=== PATIENT | male | born 1935 | race Caucasian/White ===

== ENCOUNTER 2020-08-08 16:26 | Outpatient (REF) | payer MEDICARE, SELFPAY ==
[2020-08-08 18:49] LABS: Cholesterol 164 mg/dL; HDL Cholesterol 37 mg/dL; LDL Cholesterol Calculated 52 mg/dl; Triglycerides 379 mg/dL
[2020-08-10 02:32] LABS: LDL Cholesterol Direct 87 mg/dL (<100)
== END 2020-08-08 16:27 | disposition home or self-care (01) ==
LOC: HO.LAB 16:26
PROVIDERS: PCP Internal Medicine; Visit Provider Internal Medicine Endocrinology, Diabetes & Metabolism
DX: E78.5 Hyperlipidemia, unspecified (principal)
CPT/HCPCS: 80061; 83721

== ENCOUNTER → 2020-08-15 13:18 | Outpatient (BNVA) | payer MEDICARE, SELFPAY | PROVIDERS: PCP Internal Medicine; Referring Provider Internal Medicine; Visit Provider Internal Medicine Endocrinology, Diabetes & Metabolism | DX: Z13.89 Encounter for screening for other disorder (principal) | CPT/HCPCS: 99213 ==

== ENCOUNTER 2020-08-30 15:47 | Outpatient (REF) | payer MEDICARE, SELFPAY ==
--- NOTE | 2020-08-30 15:54 | XR_ITS ---
EXAMINATION: XR CHEST CLINICAL INFORMATION: Hyperlipidemia. COMPARISON: None TECHNIQUE: 2 views of the chest were obtained. FINDINGS: The lungs are well-expanded with patchy atelectatic changes in left lung base. Heart size and pulmonary vascularity is normal. There is evidence of previous CABG. There are pacer electrodes in right atrium and right ventricle. No gross bony abnormality seen. XR/XR chest 2V IMPRESSION: Patchy atelectatic changes left lung base.
== END 2020-08-30 15:48 | disposition home or self-care (01) ==
LOC: HO.HMGCX 15:47
PROVIDERS: PCP Internal Medicine; Visit Provider Hospitalist
DX: E78.5 Hyperlipidemia, unspecified (principal)
CPT/HCPCS: 71046

== ENCOUNTER 2020-09-24 11:42 | Outpatient (REF) | payer MEDICARE, SELFPAY ==
--- NOTE | 2020-09-24 11:48 | XR_ITS ---
EXAMINATION: XR CHEST CLINICAL INFORMATION: E78.5 - Hyperlipidemia, unspecified COMPARISON: Chest radiographs 08/30/2020, 07/25/2020 TECHNIQUE: 2 views of the chest were obtained. FINDINGS: There are postsurgical changes with mediastinal clips and sternotomy wires and pacemaker with 3 leads similar to prior studies. The heart is normal in size. Tapering cardiac apex is again noted as incidental finding. The vascularity is normal. There is no lobar or segmental airspace consolidation or groundglass opacity. Some accentuated bronchovascular markings right perihilar region are stable. The hilar and mediastinal contours and bony structures are unremarkable. XR/XR chest 2V IMPRESSION: Unremarkable examination.
== END 2020-09-24 11:43 | disposition home or self-care (01) ==
LOC: HO.HMGCX 11:42
PROVIDERS: PCP Internal Medicine; Visit Provider Hospitalist
DX: Z13.89 Encounter for screening for other disorder (principal)
CPT/HCPCS: 71046

== ENCOUNTER 2020-09-24 12:23 | Outpatient (REF) | payer MEDICARE, SELFPAY ==
[2020-09-24 16:57] LABS: Influenza A PCR NEGATIVE (Negative); Influenza B PCR NEGATIVE (Negative); Resp Syncy Virus RNA Qual PCR NEGATIVE (Negative); SARS COV2 PCR INHOUSE NEGATIVE (Negative)
== END 2020-09-24 12:24 | disposition home or self-care (01) ==
LOC: HO.LAB 12:23
PROVIDERS: Visit Provider Hospitalist
DX: B34.9 Viral infection, unspecified (principal); E78.5 Hyperlipidemia, unspecified; Z20.828 Contact with and (suspected) exposure to other viral communicable diseases
CPT/HCPCS: 0241U; 71046

== ENCOUNTER 2020-10-09 16:24 | Outpatient (REF) | payer MEDICARE, SELFPAY ==
[2020-10-09 17:21] LABS: MANUAL DIFF FLAG NO
[2020-10-09 17:24] LABS: Basophils Percent Auto 0.2 % (0-2); Eosinophils Absolute Auto 0.4 X10*3/uL (0.0-0.4); Eosinophils Percent Auto 3.2 % (0-4); Hematocrit 48.7 % (42-52); Hemoglobin 15.1 g/dl (14.0-18.0); Imm Gran Abs Auto 0.04 X10*3/uL (0.00-0.03); Imm Gran Pct Auto 0.4 % (0.0-0.4); Lymphocytes Absolute Auto 1.4 X10*3/uL (1.2-4.9); Lymphocytes Percent Auto 12.8 % (20-40); Mean Corpuscular Hemoglobin 28.9 pg (27.0-33.0); Mean Corpuscular Volume 93.3 fL (80-98); Mean Platelet Volume 8.7 fL (9.4-12.4); Monocytes Absolute Auto 1.2 X10*3/uL (0.1-1.2); Monocytes Percent Auto 10.7 % (2-11); Neutrophils Absolute Auto 8.1 X10*3/uL (2.0-8.3); Neutrophils Percent Auto 72.7 % (45-73); Platelet Count 159 X10*3/uL (160-400); Red Blood Count 5.22 X10*6/uL (4.60-5.80); Red Cell Distribution Width 13.7 % (11.0-16.0); White Blood Count 11.1 X10*3/uL (4.8-10.8)
[2020-10-09 17:46] LABS: Anion Gap 12 (12-20); Carbon Dioxide 36 mmol/L (22-29); Chloride 99 mmol/L (96-108); Potassium 4.5 mmol/l (3.3-5.1); Sodium 142 mmol/L (135-145)
== END 2020-10-09 16:25 | disposition home or self-care (01) ==
LOC: HO.LAB 16:24
PROVIDERS: PCP Internal Medicine; Visit Provider Internal Medicine Hypertension Specialist
DX: E78.00 Pure hypercholesterolemia, unspecified (principal); I12.9 Hypertensive chronic kidney disease with stage 1 through stage 4 chronic kidney disease, or unspecified chronic kidney disease; N18.30 Chronic kidney disease, stage 3 unspecified
CPT/HCPCS: 36415; 80051; 85025

== ENCOUNTER 2020-12-14 14:13 | Outpatient (REF) | payer MEDICARE, SELFPAY ==
--- NOTE | ~2020-12-14 | XR_ITS ---
EXAMINATION: XR CHEST CLINICAL INFORMATION: Cough COMPARISON: 09/24/2020 TECHNIQUE: 2 views of the chest were obtained. FINDINGS: No focal consolidation or mass. Similar appearance of reticular opacities at the lung bases. 2-lead pacemaker with contiguous, intact leads, unchanged change from prior study. Sternal wires and mediastinal vascular clips. Normal heart size. Unchanged retrocardiac hiatal hernia. Normal pulmonary vascularity. No acute osseous abnormality. XR/XR chest 2V IMPRESSION: No acute pulmonary disease. No significant change from prior study.
== END 2020-12-14 14:14 | disposition home or self-care (01) ==
LOC: HO.HMGCX 14:13
PROVIDERS: PCP Internal Medicine; Visit Provider Internal Medicine
DX: R05 Cough (principal)
CPT/HCPCS: 71046

== ENCOUNTER 2021-01-09 14:04 | Outpatient (REF) | payer MEDICARE, SELFPAY ==
--- NOTE | ~2021-01-09 | XR_ITS ---
EXAMINATION: XR HAND, RIGHT CLINICAL INFORMATION: Pain COMPARISON: None TECHNIQUE: PA, lateral, and oblique views of the right hand. FINDINGS: Bone alignment is normal. No fracture or dislocation is seen. The joint spaces are normal. There is soft tissue arterial calcification. XR/XR hand RT min 3V IMPRESSION: Unremarkable exam.
== END 2021-01-09 14:05 | disposition home or self-care (01) ==
LOC: HO.HMGCX 14:04
PROVIDERS: PCP Internal Medicine; Visit Provider Hospitalist
DX: M79.641 Pain in right hand (principal)
CPT/HCPCS: 73130

== ENCOUNTER 2021-02-02 09:20 | Outpatient (REF) | payer MEDICARE, SELFPAY ==
[2021-02-02 10:43] LABS: Alanine Aminotransferase 22 U/L (0-40); Anion Gap 15 (12-20); Aspartate Amino Transferase 17 U/L (5-37); Blood Urea Nitrogen 26 mg/dL (9-16); Carbon Dioxide 30 mmol/L (22-29); Chloride 101 mmol/L (96-108); Cholesterol 185 mg/dL; Estimated Glomerular Filt Rate 45; Glucose Fasting 99 mg/dL (60-99); HDL Cholesterol 45 mg/dL; LDL Cholesterol Calculated 92 mg/dl; Potassium 4.5 mmol/L (3.3-5.1); Sodium 141 mmol/L (135-145); Triglycerides 242 mg/dL
== END 2021-02-02 09:21 | disposition home or self-care (01) ==
LOC: HO.LAB 09:20
PROVIDERS: PCP Internal Medicine; Visit Provider Internal Medicine
DX: I12.9 Hypertensive chronic kidney disease with stage 1 through stage 4 chronic kidney disease, or unspecified chronic kidney disease (principal); N18.9 Chronic kidney disease, unspecified; E78.5 Hyperlipidemia, unspecified; I25.10 Atherosclerotic heart disease of native coronary artery without angina pectoris; I73.9 Peripheral vascular disease, unspecified
CPT/HCPCS: 36415; 80048; 80061; 84450; 84460

== ENCOUNTER → 2021-02-05 15:15 | Outpatient (BNVA) | payer MEDICARE, SELFPAY | PROVIDERS: PCP Internal Medicine; Visit Provider Internal Medicine Endocrinology, Diabetes & Metabolism | DX: E78.5 Hyperlipidemia, unspecified (principal) | CPT/HCPCS: 99212 ==

== ENCOUNTER 2021-07-07 10:50 | Inpatient (IN) | payer MEDICARE, SELFPAY ==
--- NOTE | 2021-07-07 | ECG_ITS ---
Test Reason : FEVER Blood Pressure : / mmHG Vent. Rate : 098 BPM Atrial Rate : 098 BPM P-R Int : 130 ms QRS Dur : 150 ms QT Int : 406 ms P-R-T Axes : 047 -27 097 degrees QTc Int : 518 ms Atrial-sensed ventricular-paced rhythm Abnormal ECG When compared with ECG of 30-MAY-2020 07:07, Vent. rate has increased BY 11 BPM Referred By: Morena Arroyo Electronically Signed By:REINIER PUTNAM
--- NOTE | ~2021-07-07 | XR_ITS ---
EXAMINATION: XR CHEST CLINICAL INFORMATION: Hypoxia and fever COMPARISON: 12/14/2020 TECHNIQUE: Frontal view of the chest was obtained. XR/XR chest 1V FINDINGS AND IMPRESSION: There is a right pectoral region cardiac pacemaker with transvenous leads extending to the right and left ventricles. Cardiac silhouette is normal in size, status post coronary artery bypass graft surgery, with intact sternotomy wires in place. Pulmonary vessels are normal in caliber. New patchy opacities are seen in the right mid to lower lung zone. Given the history of hypoxia and fever, findings are likely caused by pneumonia. No pleural effusion, pneumothorax or other significant change.
--- NOTE | ~2021-07-07 | FL_ITS ---
EXAMINATION: XR BARIUM SWALLOW CLINICAL INFORMATION: Aspiration pneumonia. COMPARISON: None. TECHNIQUE: Routine modified barium swallow was performed in lateral projection in presence of speech therapist. FINDINGS: Following oral administration of thin, thick, solid and various consistencies of in between food-coated with barium, there is normal propagation of bolus from the oral cavity, through the pharynx and into the esophagus without laryngeal penetration or aspiration. No retention of barium seen in the valleculae or piriform sinuses. FLUOROSCOPY TIME: 1.0 minutes. DOSE AREA PRODUCT: 1.571 uGy-m2 (microgray-meter squared). FL/FL barium swallow modified IMPRESSION: Unremarkable modified barium swallow.
[2021-07-07 10:55] VITALS: BP 134/59; BP 157/79; PULSE 104; PULSE 110; RESP 20; TEMP 38.4; O2SAT 92; O2SAT 96; BMI 29.7
--- NOTE | 2021-07-07 11:33 | ED.FEVER ---
HPI - Fever General Chief Complaint: Fever Stated Complaint: fever Time Seen by Provider: 07/07/21 11:08 Source: patient and EMS Mode of arrival: EMS History of Present Illness HPI Narrative: 85-year-old male with past medical history of HTN, GERD, CAD s/p bypass, pacemaker, aspiration pneumonia, HLD, ischemic cardiomyopathy, aspiration pneumonia, BIBA for reported fever this morning 101 per daughter and generalized weakness/fatigue. Denies chills, CP, SOB, abdominal pain, nausea, vomiting, diarrhea, LE edema, recent travel, cough MD elicited complaint: fever Related Data Home Medications Medication Instructions Recorded Confirmed aspirin 81 mg tablet,delayed 81 mg PO DAILY 08/15/20 07/07/21 release (Adult Aspirin Regimen) gabapentin 300 mg capsule 300 mg PO BID cap 08/15/20 07/07/21 metoprolol succinate 50 mg 50 mg PO DAILY 08/15/20 07/07/21 tablet,extended release 24 hr thiamine HCl (vitamin B1) 50 mg 1,000 mg PO DAILY tab 08/15/20 07/07/21 tablet brimonidine 0.2 % eye drops 1 drp OPHTHALMIC-LEFT BID PRN 07/07/21 07/07/21 latanoprost 0.005 % eye drops 1 drp OPHTHALMIC (EYE) BEDTIME PRN 07/07/21 07/07/21 omeprazole 20 mg capsule,delayed 20 mg PO DAILY@0800 07/07/21 07/07/21 release Previous Rx's Medication Instructions Recorded ezetimibe 10 mg tablet 10 mg PO DAILY 90 Days #90 tab 02/05/21 niacin 500 mg tablet 500 mg PO DAILY 90 Days #90 tab 02/05/21 omega-3 fatty acids 1,000 mg 2,000 mg PO BID 90 Days #360 cap 02/05/21 capsule (Fish Oil Concentrate) isosorbide mononitrate 30 mg 30 mg PO DAILY #90 tab 06/05/21 tablet,extended release 24 hr amlodipine 10 mg tablet 10 mg PO DAILY #90 tab 07/03/21 hydrochlorothiazide 25 mg tablet 25 mg PO DAILY #90 tab 07/03/21 Allergies Allergy/AdvReac Type Severity Reaction Status Date / Time [id number] Reductase Allergy Unknown Verified 07/07/21 11:10 Inhibitor Review of Systems Review of Systems: Constitutional: + Fever, No Chills, + Fatigue, No Malaise ENT/Mouth: No Ear Pain, No sore throat, No Rhinorrhea, No Swallowing Difficulty Eyes: No Eye Pain, No Swelling, No Vision Changes Cardiovascular: No Chest Pain, No SOB, No Edema, No Palpitations Respiratory: No Cough, No Sputum, No Dyspnea Gastrointestinal: No Nausea, No Vomiting, No Diarrhea, No Constipation, No Abdominal pain Genitourinary: No Dysuria, No Urinary Frequency, No Hematuria, No Urgency, No Flank Pain Musculoskeletal: No joint pain, No Myalgias, No Joint Swelling Skin: No Skin Lesions, No rash Neuro: + Weakness, No Numbness, No Dizziness, No Headache Yes all other systems are reviewed and are negative [facility] Past Medical History Attestation statement: The following information was validated with the patient. Medical History CAD (coronary artery disease) CHF (congestive heart failure) CKD (chronic kidney disease) Dermatitis Dyslipidemia Hypertension Obesity (BMI 30-39.9) PVD (peripheral vascular disease) Surgical History History of tonsillectomy Pacemaker S/P triple vessel bypass Family History Family History Father Stomach cancer Mother Unknown family medical history Brother No problems noted. Sister Smoker Sister No problems noted. Social History Social History Household Members: Children Housing: House Do you presently have visiting nurse or other home services: No Patient Tobacco Use Status: Former Tobacco user Physical Exam Vital Signs: Vital Signs: Last Vital Signs Temp 97.6 F 07/07/21 18:08 Pulse 84 07/07/21 18:08 Resp 18 07/07/21 18:08 BP 134/78 07/07/21 18:08 Pulse Ox 94 07/07/21 18:08 Oxygen Flow Rate 3 07/07/21 10:55 Body Mass Index 29.7 Const: General: cooperative, healthy appearing and no acute distress Orientation/consciousness: patient oriented x3 Limitations: no limitations HENMT: Head: Yes normal to inspection Ears: hearing grossly normal bilaterally General nose exam: Normal external nose present Face and sinus: Yes normal facial exam Eyes: General: appearance normal, both eyes and all related structures Pupils: Equal, round and reactive pupils present EOM: EOMs intact bilaterally Neck: Neck: Yes normal visual inspection and Yes no meningeal signs Resp: Effort & Inspection: normal respiratory effort Auscultation: clear to auscultation bilaterally and no wheezes Cardio: Rate: regular rate and tachycardic Heart sounds: S1 normal heart sound present and S2 normal heart sound present GI: Inspection: Yes normal to inspection Palpation (GI): Soft to palpation, nontender, no guarding and not rigid Skin: Rashes: no rashes Wounds: no wounds Neuro: General: patient oriented x3, tone normal, moves all extremities, no meningeal signs, no focal motor deficits and CN's II-XI intact bilaterally Cranial nerves: Yes CN's II-XII intact bilaterally and Yes Equal, round and reactive pupils present Cognition (Neuro): normal cognition Motor exam (neuro): 5/5 motor strength present throughout Coordination: [id number] test normal Romberg Test: Negative Extrem: General: Yes normal to inspection and Yes no pedal edema Course Course Course Narrative: -1252--noted leukocytosis of 18.1, acute on chronic GIOVANA, lactic elevated to 2.1 >> avoiding 30mg/kg sepsis fluids to avoid fluid overload secondary to patients hypoxia -1349--COVID-19/influenza/RSV negative XR chest 1V FINDINGS AND IMPRESSION: There is a right pectoral region cardiac pacemaker with transvenous leads extending to the right and left ventricles. Cardiac silhouette is normal in size, status post coronary artery bypass graft surgery, with intact sternotomy wires in place. Pulmonary vessels are normal in caliber. New patchy opacities are seen in the right mid to lower lung zone. Given the history of hypoxia and fever, findings are likely caused by pneumonia. No pleural effusion, pneumothorax or other significant change. >> plan for admission MDM - Fever MDM Narrative Medical decision making narrative: 85-year-old male with past medical history of HTN, GERD, CAD s/p bypass, pacemaker, aspiration pneumonia, HLD, ischemic cardiomyopathy, aspiration pneumonia, BIBA for reported fever this morning 101 per daughter and generalized weakness/fatigue. On exam febrile to 101.2, tachycardic likely from fever, hypoxic 88-89% on RA increased to 94% on 3L NC, NAD/nontoxic appearing, lungs CTA, abdomen soft/nontender, no pedal edema. Concern for pneumonia/aspiration pneumonia with patient's history vs viral syndrome/COVID-19. Lower concern for PE but on differential. Plan: EKG, labs, UA, CXR, blood cultures/lactic, empiric IV antibiotics, anticipated admission Medical Records Attestation: I reviewed the patient's medical records. Lab Data Attestation: I reviewed the patient's lab results. Result diagrams: 07/07/21 11:30 07/07/21 11:30 Labs: Lab Results 07/07/21 07/07/21 07/07/21 Range/Units 11:30 11:30 11:30 WBC 18.1 H (4.8-10.8) X10*3/uL RBC 5.77 (4.60-5.80) X10*6/uL Hgb 17.0 (14.0-18.0) g/dl Hct 51.4 (42-52) % MCV 89.1 (80-98) fL MCH 29.5 (27.0-33.0) pg MCHC 33.1 (31.0-36.0) g/dl RDW 13.2 (11.0-16.0) % Plt Count 125 L (160-400) X10*3/uL MPV 8.2 L (9.4-12.4) fL Immature Gran % (Auto) 0.3 (0.0-0.4) % Neut % (Auto) 90.0 H (45-73) % Lymph % (Auto) 3.3 L (20-40) % [place] % (Auto) 5.7 (2-11) % Eos % (Auto) 0.5 (0-4) % Baso % (Auto) 0.2 (0-2) % Lymph # (Auto) 0.6 L (1.2-4.9) X10*3/uL [place] # (Auto) 1.0 (0.1-1.2) X10*3/uL Eos # (Auto) 0.1 (0.0-0.4) X10*3/uL Baso # (Auto) 0.0 (0.0-0.2) X10*3/uL Abs Immat Gran (auto) 0.06 H (0.00-0.03) X10*3/uL Absolute Neuts (auto) 16.3 H (2.0-8.3) X10*3/uL Absolute Nucleated RBC 0.000 (0.0-0.012) X10*3/uL Nucleated RBC % (auto) 0.0 (0.0-0.2) /100WBC APTT 28.9 (24.1-38.0) SEC Sodium 141 (135-145) mmol/L Potassium 4.6 (3.3-5.1) mmol/L Chloride 103 (96-108) mmol/L Carbon Dioxide 27 (22-29) mmol/L Anion Gap 16 (12-20) BUN 24 H (9-16) mg/dL Creatinine 1.62 H (0.5-1.4) mg/dL Estim Creat Clear Calc 34.4 Estimated GFR 41 Random Glucose 104 (60-115) mg/dL Lactic Acid (0.5-2.0) mmol/L Lactic Acid Fup @ 2Hr (0.5-2.0) mmol/L Calcium 9.5 (8.4-10.2) mg/dL Magnesium 1.6 (1.6-2.6) mg/dL Ferritin 26 (20-250) ng/mL Total Bilirubin 0.6 (0.0-1.0) mg/dL Direct Bilirubin 0.3 (0.0-0.5) mg/dL AST 19 (5-37) U/L ALT 17 (0-40) U/L Alkaline Phosphatase 52 (39-117) U/L Lactate Dehydrogenase 242 (118-273) U/L Troponin I High Sens (<3.5-35.0) ng/L C-Reactive Protein 2.39 H (< or = 0.50) mg/dL B-Natriuretic Peptide (<100) pg/mL Total Protein 6.8 (6.5-8.0) g/dL Albumin 4.0 (3.5-5.0) g/dL Coronavirus (PCR) (Negative) Influenza Type A (PCR) (Negative) Influenza Type B (PCR) (Negative) RSV RNA Qual (PCR) (Negative) 07/07/21 07/07/21 07/07/21 Range/Units 11:30 11:30 11:58 WBC (4.8-10.8) X10*3/uL RBC (4.60-5.80) X10*6/uL Hgb (14.0-18.0) g/dl Hct (42-52) % MCV (80-98) fL MCH (27.0-33.0) pg MCHC (31.0-36.0) g/dl RDW (11.0-16.0) % Plt Count (160-400) X10*3/uL MPV (9.4-12.4) fL Immature Gran % (Auto) (0.0-0.4) % Neut % (Auto) (45-73) % Lymph % (Auto) (20-40) % [place] % (Auto) (2-11) % Eos % (Auto) (0-4) % Baso % (Auto) (0-2) % Lymph # (Auto) (1.2-4.9) X10*3/uL [place] # (Auto) (0.1-1.2) X10*3/uL Eos # (Auto) (0.0-0.4) X10*3/uL Baso # (Auto) (0.0-0.2) X10*3/uL Abs Immat Gran (auto) (0.00-0.03) X10*3/uL Absolute Neuts (auto) (2.0-8.3) X10*3/uL Absolute Nucleated RBC (0.0-0.012) X10*3/uL Nucleated RBC % (auto) (0.0-0.2) /100WBC APTT (24.1-38.0) SEC Sodium (135-145) mmol/L Potassium (3.3-5.1) mmol/L Chloride (96-108) mmol/L Carbon Dioxide (22-29) mmol/L Anion Gap (12-20) BUN (9-16) mg/dL Creatinine (0.5-1.4) mg/dL Estim Creat Clear Calc Estimated GFR Random Glucose (60-115) mg/dL Lactic Acid 2.1 H* (0.5-2.0) mmol/L Lactic Acid Fup @ 2Hr (0.5-2.0) mmol/L Calcium (8.4-10.2) mg/dL Magnesium (1.6-2.6) mg/dL Ferritin (20-250) ng/mL Total Bilirubin (0.0-1.0) mg/dL Direct Bilirubin (0.0-0.5) mg/dL AST (5-37) U/L ALT (0-40) U/L Alkaline Phosphatase (39-117) U/L Lactate Dehydrogenase (118-273) U/L Troponin I High Sens 33.8 (<3.5-35.0) ng/L C-Reactive Protein (< or = 0.50) mg/dL B-Natriuretic Peptide (<100) pg/mL Total Protein (6.5-8.0) g/dL Albumin (3.5-5.0) g/dL Coronavirus (PCR) NEGATIVE (Negative) Influenza Type A (PCR) NEGATIVE (Negative) Influenza Type B (PCR) NEGATIVE (Negative) RSV RNA Qual (PCR) NEGATIVE (Negative) 07/07/21 07/07/21 Range/Units 11:58 14:15 WBC (4.8-10.8) X10*3/uL RBC (4.60-5.80) X10*6/uL Hgb (14.0-18.0) g/dl Hct (42-52) % MCV (80-98) fL MCH (27.0-33.0) pg MCHC (31.0-36.0) g/dl RDW (11.0-16.0) % Plt Count (160-400) X10*3/uL MPV (9.4-12.4) fL Immature Gran % (Auto) (0.0-0.4) % Neut % (Auto) (45-73) % Lymph % (Auto) (20-40) % [place] % (Auto) (2-11) % Eos % (Auto) (0-4) % Baso % (Auto) (0-2) % Lymph # (Auto) (1.2-4.9) X10*3/uL [place] # (Auto) (0.1-1.2) X10*3/uL Eos # (Auto) (0.0-0.4) X10*3/uL Baso # (Auto) (0.0-0.2) X10*3/uL Abs Immat Gran (auto) (0.00-0.03) X10*3/uL Absolute Neuts (auto) (2.0-8.3) X10*3/uL Absolute Nucleated RBC (0.0-0.012) X10*3/uL Nucleated RBC % (auto) (0.0-0.2) /100WBC APTT (24.1-38.0) SEC Sodium (135-145) mmol/L Potassium (3.3-5.1) mmol/L Chloride (96-108) mmol/L Carbon Dioxide (22-29) mmol/L Anion Gap (12-20) BUN (9-16) mg/dL Creatinine (0.5-1.4) mg/dL Estim Creat Clear Calc Estimated GFR Random Glucose (60-115) mg/dL Lactic Acid (0.5-2.0) mmol/L Lactic Acid Fup @ 2Hr 2.0 (0.5-2.0) mmol/L Calcium (8.4-10.2) mg/dL Magnesium (1.6-2.6) mg/dL Ferritin (20-250) ng/mL Total Bilirubin (0.0-1.0) mg/dL Direct Bilirubin (0.0-0.5) mg/dL AST (5-37) U/L ALT (0-40) U/L Alkaline Phosphatase (39-117) U/L Lactate Dehydrogenase (118-273) U/L Troponin I High Sens (<3.5-35.0) ng/L C-Reactive Protein (< or = 0.50) mg/dL B-Natriuretic Peptide 144 H (<100) pg/mL Total Protein (6.5-8.0) g/dL Albumin (3.5-5.0) g/dL Coronavirus (PCR) (Negative) Influenza Type A (PCR) (Negative) Influenza Type B (PCR) (Negative) RSV RNA Qual (PCR) (Negative) Discharge Plan Discharge Clinical Impression: Aspiration pneumonia Qualifiers: Aspiration pneumonia type: unspecified Laterality: right Lung location: middle lobe of lung Qualified Code(s): J69.0 - Pneumonitis due to inhalation of food and vomit Patient Disposition: Admitted As Inpatient Interventions: Admission Worksheet (ED) Last Done: 07/07/21 17:54 Discharge Date/Time: 07/07/21 17:57
[2021-07-07 11:36] LABS: MANUAL DIFF FLAG NO
[2021-07-07] MEDS: 0.9 % Sodium Chloride 500 ML 999 ML IV ×2 (11:36→14:13)
[2021-07-07 11:37] LABS: Basophils Percent Auto 0.2 % (0-2); Eosinophils Absolute Auto 0.1 X10*3/uL (0.0-0.4); Eosinophils Percent Auto 0.5 % (0-4); Hematocrit 51.4 % (42-52); Imm Gran Abs Auto 0.06 X10*3/uL (0.00-0.03); Imm Gran Pct Auto 0.3 % (0.0-0.4); Lymphocytes Absolute Auto 0.6 X10*3/uL (1.2-4.9); Lymphocytes Percent Auto 3.3 % (20-40); Mean Corpuscular HGB Conc 33.1 g/dl (31.0-36.0); Mean Corpuscular Hemoglobin 29.5 pg (27.0-33.0); Mean Corpuscular Volume 89.1 fL (80-98); Mean Platelet Volume 8.2 fL (9.4-12.4); Monocytes Percent Auto 5.7 % (2-11); Neutrophils Absolute Auto 16.3 X10*3/uL (2.0-8.3); Platelet Count 125 X10*3/uL (160-400); Red Blood Count 5.77 X10*6/uL (4.60-5.80); Red Cell Distribution Width 13.2 % (11.0-16.0); White Blood Count 18.1 X10*3/uL (4.8-10.8)
[2021-07-07] MEDS: Acetaminophen 325 MG TABLET 650 MG PO (11:37)
--- NOTE | 2021-07-07 11:39 | PC.NURSE ---
IV established, labs sent, v paced on tele rate 90-low 100s. sat 94-96% on 3lpm via nc, pt denies sob. Skin is hot, flushed. Fluids infusing and tylenol given for fever control.
[2021-07-07 11:50] LABS: Partial Thromboplastin Time 28.9 SEC (24.1-38.0)
[2021-07-07 12:04] LABS: Alanine Aminotransferase 17 U/L (0-40); Alkaline Phosphatase 52 U/L (39-117); Anion Gap 16 (12-20); Aspartate Amino Transferase 19 U/L (5-37); Bilirubin Direct 0.3 mg/dL (0.0-0.5); Bilirubin Total 0.6 mg/dL (0.0-1.0); Blood Urea Nitrogen 24 mg/dL (9-16); Calcium 9.5 mg/dL (8.4-10.2); Carbon Dioxide 27 mmol/L (22-29); Chloride 103 mmol/L (96-108); Creatinine Clr Calc Pharmacy 34.4; Estimated Glomerular Filt Rate 41; Glucose Random 104 mg/dL (60-115); Magnesium 1.6 mg/dL (1.6-2.6); Potassium 4.6 mmol/L (3.3-5.1); Sodium 141 mmol/L (135-145); Total Protein 6.8 g/dL (6.5-8.0)
[2021-07-07 12:07] LABS: Troponin-I High Sensitivity 33.8 ng/L (<3.5-35.0)
[2021-07-07] MEDS: Piperacillin Sodium/Tazobactam 3.375 GM in 0.9 % Sodium Chloride 50 ML IV ×3 (12:29→23:31)
[2021-07-07 12:30] VITALS: BP 120/58; PULSE 86; RESP 18; TEMP 38; O2SAT 95
[2021-07-07 12:35] LABS: B Type Natriuretic Peptide 144 pg/mL (<100)
[2021-07-07 12:36] LABS: Lactic Acid 2.1 mmol/L (0.5-2.0)
[2021-07-07 12:40] LABS: Influenza A PCR NEGATIVE (Negative); Influenza B PCR NEGATIVE (Negative); Resp Syncy Virus RNA Qual PCR NEGATIVE (Negative); SARS COV2 PCR INHOUSE NEGATIVE (Negative)
[2021-07-07 12:47] LABS: C Reactive Protein 2.39 mg/dL (< or = 0.50); Lactate Dehydrogenase 242 U/L (118-273)
[2021-07-07 13:08] LABS: Ferritin 26 ng/mL (20-250)
--- NOTE | 2021-07-07 13:37 | PHA.MEDREC ---
Pharmacy Consult ? Medication Reconciliation Pharmacy has completed the medication reconciliation. Patient reports still using his eye drops whenever he feels like it. There is no claim history for the eye drops. Sabiha Dunlap, AlejandraD
[2021-07-07 14:00] VITALS: BP 124/55; PULSE 82; RESP 16; O2SAT 96
[2021-07-07 14:02] LABS: Reflex Lactate? Lactic Acid Added
--- NOTE | 2021-07-07 15:21 | PM.IMHP ---
History of Present Illness Date of Service: 07/07/21 Chief Complaint: Fever in generalized weakness 85-year-old gentleman past medical history significant for coronary artery disease, chronic kidney disease, CHF who lives at home with son and granddaughter, was noted to have significant weakness this morning unable to get out of bed and stand up, also noted to be febrile, therefore daughter in law called the ambulance and brought him to the emergency room, chest x-ray showed right-sided pneumonia, at present patient feels better but still feels weak, denies chills, he started with cough last night, denies any sick contacts, no recent travel, not on home oxygen, patient has history of recurrent aspiration pneumonia, due to fever leukocytosis lactic acidosis patient will be admitted to [facility] with a diagnosis of sepsis due to pneumonia. Review of Systems Review of Systems: General no headache no dizzines. CVS no chest pain, no palpitation. Respiratory cough no sob. Gastrointestinal no nausea no vomiting, no abdominal pain skin no rash Musculoskeletal no pain Yes all other systems are reviewed and are negative [facility] Medical History CAD (coronary artery disease) CHF (congestive heart failure) CKD (chronic kidney disease) Dermatitis Dyslipidemia Hypertension Obesity (BMI 30-39.9) PVD (peripheral vascular disease) Functional capacity: uses cane/walker Family History Father Stomach cancer Mother Unknown family medical history Brother No problems noted. Sister Smoker Sister No problems noted. Surgical History History of tonsillectomy Pacemaker S/P triple vessel bypass Social History Patient Tobacco Use Status: Former Tobacco user Use of substances other than those prescribed or required for medical reasons: No Advance Directives: No Advance Directives Information Provided: No Ebola Risk: Travel/Contact With Anyone From Affected Area/s: No Meds Allergies Allergy/AdvReac Type Severity Reaction Status Date / Time Mxriawh-Ivp-Tew Reductase Allergy Unknown Verified 07/07/21 11:10 Inhibitor Active Medications: Current Medications Generic Name Dose Route Start Last Admin Trade Name Freq PRN Reason Stop Dose Admin Acetaminophen 650 mg 07/07/21 15:14 Acetaminophen 325 Mg Tablet PO Q6H PRN Pain, Mild (Pain Scale 1-3) Guaifenesin/Dextromethorphan 10 ml 07/07/21 17:00 Guaifenesin Dm 100/10/5 Ml 5 Ml Syrup PO QID [facility] Heparin Sodium (Porcine) 5,000 unit 07/07/21 17:00 Heparin Sodium,Porcine 5,000 Unit/Ml Vial SUBCUT Q12H [facility] Piperacillin Sod/Tazobactam 50 mls @ 100 mls/hr 07/07/21 15:15 Sod 2.25 gm/ Sodium Chloride IV Q6H FANNY Ondansetron HCl 4 mg 07/07/21 15:14 Ondansetron Hcl 4 Mg/2 Ml Vial IVPUSH Q8H PRN Nausea and Vomiting Pharmacy Consult 1 each 07/07/21 11:32 Consult Rx Perform Med Rec MISCELLANE ONCE PRN Consult order Sodium Chloride 3 ml 07/07/21 16:00 0.9 % Sodium Chloride Flush 3 Ml Syringe IVFLUSH QSHIFT [facility] Home Medications Medication Instructions Recorded Confirmed Last Taken Type aspirin 81 mg tablet,delayed 81 mg PO DAILY 08/15/20 07/07/21 07/06/21 History release (Adult Aspirin Regimen) gabapentin 300 mg capsule 300 mg PO BID cap 08/15/20 07/07/21 07/06/21 History metoprolol succinate 50 mg 50 mg PO DAILY 08/15/20 07/07/21 07/06/21 History tablet,extended release 24 hr thiamine HCl (vitamin B1) 50 mg 1,000 mg PO DAILY tab 08/15/20 07/07/21 07/06/21 History tablet brimonidine 0.2 % eye drops 1 drp OPHTHALMIC-LEFT BID PRN 07/07/21 07/07/21 Unknown History latanoprost 0.005 % eye drops 1 drp OPHTHALMIC (EYE) BEDTIME PRN 07/07/21 07/07/21 Unknown History omeprazole 20 mg capsule,delayed 20 mg PO DAILY@0800 07/07/21 07/07/21 07/06/21 History release Physical Exam Vital Signs and Narrative: Vital Signs: Last Vital Signs Temp 100.4 F 07/07/21 12:30 Pulse 82 07/07/21 14:00 Resp 16 07/07/21 14:00 BP 124/55 L 07/07/21 14:00 Pulse Ox 96 07/07/21 14:00 Oxygen Flow Rate 3 07/07/21 10:55 Body Mass Index 29.7 General alert oriented x3,no acute distress. Neck is supple no JVD. CVS regular rate rhythm, no murmurs Right anterior chest wall pacemaker in place, no erythema or tenderness Respiratory lungs right basilar rhonchi, no respiratory distress, no wheeze, no use of accessory muscles Gastrointestinal abdomen soft, nontender, bowel sounds audible, no guarding , no rigidity. Extremities no clubbing cyanosis or edema. Neuro nonfocal ,speech clear. Skin no rash Psych appropriate affect Results Labs CBC and Chem 7: 07/07/21 11:30 07/07/21 11:30 Labs: Laboratory Results - last 24 hr 07/07/21 07/07/21 07/07/21 11:30 11:30 11:30 MCV 89.1 MCH 29.5 MCHC 33.1 RDW 13.2 Plt Count 125 L MPV 8.2 L Immature Gran % (Auto) 0.3 Neut % (Auto) 90.0 H Lymph % (Auto) 3.3 L [place] % (Auto) 5.7 Eos % (Auto) 0.5 Baso % (Auto) 0.2 Lymph # (Auto) 0.6 L [place] # (Auto) 1.0 Eos # (Auto) 0.1 Baso # (Auto) 0.0 Abs Immat Gran (auto) 0.06 H Absolute Neuts (auto) 16.3 H Absolute Nucleated RBC 0.000 Nucleated RBC % (auto) 0.0 APTT 28.9 Anion Gap 16 Estim Creat Clear Calc 34.4 Estimated GFR 41 Random Glucose 104 Lactic Acid Lactic Acid Fup @ 2Hr Calcium 9.5 Magnesium 1.6 Ferritin 26 Total Bilirubin 0.6 Direct Bilirubin 0.3 AST 19 ALT 17 Alkaline Phosphatase 52 Lactate Dehydrogenase 242 Troponin I High Sens C-Reactive Protein 2.39 H B-Natriuretic Peptide Total Protein 6.8 Albumin 4.0 Coronavirus (PCR) Influenza Type A (PCR) Influenza Type B (PCR) RSV RNA Qual (PCR) 07/07/21 07/07/21 07/07/21 11:30 11:30 11:58 MCV MCH MCHC RDW Plt Count MPV Immature Gran % (Auto) Neut % (Auto) Lymph % (Auto) [place] % (Auto) Eos % (Auto) Baso % (Auto) Lymph # (Auto) [place] # (Auto) Eos # (Auto) Baso # (Auto) Abs Immat Gran (auto) Absolute Neuts (auto) Absolute Nucleated RBC Nucleated RBC % (auto) APTT Anion Gap Estim Creat Clear Calc Estimated GFR Random Glucose Lactic Acid 2.1 H* Lactic Acid Fup @ 2Hr Calcium Magnesium Ferritin Total Bilirubin Direct Bilirubin AST ALT Alkaline Phosphatase Lactate Dehydrogenase Troponin I High Sens 33.8 C-Reactive Protein B-Natriuretic Peptide Total Protein Albumin Coronavirus (PCR) NEGATIVE Influenza Type A (PCR) NEGATIVE Influenza Type B (PCR) NEGATIVE RSV RNA Qual (PCR) NEGATIVE 07/07/21 07/07/21 11:58 14:15 MCV MCH MCHC RDW Plt Count MPV Immature Gran % (Auto) Neut % (Auto) Lymph % (Auto) [place] % (Auto) Eos % (Auto) Baso % (Auto) Lymph # (Auto) [place] # (Auto) Eos # (Auto) Baso # (Auto) Abs Immat Gran (auto) Absolute Neuts (auto) Absolute Nucleated RBC Nucleated RBC % (auto) APTT Anion Gap Estim Creat Clear Calc Estimated GFR Random Glucose Lactic Acid Lactic Acid Fup @ 2Hr 2.0 Calcium Magnesium Ferritin Total Bilirubin Direct Bilirubin AST ALT Alkaline Phosphatase Lactate Dehydrogenase Troponin I High Sens C-Reactive Protein B-Natriuretic Peptide 144 H Total Protein Albumin Coronavirus (PCR) Influenza Type A (PCR) Influenza Type B (PCR) RSV RNA Qual (PCR) Imaging Radiologist's Impressions: Impressions Chest X-Ray 07/07/21 13:28 FINDINGS AND IMPRESSION: There is a right pectoral region cardiac pacemaker with transvenous leads extending to the right and left ventricles. Cardiac silhouette is normal in size, status post coronary artery bypass graft surgery, with intact sternotomy wires in place. Pulmonary vessels are normal in caliber. New patchy opacities are seen in the right mid to lower lung zone. Given the history of hypoxia and fever, findings are likely caused by pneumonia. No pleural effusion, pneumothorax or other significant change. Assessment and Plan (1) Aspiration pneumonia: Qualifiers: Aspiration pneumonia type: unspecified Laterality: right Lung location: middle lobe of lung Qualified Code(s): J69.0 - Pneumonitis due to inhalation of food and vomit Status: Acute (2) Hypertension: Qualifiers: Hypertension type: essential hypertension Qualified Code(s): I10 - Essential (primary) hypertension Status: Acute (3) CAD (coronary artery disease): Qualifiers: Coronary Disease-Associated Artery/Lesion type: [place] artery [place] vs. transplanted heart: [place] heart Associated angina: without angina Qualified Code(s): I25.10 - Atherosclerotic heart disease of [place] coronary artery without angina pectoris Status: Acute (4) CKD (chronic kidney disease): Status: Acute (5) Dyslipidemia: Status: Acute (6) Sepsis: Status: Acute 85-year-old male with past medical history hypertension GERD coronary artery disease status post bypass, pacemaker, history of aspiration pneumonia, history of ischemic cardiomyopathy was brought into [facility] due to generalized weakness and fever and diagnosed to have sepsis with pneumonia Sepsis with right-sided pneumonia Symptoms started overnight with cough, weakness and fever, patient met sepsis criteria due to fever, leukocytosis and lactic acidosis, no hypoxia Admitted to medical floor, continue IV Zosyn to cover anaerobes, add schedule cough medication, oxygen to keep finger oximetry greater than 94 Follow 2 set of blood cultures and lactic acid Follow BMP and CBC Coronary artery disease Stable, continue home medication, amlodipine, isosorbide and metoprolol, hold hydrochlorothiazide avoid hypotension, paced rhythm. Chronic kidney disease stable DVT prophylaxis place on Lovenox Code status full code Quality Stroke Does the patient have a stroke diagnosis?: No VTE Prior VTE?: No VTE Risk Level:: Medical - moderate - high VTE Device Contraindication: Treatment Not Indicated VTE Drug Contraindication: N/A - Med Ordered
[2021-07-07 15:55] VITALS: BP 131/65; PULSE 80; RESP 16; TEMP 37.6; O2SAT 98
--- NOTE | 2021-07-07 17:34 | PC.NURSE ---
Report given to M/S RN.
[2021-07-07 18:08] VITALS: BP 134/78; PULSE 84; RESP 18; TEMP 36.4; O2SAT 94
[2021-07-07] MEDS: Heparin Sodium,Porcine 5,000 UNIT/ML VIAL 5000 UNIT SUBCUT (18:29)
[2021-07-07] MEDS: guaiFENesin DM 100/10/5 ML 5 ML SYRUP 10 ML PO ×2 (18:29→19:26)
[2021-07-07] MEDS: 0.9 % Sodium Chloride Flush 3 ML SYRINGE IVFLUSH ×3 (18:29→23:31)
[2021-07-07] MEDS: Gabapentin 300 MG CAPSULE PO (19:26)
[2021-07-07 19:40] VITALS: BMI 29.2
[2021-07-08] VITALS (9 sets, daily range): BP systolic 123–157; BP diastolic 65–79; PULSE 73–83; RESP 16–20; TEMP 36.2–37.6; O2SAT 91–94
[2021-07-08 05:51] LABS: MANUAL DIFF FLAG NO
[2021-07-08 05:55] LABS: Basophils Percent Auto 0.2 % (0-2); Eosinophils Absolute Auto 0.2 X10*3/uL (0.0-0.4); Eosinophils Percent Auto 1.1 % (0-4); Hematocrit 44.6 % (42-52); Hemoglobin 14.3 g/dl (14.0-18.0); Imm Gran Abs Auto 0.05 X10*3/uL (0.00-0.03); Imm Gran Pct Auto 0.3 % (0.0-0.4); Mean Corpuscular HGB Conc 32.1 g/dl (31.0-36.0); Mean Corpuscular Hemoglobin 29.1 pg (27.0-33.0); Mean Corpuscular Volume 90.7 fL (80-98); Mean Platelet Volume 8.8 fL (9.4-12.4); Monocytes Percent Auto 7.1 % (2-11); Neutrophils Absolute Auto 12.3 X10*3/uL (2.0-8.3); Neutrophils Percent Auto 84.3 % (45-73); Red Blood Count 4.92 X10*6/uL (4.60-5.80); Red Cell Distribution Width 13.4 % (11.0-16.0); White Blood Count 14.6 X10*3/uL (4.8-10.8)
[2021-07-08 06:15] LABS: Platelet Count 98 X10*3/uL (160-400)
[2021-07-08] MEDS: Heparin Sodium,Porcine 5,000 UNIT/ML VIAL 5000 UNIT SUBCUT ×2 (06:24→17:18)
[2021-07-08] MEDS: Piperacillin Sodium/Tazobactam 3.375 GM in 0.9 % Sodium Chloride 50 ML IV ×3 (06:24→19:28)
[2021-07-08 06:36] LABS: Anion Gap 13 (12-20); Blood Urea Nitrogen 24 mg/dL (9-16); Calcium 8.3 mg/dL (8.4-10.2); Carbon Dioxide 27 mmol/L (22-29); Chloride 105 mmol/L (96-108); Creatinine Clr Calc Pharmacy 35.2; Estimated Glomerular Filt Rate 42; Glucose Random 95 mg/dL (60-115); Potassium 4.2 mmol/L (3.3-5.1); Sodium 141 mmol/L (135-145)
[2021-07-08] MEDS: Isosorbide Mononitrate 30 MG TAB.ER.24H PO (08:17)
[2021-07-08] MEDS: Metoprolol Succinate ER 50 MG TAB.ER.24H PO (08:17)
[2021-07-08] MEDS: Ezetimibe 10 MG TABLET PO (08:17)
[2021-07-08] MEDS: guaiFENesin DM 100/10/5 ML 5 ML SYRUP 10 ML PO ×4 (08:17→20:14)
[2021-07-08] MEDS: Gabapentin 300 MG CAPSULE PO ×2 (08:17→19:28)
[2021-07-08] MEDS: Omeprazole 20 MG CAPSULE.DR PO (08:17)
[2021-07-08] MEDS: Aspirin Enteric Coated 81 MG TABLET.DR PO (08:17)
[2021-07-08] MEDS: amLODIPine Besylate 10 MG TABLET PO (08:17)
[2021-07-08] MEDS: 0.9 % Sodium Chloride Flush 3 ML SYRINGE IVFLUSH ×3 (08:18→20:16)
--- NOTE | 2021-07-08 09:29 | MHC.CM.PN ---
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 D/C PLAN: HOME SELF-CARE, SON OR DTR IN LAW TO TRANSPORT. PCP: SHAUN WILKS SURROGATE/POA: RODNEY SHEPARD [phone] ALTERNATE: JANETT SHEPARD [phone],
[2021-07-08 09:53] LABS: Procalcitonin 0.57 ng/mL
--- NOTE | 2021-07-08 11:42 | MHC.SL.SWA ---
Speech Pathologist Impression: Risk of Aspiration Oralpharyngeal Dysphagia Risk of Aspiration Due to: History of Pneumonia Dysphasia Diet Status: Downgrade Liquid Consistency and Strategies for Safe Swallow: Liquid Intake Recommendation: Thin Liquid Intake Strategies: Small Sips No Straws Solid Food Consistency: Dietary Recommendations: Chopped/Advanced (NDD3) Additional Modifications to Solid Foods: Recommend CHOPPED/ADVANCED (NDD3) solids and THIN liquids with pills WHOLE in PUREE. Patient is recommended aspiration precautions: no straws, upright 90 degree position when eating/drinking, small bites/sips, moisten food with sauce/gravy, alternate bite of food with sip of liquid. TENDER COORDINATOR will continue to follow. Oral Medication Intake: Whole with Puree Compensatory Strategies and Precautions to be Taken for Safe Swallow: Sitting Upright (90 deg) No Straw Small Bites and Sips Alternate Liquids/Solids Rate of Ingestion Change Supervision While Eating and Drinking for Safe Swallow: Intermittent Supervision Swallowing Recommended Treatments: Compens. Strategy Educat. Recommendation for Speech: Inpatient Speech Therapy Modified Barium Swallow Study - Inpatient Modified Barium Swallow Study - Outpatient Comment: Recommend intermittent supervision and aspiration precautions. No overt s/s of aspiration at bedside. Given history of aspiration pneumonia, patient may benefit from MBSS during inpatient stay or in outpatient setting to rule in/out silent aspiration. Title I Paraprofessional Clinican/Clinical Fellow: No Supervisory Statement: I have reviewed and agree with the student/clinical fellow's documentation: N/A Speech Language Pathologist: Jocelyne Martinez M.A., [facility]-TENDER COORDINATOR
--- NOTE | 2021-07-08 13:04 | MHC.CM.PN ---
cm received call from pt's dtr Faye who is HCP/POA, per dtr pt is supposed to move into Assisted Living at [facility] the [facility] in [place] on 07/15/21, pt is unaware of plan, although pt declined pt's dtr requesting VNA for pt and referral for HVNA will be placed, pt's dtr is aware we will need new HCP/POA brought in and per dtr pt will be in to visit [facility] and will bring documents, dtr instructed to give items to dehydration unit operator. Pt's dtr also requesting TB blood test if possible, pt was supposed to have one drawn prior to move into Assisted Living. CM will request from doctor.
--- NOTE | 2021-07-08 16:38 | HO.PM.IMPN ---
Subjective Subjective Date of Service: 07/08/21 Interval History: cough improved fever resolved no chest pain Physical Exam Vital Signs: Vital Signs: Last Vital Signs Temp 98.5 F 07/08/21 15:39 Pulse 73 07/08/21 15:39 Resp 19 07/08/21 15:39 BP 125/79 07/08/21 15:39 Pulse Ox 91 L 07/08/21 15:39 Oxygen Flow Rate 3 07/07/21 10:55 Body Mass Index 29.2 Gen: in no acute distress HEENT: sclera anicteric, moist mucus membranes Neck: supple Lungs: diminished R side with a few insp crackles Heart: regular rate and rhythm, no murmurs Abd: soft, non-tender, non-distended Ext: no edema Skin: warm/well-perfused Neuro: alert and oriented x3, no focal findings Psych: appropriate affect Objective Data Active Medications Acetaminophen (Acetaminophen 325 Mg Tablet) 650 mg PO Q6H PRN PRN Reason: Pain, Mild (Pain Scale 1-3) Amlodipine Besylate (Amlodipine Besylate 10 Mg Tablet) 10 mg PO DAILY [facility]; Protocol Last Admin: 07/08/21 08:17 Dose: 10 mg Documented by: JEWEL Aspirin (Aspirin Enteric Coated 81 Mg Tablet.) 81 mg PO DAILY [facility] Last Admin: 07/08/21 08:17 Dose: 81 mg Documented by: JEWEL Brimonidine Tartrate (Brimonidine Tartrate 0.2% Oph 5 Ml Bottle) 1 drop EYE-LEFT BID PRN PRN Reason: WHEN EVER HE FEELS LIKE IT Ezetimibe (Ezetimibe 10 Mg Tablet) 10 mg PO DAILY [facility] Last Admin: 07/08/21 08:17 Dose: 10 mg Documented by: JEWEL Gabapentin (Gabapentin 300 Mg Capsule) 300 mg PO BID [facility] Last Admin: 07/08/21 08:17 Dose: 300 mg Documented by: JEWEL Guaifenesin/Dextromethorphan (Guaifenesin Dm 100/10/5 Ml 5 Ml Syrup) 10 ml PO QID [facility] Last Admin: 07/08/21 12:42 Dose: 10 ml Documented by: JEWEL Heparin Sodium (Porcine) (Heparin Sodium,Porcine 5,000 Unit/Ml Vial) 5,000 unit SUBCUT Q12H [facility] Last Admin: 07/08/21 06:24 Dose: 5,000 unit Documented by: ALBERT Piperacillin Sod/Tazobactam (Sod 3.375 gm/ Sodium Chloride) 50 mls @ 100 mls/hr IV Q6H [facility] Last Infusion: 07/08/21 13:26 Dose: 0 mls/hr Documented by: JEWEL Isosorbide Mononitrate (Isosorbide Mononitrate 30 Mg Tab.Er.24h) 30 mg PO DAILY [facility]; Protocol Last Admin: 07/08/21 08:17 Dose: 30 mg Documented by: JEWEL Latanoprost (Latanoprost 0.005 % Ophth Susanna 2.5 Ml Drops) 1 drop EYE-BOTH BEDTIME PRN PRN Reason: WHEN EVER HE FEELS LIKE IT Metoprolol Succinate (Metoprolol Succinate Er 50 Mg Tab.Er.24h) 50 mg PO DAILY [facility]; Protocol Last Admin: 07/08/21 08:17 Dose: 50 mg Documented by: JEWEL Omeprazole (Omeprazole 20 Mg Capsule.) 20 mg PO DAILY@0800 [facility] Last Admin: 07/08/21 08:17 Dose: 20 mg Documented by: JEWEL Ondansetron HCl (Ondansetron Hcl 4 Mg/2 Ml Vial) 4 mg IVPUSH Q8H PRN PRN Reason: Nausea and Vomiting Pharmacy Consult (Consult Rx Perform Med Rec) 1 each MISCELLANE ONCE PRN PRN Reason: Consult order Sodium Chloride (0.9 % Sodium Chloride Flush 3 Ml Syringe) 3 ml IVFLUSH QSHIFT [facility] Last Admin: 07/08/21 08:18 Dose: 3 ml Documented by: JEWEL Thiamine HCl (Thiamine Hcl 100 Mg Tablet) 100 mg PO DAILY [facility] Labs CBC & Chem 7: 07/08/21 05:39 07/08/21 05:39 Labs: Laboratory Results - last 24 hr 07/08/21 07/08/21 07/08/21 05:39 05:39 05:39 MCV 90.7 MCH 29.1 MCHC 32.1 RDW 13.4 Plt Count 98 L MPV 8.8 L Immature Gran % (Auto) 0.3 Neut % (Auto) 84.3 H Lymph % (Auto) 7.0 L [place] % (Auto) 7.1 Eos % (Auto) 1.1 Baso % (Auto) 0.2 Lymph # (Auto) 1.0 L [place] # (Auto) 1.0 Eos # (Auto) 0.2 Baso # (Auto) 0.0 Abs Immat Gran (auto) 0.05 H Absolute Neuts (auto) 12.3 H Absolute Nucleated RBC 0.000 Nucleated RBC % (auto) 0.0 Anion Gap 13 Estim Creat Clear Calc 35.2 Estimated GFR 42 Random Glucose 95 Calcium 8.3 L D Procalcitonin 0.57 Microbiology Microbiology Results: Microbiology 07/07/21 11:57 Blood Culture - Preliminary Blood - Venous No growth after 24 hours. 07/07/21 11:30 Blood Culture - Preliminary Blood - Venous No growth after 24 hours. Assessment and Plan (1) Sepsis: Status: Acute (2) Pneumonia: Status: Acute Assessment and Plan: hospital d#2 85yo M with HTN, CAD s/p CABG, PPM, ischemic CM, CKD, hx aspiration PNA admitted for sepsis from PNA # sepsis due to PNA, suspected aspiration - continue piperacillin/tazobactam d#2, follow BCx, tend BCx - per EQUITY RESEARCH ANALYST, NDD3 solids + thin liquids and will obtain MBSS # CAD # ischemic CM - continue Imdur, metoprolol, ezetimibe # HTN - continue Imdur, metoprolol, amlodipine # CKD3 - SCr stable, avoid nephrotoxins # VTE ppx - LMWH Quality Stroke Does the patient have a stroke diagnosis?: No VTE Prior VTE?: No VTE Risk Level:: Medical - moderate - high VTE Device Contraindication: Treatment Not Indicated VTE Drug Contraindication: N/A - Med Ordered
[2021-07-09] VITALS (8 sets, daily range): BP systolic 120–173; BP diastolic 62–76; PULSE 68–87; RESP 12–20; TEMP 36.4–36.9; O2SAT 81–95
[2021-07-09] MEDS: Piperacillin Sodium/Tazobactam 3.375 GM in 0.9 % Sodium Chloride 50 ML IV ×4 (00:43→19:23)
[2021-07-09] MEDS: Heparin Sodium,Porcine 5,000 UNIT/ML VIAL 5000 UNIT SUBCUT ×2 (06:03→16:59)
[2021-07-09 07:09] LABS: Hematocrit 42.1 % (42-52); Hemoglobin 13.5 g/dl (14.0-18.0); Mean Corpuscular HGB Conc 32.1 g/dl (31.0-36.0); Mean Corpuscular Hemoglobin 29.5 pg (27.0-33.0); Mean Corpuscular Volume 91.9 fL (80-98); Mean Platelet Volume 8.8 fL (9.4-12.4); Platelet Count 109 X10*3/uL (160-400); Red Blood Count 4.58 X10*6/uL (4.60-5.80); Red Cell Distribution Width 13.4 % (11.0-16.0); White Blood Count 10.8 X10*3/uL (4.8-10.8)
[2021-07-09 07:50] LABS: Anion Gap 11 (12-20); Blood Urea Nitrogen 20 mg/dL (9-16); Calcium 8.3 mg/dL (8.4-10.2); Carbon Dioxide 28 mmol/L (22-29); Chloride 104 mmol/L (96-108); Creatinine Clr Calc Pharmacy 36.8; Estimated Glomerular Filt Rate 45; Glucose Random 92 mg/dL (60-115); Potassium 4.3 mmol/L (3.3-5.1); Sodium 139 mmol/L (135-145)
[2021-07-09] MEDS: Metoprolol Succinate ER 50 MG TAB.ER.24H PO (08:45)
[2021-07-09] MEDS: Aspirin Enteric Coated 81 MG TABLET.DR PO (08:45)
[2021-07-09] MEDS: Isosorbide Mononitrate 30 MG TAB.ER.24H PO (08:45)
[2021-07-09] MEDS: Ezetimibe 10 MG TABLET PO (08:45)
[2021-07-09] MEDS: Gabapentin 300 MG CAPSULE PO ×2 (08:45→19:23)
[2021-07-09] MEDS: amLODIPine Besylate 10 MG TABLET PO (08:46)
[2021-07-09] MEDS: Omeprazole 20 MG CAPSULE.DR PO (08:46)
[2021-07-09] MEDS: Thiamine HCL 100 MG TABLET PO (08:46)
[2021-07-09] MEDS: guaiFENesin DM 100/10/5 ML 5 ML SYRUP 10 ML PO ×4 (08:54→19:23)
[2021-07-09] MEDS: 0.9 % Sodium Chloride Flush 3 ML SYRINGE IVFLUSH ×2 (08:55→17:08)
--- NOTE | 2021-07-09 09:12 | MHC.SLORD ---
Speech Language Pathology Order Status: Patient is scheduled for MBSS today at 1pm.
--- NOTE | 2021-07-09 12:20 | MHC.CDI.CONC ---
CDI Concurrent Query Documentation Clarification: PHYSICIAN'S DOCUMENTATION REQUEST Date of Query: 07/09/21 1221 Patient Name: Cory Deal Admit Date: 07/07/21 Dear Doctor, A review of the medical record indicates additional documentation may be needed. Please review below and update the documentation accordingly. Chronic diastolic and/or systolic Congestive heart failure Acute on chronic diastolic and/or systolic Congestive heart failure Other please specify if known or undetermined Risk Factors/Clinical Indicators/Treatments ED: 07/07 - PMH Congestive heart failure H&P: CHF BNP 144 H Please clarify the following: [Diagnosis] was present on admission and is now resolved [Diagnosis] was present on admission and is still being monitored, evaluated, or treated [Diagnosis] was ruled out [Diagnosis] is still a likely, suspected, probable diagnosis Other ? please specify Unable to determine Use of terms such as suspected, likely, concern for, or probable (associated with a specific diagnosis that is being evaluated, monitored, or treated as if it exists) are acceptable and can be coded in the inpatient setting, when documented at the time of discharge. Thank you, Lynette Farnsworth [facility], CDIS Extension: [phone] Please use your independent medical judgment in providing your response. THIS QUERY IS PART OF THE PERMANENT MEDICAL RECORD Provider Response: Other Other Diagnosis: chornic HFrEF
--- NOTE | 2021-07-09 14:11 | HO.PM.IMPN ---
Subjective Subjective Date of Service: 07/09/21 Interval History: cough + dyspnea improved no chest pain no fever Review of Systems Review of Systems: Yes all other systems are reviewed and are negative Physical Exam Vital Signs: Vital Signs: Last Vital Signs Temp 97.7 F 07/09/21 12:00 Pulse 68 07/09/21 12:00 Resp 19 07/09/21 12:00 BP 133/62 07/09/21 12:00 Pulse Ox 93 07/09/21 12:00 Oxygen Flow Rate 3 07/07/21 10:55 Body Mass Index 29.2 Gen: in no acute distress HEENT: sclera anicteric, moist mucus membranes Neck: supple Lungs: diminished R side with a few insp crackles Heart: regular rate and rhythm, no murmurs Abd: soft, non-tender, non-distended Ext: no edema Skin: warm/well-perfused Neuro: alert and oriented x3, no focal findings Psych: appropriate affect Objective Data Active Medications Acetaminophen (Acetaminophen 325 Mg Tablet) 650 mg PO Q6H PRN PRN Reason: Pain, Mild (Pain Scale 1-3) Amlodipine Besylate (Amlodipine Besylate 10 Mg Tablet) 10 mg PO DAILY [facility]; Protocol Last Admin: 07/09/21 08:46 Dose: 10 mg Documented by: JEAN Aspirin (Aspirin Enteric Coated 81 Mg Tablet.) 81 mg PO DAILY [facility] Last Admin: 07/09/21 08:45 Dose: 81 mg Documented by: JEAN Brimonidine Tartrate (Brimonidine Tartrate 0.2% Oph 5 Ml Bottle) 1 drop EYE-LEFT BID PRN PRN Reason: WHEN EVER HE FEELS LIKE IT Ezetimibe (Ezetimibe 10 Mg Tablet) 10 mg PO DAILY [facility] Last Admin: 07/09/21 08:45 Dose: 10 mg Documented by: JEAN Gabapentin (Gabapentin 300 Mg Capsule) 300 mg PO BID [facility] Last Admin: 07/09/21 08:45 Dose: 300 mg Documented by: JEAN Guaifenesin/Dextromethorphan (Guaifenesin Dm 100/10/5 Ml 5 Ml Syrup) 10 ml PO QID [facility] Last Admin: 07/09/21 12:32 Dose: 10 ml Documented by: JEAN Heparin Sodium (Porcine) (Heparin Sodium,Porcine 5,000 Unit/Ml Vial) 5,000 unit SUBCUT Q12H [facility] Last Admin: 07/09/21 06:03 Dose: 5,000 unit Documented by: FERNANDEZ Piperacillin Sod/Tazobactam (Sod 3.375 gm/ Sodium Chloride) 50 mls @ 100 mls/hr IV Q6H [facility] Last Infusion: 07/09/21 13:06 Dose: 0 mls/hr Documented by: JEAN Isosorbide Mononitrate (Isosorbide Mononitrate 30 Mg Tab.Er.24h) 30 mg PO DAILY [facility]; Protocol Last Admin: 07/09/21 08:45 Dose: 30 mg Documented by: JEAN Latanoprost (Latanoprost 0.005 % Ophth Susanna 2.5 Ml Drops) 1 drop EYE-BOTH BEDTIME PRN PRN Reason: WHEN EVER HE FEELS LIKE IT Metoprolol Succinate (Metoprolol Succinate Er 50 Mg Tab.Er.24h) 50 mg PO DAILY [facility]; Protocol Last Admin: 07/09/21 08:45 Dose: 50 mg Documented by: JEAN Omeprazole (Omeprazole 20 Mg Capsule.Dr) 20 mg PO DAILY@0800 [facility] Last Admin: 07/09/21 08:46 Dose: 20 mg Documented by: JENA Ondansetron HCl (Ondansetron Hcl 4 Mg/2 Ml Vial) 4 mg IVPUSH Q8H PRN PRN Reason: Nausea and Vomiting Pharmacy Consult (Consult Rx Perform Med Rec) 1 each MISCELLANE ONCE PRN PRN Reason: Consult order Sodium Chloride (0.9 % Sodium Chloride Flush 3 Ml Syringe) 3 ml IVFLUSH QSHIFT [facility] Last Admin: 07/09/21 08:55 Dose: 3 ml Documented by: JEAN Thiamine HCl (Thiamine Hcl 100 Mg Tablet) 100 mg PO DAILY [facility] Last Admin: 07/09/21 08:46 Dose: 100 mg Documented by: JEAN Labs CBC & Chem 7: 07/09/21 06:20 07/09/21 06:20 Labs: Laboratory Results - last 24 hr 07/09/21 07/09/21 06:20 06:20 MCV 91.9 MCH 29.5 MCHC 32.1 RDW 13.4 Plt Count 109 L MPV 8.8 L Absolute Nucleated RBC 0.000 Nucleated RBC % (auto) 0.0 Anion Gap 11 L Estim Creat Clear Calc 36.8 Estimated GFR 45 Random Glucose 92 Calcium 8.3 L Microbiology Microbiology Results: Microbiology 07/07/21 11:57 Blood Culture - Preliminary Blood - Venous No growth after 48 hours. 07/07/21 11:30 Blood Culture - Preliminary Blood - Venous No growth after 48 hours. Assessment and Plan (1) Sepsis: Status: Acute (2) Pneumonia: Status: Acute Assessment and Plan: hospital d#3 85yo M with HTN, CAD s/p CABG, PPM, ischemic CM, HFrEF, CKD, hx aspiration PNA admitted for sepsis from PNA # sepsis due to PNA, suspected aspiration - continue piperacillin/tazobactam d#3, BCx negative, trend PCT - per IRON[employer] MACHINE, NDD3 solids + thin liquids; MBSS today # acute hypoxic respiratory failure - supplemental O2, wean as tolerated # CAD # ischemic CM # chronic HFrEF - continue Imdur, metoprolol, ezetimibe; apperas euvolemic # HTN - continue Imdur, metoprolol, amlodipine # CKD3 - SCr stable, avoid nephrotoxins # VTE ppx - LMWH Quality Stroke Does the patient have a stroke diagnosis?: No VTE Prior VTE?: No VTE Risk Level:: Medical - moderate - high VTE Device Contraindication: Treatment Not Indicated VTE Drug Contraindication: N/A - Med Ordered
--- NOTE | 2021-07-09 15:00 | MHC.SL.MBSTD ---
Referring provider: Ines Maldonado MD Reason for Referral: History of aspiration pneumonia Type of Treatment: 68824 Modified Barium Swallow Study Date of Plan of Treatment: 07/09/21 Onset of Symptoms/Illness: 07/08/21 Date Treatment Started: 07/08/21 Medical Diagnosis: Right-side pneumonia Speech & Language Primary Diagnosis:R13.12 Oropharyngeal Phase Dysphagia Speech & Language Secondary Diagnosis: Comments: Patient is an 85 year old male who was brought to ED with fever and generalized weakness. Patient was found to have right side pneumonia. Patient was seen for bedside dysphagia evaluation yesterday and was recommended CHOPPED/ADVANCED (NDD3) solids and THIN liquids. Patient displayed no overt s/s of aspiration with PO trials, but MBSS was ordered to rule in/out silent aspiration due to right side pneumonia and history of aspiration pneumonia. Patient is alert and oriented. Patient denies trouble swallowing. Medical History: Medication List: Please see in patient's chart. Respiratory Needs: Nasal Cannula Patient Orientation: Alert & Oriented x 4 Dysphagia Related: Within Functional Limits Comments: Patient has history of aspiration pneumonia. Risk for Aspiration: History of Pneumonia Current Dietary Consistencies: Chopped/Advanced (NDD3) Current Liquid Intake Consistencies: Thin Current Medication Administration Method: Whole with Liquid Assessment Oral Motor Exam: Oral Motor Exam Unremarkable Facial Symmetry: Symmetrical Facial Movement: Controlled Mouth Occlusion: Normal Oral-Facial Teeth Characteristics: Partially Missing Oral-Facial Lip Pucker Description: Normal Oral-Facial Smile (Lips) Description: Normal Oral-Facial Puff Cheeks Description: Normal Tongue Size: Normal Tongue Frenum Length: Normal Tongue Excursion Description: Normal Tongue Range of Movement Description: Normal Tongue Speed of Movement Description: Normal Tongue Strength of Movement (against opposing pressure): Normal Tongue Movement Characteristics: Normal/Absent ? Is patient able to manage secretions?: Yes Clinicial Observations: MBSS completed by radiologist and speech language pathologist. Patient was able to feed himself without difficulty. Patient was seated upright in chair for optimal 90 degree position. Study performed in lateral view only. Patient trialed the following liquid and solid consistencies: -5 mL thin liquid barium -cup sip with bolus hold thin liquid barium -consecutive cup sip thin liquid barium -applesauce mixed with barium paste (pureed solid) -chicken salad mixed with barium paste (ground solid) -Clari Doone cookie coated in barium paste (regular solid) No evidence of aspiration or penetration with solids and liquids during this exam. Trace oral and pharyngeal clearance, considered to be within functional limits and subsequently cleared. Patient denies difficulty swallowing. Patient denies coughing/choking, globus sensation, and pain swallowing. Unremarkable MBSS. Recommend unmodified diet textures. Impressions and Recommendations Summary: Impact on Daily Function/Activity Limitations: Daily Activities: None Interpersonal Interactions: None Education: None Employment: None Community: None Prognosis for Improvement: Good Comment: Recommendation for Speech Therapy: NA:Typical Evaluation Text Comment: Swallow deemed WFL. Further ST intervention is no longer warranted. Please re-refer if there are any changes. Patient Education Completed: Yes Patient/Caregiver Education: Described Results of Evaluation Patient expressed understanding of evaluation Comment: Comments/Barriers to Learning: It is important to note MBSS objective studies are snapshots in time and Patient function might vary with factors such as time of day or concomitant medical conditions. For this reason, the final treatment plan for this patient should rest with their medical care team. Additional recommendations should be considered with the totality of the Patient in mind. Thank for the opportunity to participate in the care of this patient. If you have any questions about the content of this report, please contact the [facility] at [facility]. Mobile Lounge Driver Clinican/Clinical Fellow: No Supervisory Statement: N/A Speech Language Pathologist: Jocelyne Martinez M.A., [facility]GRANULATING BLENDER
--- NOTE | 2021-07-09 15:40 | MHC.CM.PN ---
PER HOSPITALIST PLAN IS TO KEEP PT ONE MORE NIGHT TO ATTEMPT TO WEAN PT OFF OF O2, ANTICIPATE D/C TOMORROW 07/10/21, DTR/HCP [facility] CONTACTED AT 3:30PM AND AWARE OF PLAN.
[2021-07-09] MEDS: Acetaminophen 325 MG TABLET 650 MG PO (20:44)
[2021-07-10] MEDS: Piperacillin Sodium/Tazobactam 3.375 GM in 0.9 % Sodium Chloride 50 ML IV ×2 (01:56→05:58)
[2021-07-10 03:43] VITALS: BP 162/73; PULSE 69; RESP 17; TEMP 36.4; O2SAT 92
[2021-07-10 05:50] LABS: Mean Corpuscular Hemoglobin 28.8 pg (27.0-33.0); Mean Corpuscular Volume 92.9 fL (80-98); Mean Platelet Volume 8.6 fL (9.4-12.4); Platelet Count 116 X10*3/uL (160-400); Red Blood Count 4.52 X10*6/uL (4.60-5.80); Red Cell Distribution Width 13.2 % (11.0-16.0); White Blood Count 7.8 X10*3/uL (4.8-10.8)
[2021-07-10] MEDS: Heparin Sodium,Porcine 5,000 UNIT/ML VIAL 5000 UNIT SUBCUT (05:58)
[2021-07-10 06:11] LABS: Anion Gap 12 (12-20); Blood Urea Nitrogen 22 mg/dL (9-16); Calcium 8.5 mg/dL (8.4-10.2); Carbon Dioxide 31 mmol/L (22-29); Chloride 104 mmol/L (96-108); Creatinine Clr Calc Pharmacy 33.5; Estimated Glomerular Filt Rate 40; Glucose Random 103 mg/dL (60-115); Sodium 142 mmol/L (135-145)
[2021-07-10 07:21] LABS: Procalcitonin 0.25 ng/mL
[2021-07-10 08:00] VITALS: BP 178/79; PULSE 70; RESP 17; TEMP 36.3; O2SAT 94
[2021-07-10] MEDS: Isosorbide Mononitrate 30 MG TAB.ER.24H PO (09:05)
[2021-07-10] MEDS: Gabapentin 300 MG CAPSULE PO (09:05)
[2021-07-10] MEDS: Metoprolol Succinate ER 50 MG TAB.ER.24H PO (09:05)
[2021-07-10] MEDS: Ezetimibe 10 MG TABLET PO (09:05)
[2021-07-10] MEDS: Thiamine HCL 100 MG TABLET PO (09:05)
[2021-07-10] MEDS: Omeprazole 20 MG CAPSULE.DR PO (09:06)
[2021-07-10] MEDS: guaiFENesin DM 100/10/5 ML 5 ML SYRUP 10 ML PO (09:06)
[2021-07-10] MEDS: Aspirin Enteric Coated 81 MG TABLET.DR PO (09:06)
[2021-07-10] MEDS: 0.9 % Sodium Chloride Flush 3 ML SYRINGE IVFLUSH (09:06)
[2021-07-10] MEDS: amLODIPine Besylate 10 MG TABLET PO (09:06)
--- NOTE | 2021-07-10 11:17 | W.MHC.F2F ---
Service Date Service Date: 07/10/21 Encounter Date of encounter: 07/10/21 Reasons for Services Reason for [facility]: medication management, teach disease management and other Reason for physical therapy: home safety and mobility, therapeutic exercises, gait/transfer training, assess need for DME, ADL training and energy conservation MD Overseeing Care: Jacquelyn Tucker Homebound: Leaving the home is medically contraindicated at this time without the asist of a device and/or another person due th the listed conditions above and below. Reason homebound: shortness of breath with minimal effort Homebound supporting statement: admitted for hypoxia + sepsis due to PNA, being discharged on home O2 Certification: Based on the above findings, I certify that this patient is confined to the home and needs intermittent [facility] care, physical therapy and/or speech therapy, or continues to need occupational therapy. The patient is under my care, and I have initiated the establishment of the plan of care. The patient will be followed by a physician who will periodically review the plan of care.
--- NOTE | 2021-07-10 11:18 | PM.DS ---
DS: Providers Provider Date of Service: 07/10/21 Date of admission: 07/07/21 15:10 Date of discharge: 07/10/21 Primary care physician: Jacquelyn Tucker MD DS: Diagnosis Discharge Diagnosis (1) Sepsis: Status: Acute (2) Pneumonia: Status: Acute (3) Acute hypoxemic respiratory failure: Status: Acute DS: Summary Hospital Course Hospital Course: from admission H+P by hospitalist Shey Messer MD, 07/07/21: 85-year-old gentleman past medical history significant for coronary artery disease, chronic kidney disease, CHF who lives at home with son and granddaughter, was noted to have significant weakness this morning unable to get out of bed and stand up, also noted to be febrile, therefore daughter in law called the ambulance and brought him to the emergency room, chest x-ray showed right-sided pneumonia, at present patient feels better but still feels weak, denies chills, he started with cough last night, denies any sick contacts, no recent travel, not on home oxygen, patient has history of recurrent aspiration pneumonia, due to fever leukocytosis lactic acidosis patient will be admitted to [facility] with a diagnosis of sepsis due to pneumonia. This 85yo M with HTN, CAD s/p CABG, PPM, ischemic CM, HFrEF, CKD, and hx aspiration PNA was admitted to the medical/surgical floor for sepsis and hypoxia due to pneumonia He was treated with piperacillin/tazobactam IV for 3 days. Blood cultures were negative and procalcitonin decreased appropriately. MBSS was negative for aspiration. He improved symptomaticaly and was discharged whith home oxygen and VNA services. He should take 4 more days of antibiotics [amoxicillin/clavulanate] and follow-up with his primary care doctor in 1 week. Time Spent with Patient Time attestation: Total time spent providing and/or coordinating discharge services: Discharge coordination time: Greater than 30 minutes Quality: Stroke Does the patient have a stroke diagnosis?: No Physical Exam Vital Signs: Vital Signs: Last Vital Signs Temp 97.3 F 07/10/21 08:00 Pulse 70 07/10/21 08:00 Resp 17 07/10/21 08:00 BP 178/79 H 07/10/21 08:00 Pulse Ox 94 07/10/21 08:00 Oxygen Flow Rate 3 07/07/21 10:55 Body Mass Index 29.2 Gen: in no acute distress HEENT: sclera anicteric, moist mucus membranes Neck: supple Lungs: diminished at R base Heart: regular rate and rhythm, no murmurs Abd: soft, non-tender, non-distended Ext: no edema Skin: warm/well-perfused Neuro: alert and oriented x3, no focal findings Psych: appropriate affect DS: Data Data Completed and Pending Completed studies during hospitalization [Text1]: Laboratory Results WBC 7.8 X10*3/uL (4.8-10.8) 07/10/21 05:32 RBC 4.52 X10*6/uL (4.60-5.80) L 07/10/21 05:32 Hgb 13.0 g/dl (14.0-18.0) L 07/10/21 05:32 Hct 42.0 % (42-52) 07/10/21 05:32 MCV 92.9 fL (80-98) 07/10/21 05:32 MCH 28.8 pg (27.0-33.0) 07/10/21 05:32 MCHC 31.0 g/dl (31.0-36.0) 07/10/21 05:32 RDW 13.2 % (11.0-16.0) 07/10/21 05:32 Plt Count 116 X10*3/uL (160-400) L 07/10/21 05:32 MPV 8.6 fL (9.4-12.4) L 07/10/21 05:32 Immature Gran % (Auto) 0.3 % (0.0-0.4) 07/08/21 05:39 Neut % (Auto) 84.3 % (45-73) H 07/08/21 05:39 Lymph % (Auto) 7.0 % (20-40) L 07/08/21 05:39 [place] % (Auto) 7.1 % (2-11) 07/08/21 05:39 Eos % (Auto) 1.1 % (0-4) 07/08/21 05:39 Baso % (Auto) 0.2 % (0-2) 07/08/21 05:39 Lymph # (Auto) 1.0 X10*3/uL (1.2-4.9) L 07/08/21 05:39 [place] # (Auto) 1.0 X10*3/uL (0.1-1.2) 07/08/21 05:39 Eos # (Auto) 0.2 X10*3/uL (0.0-0.4) 07/08/21 05:39 Baso # (Auto) 0.0 X10*3/uL (0.0-0.2) 07/08/21 05:39 Abs Immat Gran (auto) 0.05 X10*3/uL (0.00-0.03) H 07/08/21 05:39 Absolute Neuts (auto) 12.3 X10*3/uL (2.0-8.3) H 07/08/21 05:39 Absolute Nucleated RBC 0.000 X10*3/uL (0.0-0.012) 07/10/21 05:32 Nucleated RBC % (auto) 0.0 /100WBC (0.0-0.2) 07/10/21 05:32 APTT 28.9 SEC (24.1-38.0) 07/07/21 11:30 Sodium 142 mmol/L (135-145) 07/10/21 05:32 Potassium 5.0 mmol/L (3.3-5.1) 07/10/21 05:32 Chloride 104 mmol/L (96-108) 07/10/21 05:32 Carbon Dioxide 31 mmol/L (22-29) H 07/10/21 05:32 Anion Gap 12 (12-20) 07/10/21 05:32 BUN 22 mg/dL (9-16) H 07/10/21 05:32 Creatinine 1.65 mg/dL (0.5-1.4) H 07/10/21 05:32 Estim Creat Clear Calc 33.5 07/10/21 05:32 Estimated GFR 40 07/10/21 05:32 Random Glucose 103 mg/dL (60-115) 07/10/21 05:32 Lactic Acid 2.1 mmol/L (0.5-2.0) H* 07/07/21 11:58 Lactic Acid Fup @ 2Hr 2.0 mmol/L (0.5-2.0) 07/07/21 14:15 Calcium 8.5 mg/dL (8.4-10.2) 07/10/21 05:32 Magnesium 1.6 mg/dL (1.6-2.6) 07/07/21 11:30 Ferritin 26 ng/mL (20-250) 07/07/21 11:30 Total Bilirubin 0.6 mg/dL (0.0-1.0) 07/07/21 11:30 Direct Bilirubin 0.3 mg/dL (0.0-0.5) 07/07/21 11:30 AST 19 U/L (5-37) 07/07/21 11:30 ALT 17 U/L (0-40) 07/07/21 11:30 Alkaline Phosphatase 52 U/L (39-117) 07/07/21 11:30 Lactate Dehydrogenase 242 U/L (118-273) 07/07/21 11:30 Troponin I High Sens 33.8 ng/L (<3.5-35.0) 07/07/21 11:30 C-Reactive Protein 2.39 mg/dL (< or = 0.50) H 07/07/21 11:30 B-Natriuretic Peptide 144 pg/mL (<100) H 07/07/21 11:58 Total Protein 6.8 g/dL (6.5-8.0) 07/07/21 11:30 Albumin 4.0 g/dL (3.5-5.0) 07/07/21 11:30 Procalcitonin 0.25 ng/mL 07/10/21 05:32 Coronavirus (PCR) NEGATIVE (Negative) 07/07/21 11:30 Influenza Type A (PCR) NEGATIVE (Negative) 07/07/21 11:30 Influenza Type B (PCR) NEGATIVE (Negative) 07/07/21 11:30 RSV RNA Qual (PCR) NEGATIVE (Negative) 07/07/21 11:30 Impressions Chest X-Ray 07/07/21 13:28 FINDINGS AND IMPRESSION: There is a right pectoral region cardiac pacemaker with transvenous leads extending to the right and left ventricles. Cardiac silhouette is normal in size, status post coronary artery bypass graft surgery, with intact sternotomy wires in place. Pulmonary vessels are normal in caliber. New patchy opacities are seen in the right mid to lower lung zone. Given the history of hypoxia and fever, findings are likely caused by pneumonia. No pleural effusion, pneumothorax or other significant change. Modified Barium Swallow 07/09/21 07:00 IMPRESSION: Unremarkable modified barium swallow. Discharge Plan Discharge Patient Disposition: Home Health Service Discharge Diagnosis: sepsis/hypoxia from pneumonia Referrals: Jacquelyn Tucker MD [Primary Care Provider] - 1 Week Discharge Medications: New amoxicillin-pot clavulanate 875-125 mg tablet 1 tab PO BID Qty: 8 RF: 0 Continued isosorbide mononitrate 30 mg tablet extended release 24 hr 30 mg PO DAILY Qty: 90 RF: 0 amlodipine 10 mg tablet 10 mg PO DAILY Qty: 90 RF: 1 hydrochlorothiazide 25 mg tablet 25 mg PO DAILY Qty: 90 RF: 0 omeprazole 20 mg capsule,delayed release(DR/EC) 20 mg PO DAILY@0800 RF: 0 brimonidine 0.2 % Drops 1 drp ophthalmic-Left BID PRN (Reason: WHEN EVER HE FEELS LIKE IT ) RF: 0 latanoprost 0.005 % Drops 1 drp OPHTHALMIC (EYE) BEDTIME PRN (Reason: WHEN EVER HE FEELS LIKE IT) RF: 0 aspirin [Adult Aspirin Regimen] 81 mg tablet,delayed release (DR/EC) 81 mg PO DAILY RF: 0 metoprolol succinate 50 mg tablet extended release 24 hr 50 mg PO DAILY RF: 0 thiamine HCl (vitamin B1) 50 mg tablet 1,000 mg PO DAILY RF: 0 gabapentin 300 mg capsule 300 mg PO BID RF: 0 ezetimibe 10 mg tablet 10 mg PO DAILY 90 Days Qty: 90 RF: 2 niacin 500 mg tablet 500 mg PO DAILY 90 Days Qty: 90 RF: 2 omega-3 fatty acids [Fish Oil Concentrate] 1,000 mg capsule 2,000 mg PO BID 90 Days Qty: 360 RF: 2 Discharge Orders: Discharge Order (Routine); Ordered 07/10/21 Ordered By: Ines Maldonado Diet: advance to usual diet Activity on Discharge: As tolerated Stand Alone Forms: Patient Portal Discharge page Care Plan Goals: recovery from pneumonia Health Concerns: sepsis/hypoxia from pneumonia Plan of Treatment: amoxicllin/clavulanate 875/125 mg twice daily for 4 more days supplemental oxygen, 2L via nasal cannula, wean as tolerated see your primary care doctor in 1 week Assessment: as above Patient Instructions: Using Oxygen at Home (DC), Pneumonia (DC)
[2021-07-10 12:00] VITALS: BP 140/78; PULSE 68; RESP 18; TEMP 36.7; O2SAT 94
--- NOTE | 2021-07-10 13:12 | MHC.CM.PN ---
Addendum entered by Kamini Jain RN 07/10/21 13:14: STR/HCP [facility] WILL BE CALLING IN THE NEXT TWO DAYS FOR TB TEST RESULTS IF UNABLE TO ACCESS IN PT PORTAL. Original Note: PT DISCHARGING HOME W/NEW HVNA FOR JAIL AND NEW HOME O2 FOR A WEEK OR SO WHILE RECOVERING FROM PNA, SON-IN-LAW WILL BE HERE BY 2PM TO TRANSPORT PT.
[2021-07-13 14:51] LABS: TS Negative Control Passed; TS Panel A 0; TS Panel B 0; TS Positive Control Passed; TSpotTB Negative (SeeBelow)
== END 2021-07-10 14:00 | disposition home health service (06) | DRG 871 ==
LOC: HO.ED 11:11 → HO.EDOVER 15:28 → HO.S3 17:13
PROVIDERS: Physician Assistant; Admitting Provider Hospitalist; Emergency Provider Emergency Medicine; PCP Internal Medicine; Visit Provider Family Medicine
DX: A41.9 Sepsis, unspecified organism (principal); J69.0 Pneumonitis due to inhalation of food and vomit; I13.0 Hypertensive heart and chronic kidney disease with heart failure and stage 1 through stage 4 chronic kidney disease, or unspecified chronic kidney disease; I50.22 Chronic systolic (congestive) heart failure; K21.9 Gastro-esophageal reflux disease without esophagitis; N18.30 Chronic kidney disease, stage 3 unspecified; I25.5 Ischemic cardiomyopathy; I25.10 Atherosclerotic heart disease of native coronary artery without angina pectoris; Z95.1 Presence of aortocoronary bypass graft; Z20.822 Contact with and (suspected) exposure to COVID-19; Z79.82 Long term (current) use of aspirin; Z79.899 Other long term (current) drug therapy
CPT/HCPCS: 0241U; 36415; 71045; 74230; 80048; 80076; 82728; 83605; 83615; 83735; 83880; 84145; 84484; 85025; 85027; 85730; 86140; 86481; 87040; 92610; 92611; 93005; 96365; 97162; 99285; J2543

== ENCOUNTER 2021-07-23 10:51 | Outpatient (REF) | payer MEDICARE, SELFPAY ==
--- NOTE | ~2021-07-23 | XR_ITS ---
EXAMINATION: XR CHEST CLINICAL INFORMATION: Recurrent pneumonia COMPARISON: Previous chest x-rays most recent 07/07/2021 TECHNIQUE: 2 views of the chest were obtained. FINDINGS: The cardiac and mediastinal contours are stable. There are postsurgical changes and right subclavian dual chamber pacemaker that appear unchanged. The lungs are clear. The previously identified right-sided airspace disease on 07/07/2021 has resolved. There is no pleural effusion or pneumothorax. There are degenerative changes of the spine. XR/XR chest 2V IMPRESSION: Resolved right-sided airspace disease from 07/07/2021 exam.
== END 2021-07-23 10:52 | disposition home or self-care (01) ==
LOC: HO.HMGCX 10:51
PROVIDERS: PCP Internal Medicine; Visit Provider Internal Medicine
DX: Z13.89 Encounter for screening for other disorder (principal)
CPT/HCPCS: 71046

== ENCOUNTER 2023-09-16 13:08 | Outpatient (AMB) | payer MEDICARE, SELFPAY ==
--- NOTE | 2023-09-16 13:15 | HO.NEPHOV_ITS ---
HPI HPI Comments History of Present Illness Details 87-year-old man with a history of longst anding hypertension uncontrolled failure with chronic disease. He continues or shortness of breath on exertion. He is on a wheelchair requiring oxygen. No urinary symptoms. No chest pain. [facility] Medical History (Updated 09/16/23 @ 20:23 by Kraig Ramsay MD) Dermatitis Hypertension PVD (peripheral vascular disease) CAD (coronary artery disease) CHF (congestive heart failure) CKD (chronic kidney disease) Obesity (BMI 30-39.9) Dyslipidemia Surgical History Pacemaker History of tonsillectomy S/P triple vessel bypass Family History Father Stomach cancer Mother Unknown family medical history Brother No problems noted. Sister Smoker Sister No problems noted. Household Members: Children Housing: House Do you presently have visiting nurse or other home services: No Patient Tobacco Use Status: Former Tobacco user service: Yes Current occupational status: retired Vital Signs 09/16/23 13:20 BMI Reason not done Patient refused/unable BP 116/52 L Blood Pressure Location Rt brachial Position Sitting Pulse 59 Pulse Source Pulse Oximeter Pulse Oximetry (%) 95 Oxygen Delivery Method Room Air Physical Exam Vital Signs: Last Vital Signs Pulse 59 09/16/23 13:20 BP 116/52 L 09/16/23 13:20 Pulse Ox 95 09/16/23 13:20 Oxygen Delivery Method Room Air 09/16/23 13:20 Const General: comfortable Nutritional Appearance: well nourished Orientation/consciousness: patient oriented x3 HEENT Head: No normal to inspection Mouth: moist mucous membranes Neck Neck: Yes supple and Yes no JVD Resp Auscultation: clear to auscultation bilaterally, rales, rhonchi and No rub present Cardio Jugular venous distension: no JVD Palpation: no palpable S3 and no palpable S4 Heart sounds: no rubs GI Palpation (GI): Soft to palpation and nontender Percussion: No Fluid wave present General: Yes no CVA tenderness Back/Spine/Pelvis Back: no CVA tenderness Skin General skin exam: no rashes or lesions noted Neuro General: patient oriented x3 Extrem General: Yes no pedal edema and No clubbing Results Reviewed Results Reviewed: Levels are pending. We will track down recent labs done at [facility] Assessment & Plan Assessment & Plan (1) CKD (chronic kidney disease): Code(s): N18.9 - Chronic kidney disease, unspecified (2) CHF (congestive heart failure): Code(s): I50.9 - Heart failure, unspecified Plan Elderly man with advanced renal failure in the setting of longstanding hypertension and congestive heart failure. At present has no signs or symptoms of uremia. Fluid status seems acceptable. Continue current dose of diuretics. He should stay on low-sodium diet. We will continue to monitor renal function periodically. Avoid nephrotoxic agents including NSAIDs. Hemoglobin is to monitor and if hemoglobin drops less than 9 grams/deciliter I will consider erythropoietin replacement therapy. Orders: Orders Electrolytes 3 Months N18.9 - Chronic kidney disease, unspecified Blood Urea Nitrogen 3 Months N18.9 - Chronic kidney disease, unspecified Calcium 3 Months N18.9 - Chronic kidney disease, unspecified Creatinine 3 Months N18.9 - Chronic kidney disease, unspecified Coding Level of Care Code Est Pt Level 3 (96056) Diagnoses CKD (chronic kidney disease) N18.9 CHF (congestive heart failure) I50.9
[2023-09-16 13:20] VITALS: BP 116/52; PULSE 59; O2SAT 95
== END 2023-09-16 13:35 | disposition home or self-care (01) ==
PROVIDERS: PCP Internal Medicine Hospice and Palliative Medicine; Visit Provider Internal Medicine Hypertension Specialist
DX: I13.0 Hypertensive heart and chronic kidney disease with heart failure and stage 1 through stage 4 chronic kidney disease, or unspecified chronic kidney disease (principal); N18.4 Chronic kidney disease, stage 4 (severe); I50.22 Chronic systolic (congestive) heart failure; Z99.81 Dependence on supplemental oxygen; Z99.3 Dependence on wheelchair
CPT/HCPCS: 99213

== ENCOUNTER → 2023-09-16 13:08 | Outpatient (BNVA) | payer MEDICARE, SELFPAY | PROVIDERS: PCP Internal Medicine Hospice and Palliative Medicine; Visit Provider Internal Medicine Hypertension Specialist | DX: I12.9 Hypertensive chronic kidney disease with stage 1 through stage 4 chronic kidney disease, or unspecified chronic kidney disease (principal); N18.9 Chronic kidney disease, unspecified; Z99.3 Dependence on wheelchair; Z99.81 Dependence on supplemental oxygen | CPT/HCPCS: 99212 ==

== ENCOUNTER 2023-12-30 10:31 | Outpatient (AMB) | payer MEDICARE, SELFPAY ==
--- NOTE | 2023-12-30 10:32 | HO.NEPHOV ---
HPI HPI Comments History of Present Illness Details 87-year-old man with a history of longstanding hypertension uncontrolled failure with chronic disease. He continues or shortness of breath on exertion. He is on a wheelchair requiring oxygen. No urinary symptoms. No chest pain. [facility] Medical History (Updated 09/16/23 @ 20:23 by Kraig Ramsay MD) Dermatitis Hypertension PVD (peripheral vascular disease) CAD (coronary artery disease) CHF (congestive heart failure) CKD (chronic kidney disease) Obesity (BMI 30-39.9) Dyslipidemia Surgical History Pacemaker History of tonsillectomy S/P triple vessel bypass Family History Father Stomach cancer Mother Unknown family medical history Brother No problems noted. Sister Smoker Sister No problems noted. Social History Household Members: Children Housing: House Do you presently have visiting nurse or other home services: No Patient Tobacco Use Status: Former Tobacco user service: Yes Current occupational status: retired Vital Signs 12/30/23 10:34 BP 124/52 L Blood Pressure Location Rt brachial Position Sitting Pulse 68 Pulse Source Pulse Oximeter Pulse Oximetry (%) 98 Oxygen Delivery Method Room Air Physical Exam Vital Signs: Last Vital Signs Pulse 68 12/30/23 10:34 BP 124/52 L 12/30/23 10:34 Pulse Ox 98 12/30/23 10:34 Oxygen Delivery Method Room Air 12/30/23 10:34 Const General: comfortable Nutritional Appearance: well nourished Orientation/consciousness: patient oriented x3 HEENT Head: No normal to inspection Mouth: moist mucous membranes Neck Neck: Yes supple and Yes no JVD Resp Auscultation: clear to auscultation bilaterally, rales, rhonchi and No rub present Cardio Jugular venous distension: no JVD Palpation: no palpable S3 and no palpable S4 Heart sounds: no rubs GI Palpation (GI): Soft to palpation and nontender Percussion: No Fluid wave present General: Yes no CVA tenderness Back/Spine/Pelvis Back: no CVA tenderness Skin General skin exam: no rashes or lesions noted Neuro General: patient oriented x3 Extrem General: Yes no pedal edema and No clubbing Assessment & Plan Assessment & Plan (1) CKD (chronic kidney disease): Code(s): N18.9 - Chronic kidney disease, unspecified (2) CHF (congestive heart failure): Code(s): I50.9 - Heart failure, unspecified Plan Elderly man with advanced renal failure in the setting of longstanding hypertension and congestive heart failure. At present has no signs or symptoms of uremia. Fluid status seems acceptable. Continue current dose of diuretics. He should stay on low-sodium diet. We will continue to monitor renal function periodically. Labs ordered BP is well controlled. Avoid nephrotoxic agents including NSAIDs. Hemoglobin is to monitor and if hemoglobin drops less than 9 grams/deciliter may need erythropoietin replacement therapy. Orders: Orders Parathyroid Hormone Intact Today N18.9 - Chronic kidney disease, unspecified Complete Blood Count Auto Diff Today N18.30 - Chronic kidney disease, stage 3 unspecified, N18.9 - Chronic kidney disease, unspecified Comprehensive Met. Panel Today N18.9 - Chronic kidney disease, unspecified Coding Level of Care Code Est Pt Level 4 (67531) Diagnoses CKD (chronic kidney disease) N18.9 CHF (congestive heart failure) I50.9 Results Reviewed Results Reviewed: Labs pending Nephrology Results: Hgb 13.0 g/dl (14.0-18.0) L 07/10/21 WBC 7.8 X10*3/uL (4.8-10.8) 07/10/21 Plt Count 116 X10*3/uL (160-400) L 07/10/21 Sodium 142 mmol/L (135-145) 07/10/21 Potassium 5.0 mmol/L (3.3-5.1) 07/10/21 Chloride 104 mmol/L (96-108) 07/10/21 Carbon Dioxide 31 mmol/L (22-29) H 07/10/21 BUN 22 mg/dL (9-16) H 07/10/21 Creatinine 1.65 mg/dL (0.5-1.4) H 07/10/21 Calcium 8.5 mg/dL (8.4-10.2) 07/10/21
[2023-12-30 10:34] VITALS: BP 124/52; PULSE 68; O2SAT 98
== END 2023-12-30 10:58 | disposition home or self-care (01) ==
PROVIDERS: PCP Nurse Practitioner Family; Visit Provider Internal Medicine Hypertension Specialist
DX: N18.9 Chronic kidney disease, unspecified (principal); I50.9 Heart failure, unspecified
CPT/HCPCS: 99214

== ENCOUNTER → 2023-12-30 10:31 | Outpatient (BNVA) | payer MEDICARE, SELFPAY | PROVIDERS: PCP Nurse Practitioner Family; Visit Provider Internal Medicine Hypertension Specialist | DX: N18.9 Chronic kidney disease, unspecified (principal); I50.9 Heart failure, unspecified | CPT/HCPCS: 99212 ==

== ENCOUNTER 2024-10-12 10:42 | Outpatient (AMB) | payer MEDICARE, SELFPAY ==
--- OUTSIDE RECORDS SUMMARY | 2024-10-12 10:45 | XMS_ITS | Continuity of Care Document ---
Author Organization [facility] Address [address] [address] Phone Care Team Providers Care Justice Court Judge Name Role Phone Ander RE[facility] COORDINATORMarisela Unavailable Unavailab le Allergies, Adverse Reactions, Alerts Substance Reaction Status Criticality Xatxfib-DKA-WlQ Reductase Inhibitors Myalgia Acti ve No Information Medications Medication Instructions Dosage Effective Dates (start - stop) Status Comments tamsulosin 0.4 mg capsule Take 2 capsule by mouth daily in the evening. - Active Increased dose during admission 03/2024 gabapentin 300 mg capsule Take 1 capsule by mouth three times daily. - Active 09/14/24: Change from twice daily to three times daily. amlodipine 5 mg tablet Take 1 tablet by mouth once daily. - Active 09/14/24: Dose reduction Vitamin D3 25 mcg (1,000 unit) capsule Take 1 capsule by mouth once daily. - Active 09/14/24: Restarting supplement. Debrox 6.5 % ear drops Okay to keep at bedside. Instill 5 drops into each ear x 4-5 days before having ears flushed. - Active Keep at bedside. hydrocortisone 1 % topical cream PRN Itchiness- apply by topical route 2 times every day a thin layer to the affected area(s) - Active May dispense alternate volume lidocaine 4 % topical patch Apply once daily as needed to back for back pain. 12 hours on/12 hours off. Do not apply over wound or open skin. - Active polymyxin B sulfate 10,000 unit-trimethoprim 1 mg/mL eye drops Okay to keep at bedside. Instill 2 drops into right eye 4 times daily. - Active Okay to dispe nse alternative amount depending on what is in stock. bumetanide 1 mg tablet Take 1 tablet by mouth once daily. - Active Per renal pantoprazole 20 mg tablet,delayed release Take 1 tablet by mouth once daily. - Active 08/09/24: Rest art medication due to increased symptoms. On pantoprazole instead of omeprazole due to interaction with Plavix. carvedilol 25 mg tablet Take 1 tablet by mouth twice daily. - Active isosorbide mononitrate ER 30 mg tablet,extended release 24 hr Take 1 tablet daily by mouth in the morning. - Active Plavix 75 mg tablet Take 1 tablet by mouth once daily. - Active Tylenol 325 mg tablet Take 3 tablet (975 mg) by mouth twice daily (scheduled) in the morning and evening. - Active Pataday Twice Daily Relief 0.1 % eye drops Instill 1 drop by ophthalmic route 2 times every day into each eye. - Active Okay to dispense alternative amount depending on what is in stock or to meet needs. albuterol sulfate 2.5 mg/3 mL (0.083 %) solution for nebulization inhale 3 milliliter by nebulization route every 6 hours PRN WHEEZING/SOB - Active Breo Ellipta 100 mcg-25 mcg/dose powder for inhalation Inhale 1 puff by inhalation route every day at the same time each day - Active aspirin 81 mg tablet,delayed release Take 1 tablet by mouth once daily. - Active ezetimibe 10 mg tablet Take 1 tablet by mouth once daily. - Active Tylenol 325 mg tablet Take 3 tablets once daily at lunch time while at [employer] program. - Active duloxetine 20 mg capsule,delayed release Take 1 capsule daily by mouth in the evening. - Active Spiriva with HandiHaler 18 mcg and inhalation capsules Inhale once daily the contents of one capsule (18 mcg) using 2 inhalations via handihaler. - Active Miralax 17 gram oral powder packet Mix 1 packet into 8oz liquid, once daily as needed for constipation. - Active diclofenac 1 % topical gel Apply (2G) by topical route 4 times every day to the affected area. - Active albuterol sulfate 2.5 mg/3 mL (0.083 %) solution for nebulization PROGRAM ORDER - inhale 3 milliliter by nebulization route Q4H PRN wheezing, SOB - Active day program order Oxygen INHALATION via nasal cannula (or face mask for comfort) - Continuous O2 at 3L-5L/min - Active Per preenrollmen t records; PA for O2 x 12 units for J44.9 COPD 12/04/21-12/03/22; E1390 x 12 units; E0431 x 12 units; maintain O2 sat > 90% Procedures Procedure Date OFFICE/OUTPATIENT VISIT EST PT EVAL LOW COMPLEX 20 MIN OT EVAL LOW COMPLEX 30 MIN OFFICE/OUTPATIENT VISIT EST ORAL FUNCTION THERAPY ORAL FUNCTION THERAPY ORAL FUNCTION THERAPY ORAL FUNCTION THERAPY EVALUATE SWALLOWING FUNCTION ORAL FUNCTION THERAPY IMMUNIZATION ADMIN IIV NO PRSV INCREASED AG IM OFFICE/OUTPATIENT VISIT EST HOME VISIT EST PATIENT THERAPEUTIC EXERCISES GAIT TRAINING THERAPY THERAPEUTIC ACTIVITIES THERAPEUTIC EXERCISES THERAPEUTIC ACTIVITIES THERAPEUTIC EXERCISES THERAPEUTIC EXERCISES THERAPEUTIC EXERCISES THERAPEUTIC EXERCISES THERAPEUTIC EXERCISES THERAPEUTIC EXERCISES THERAPEUTIC ACTIVITIES PT RE-EVAL EST PLAN CARE THERAPEUTIC EXERCISES THERAPEUTIC EXERCISES GAIT TRAINING THERAPY THERAPEUTIC EXERCISES GAIT TRAINING THERAPY THERAPEUTIC EXERCISES THERAPEUTIC ACTIVITIES THERAPEUTIC EXERCISES GAIT TRAINING THERAPY THERAPEUTIC EXERCISES THERAPEUTIC ACTIVITIES PT EVAL LOW COMPLEX 20 MIN NURSING FAC DISCHARGE NURSING FACILITY CARE INIT OFFICE/OUTPATIENT VISIT EST OFFICE/OUTPATIENT VISIT EST OFFICE/OUTPATIENT VISIT EST PT RE-EVAL EST PLAN CARE GAIT TRAINING THERAPY THERAPEUTIC ACTIVITIES PT RE-EVAL EST PLAN CARE THERAPEUTIC ACTIVITIES HOME VISIT EST PATIENT THERAPEUTIC ACTIVITIES HOME VISIT EST PATIENT THERAPEUTIC EXERCISES THERAPEUTIC ACTIVITIES THERAPEUTIC ACTIVITIES OT EVAL LOW COMPLEX 30 MIN HOME VISIT EST PATIENT THERAPEUTIC ACTIVITIES PT EVAL LOW COMPLEX 20 MIN OFFICE/OUTPATIENT VISIT EST PT EVAL LOW COMPLEX 20 MIN OT EVAL LOW COMPLEX 30 MIN OFFICE/OUTPATIENT VISIT EST OFFICE/OUTPATIENT VISIT EST HOME VISIT EST PATIENT PT RE-EVAL EST PLAN CARE THERAPEUTIC ACTIVITIES THERAPEUTIC EXERCISES GAIT TRAINING THERAPY THERAPEUTIC EXERCISES GAIT TRAINING THERAPY THERAPEUTIC EXERCISES GAIT TRAINING THERAPY GAIT TRAINING THERAPY THERAPEUTIC EXERCISES PT RE-EVAL EST PLAN CARE GAIT TRAINING THERAPY THERAPEUTIC EXERCISES OFFICE/OUTPATIENT VISIT EST GAIT TRAINING THERAPY THERAPEUTIC EXERCISES THERAPEUTIC EXERCISES OT EVAL LOW COMPLEX 30 MIN THERAPEUTIC EXERCISES GAIT TRAINING THERAPY THERAPEUTIC EXERCISES GAIT TRAINING THERAPY OT EVAL LOW COMPLEX 30 MIN THERAPEUTIC EXERCISES THERAPEUTIC ACTIVITIES GAIT TRAINING THERAPY WHEELCHAIR MNGMENT TRAINING PT EVAL LOW COMPLEX 20 MIN NURSING FAC DISCHARGE DAY MED NUTRITION INDIV SUBSEQ NURSING FAC CARE SUBSEQ OFFICE/OUTPATIENT VISIT EST OFFICE/OUTPATIENT VISIT EST NURSING FAC CARE SUBSEQ NURSING FAC CARE SUBSEQ NURSING FAC CARE SUBSEQ NURSING FAC CARE SUBSEQ NURSING FAC CARE SUBSEQ MED NUTRITION INDIV SUBSEQ NURSING FACILITY CARE INIT THERAPEUTIC EXERCISES THERAPEUTIC EXERCISES HOME VISIT EST PATIENT THERAPEUTIC EXERCISES THERAPEUTIC ACTIVITIES THERAPEUTIC ACTIVITIES THERAPEUTIC EXERCISES PT EVAL LOW COMPLEX 20 MIN HOME VISIT EST PATIENT NURSING FAC CARE SUBSEQ NURSING FACILITY CARE INIT OT EVAL LOW COMPLEX 30 MIN OFFICE/OUTPATIENT VISIT EST OT EVAL LOW COMPLEX 30 MIN PT RE-EVAL EST PLAN CARE GAIT TRAINING THERAPY THERAPEUTIC ACTIVITIES PER PM REEVAL EST PAT 65+ YR GAIT TRAINING THERAPY THERAPEUTIC EXERCISES GAIT TRAINING THERAPY GAIT TRAINING THERAPY THERAPEUTIC ACTIVITIES THERAPEUTIC EXERCISES OFFICE/OUTPATIENT VISIT EST PT RE-EVAL EST PLAN CARE GAIT TRAINING THERAPY THERAPEUTIC EXERCISES THERAPEUTIC ACTIVITIES THERAPEUTIC EXERCISES GAIT TRAINING THERAPY THERAPEUTIC ACTIVITIES OFFICE/OUTPATIENT VISIT EST THERAPEUTIC EXERCISES THERAPEUTIC ACTIVITIES GAIT TRAINING THERAPY THERAPEUTIC EXERCISES GAIT TRAINING THERAPY THERAPEUTIC EXERCISES IMMUNIZATION ADMIN IIV NO PRSV INCREASED AG IM THERAPEUTIC EXERCISES PT RE-EVAL EST PLAN CARE GAIT TRAINING THERAPY THERAPEUTIC EXERCISES GAIT TRAINING THERAPY THERAPEUTIC EXERCISES THERAPEUTIC EXERCISES GAIT TRAINING THERAPY THERAPEUTIC ACTIVITIES GAIT TRAINING THERAPY PT RE-EVAL EST PLAN CARE GAIT TRAINING THERAPY THERAPEUTIC ACTIVITIES THERAPEUTIC EXERCISES PT EVAL LOW COMPLEX 20 MIN OT EVAL LOW COMPLEX 30 MIN PT RE-EVAL EST PLAN CARE THERAPEUTIC EXERCISES OFFICE/OUTPATIENT VISIT EST THERAPEUTIC EXERCISES THERAPEUTIC EXERCISES GAIT TRAINING THERAPY GAIT TRAINING THERAPY THERAPEUTIC ACTIVITIES THERAPEUTIC EXERCISES THERAPEUTIC ACTIVITIES THERAPEUTIC EXERCISES THERAPEUTIC ACTIVITIES GAIT TRAINING THERAPY PT RE-EVAL EST PLAN CARE THERAPEUTIC EXERCISES GAIT TRAINING THERAPY THERAPEUTIC EXERCISES GAIT TRAINING THERAPY THERAPEUTIC EXERCISES THERAPEUTIC ACTIVITIES PT EVAL LOW COMPLEX 20 MIN PT EVAL LOW COMPLEX 20 MIN MEDICAL NUTRITION INDIV IN PT EVAL LOW COMPLEX 20 MIN EVALUATE SWALLOWING FUNCTION ORAL FUNCTION THERAPY THERAPEUTIC ACTIVITIES OT EVAL LOW COMPLEX 30 MIN OFFICE/OUTPATIENT VISIT NEW Advance Directives Directive Yes / No Effective Date File Name No Information Encounters Encounter Description Practice Location Reason(s) For Visit Diagnoses Date Provider Providers Copied on Encounter [facility], [address] [address], [place], [place], [id number], tel:[phone] [place] No Information 4 Pitsiladis Marisela. [address] [place], [place], [id number], [place]. tel:[phone] [facility], [address] [address], [place], [place], [id number], [place] tel:[phone] [place] No Information 4 Pitsiladis Marisela. [address] [place], [id number], [place]. tel:[phone] OFFICE/OUTPA TIENT VISIT EST [facility], [address] [facility], [place], [place], [id number], [place] tel:[phone] [place] Acute Visit (chief complaint) Impacted cerumen of both ears 4 Pitsiladis Marisela. [address] [place], [place], [id number], [place]. tel:[phone] [facility], [address] [address], [place], [place], [id number], [place] tel:[phone] [place] Hypertensive heart and chronic kidney disease with heart failure and stage 1 through stage 4 chronic kidney disease, or unspecified chronic kidney diseasePresen ce of cardiac pacemaker 4 Pitsiladis Marisela. [address] [place], [id number], [place]. tel:[phone] [facility], [address] [facility] [address], [place], [place], [id number], [place] tel:[phone] [place] No Information 4 Pitsiladis Marisela. [address] [place], [place], [id number], [place]. tel:[phone] [facility], [address] [facility] [address], [place], [place], [id number], [place] tel:[phone] [place] Encounter for rehabilitatio n evaluation 4 Karan Johnie. [address], [place], [address]. tel:[phone] [facility], [address] [facility] [facility], [place], [place], [id number], [place] tel:[phone] [place] Encounter for rehabilitatio n evaluation 4 Sara Kamini. [address], [place], [place], [id number], [place]. tel:[phone] [facility], [address] [facility] [address] [facility], [place], [place], [id number], [place] tel:[phone] [place] No Information 4 Pitsiladis Marisela. [address] [place], [place], [id number], [place]. tel:[phone] OFFICE/OUTPA TIENT VISIT EST [facility], [address] [facility] [address], [place], [place], [id number], [place] tel:[phone] [place] Semi-Annual (chief complaint) Impacted cerumen of both earsHyperchol esterolaemiaH ypertensive heart and kidney disease with heart failure and chronic kidney diseaseStage 3b chronic kidney diseasePeriph eral arterial diseaseChroni c obstructive pulmonary disease, unspecified COPD typeFormer tobacco useDependence on supplemental oxygenCarotid atheroscleros is, bilateralGast roesophageal reflux disease without esophagitisSe condary hyperparathyr oidism of renal originVitamin D deficiencyIsc hemic cardiomyopath yAtherosclero sis of galena coronary artery of galena heart with angina pectorisHFrEF (heart failure with reduced ejection fraction)Gis Coordinator ghazal respiratory failure with hypercapniaPu lmonary emphysema, unspecified emphysema typeHistory of cardiac pacemaker 4 Pitsiladis Marisela. [address] [facility], [place], [place], [id number], [place]. tel:[phone] [facility], [address] [facility] [address], [place], [place], [id number], [place] tel:[phone] [place] Unspecified conjunctiviti s 4 Pitsiladis Marisela. [address] [place], [place], [id number], [place]. tel:[phone] [facility], [address] [facility] [address] [facility], [place], [place], [id number], [place] tel:[phone] [place] Conjunctiviti s of right eye, unspecified conjunctiviti s type [address] [facility], [place], [place], [id number], [place]. tel:[phone] [facility], [address] [facility] [address] [facility], [place], [place], [id number], [place] tel:[phone] [place] Oropharyngeal dysphagia 4 Caselden Deepthi. [address] [place], [place], [id number], [place]. tel:[phone] [facility], [address] [facility], [place], [place], [id number], [place] tel:[phone] [place] No Information 4 Pitsiladis Marisela. [address] [place], [place], [id number], [place]. tel:[phone] [facility], [address] [facility] [address] [facility], [place], [place], [id number], [place] tel:[phone] [place] Gastroesophag eal reflux disease without esophagitis 4 Pitsiladis Marisela. [address] [place], [place], [id number], [place]. tel:[phone] [facility], [address], [place], [place], [id number], [place] tel:[phone] [place] Oropharyngeal dysphagia Oct-1 5-202 4 Caselden Deepthi. [address] [place], [place], [id number], [place]. tel:[phone] [facility], [address] [facility], [place], [place], [id number], [place] tel:[phone] [place] Oropharyngeal dysphagia Oct-0 7-202 4 Caselden Deepthi. [address] [place], [place], [id number], [place]. tel:[phone] [facility], [address], [place], [place], [id number], [place] tel:[phone] [place] No Information Oct-0 2-202 4 Pitsiladis Marisela. [address] [place], [place], [id number], [place]. tel:[phone] [facility], [address] [facility] [address] [facility], [place], [place], [id number], [place] tel:[phone] [place] Oropharyngeal dysphagia Sep-3 0-202 4 Caselden Deepthi. [address] [place], [place], [id number], [place]. tel:[phone] [facility], [address] [facility] [address], [place], [place], [id number], [place] tel:[phone] [place] Oropharyngeal dysphagia Sep-2 6-202 4 Caselden Deepthi. [address], [place], [place], [id number], [place]. tel:[phone] [facility], [address] [facility] [address], [place], [place], [id number], [place] tel:[phone] [place] Acute cystitis with hematuria Sep-2 3-202 4 Pitsiladis Marisela. [address] [place], [place], [id number], [place]. tel:[phone] OFFICE/OUTPA TIENT VISIT EST [facility], [address], [place], [place], [id number], [place] tel:[phone] [place] Acute Visit (chief complaint) BPH with obstruction/l ower urinary tract symptomsOther obstructive and reflux uropathyHisto ry of fallSkin tear of left upper extremity Sep-1 4 Pitsiladis Marisela. [address] [place], [place], [id number], [place]. tel:[phone] HOME VISIT EST PATIENT [facility], [address], [place], [place], [id number], [place] tel:[phone] [place] Acute Visit (chief complaint) BPH with obstruction/l ower urinary tract symptomsOther obstructive and reflux uropathy Sep-1 4 Pitsiladis Marisela. [address] [place], [place], [id number], [place]. tel:[phone] [facility], [address] [facility] [address] [facility], [place], [place], [id number], [place] tel:[phone] [place] Suspected UTI Sep-1 0 4 Pitsiladis Marisela. [address], [place], [place], [id number], [place]. tel:[phone] [facility], [address] [facility] [address] [facility], [place], [place], [id number], [place] tel:[phone] [place] No Information Sep-1 0 4 Kang Frost. [address] [place], [place], [id number], [place]. tel:[phone] [facility], [address] [facility], [place], [place], [id number], [place] tel:[phone] [place] Suspected UTI Sep-0 4 Pitsiladis Marisela. [address], [place], [place], [id number], [place]. tel:[phone] [facility], [address], [place], [place], [id number], [place] tel:[phone] [place] Muscle weakness (generalized) May- 4 Karan Johnie. [address] [place], [address]. tel:[phone] [facility], [address], [place], [place], [id number], [place] tel:[phone] [place] Muscle weakness (generalized) May- 4 Karan Johnie. [address] [place], [address]. tel:[phone] [facility], [address], [place], [place], [id number], [place] tel:[phone] [place] Muscle weakness (generalized) 4 Karan Johnie. [address] [place], [address]. tel:[phone] [facility], [address] [facility] [address], [place], [place], [id number], [place] tel:[phone] [place] Gastroesophag eal reflux disease with hiatal herniaDiaphra gmatic hernia without obstruction or gangrene 4 Pitsiladis Marisela. [address] [place], [place], [id number], [place]. tel:[phone] [facility], [address] [facility] [facility], [place], [place], [id number], [place] tel:[phone] [place] Muscle weakness (generalized) 4 Karan Johnie. [address] [place], [address]. tel:[phone] [facility], [address], [place], [place], [id number], [place] tel:[phone] [place] Muscle weakness (generalized) May-0 4 Karan Johnie. [address] [place], [address]. tel:[phone] [facility], [address], [place], [place], [id number], [place] tel:[phone] [place] Muscle weakness (generalized) 4 Karan Johnie. [address] [place], [address]. tel:[phone] [facility], [address], [place], [place], [id number], [place] tel:[phone] [place] Muscle weakness (generalized) 4 Karan Johnie. [address] [place], [address]. tel:[phone] [facility], [address], [place], [place], [id number], [place] tel:[phone] [place] Muscle weakness (generalized) Other abnormalities of gait and mobility 4 Kraan Johnie. [address] [place], [address]. tel:[phone] [facility], [address], [place], [place], [id number], [place] tel:[phone] [place] Difficulty in walking, not elsewhere classified 4 Karan Johnie. [address] [place], [address]. tel:[phone] [facility], [address] [facility] [address], [place], [place], [id number], [place] tel:[phone] [place] No Information 4 Pitsiladis Marisela. [address] [place], [place], [id number], [place]. tel:[phone] [facility], [address], [place], [place], [address], [place] tel:[phone] [place] Muscle weakness (generalized) 4 Karan Johnie. [address] [place], [address]. tel:[phone] [facility], [address], [place], [place], [address], [place] tel:[phone] [place] Muscle weakness (generalized) Apr-2 4 Karan Johnie. [address] [place], [address]. tel:[phone] [facility], [address] [facility] [facility], [place], [place], [id number], [place] tel:[phone] [place] Muscle weakness (generalized) 4 Karan Johnie. [address] [place], [address]. tel:[phone] [facility], [address], [place], [place], [id number], [place] tel:[phone] [place] Muscle weakness (generalized) Other abnormalities of gait and mobility 4 Karan Johnie. [address] [place], [address]. tel:[phone] [facility], [address] [facility] [address] [facility], [place], [place], [address], [place] tel:[phone] [place] Muscle weakness (generalized) Other abnormalities of gait and mobility Apr-0 4 Karan Johnie. [address] [place], [address]. tel:[phone] [facility], [address] [facility] [facility], [place], [place], [id number], [place] tel:[phone] [place] Muscle weakness (generalized) Other abnormalities of gait and mobility Apr-0 4 Karan Johnie. [address] [place], [address]. tel:[phone] [facility], [address] [facility], [place], [place], [id number], [place] tel:[phone] [place] Hyperkalemia Apr-0 3-202 4 Pitsiladis Marisela. [address] [place], [place], [id number], [place]. tel:[phone] [facility], [address] [facility] [address], [place], [place], [id number], [place] tel:[phone] [place] Degenerative disc disease, cervicalHisto ry of cardiac pacemaker 4 Pitsiladis Marisela. [address] [place], [place], [address], [place]. tel:[phone] [facility], [address] [facility], [place], [place], [address], [place] tel:[phone] [place] Difficulty in walking, not elsewhere classified 4 Karan Johnie. [address] [place], [address]. tel:[phone] NURSING FAC DISCHARGE DAY [facility], [address] [facility], [place], [place], [id number], [place] tel:[phone] [place] [facility] Follow-up (chief complaint) Urinary retention 4 Bhagarachael Maldonadowala. [address] [facility] [place], [id number], [place]. tel:[phone] NURSING FACILITY CARE INIT [facility], [address] [facility], [place], [place], [id number], [place] tel:[phone] [place] [facility] Admit (chief complaint) Urinary retentionBPH with obstruction/l ower urinary tract symptomsOther obstructive and reflux uropathyAller gic conjunctiviti s, bilateralStag e 3b chronic kidney diseaseHand pain, right 4 Pitsiladis Marisela. [address] [place], [place], [address], [place]. tel:[phone] OFFICE/OUTPA TIENT VISIT EST [facility], [address] [facility], [place], [place], [address], [place] tel:[phone] [place] Acute Visit (chief complaint) Cellulitis of right upper extremity 4 Pitsiladis Marisela. [address] [place], [place], [id number], [place]. tel:[phone] [facility], [address] [facility], [place], [place], [address], [place] tel:[phone] [place] Acute Visit (chief complaint) Bacterial conjunctiviti s of both eyesOther specified bacterial agents as the cause of diseases classified elsewhere 4 Pitsiladis Marisela. [address] [place], [place], [address], [place]. tel:[phone] OFFICE/OUTPA TIENT VISIT EST [facility], [address] [facility] [address] [facility], [place], [place], [id number], [place] tel:[phone] [place] Acute Visit (chief complaint) Bacterial conjunctiviti s of both eyesOther specified bacterial agents as the cause of diseases classified elsewhere 4 Pitsiladis Marisela. [address] [place], [place], [address], [place]. tel:[phone] [facility], [address] [facility] [address] [facility], [place], [place], [id number], [place] tel:[phone] [place] Stage 3b chronic kidney diseaseHyperk alemia 4 Pitsiladis Marisela. [address] [place], [place], [id number], [place]. tel:[phone] OFFICE/OUTPA TIENT VISIT EST [facility], [address] [facility], [place], [place], [address], tel:[phone] [place] Semi-Annual (chief complaint) Stage 3b chronic kidney diseaseHistor y of cardiac pacemakerHFrE F (heart failure with reduced ejection fraction)Hype rtensive heart and kidney disease with heart failure and chronic kidney diseaseHyperc holesterolaem iaAtheroscler osis of galena coronary artery of galena heart with angina pectorisPerip heral arterial diseaseCaroti d atheroscleros is, bilateralAlle rgic conjunctiviti s, bilateralGast roesophageal reflux disease without esophagitisCh ronic obstructive pulmonary disease, unspecified COPD typeDependenc e on supplemental oxygenSeconda ry hyperparathyr oidism of renal originOld myocardial infarction 4 Pitsiladis Marisela. [address] [place], [place], [address], [place]. tel:[phone] [facility], 1 [facility] [address], [place], [place], [id number], [place] tel:[phone] [place] Allergic conjunctiviti s, bilateral May-0 4 Pitsiladis Marisela. [address] [place], [place], [id number], [place]. tel:[phone] [facility], 1 [facility], [place], [place], [id number], [place] tel:[phone] [place] Hypertensive heart and kidney disease with heart failure and chronic kidney diseaseHistor y of cardiac pacemaker Jan- 4 Pitsiladis Marisela. [address] [place], [place], [id number], [place]. tel:[phone] [facility], 1 [facility], [place], [place], [id number], [place] tel:[phone] [place] No Information Jan- 4 Pitsiladis Marisela. [address] [place], [place], [id number], [place]. tel:[phone] [facility], 1 [facility], [place], [place], [id number], [place] tel:[phone] [place] No Information Jan- 4 Pitsiladis Marisela. [address] [place], [place], [id number], [place]. tel:[phone] [facility], 1 [facility], [place], [place], [id number], [place] tel:[phone] [place] Stage 3b chronic kidney disease Jan-0 4 Pitsiladis Marisela. [address] [place], [place], [id number], [place]. tel:[phone] [facility], [address] [facility] [address], [place], [place], [address], [place] tel:[phone] [place] Difficulty in walking, not elsewhere classified Mar-2 4 Karan Johnie. [address], [place], [address]. tel:[phone] [facility],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 tel:[phone] [facility], [address] [facility] [address], [place], [place], [id number], [place] tel:[phone] [place] Hand pain, right Dec- 2 Cysz Jody. [address] [place], [place], [address], [place]. tel:[phone] [facility], [address] [facility] [address], [place], [place], [id number], [place] tel:[phone] [place] Encounter for weight management Dec- 2 Faizan Riley. [address], [place], [place], [id number], [place]. tel:[phone] [facility], [address] [facility] [address], [place], [place], [address], [place] tel:[phone] [place] Hand pain, right Dec- 2 Cysz Jody. [address] [place], [place], [address], [place]. tel:[phone] OFFICE/OUTPA TIENT VISIT EST [facility], [address] [facility] [address], [place], [place], [id number], [place] tel:[phone] [place] OV (chief complaint) Hand pain, rightHFrEF (heart failure with reduced ejection fraction)Hype rtensive heart and chronic kidney disease with heart failure and stage 1 through stage 4 chronic kidney disease, or unspecified chronic kidney diseaseStage 3b chronic kidney diseaseHyperk alemiaCOPDDep endence on supplemental oxygenFormer tobacco use Dec-2 2 Cysz Jody. [address], [place], [place], [id number], [place]. tel:[phone] [facility], [address], [place], [place], [address], [place] tel:[phone] [place] Acute coughHand pain, right 2 Cysz Jody. [address] [place], [place], [address], [place]. tel:[phone] [facility], [address] [facility] [address], [place], [place], [address], [place] tel:[phone] [place] No Information 2 Cysz Jody. [address] [place], [place], [id number], [place]. tel:[phone] [facility], [address] [facility] [address], [place], [place], [id number], [place] tel:[phone] [place] Encounter for rehabilitatio n evaluationDif ficulty in walking, not elsewhere classifiedOth er chronic painAlteratio n in performance of activities of daily living 2 Eric Woodyah Beth. [address] [place], [place], [id number]. tel:[phone] [facility], [address] [facility] [address], [place], [place], [address], [place] tel:[phone] [place] Muscle weakness (generalized) 2 Karan Johnie. [address], [place], [address]. tel:[phone] [facility], [address], [place], [place], [address], [place] tel:[phone] [place] Difficulty in walking, not elsewhere classified 2 Karan Johnie. [address], [place], [address]. tel:[phone] PER PM REEVAL EST PAT 65+ YR [facility], [address] [facility] [address], [place], [place], [id number], [place] tel:[phone] [place] SUZETTE (chief complaint)s ellie-annual (chief complaint) Hypertensive heart and chronic kidney disease with heart failure and stage 1 through stage 4 chronic kidney disease, or unspecified chronic kidney diseaseHFrEF (heart failure with reduced ejection fraction)Isch emic cardiomyopath yCoronary artery disease without angina pectoris, unspecified vessel or lesion type, unspecified whether galena or transplanted heartOld myocardial infarctionHis tory of cardiac pacemakerPeri pheral arterial diseaseHyperc holesterolaem iaSecondary hyperparathyr oidism of renal originVitamin D deficiencyLow vitamin B12 levelImpacted cerumen of right earGastroesop hageal reflux disease without esophagitisSt age 3b chronic kidney diseaseRight hip painH/O: CVAMild cognitive impairmentDep endence on supplemental oxygenCOPDOny chomycosisFor flavio tobacco useEncounter for general adult medical examination w/o abnormal findings 2 Edgar Ruvalcaba. [address] [facility] [place], [id number], [place]. tel:[phone] [facility], [address] [place] [address], [id number], [place] tel:[phone] [place] Difficulty in walking, not elsewhere classifiedMus kristen weakness (generalized) 2 Karan Johnie. [address] [place], [address]. tel:[phone] [facility], [address] [facility] [address] [place] [address], [id number], [place] tel:[phone] [place] Difficulty in walking, not elsewhere classified 2 Karan Johnie. [address] [place], [address]. tel:[phone] [facility], [address] [facility], [place], [place], [address], [place] tel:[phone] [place] Difficulty in walking, not elsewhere classifiedMus kristen weakness (generalized) 2 Karan Johnie. [address] [facility] [place], [address]. tel:[phone] [facility], [address] [facility], [place], [place], [id number], [place] tel:[phone] [place] Low vitamin B12 level 2 Cysz Jody. [address] [place], [place], [address], [place]. tel:[phone] [facility], [address] [facility], [place], [place], [id number], [place] tel:[phone] [place] Difficulty in walking, not elsewhere classifiedMus kristen weakness (generalized) 2 Karan Johnie. [address], [place], [address]. tel:[phone] OFFICE/OUTPA TIENT VISIT EST [facility], [address] [facility], [place], [place], [address], [place] tel:[phone] [place] R ear lavage (chief complaint) Impacted cerumen of right ear 2 Cysz Jody. [address] [place], [place], [address], [place]. tel:[phone] [facility], [address] [facility], [place], [place], [address], [place] tel:[phone] [place] Muscle weakness (generalized) 2 Karan Johnie. [address] [place], [address]. tel:[phone] [facility], [address] [facility], [place], [place], [address], [place] tel:[phone] [place] Difficulty in walking, not elsewhere classifiedMus kristen weakness (generalized) 2 Karan Johnie. [address] [place], [address]. tel:[phone] [facility], [address] [facility], [place], [place], [address], [place] tel:[phone] [place] Muscle weakness (generalized) 2 Karan Johnie. [address], [place], [address]. tel:[phone] [facility], [address] [facility], [place], [place], [address], [place] tel:[phone] [place] Difficulty in walking, not elsewhere classified 2 Karan Johnie. [address] [facility] [place], [address]. tel:[phone] OFFICE/OUTPA TIENT VISIT EST [facility], [address] [facility], [place], [place], [address], [place] tel:[phone] [place] SUZETTE (chief complaint)C erumen (chief complaint) Impacted cerumen of both ears 0 2 Ruben Lauro. [address] [place], [place], [id number], [place]. tel:[phone] [facility], [address] [facility], [place], [place], [address], [place] tel:[phone] [place] Muscle weakness (generalized) Jul-0 2 Karan Johnie. [address] [place], [address]. tel:[phone] [facility], [address] [facility], [place], [place], [id number], [place] tel:[phone] [place] Encounter for general adult medical examination w/o abnormal findings 0 2 Cysz Jody. [address] [place], [place], [id number], [place]. tel:[phone] [facility], [address] [facility] [address] [facility], [place], [place], [address], [place] tel:[phone] [place] Difficulty in walking, not elsewhere classifiedMus kristen weakness (generalized) 0 3 2 Karan Johnie. [address] [facility] [place], [address]. tel:[phone] [facility], [address] [facility], [place], [place], [address], [place] tel:[phone] [place] Difficulty in walking, not elsewhere classifiedMus kristen weakness (generalized) Jun-2 2 Karan Johnie. [address] [place], [address]. tel:[phone] [facility], [address], [place], [place], [address], [place] tel:[phone] [place] No Information Sep-2 2 Cysz Jody. [address] [place], [place], [address], [place]. tel:[phone] [facility], [address], [place], [place], [address], [place] tel:[phone] [place] Muscle weakness (generalized) Sep-2 2 Karan Johnie. [address], [place], [address]. tel:[phone] [facility], [address], [place], [place], [id number], [place] tel:[phone] [place] Difficulty in walking, not elsewhere classified Sep-2 0- 2 Karan Johnie. [address] [place], [address]. tel:[phone] [facility], [address], [place], [place], [address], [place] tel:[phone] [place] Difficulty in walking, not elsewhere classifiedMus kristen weakness (generalized) Sep-1 2 Karna Johnie. [address] [place], [address]. tel:[phone] [facility], [address], [place], [place], [address], [place] tel:[phone] [place] Difficulty in walking, not elsewhere classifiedMus kristen weakness (generalized) Sep-1 2-202 2 Karan Johnie. [address], [place], [address]. tel:[phone] [facility], [address], [place], [place], [address], [place] tel:[phone] [place] Muscle weakness (generalized) Sep-0 1-202 2 Karan Johnie. [address] [place], [address]. tel:[phone] [facility], [address], [place], [place], [address], [place] tel:[phone] [place] Difficulty in walking, not elsewhere classifiedMus kristen weakness (generalized) 2 Karan Johnie. [address] [place], [address]. tel:[phone] [facility], [address], [place], [place], [address], [place] tel:[phone] [place] Muscle weakness (generalized) 2 Karan Johnie. [address] [place], [address]. tel:[phone] [facility], [address], [place], [place], [address], [place] tel:[phone] [place] check in (chief complaint) Right hip pain 2 Cysz Jody. [address] [place], [place], [address], [place]. tel:[phone] [facility], [address], [place], [place], [address], [place] tel:[phone] [place] Muscle weakness (generalized) Difficulty in walking, not elsewhere classified 2 Karan Johnie. [address] [place], [address]. tel:[phone] [facility], [address], [place], [place], [address], [place] tel:[phone] [place] Muscle weakness (generalized) 2 Karan Johnie. [address] [place], [address]. tel:[phone] [facility], [address], [place], [place], [address], [place] tel:[phone] [place] HFrEF (heart failure with reduced ejection fraction) 2 Faizan Riley. [address], [place], [place], [address], [place]. tel:[phone] [facility], [address], [place], [place], [address], [place] tel:[phone] [place] Difficulty in walking, not elsewhere classified 2 Karan Johnie. [address], [place], [address]. tel:[phone] [facility], [address], [place], [place], [address], [place] tel:[phone] [place] Right hip pain 2 Cysz Jody. [address], [place], [place], [address], [place]. tel:[phone] [facility], [address], [place], [place], [address], [place] tel:[phone] [place] Encounter for rehabilitatio n delanoNee d for assistance with personal careOther lack of coordination 2 Eric Castillo. [address] [facility] [address] [place], [place], [address]. tel:[phone] [facility], [address], [place], [place], [address], [place] tel:[phone] [place] Other chronic pain 2 Karan Johnie. [address], [place], [address]. tel:[phone] [facility], [address], [place], [place], [address], [place] tel:[phone] [place] Dependence on supplemental oxygenCOPD 2 Cysz Jody. [address], [place], [place], [address], [place]. tel:[phone] [facility], [address], [place], [place], [address], [place] tel:[phone] [place] COPDDependenc e on supplemental oxygen 2 Cysz Jody. [address] [facility] [place], [address], [place]. tel:[phone] [facility], [address] [facility] [address], [place], [place], [address], [place] tel:[phone] [place] Muscle weakness (generalized) 2 Karan Johnie. [address] [facility] [address], [place], [address]. tel:[phone] [facility], [address] [facility] [address] [address], [place], [place], [address], [place] tel:[phone] [place] Hyperkalemia 2 Cysz Jody. [address] [facility] [place], [address], [place]. tel:[phone] [facility], [address] [facility] [address], [place], [place], [address], [place] tel:[phone] [place] No Information 2 Cysz Jody. [address] [facility] [place], [address], [place]. tel:[phone] OFFICE/OUTPA TIENT VISIT EST [facility], [address] [facility] [address], [place], [place], [address], [place] tel:[phone] [place] SUZETTE (chief complaint) Hypertensive heart and chronic kidney disease with heart failure and stage 1 through stage 4 chronic kidney disease, or unspecified chronic kidney diseaseHFrEF (heart failure with reduced ejection fraction)Isch emic cardiomyopath yCoronary artery disease 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Old myocardial infarctionHis tory of cardiac pacemakerPeri pheral arterial diseaseHyperc holesterolaem iaSecondary hyperparathyr oidism of renal originVitamin D deficiencyLow vitamin B12 levelGastroes ophageal reflux disease, unspecified whether esophagitis presentStage 3a chronic kidney diseaseHyperk alemiaOsteoar thritis of multiple joints, unspecified osteoarthriti s typeMild cognitive impairmentDep endence on supplemental oxygenCOPDFor flavio tobacco useEncounter for general adult medical examination w/o abnormal findings 2 Cysz Jody. [address] [place], [place], [id number], [place]. tel:[phone] [facility], [address] [facility] [address], [place], [place], [address], [place] tel:[phone] [place] Muscle weakness (generalized) 2 Karan Johnie. [address] [place], [address]. tel:[phone] [facility], [address] [facility] [facility], [place], [place], [address], [place] tel:[phone] [place] Hemiplegia and hemiparesis following unspecified cerebrovascul ar disease affecting right non-dominant sideMuscle weakness (generalized) 2 Karan Johnie. [address] [place], [address]. tel:[phone] [facility], [address] [facility] [address] [facility], [place], [place], [address], [place] tel:[phone] [place] Muscle weakness (generalized) February-0 2 Karan Johnie. [address] [place], [address]. tel:[phone] [facility], [address] [facility] [address] [facility], [place], [place], [address], [place] tel:[phone] [place] Muscle weakness (generalized) February-0 2 Karan Johnie. [address] [place], [address]. tel:[phone] [facility], [address] [facility], [place], [place], [address], [place] tel:[phone] [place] Muscle weakness (generalized) Jan- 2 Karan Johnie. [address] [place], [address]. tel:[phone] [facility], [address], [place], [place], [address], [place] tel:[phone] [place] Muscle weakness (generalized) Apr-2 6-202 2 Karan Johnie. [address] [place], [address]. tel:[phone] [facility], [address], [place], [place], [address], [place] tel:[phone] [place] Bilateral hip painPain in left hipChronic pain of both kneesPain in left kneeOther chronic pain Apr-2 5-202 2 Cysz Jody. [address], [place], [place], [address], [place]. tel:[phone] [facility], [address], [place], [place], [address], [place] tel:[phone] [place] Mild cognitive impairment, so statedMuscle weakness (generalized) Apr-2 0-202 2 Karan Johnie. [address], [place], [address]. tel:[phone] [facility], [address], [place], [place], [address], [place] tel:[phone] [place] Other chronic pain Apr-1 9-202 2 Karan Johnie. [address], [place], [address]. tel:[phone] [facility], [address], [place], [place], [address], [place] tel:[phone] [place] Other chronic pain Apr-1 2-202 2 Karan Johnie. [address], [place], [address]. tel:[phone] [facility], [address], [place], [place], [address], [place] tel:[phone] [place] Other chronic pain Apr-0 7-202 2 Karan Johnie. [address], [place], [address]. tel:[phone] [facility], [address], [place], [place], [address], [place] tel:[phone] [place] Other chronic pain Jan-0 2 Karan Johnie. [address], [place], [address]. tel:[phone] [facility], [address], [place], [place], [id number], [place] tel:[phone] [place] Chronic pain of both kneesPain in left kneeOther chronic pain Dec-2 2 Cysz Jody. [address] [place], [place], [address], [place]. tel:[phone] [facility], [address] [facility] [address], [place], [place], [address], [place] tel:[phone] [place] Other chronic pain Dec-2 2 Karan Johnie. [address] [place], [address]. tel:[phone] [facility], [address] [facility] [address], [place], [place], [address], [place] tel:[phone] [place] Bilateral hip painPain in left hipChronic pain of both kneesPain in left kneeOther chronic pain Dec- 2 Cysz Jody. [address] [place], [place], [address], [place]. tel:[phone] [facility], [address] [facility] [address], [place], [place], [address], [place] tel:[phone] [place] Difficulty in walking, not elsewhere classified b-0 2 Karan Johnie. [address], [place], [address]. tel:[phone] [facility], [address], [place], [place], [address], [place] tel:[phone] [place] Acute pain of right kneeHistory of fall b-0 3 2 Cysz Jody. [address] [place], [place], [address], [place]. tel:[phone] [facility], [address] [facility], [place], [place], [address], [place] tel:[phone] [place] Encounter for nutritional assessment 1 Sobeida Ford. [address], [place], [address]. tel:[phone] [facility], [address] [address], [place], [place], [address], [place] tel:[phone] [place] Vitamin D deficiencyPer ipheral arterial diseaseHistor y of cardiac pacemaker 1 John Vera. [address] [facility] [place], [place], [address], [place]. tel:[phone] [facility], [address] [address], [place], [place], [address], [place] tel:[phone] [place] Muscle weakness (generalized) Encounter for rehabilitatio n evaluation 1 Karan Jett. [address], [place], [address]. tel:[phone] [facility], [address], [id number], [place] tel:[phone] [place] Dysphagia, oropharyngeal Dysphagia, unspecified type 1 Rajeev Hargrove. [address] [place] [address], [place], [place], [address]. tel:[phone] [facility], [address] [address], [place], [place], [address], [place] tel:[phone] [place] Mild cognitive impairment, so statedAlterat ion in performance of activities of daily living 1 Erci Castillo. [address] [facility] [address] [place], [place], [id number]. tel:[phone] [facility], [address] [facility] [address] [place] [address], [id number], [place] tel:[phone] [place] Encounter for rehabilitatio n evaluationNee d for assistance with personal care 1 Eric Graffh. [address] [place] [place], [place], [id number]. tel:[phone] OFFICE/OUTPA TIENT VISIT [facility], [address] [facility] [address] [facility], [place], [place], [id number], tel:[phone] [place] PEE (chief complaint) HFrEF (heart failure with reduced ejection fraction)Isch emic cardiomyopath yCoronary artery disease 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Old myocardial infarctionHis tory of cardiac pacemakerPeri pheral arterial diseaseHyperc holesterolaem iaGastroesoph ageal reflux disease, unspecified whether esophagitis presentStage 3a chronic kidney diseaseArthri Gia/O: CVAFormer tobacco useEncounter for general adult medical examination w/o abnormal findingsMild cognitive impairmentDep endence on supplemental oxygenHyperte nsive heart and chronic kidney disease with heart failure and stage 1 through stage 4 chronic kidney disease, or unspecified chronic kidney diseaseHistor y of pneumonia [address], [place], [place], [id number], [place]. tel:[phone] [facility], [address] [facility], [place], [place], [id number], [place] tel:[phone] [place] Encounter for general adult medical examination without abnormal findings [address], [place], [id number], [place]. tel:[phone] [facility], [address] [facility], [place], [place], [id number], [place] tel:[phone] [place] No Information 1 [address], [place], [id number], [place]. tel:[phone] [facility], [address] [facility] [address] [facility], [place], [place], [id number], [place] tel:[phone] [place] No Information 1 [address], [place], [place], [id number], . tel:[phone] Family History Family Member Type Diagnosis Age At Onset No Information Immunizations Vaccine Date Status Comments Fluzone High Dose administered So urce: New Immunization Record COVID-19 (Moderna) administered Note: spi kevax ; Source: Other Registry Flu-IIV4, p-free High Dose administered S ource: Other Registry RSV adjuvanted, monovalent preF Subunit Vaccine, 0.5 mL, PF administered Source: Other Regist ry PCV20 administered Source: Other R egistry Tdap administered Source: Other R egistry COVID-19 Pfizer Bivalent 12+ administered Source: Other Registry Fluzone High-Dose administered Source: New Immunization Record COVID-19 (Moderna) administered Source: O ther Registry Tdap refused Source: New Imm unization Record Zoster recombinant subunit refused S ource: New Immunization Record pneumococcal conjugate vaccine, 13 valent refused Source: New Immuniza tion Record Flu-IIV4, p-free High Dose administered S ource: Other Registry COVID-19 Pfizer administered Source: Othe r Registry COVID-19 Pfizer administered Source: Othe r Registry COVID-19 Pfizer administered Source: Othe r Registry PPSV23 administered Source: Other R egistry Payers Payer name Insurance type Covered libertarian ID Authoriza tion(s) [facility] 16 [id number] [employer] 16 [id number] [employer] 16 [id number] [facility] 16 [id number] [facility] 16 [id number] [facility] 16 [id number] Social History Type Description Quantity Date Captured Comments Sex Male Smoking Status No Information Chief Complaint And Reason For Visit No Information Reason For Referral Reason For Referral No Information Plan Of Treatment Date Type Action Status Referral Ordered: Cardiology (related to Hypertensive heart and kidney disease with heart failure and chronic kidney disease) ordered Referral Ordered: Referrals: Cardiology. Follow-up and treat ordered Referral Ordered: Ophthalmology (related to Bacterial conjunctivitis of both eyes) ordered Referral Referred To: [facility] Ordered: Referrals: Cardiology. [facility]. Follow-up and treat ordered Referral Referred To: [facility] Ordered: Referrals: Nephrology. [facility]. Follow-up and treat Appointment date/timeframe: 12/30/2023 ordered Referral Ordered: Referrals: [facility]. Evaluate and treat Appointment date/timeframe: 02/11/2024 ordered Referral Ordered: Referrals: [facility] Appointment date/timeframe: 01/01/2024 ordered Referral Ordered: [place] [facility] [place] [facility] Follow-up and treat Appointment date/timeframe: 02/16/2023 ordered Referral Ordered: Referrals: [facility] [place] [facility] Evaluate and treat Appointment date/timeframe: 04/22/2023 ordered Referral Ordered: Referrals: Cardiology. Consult Appointment date/timeframe: 12/25/2022 ordered Referral Ordered: Referrals: Pulmonology. Consult Appointment date/timeframe: 03/30/2023 ordered Referral Referred To: [facility] Ordered: Referrals: Data Control Assistant. [facility] Location: . Evaluate and treat Appointment date/timeframe: 02/24/2023 ordered Referral Referred To: Occupational Therapy Ordered: Referrals: Therapies/Rehabilitation. Occupational Therapy. Evaluate and treat ordered Referral Referred To: Oxygen concentrator Ordered: Referrals: Oxygen concentrator ordered Referral Ordered: Referrals: Orthopedic Surgery. Location: [facility]. Follow-up and treat Appointment date/timeframe: 03/17/2022 ordered Referral Ordered: X-RAY EXAM HIPS BI 2 VIEWS Appointment date/timeframe: 01/17/2022 ordered Referral Ordered: X-RAY EXAM OF KNEE 1 OR 2 Appointment date/timeframe: 01/17/2022 ordered Referral Ordered: Referrals: Orthopedic Surgery. Location: [facility]. Evaluate and treat ordered Referral Ordered: INTERROG EVL PM/LDLS PM IP ordered Referral Ordered: Duplex Scan Of Extremity Veins, Complete Bilateral ordered Referral Ordered: LOWER EXTREMITY STUDY ordered Referral Ordered: Referrals: Nephrology. Location: [facility]. Follow-up and treat Appointment date/timeframe: 10/31/2021 ordered Referral Ordered: Referrals: Ophthalmology. Evaluate and treat ordered Referral Ordered: Referrals: Podiatry. Evaluate and treat ordered Referral Ordered: Referrals: Cardiology. Location: [facility]. Follow-up and treat Appointment date/timeframe: 02/17/2022 ordered Referral Ordered: Referrals: Vascular Surgery. Location: [facility]. Follow-up and treat ordered Appointment Janett Deal Appointment Janett Deal Appointment Janett Deal Future Order: Lab Order COMPREHE NSIVE METABOLIC PANEL ([id number]), Ordered on: Ordered Future Order: Lab Order CBC (INC LUDES DIFF/PLT) ([id number]), Ordered on: Ordered Future Order: Lab Order FERRITIN ([id number]), Ordered on: Ordered Future Order: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 if <9. No specific follow up recommended in the note. : History of UTIs and urinary retention. He was started on tamsulosin in December 2022 and remains on it now. He reports intermittent urinary incontinence and is wearing a brief today. Vision: Seen at for vision. Last seen for an exam 05/12/23. He received new glasses in May 2023. He has no concerns today. Dental: He was supposed to be seen in March 2023 however declined to go to the appointment, stating "I only have 10 teeth left . Denies mouth pain, sores or any concerns today. Hearing: no current concerns. He has a PRN Debrox prescription. No significant cerumen noted on exam today. Podiatry: last seen 07/13/2023 at however declined to be seen as he was seen the month prior. Per the 06/08/23 podiatry note, hypertrophic nails noted bilaterally; lateral nail margin of left first toenail digging into medial aspect of left 2nd toe, pre-ulcerative and painful, no infection noted. No other significant concerns. Colonoscopy: had reportedly had multiple colonoscopies with findings of polyps; last one was completed at [facility] within 10 years. He declined further testing and he is 86 years old where colonoscopy screening is no longer recommended. Instructed to report change in stool habits, blood in stool. SNF has not reported concerns of blood in stool when he has been in SNF. Immunizations: UTD on COVID19, PCV13; PCV20, seasonal flu; Tdap. Declines Shingrix.Mind/Memory/MOCA: 07/2023 18/30 (points off for day of the visuospatial, attention, abstraction, month, language) ; 08/2022; 09/2021. 8th grade education. His HCP was invoked December 2022 while in hospital. Currently we work with daughter on shared decision making for his medical issues. He has questionable safety awareness. Diet: meals prepared by [facility]. He reports a good appetite. No GI complaints. Reports he is a picky eater. He will have soup if he doesn't like the meal offered. His weight today is 173lbs with a BMI of 28.05. Weight has been stable +/- 2-5lbs over the past several months. He did have a low in the 150s earlier this year when in SNF. Falls: Last fall was March 2023. He went to the ED and then was discharged back to [facility]. He is using a wheelchair or scooter when outside of his room. Inside his room, uses a walker. Mobility/Activity/exercise: He is using a wheelchair or scooter when outside of his room. Inside his room, uses a walker.Pain: No complaints of pain today. Reports I am fine . Incontinence: Reports intermittent urinary incontinence sometimes . He has a brief on today at [facility]. No bowel incontinence. We will review this at follow up. Sleep: He has non-hospital bed. Sleeps in his bed and naps at times in his glider rocker. I have no problems with sleep . Skin: No concerns reported.Diagnoses reviewed. All chronic conditions in this assessment are stable unless stated otherwise. Acute Visit Patient seen for limited urgent visit.Last week and was informed the patient had irritation involving left eye. I noted that he had previously been treated with erythromycin. It seemed likely to be some form of blepharitis as there was suggestion of irritation of the medial and lateral canthi. I opted to repeat course of erythromycin ophthalmic. It is a bit unclear whether it was actually completed. He was at the day center today and complained to nurse about pruritus. He was amenable to being seen in clinic.Patient reports he has had this in the past, he is a slightly limited historian, he cannot tell precisely how long and how often. He is also not certain what it has responded to in the past. He reports that his vision is unaffected. He reports it is not painful. He reports that it is pruritic. 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 The right eye is either minimally involved or not involved at all. Sclera does not appear to have injection. Pupils reactive. I do not see any changes of the iris. Conjunctival surfaces appear fairly normal, I do not perceive there to be increased irritation although difficult to be definitive. There does not appear to be any discharge from the high and there is no crusting of the eyelashes but rather a fair amount of scaly dermatitis primarily located at the lateral and medial aspects of the skin peripheral but seemingly not involving the canthi.. There is a fair amount of redness medially and some laterally. On the left side he has a fair amount of involvement of the nasolabial fold with seborrheic dermatitis. There is some of the right of the nose but far less so. There is not much involving the alejandro-oral area. I almost accidentally noted a small nodular area on the ulnar aspect of his forearm several centimeters distal to the elbow. It is rather nonspecific, slightly irritated. He reports he has been picking at it. It is not bleeding. Post Hospital Evaluation Patient seen today in follow-up of ER visit for presyncope.Patient was apparently showering, by his recollection home health aide told him that he looked unwell even though he says he felt okay and 911 was called. Elsewhere it is suggested that he had 2 episodes of presyncope. He recalls no prodrome such as chest pain, lightheadedness, vertigo, weakness or other symptoms. He feels he was eating, drinking and functioning normally.In the emergency department he related that he had had some darkening of his vision. It was noted that his vital signs were fine. Evaluation was unremarkable. Ultimately decision was made to discharge her back home. He reports he has been doing just fine since getting home. He is not lightheaded. He is ambulating in his usual manner. He notes no obvious neurologic change.ROS:No headacheNo acute vision changeNo dysphagiaNo chest pain or palpitationsBaseline dyspnea and oxygen useNo bowel complaintsNo urinary complaintsNo new pain complaintsNo focal weaknessNo presyncopal or syncopal symptomsExam:Well-developed, older gentleman sitting in his lounge chairAwake, alert and attentiveNo acute distressMale pattern hair lossOxygen saturation on oxygen 93%, pulse 64, afebrile, respiratory rate 18, he was back to lunch and did not wish to have blood pressure checkedMucous membranes decently hydratedFacial symmetry appears preservedHeart sounds regular, faint murmurLungs diffusely diminished, no wheezesAbdomen soft, nontenderExtremity is without clubbing or cyanosis. There is trace to 1+ symmetric bilateral lower edemaHe is awake, alert, attentive. Speech is fluent. Moving all extremities.[facility] data:Chest x-ray 07/25:Triple lead right subclavian pacer/AICD wires intact. Central vascular markings are mildly prominent but improved compared to prior. Consolidation at the left base within the lingula possibly due to atelectasis although small pneumonia could be considered. Post cardiac surgery. Impression left basilar opacity and volume loss which could be due to atelectasis or minimal pneumoniaCT head atherosclerotic vascular calcifications of carotid arteries. Vascular calcification and bilateral foot to broader Caleb. Atrophy. Low density white matter change. PseudophakiaEKG pacedWBC 9.8, hemoglobin 11, platelets underneath to and, very minimal left shift.Potassium 5.5 bicarbonate 33, BUN 29 creatinine 1.7High sensitivity troponin is 28 OV Mr. Deal is chivo lucero seen in the office today on his day for general check in and post ER visit. He is a fair historian, can be willful. Dtr is HCP and she deanna continue to be updated by the care team.[facility] ED 04/06/23Sent in from [facility] s/p fall with head strike. He reports that he was leaning over to plug in his battery for his scooter and hit his head on the corner of furniture and landed on the floor (mechanical fall). Reports no LOC. States pressed his ERS button and was upset that it took 15 minutes for someone to come in to assist him to get up. He reports that he didn't want to go to the ER, but the [facility] insisted. He had a negative workup in the ED including CT head/spine and was discharged home. He was upset that they didn't have a ride for him right away from the ED and states that he had to wait 1.5 hours. However, then he indicates that he is happy about the women ambulance drivers that took me home. Initially he reports that he is having difficulty with hearing, and then later in the visit indicates that everything is fine. DENIES CP, worsening SOB, change in appetite, constipation, sleep issues. Reports that he has been voiding without feeling of retention, can have some urge issues. Had to run out to restroom during today's visit to void. Reports that he has 2 urinals at his bedside for the nighttime since does not want to get OOB multiple times at night. With regards to his issues with lower leg/foot pain - states that his pain is fair. Vague on his response. Able to ambulate in his room with his foot pain. He reports that he is doing well with the rehab team who have been working with him at home. Hearing - reporting that I can't hear anything and then discussed with him about we have known that he has hearing issues. States, well it has been this way for a while. I need my ears flushed out. Offered him possible appt with audiology today while they are here at , but then states I don't want to see that lady. Upon exam, he could use an updated ear flush - MA attempted today in office but minimal effect. He will restart debrox drops and will try for an ear flush next week when he is back at . [facility] - saw raul 03/30/23 who ordered PFTs and would like to start Spiriva. Was already on Spiriva as oupt. Sounds like dtr did not go to appt with him. PFTs completed this morning - results pending. Vision - has his new eyeglasses and is happy with themDental - had appt set up in March at but again indicates that does not want appt. Dtr was notified of this previously. They will notify if urgent dental concerns. 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, well groomed, sitting in his transport wheelchair with O2 in place via n/c 3 LPMwearing his new eyeglasses, sclera nonicteric, very poor dentitionRRR, speaking full sentences, no SOB at rest, no cough, faint late bilateral crackleswearing his bilateral compression stockings, mild BLE edema noted - legs in dependent positionneeded some assist when in restroom to take down his pants and suspenders since had to void quicklyabd + BS semifirm nontendernoted weight gain since return back to [facility], but unclear if weight was without his jacket on, inconsistent weights - will have rechecks in future, labs also orderedPLAN:- recheck labs today including BNP- will restart his debrox drops and attempt ear flush on his - continue with program - dental eval at canceled- r/s podiatry appt since there was a transportation error when he had his last appt- will have them continue to work on obtaining weekly weights on - await PFT results Time spent - care coordination, charting, office visit - 60 minutes SNF Discharge Comments: Janett is an 87 year old male who is being seen for a SNF discharge.Ppt was brought to [facility] on 01/17/23 after hospitalization at [facility] with recommendations for rehab.[facility]: 01/09/23-01/17/23CC: hypoxiaHospital course: Discharge had been on hold as ppt desatted to 87% w/ ambulation (pulm rehab consulted). Complicated by: AMS likely r/t hypercapnic respiratory failure that had resolved; obstructive GIOVANA and UTI- completed course of ceftriaxone and GIOVANA had resolved. Cook removed on 01/16. Geriatrics consulted about GOC. Dispo: Recommended rehabMed changes: -Discontinued: vitamin D, nicin, omega3, thiamine-Started: tamsulosin, voltaren gel, lidocaine patchesHe was admitted to [facility] on 01/17/23 and was transitioned from STR to respite as he was no progressing with rehab.[facility]) home trial on 03/16 and determined he was ready to return.Today:-VSS: 121/80, pulse 66, O2 97% on 2.5L, R 20-Ppt and nurse were notified of 1p discharge on 03/19. -Ppt was in good spirits demonstrated an understanding though forgets easily during conversation. -Exam was unremarkable. Did not scratch to left outter upper and lower lid; nothing noted in eye; no visual changes. Denies pain at this time. Medications sent to [facility].Medically stable for discharge at this time. SNF f/u [facility] Mr. Deal is chivo lucero seen this morning in his room at [facility] where he remains for STR, admitted there on 01/17/23, currently on respite level of care since he had not been participating in rehab and was not progressing. Last seen by SE provider on 02/25/23. He is a fair historian, can be willful. Overall nursing reports he is stable. [facility] screened him and determined that he was not yet ready to return to [facility] with his level of care needs. Nursing reports that he is ambulatory with 2 assist with walker in his room. Needs to be independent with wheeled walker to return to [facility] as well as be able to manage his O2 independently.He reports he is doing ok - eating breakfast at time of arrival to his room. He is upset since his compression stockings were not put on yet this morning, like they are at [facility]. Reminded him that he is in SNF and their schedule is different and the stockings will be applied today. He reports continued foot pain - imaging is negative, next steps could be MRI if soft tissue injury, but he is not appropriate for MRI due to presence of pacemaker (current pacer MRI compatible, but he has old wires present which are likely not MRI compatible). Dtr did not feel that MRI would make a significant change to clinical course at this time. Rehab is also working to obtain supportive brace for his foot.He reports that he is eating fine, no current issues with constipation or voiding. EXAM:alert and oriented, lying in bed with HOB up eating breakfast, upset about his compression stockings, his O2 via n/c continues to come off his nose and he leaves it off while eating. Reminded to keep O2 on.Does have some mild redness in his L eye - reports I just got up. Doesn't have his glasses on since have been lost. RRR, speaking full sentences, no resp distress, on O2 2-3Lpm via n/c. LS clear, diminished, no coughHR regular, trace pedal edema, decreased pedal pulsesclear sharif urine in urinal at bedsideAbd - semifirm, NT, +BS PLAN:- SNF to notify if L eye redness worsens, seems to have rubbed his eye but SNF to report if concerns - eyeglasses pending from - 03/16/23 podiatry f/u at 1 month f/u-03/30/23 0900 [id number]. pulmonary f/u - 04/22/23 dental at - continue to work with rehab at [facility]- repeat labs as scheduled weekly, labs pending from this morning - watching renal function, WBCs- nursing also monitoring for constipation which can contribute to urinary retention, has bowel regimen in place - continue to monitor for pain control for his feet- remote cardiac device check machine has arrived at [facility] for his next device check- will need more time for rehab - will need to be independent with wheeled walker to return to [facility]. Will also need to be able to independently manage his O2 tanks, concentrator. He also needs to be able to lift the tank onto his scooter basket, change the tank equipment/crack the tank and dial up his O2 liters. He has had issues with this prior to admission to hospital. - [facility] continuing to follow, may need home trial, family meeting will be forthcomingTime spent - care coordination, clinic visit, charting - 45 minutes Semi-Annual Mr. Deal is a p leasant R handed medically complex 87-year old male who has been enrolled in the [facility] program since 09/25/21 and is being seen in the clinic for his biannual examination. He is currently at [facility] under respite level of care (was there for STR but was not participating so was dropped down to respite level for now, admitted to SNF on 01/17/23). Last seen by this provider on 02/16/23. He is a fair historian, can be willful, poor safety awareness, poor insight. HCP was invoked during his last hospitalization. Dtr was not able to attend appt today at clinic but was called after the appt while ppt was still at and reviewed findings/provided clinical update.Social Hx -prior to this recent stay at SNF, lives at [place] at [facility] in an individual room, moved in in 07/2021. He participates in activities downstairs and is very social but has been known to be down in the common areas with empty O2 tanks, not having his O2 on. Hospital/SNF summary of the last 6 months:11/02/22-11/25/22 [facility] - fall, anemia, COPD exacerbation, hypoxemia, PNA11/25/22-12[facility]01/[facility]12[facility]22 [facility] - acute on chronic HF, CKD, acute on chronic resp failure12/05/22-12/17/22 - [facility]12/17/22 - 01/09/23 - back at [facility]01/09/23-01/17/23 - [facility] - Acute on chronic heart 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, Acute on chronic respiratory failure with hypoxia and hypercapnia, Altered mental status, metabolic encephalopathy, Bilateral leg pain, CAD (coronary artery disease) s/p CABG 3x, COPD (chronic obstructive pulmonary disease, Concern for aspiration, Concern for pneumonia, Cystitis 01/17/23 - present - [facility] for STR, currently under respite level of careHe does not come to the PACE site regularly, only for medical appointments. Transportation by or [place] with dtr as backup. Dtr tries to attend outside appts with her father when she can. Medications - currently at SNF. When at [facility], has medications managed by [facility] staff. Medications taken whole and have had no reports of refusal to take medications, difficult with swallowing (which has been noted in the past). [facility] - HCP - 10/18/21 - Primary HCP Faye Rohan, secondary Janett Deal Jr. HCP was invoked earlier this year when was in hospital. [facility] 01/19/23 - DNR/DNI, no CPAP, + transfer to hospital; short term IV fluids, no nutrition, no dialysis. Reviewed with dtr again today and no changes. Matters Most - to go back to [facility]. I like it there. Pulmonary - this is his main overarching issue- is O2 dependent. (This is thought due to an episode of PNA a few years ago that unmasked an unknown COPD.) Information pertaining to his resp issues have been summarized in the previous notes. See also cardiac. Overall he is appropriate for use of nocturnal Bipap but he continues to refuse - this has been reviewed on multiple hospital stays. He refuses to use and would not be able to manage on his own at [facility]. He has been adherent to wearing O2 continuously via n/c at the SNF. (Prior to this was on nonrebreather.) He also was generally adherent to wearing O2 via n/c at [facility] but has had issues with being downstairs in activities with an empty tank or the tank not turned on. He has some poor safety awareness related to this - States that he can manage on his own. In order to go back to [facility], needs to be able to manage his O2 - i.e. sisal picker tanks to put into his scooter, crack the new tanks/change out the regulator. Has a concentrator in his room and seems to be able to manage that. He does have elevated CO2 levels. He also has had issues with PNA, some possibly related to concerns for aspiration. He was on modified diet briefly but has now been switched back to regular texture diet. He was due to f/u with pulm but not able to get out of the SNF at the time. Dtr will call and let us know of his f/u appt. Cardiac/Vascular - Was seen in the hospital in 11/2022 at [facility] for troponin bump - was started on clopidogrel and to f/u as oupt with cardiology at [facility]. Did not have chest pain. Trop bump was thought to be secondary to demand ischemia. Did not undergo cardiac cath at [facility] and could be considered as outpt (renal function limits options). Followed with cardiology in 12/2022 with no medication changes for his CAD, CHF, however did not discuss clopidogrel which had been added during a prior hospitalization at [facility]. He was briefly taken off of this medication earlier this year due to concerns for decreasing H&H. Then was hospitalized again and was put back on the medication. H&H is monitored currently on a weekly basis. Regarding his heart failure, his BNPs had been up to 2,500 over the last few months. Most recently at [facility], at a normal range for him. Dry weight per [facility] discharge 11/2022 was 174 lbs - he has lost weight since then in general and fluid loss. He gets weighed daily at [facility] and is on maintenance bumex 1 mg dosing. He can get a PRN additional dose bumex if weight gain per parameters. He has not needed additional PRN bumex recently. BNP checked weekly for trending. Since he had a BiV upgrade for his pacer, his EF had improved to 45-50%, confirmed on inpt echo 10/2022 (no significant change from 2019 echo).Pacemaker- pacer dependent, followed by clinic for device checks, last check 02/13/2023 (but cannot read the note); now that in [facility], a remote device check is on order from cardiology so that he does not need to go into the cardiology office 4x/year solely for device checks. Prior to this did not have a phone where the remote device could be linked to. We discussed this today and he is perseverating about not wanting to use the remote device - stating I did it before, and it was too much trouble. Later on in this visit when discussing other things, he brought the box back up again and how he doesn't want to have the remote checks. Reviewed with him that his next check isn't until April and we have time to coordinate this. Had followed with vascular also in the past. He has had procedures on his RLE and LLE. Had telehealth with Dr. William in 10/2021 who indicated that his updated vascular testing (R fempop bypass graft scan and L arterial duplex) was stable and graft was patent. She did not recommend further intervention at this time and felt that he was asymptomatic from vascular disease standpoint. On gabapentin for his neuropathy. They recommended f/u with vascular, but he does not want to continue f/u with them- again stated today (dtr aware). He has also been encouraged to wear compression stockings, but since at [facility], has been having pain and not consistently tolerating wearing them. Renal - has followed with renal as oupt. Was also seen by them while inpt at [facility] in December. See below. 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 F/u with renal as oupt. [facility] indicates no dialysis and confirmed with dtr again today.Dtr will call renal to see when his next f/u is so that we can arrange transportation and assist with care coordination. - has had 2 UTIs over last 6 months, was having urinary retention in hospital and concern for obstruction with GIOVANA - necessitated cook placement. Renal US was negative for hydronephrosis. He was started on tamsulosin for urinary retention. One of the UTIs was noted while he was in SNF. He has also had recent issues with repeat urinary retention, occasionally necessitating straight cath. Now has cook back in - will have voiding trial. Encouraging him to be out of bed more and drinking more PO fluids. Concern for constipation causing urinary retention. He reports that his issues with constipation have improved. Vision- seeing at today for optometry, needs new glasses since they were lost at [facility] - new glasses will be on order- he is happy about thisDental - had appt set up in March at but then does not want appt. I only have 10 teeth left , denies mouth pain, sores. Dtr was notified that he wants to hold on dental appt and she is ok with this. They will notify if urgent dental concerns. Hearing - reports no problems, had used debrox PRN for his ears previously, had ear flush in Julyodiatry - last seen 02/16/23 at , has follow up scheduled Colonoscopy - had reportedly had multiple colonoscopies with findings of polyps; last one was completed at [facility] within 10 years. He declined further testing and he is 86 years old where colonoscopy screening is no longer recommended. Instructed to report change in stool habits, blood in stool. [facility] has not reported concerns of blood in stool when he has been in SNF. Immunizations - UTD on COVID19 (4 doses); PCV13; pneumo 20, seasonal flu; Tdap. Refuses Shingrix. follow up while at [facility] for podiatry Mr. Deal is being seen today at clin for routine f/u. He is currently here for podiatry visit but is under respite level of care at [facility]. Last seen by SE provider on 02/09/23. Podiatry - UTD today; met with brace end [facility] former re: ppt's foot pain. Podiatry recommends to have a recheck L foot xray since ppt reporting more pain after a fall earlier this year. Xrays in the hospital indicated no fracture. Podiatry recommends recheck to see if there was a fracture that was not visualized on the prior xrays and to check for callus formation. If xray inconclusive could consider L foot MRI. 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 Leather Stamper felt he has good pulses. Podiatry would like f/u with ppt in 1 month. Podiatry also recommended consideration/evaluation for L foot brace to assist with compression/comfort. Cardiology - he went out last week for cardiology appt - device check. [place] does not have a remote device check machine nor cell phone, therefore needed in -person device checks. Since ppt is currently at [facility], SE has worked on getting this facilitated to get the machine sent to [facility]. We do not yet have the device check results. He is pacer dependent.Family meeting/STR - Ppt is currently respite level of care at [facility], has had poor motivation, poor insight. He feels that he will be able to get back to [facility] and be independent with his O2. Family meeting was held last week with dtr/HCP and dtr indicated that she will work with her father to get him more motivated to work with rehab. Late last week was recommended to try to increase his activity/respite level of care to start back up on PT. Urinary retention - has had continued issues with this, necessitated cook to be re-instituted last week. He is on tamsulosin. Reminded to stay on bowel regimen since constipation can lead to urinary retention. Will plan for voiding trial in near future. He cannot manage cook at [facility]. 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 Sitting in transport wheelchair in [place].Transported down to podiatry appt and tolerated well.RRR, speaking full sentences, no resp distress, on O2 2-3Lpm via n/c. Sat normal range. LS clear, diminished, no coughHR regular, no BLE edemafoley catheter in place draining clear yellow urineAbd - semifirm, NT, +BS, ppt had BM while at today Ppt had to go to restroom while here at . Needed 2 assist to business process coordinator restroom with cook catheter and O2 in place. PT in to assist also - ppt needed to use 2 hands to stand up to grasp handrails adjacent to toilet, weak in standing up. PLAN:- xray L foot [employer] from SNF - 03/16/23 podiatry f/u at 1 month f/u- 02/24/23 1pm optometry at [place] - can r/s if not stable to go out for appt-03/30/23 0900 [address] [facility]. pulmonary f/u - 04/22/23 dental at - continue to work with rehab at [facility]- repeat labs as scheduled weekly, labs pending from this morning - watching renal function, WBCs- nursing also monitoring for constipation which can contribute to urinary retention, has bowel regimen in place - continue to monitor for pain control for his feet- will plan for voiding trial with relation to his cook catheter- triage working with cardiology for remote device for pacer checks- will need more time for rehab - will need to be independent with wheeled walker to return to [facility]. Will also need to be able to independently manage his O2 tanks, concentrator. He also needs to be able to lift the tank onto his scooter basket, change the tank equipment/crack the tank and dial up his O2 liters. He has had issues with this prior to admission to hospital. Time spent - care coordination, clinic visit, charting - 75 minutes [facility] f/u [facility] - respite Mr. Asad rice is being seen this morning at [facility] where he remains for STR, admitted there on 01/17/23. Seen last by provider on 01/26/23. He is currently listed under respite level of care since he had not been participating in rehab and was not progressing. He is a fair historian, can have poor insight, and be willful. There is also some component of attention seeking behavior. HCP invoked during last hospitalization. Information also obtained from SNF staff. Ppt's dtr just got back from [facility] and it is possible that ppt was being less participatory in rehab sessions since his dtr was not physically around. His sister visits him frequently. Care team is also having a family meeting tomorrow to review his progress and goals of care while he is in the SNF.Recently he has been having issues with urinary retention seemingly secondary to constipation. Nursing reports that he has been better with his bowel movements and voiding regularly. Has not needed recent straight catheterization. He mentions today that he has gotten up at the bedside. Later discussed with rehab staff and they indicated that he was upgraded from Danisha lift to 1-2 assist over the weekend. Ppt mentions again today that his feet still hurt. Reviewed medication with he and his sister about new med duloxetine. Nursing indicates that since the medication was started, he is complaining less about pain in his legs. Nursing also reports that he has gone outside in a wheelchair with O2 a few times to get some fresh air and has done well. He states that he is eating well. Sister will bring in some snacks for him. Nutrition starting supplements. Reviewed his O2 use with him again today. He states he would be able to manage on his own. Stated that he wanted to go back to [facility] and that he would be able to use his O2. Again reviewed his history of issues with O2 use at [facility] and he smirked about it. He continues to have very poor insight on this. Reminded him that he needs to be ambulatory in his room at [facility] and manage O2 independently to return. Labs 02/02/23 - WBC 10.7, H&H 10.3/34.6, Plt 207; Cr 1.44, GFR 47, Na 138, K 4.8, BNP 165 (Pertinent labs - 01/17/23 WBC 10.1, RBC 3.42, H&H 0.2/32.7, Plt 170, Na 137, K 5.1, Cl 96, HCO3 - 35, Cr 1.6, GFR 42, Ca 9.6, LFTs normal range; 01/09/23 - BNP 1403, Alb 3.6, 01/15/23 D 39.4, B12 1301) EXAM:Caty rt and oriented to person, place, year. Knew this consumer loan underwriter. Sister just arrived to check in. Ppt lying in bed, sclera nonicteric, conjunctiva not injected, baseline poor dentition, smirks with his responses, overall seems to have lost weight RRR, speaking full sentences, no cough, wearing O2 via n/c - 2 LPM, LSCTA diminished - poor inspiratorAbd - obese, +BS nontenderurinal at bedside containing approx 150 cc clear dk yellow urineSkin - heels intactBLE - thin legs, no BLE edema PLAN:- repeat labs as scheduled weekly, labs pending from this morning - watching renal function, WBCs- SNF will continue to monitor for urinary retention and may need additional st cath/cook placement - nursing also monitoring for constipation which can contribute to urinary retention, has bowel regimen in place - continue to monitor for pain control for his feet- 02/16/23 0930 podiatry at [place] - can r/s if not stable to go out for appt- 02/24/23 1pm optometry at [place] - can r/s if not stable to go out for appt-03/30/[address] pulmonary f/u - dental referral pending - for when he is more medically stable to go out of SNF, [facility] may round at the SNF and may be able to see him when he is there- will need more time for rehab - anticipate multiple weeks for this - will need to be independent with wheeled walker to return to [facility]. Will also need to be able to independently manage his O2 tanks, concentrator. He also needs to be able to lift the tank onto his scooter basket, change the tank equipment/crack the tank and dial up his O2 liters. He has had issues with this prior to admission to hospital. - meeting with dtr tomorrow to review progress, goals of care, and where to go moving forwardTime spent - off site visit, chart review, family meeting, charting -45 minutes Comments: Partic ipant is being examined during the COVID-19 Pandemic. Appropriate precautions were used given CDC recommendations and available resources.PPt seen for SNF visit. She was noted recently to have worsening cognition, urinalysis noted to be positive. This provider requested nursing staff to call lab to get urine culture, which was faxed over, noted to be positive with 100K CFU of Entercoccus faecalis sensitive to ciprofloxacin with an JAVY of 1. Discussed with PCP and ciprofloxacin 500mg qd x 5 days. Order given to prison staff, readback completed.PPt seen in bed, noted to be repeating you got to be kidding me when this provider introduced herself noting from [place]. Ppt was asked regarding desire to go home, which he feels very strongly. However, when asked regarding his participation with physical therapy, he notes that he doesnt feel like it often. He denies foot pain at this time. SNF Follow-up SNF f/u [facility] Mr. Deal is be ing seen this morning at [facility] where he remains for STR, admitted there on 01/17/23. Seen last by SE provider on 01/26/23. He is a fair historian, can have poor insight, and be willful. There is also some component of attention seeking behavior. HCP invoked during last hospitalization. Information also obtained from SNF staff. Ppt's dtr is currently in [place] until around 02/06/23.Today is limited in his responses, seems to possibly be behavioral since his dtr has not been in to visit him these last few days. He indicates that he knows that she is away but then he said he spoke with his son who said, she will be in later. SNF nurse indicates that he did not require insertion of cook catheter later on on 01/26/23, possibly having urinary retention secondary to constipation.Ppt reports that his constipation was taken care of. He indicates that he is continuing to void without issue. Asked him about how he was progressing with his rehab and he indicated that he was tired and then indicated that his feet were hurting. Discussed with him about his need for Danisha lift and he indicated above about his feet/legs. Discussed his O2 use and if he would be able to manage on his own. Stated that he wanted to go back to [facility] and that he would be able to use his O2. Told him that reports from [facility] have stated that he has been found down at meals with O2 tank empty or turned off. He indicated that I can do this on my own and my oxygen has not run out in the dining room. He continues to have very poor insight on this. Reminded him that he needs to be ambulatory in his room at [facility] and manage O2 independently to return - stated that I will go back there. Vitals stable this morning. Later on in day, noted that has had a weight gain. Additional bumex PRN given today. BNPs during last hospitalization > 800. Labs 01/26/23 - WBC 10.7, H&H 10.8/37.4, Plt 212; Cr 1.26, GFR 56, Na 137, K 4.7, BNP 175 (Pertinent labs - 01/17/23 WBC 10.1, RBC 3.42, H&H 0.2/32.7, Plt 170, Na 137, K 5.1, Cl 96, HCO3 - 35, Cr 1.6, GFR 42, Ca 9.6, LFTs normal range; 01/09/23 - BNP 1403, Alb 3.6, 01/15/23 D 39.4, B12 1301) EXAM:Caty rt and oriented to person, place, year. Thought the month was December. Knew it was Thursday. Knew this consumer loan underwriter, lying in bed, sclera nonicteric, conjunctiva not injected, baseline poor dentition, smirks with his responsesRRR, speaking full sentences, no cough, wearing O2 via n/c - 2 LPM, LSCTA diminished - poor inspiratorAbd - obese, resolving ecchymosis on lower abd from injections in hospital, +BS nontenderSkin - heels intact, skin on sacrum/rectal area intact no blancheable erythema or skin breakdown notedBLE - thin legs, no BLE edemaLater seen in rehab gym working with rehab staff - did not feel that he wanted to walk, rehab was placing ankle weights on for seated workPLAN:- repeat labs as scheduled weekly - watching renal function, WBCs- SNF will continue to monitor for urinary retention and may need additional st cath/cook placement - nursing also monitoring for constipation which can contribute to urinary retention, PRN supp ordered - team will determine other options for pain control for his feet- 02/16/23 0930 podiatry at [place] - can r/s if not stable to go out for appt- 02/24/23 1pm optometry at [place] - can r/s if not stable to go out for appt-03/30/[address] pulmonary f/u - dental referral pending - for when he is more medically stable to go out of [facility], [facility] may round at the SNF and may be able to see him when he is there- will need more time for rehab - anticipate multiple weeks for this - will need to be independent with wheeled walker to return to [facility]. Will also need to be able to independently manage his O2 tanks, concentrator. He also needs to be able to lift the tank onto his scooter basket, change the tank equipment/crack the tank and dial up his O2 liters. He has had issues with this prior to admission to hospital. - will consider adding additional medication for pain such as low dose duloxetine to see if this will make a difference in his lower leg pain.- meeting with dtr upon her return from [facility] for goals of careTime spent - off site visit, chart review, family meeting, charting -45 minutes SNF f/u [facility] Mr. Deal is be ing seen this afternoon at [facility] where he remains for STR, admitted there on 01/17/23. Seen last by SE provider on 01/22/23. He is a fair historian, can have poor insight, and be willful. HCP recently invoked during this last hospitalization. Information also obtained from SNF staff. His sister was also present during visit and ppt's dtr is in [facility] for 2 weeks. Ppt's dtr did not want him to know this, but he reports that he knew about it.SNF staff report that he has not been getting out of bed over the weekend, sometimes stating that I just don't want to and other times reporting that his foot pain is limiting him from getting up. He now needs a Danisha to get him OOB. SNF PT reported that he stood at side of bed the other day and then reported couldn't stay up - unclear if it was leg weakness or foot pain. He also states that he just spoke with his son and his dtr will be coming later today (although unclear if this is the case since she is in [place], unless returning early from her trip). He is also asking when he is going out to for his podiatry appt. Reminded him again that it is scheduled for later in the month and we will evaluate if he is medically stable enough to go out to for this appt. [facility] will also be rounding at [facility] but unclear of their schedule. He also has reportedly not been able to get up to use the toilet, and was using the bedpan over the weekend. Nursing reported that he started to have some redness on his backside and they encouraged him to stay off of that area. Prior to this consumer loan underwriter's arrival, he had been on the bedpan for > 30 minutes and when they went in to check on him, he reported he wanted some more time on it. Nursing has not documented a BM since Thursday and ppt denies constipation today but nursing staff report that he seems like he has stool present but not coming out at this time. Again, ppt refusing to sit on toilet to see if this could facilitate BM and voiding. Skin on sacral area intact today on examination. No reports of nausea/vomiting. SNF reports fair appetite, doesn't always like the food. Has been upgraded to regular texture diet and thin liquids. He is excited for cheeseburger tonight for dinner. He also has been noting to be somewhat behaviorally inappropriate when others in the room or on his own and order was provided to maintain privacy in [facility] room. EXAM:Alert and oriented, knew this consumer loan underwriter, lying in bed visiting with his sister, sclera nonicteric, conjunctiva not injected, baseline poor dentition, overall appearing thinner, more chronically ill appearingRRR, speaking full sentences, no cough, wearing O2 via n/c - 4 LPM, able to move down to 2 lpm, LSCTA diminished - poor inspiratorAbd - obese, resolving ecchymosis on lower abd from injections in hospital, +BS nontenderSkin - heels intact, skin on sacrum/rectal area intact no blancheable erythema or skin breakdown notedBLE - thin legs, no BLE edema, toenails in fair condition, c/o discomfort when putting socks back on; requested that lidocaine patches be removed from the tops of his feet; skin on groin intact without rednesswearing briefSt cathed by nursing for > 300 cc clear sharif urine without odor, tolerated st cath fairly, uncircumcised PLAN:- repeat labs as scheduled - watching renal function, WBCs- SNF will continue to monitor for urinary retention and may need additional st cath/cook placement - nursing also monitoring for constipation which can contribute to urinary retention, PRN supp ordered - team will determine other options for pain control for his feet- 02/16/23 0930 podiatry at [place] - can r/s if not stable to go out for appt- 02/24/23 1pm optometry at [place] - can r/s if not stable to go out for appt-03/30/[address] pulmonary f/u - dental referral pending - for when he is more medically stable to go [facility] SNF, [facility] and may be able to see him when he is there- will need more time for rehab - anticipate multiple weeks for this - will need to be independent with wheeled walker to return to [facility]. Will also need to be able to independently manage his O2 tanks, concentrator. He also needs to be able to lift the tank onto his scooter basket, change the tank equipment/crack the tank and dial up his O2 liters. He has had issues with this prior to admission to hospital. Time spent - off site visit, chart review, family meeting, charting -75 minutes SNF Follow-up Comments: Hong stevens is being examined during the COVID-19 Pandemic. Appropriate precautions were used given CDC recommendations and available resources.Ppt seen for SNF visit. He is seen laying in bed with his pants down, he does not want to put them back up, this provider covered him up to do with a blanket.He notes that he has severe bilateral foot pain that is worse with putting weight on them. He is noted to have intermittent refusal working with rehab. He notes the diclofenac gel works the best for pain, was wondered for 4 times a day but only receiving it daily, order reconfirmed with nursing staff. Other pain medications have been already scheduled prior to PT in the morning per nursing staff. He notes he did well transferring to wheelchair to go to the salon, to which he smiles as he feels much better after a haircut.This provider reiterates that participation with rehab is very important in order for ppt to discharge home, he notes he understands but is not emphatic about wanting to return. SNF admission part 2 Pertinent l abs - 01/17/23 WBC 10.1, RBC 3.42, H&H 0.2/32.7, Plt 170, Na 137, K 5.1, Cl 96, HCO3 - 35, Cr 1.6, GFR 42, Ca 9.6, LFTs normal range; 01/09/23 - BNP 1403, Alb 3.6, 01/15/23 D 39.4, B12 1301Medications adjusted/changed:START Diclofenac Topical (diclofenac 1% topical gel) 2 gram Topically 4 times a day - to bilateral knees, lower legs, right hipSTART - Lidocaine Topical (lidocaine 5% topical film) HOWEVER NEEDED TO CHANGE TO 4% DOSING DUE TO PRIOR AUTHORIZATION - APPLY 1 patch(es) Topically Daily as needed Pain , Mild Apply to top of bilateral feet; remove after 12 hoursSTART - Tamsulosin (Flomax 0.4 mg oral capsule) 0.4 Milligram 1 capsule By Mouth Daily at bedtime - for urinary retentionDOSE CHANGE - bumetanide 1 mg - take 1 tab PO daily SCHEDULED (per [facility] note, this was inconsistent and multiple places indicated to put in as scheduled since renal function had improved; when at [facility], was on 1 mg daily and PRN dosing for additional 1 mg dosing)START - melatonin 3 mg - take 1 tab PO daily at bedtime PRN insomniaPRN bumetanide 1 mg - take 1 tab PO daily PRN provider discretion, > 3 lbs weight gain in 1 day RESTART clopidogrel 75 mg tab - take 1 tab PO daily (this was stopped just prior to his hospitalization due to decreasing H&H, restarted at [facility] and will follow; this was started earlier this year due to possible demand ischemia during hospitalization at [facility])STOP omeprazole - he was switched to pantoprazole previously due to drug/drug interaction with clopidogrel. Continue pantoprazole. DOSE CHANGE - isosorbide mononitrate 30 mg ER - take 1 tab PO daily (was on 60 mg daily)STOP - Cholecalciferol (Vitamin D3 1000 intl units oral capsule) 1 capsule 25 Microgram By Mouth DailySTOP - Niacin (niacin 500 mg oral capsule) 1 capsule By Mouth DailySTOP - [place]-3 Polyunsaturated Fatty Acids ([place]-3 1000 mg oral capsule) 1 capsule 1,000 Milligram PO BIDSTOP - Thiamine (thiamine 50 mg oral tablet) 1 tab(s) 50 Milligram By Mouth DailyDOSE CHANGE - Tylenol 325 mg tab - take 3 tab PO TID scheduled (was formerly on 1,000 mg PRN Q6H) Orde rs reviewed with nursing. Nursing did not call the correct care team for orders on Thursday and they had orders verified by the house staff. Therefore, orders were re-reviewed today. Nursing reports no skin concerns. Medications: They report weight gain from yesterday to today - 3.7 lbs - PRN bumex was administered. Per [facility] discharge note, there were inconsistencies with regards to bumex - PRN vs scheduled. His renal function had improved prior to discharge and when he was back at [facility] had a scheduled bumex 1mg with a PRN 1 mg dose per provider discretion. Will restart this order. Bumex received today as noted due to the weight gain. Reminded his dtr that clopidogrel was restarted and we will have SNF monitor for bleeding concerns. Ppt received his medications crushed in applesauce and was not happy about it. ST was able to see him earlier today and advance his diet to regular texture diet with thin liquids. No need for further crushing of medications - he is happy about this. Nursing he reports he is being a little fresh and attempting to pinch the nurse's buttocks (which he was like this when at [facility]). Nursing reports that he has been reminded to be appropriate with the staff. He has PRN and scheduled medications for mainly musculoskeletal pain. Reviewed these medications with him and his dtr - he does not feel that the medications will be effective and he will just deal with it. Reviewed with he and his dtr that his pain may never get to zero. Rehab - OT and PT did work with him already today, evaluations are pending. Nursing reported that he is still very weak and unable to get OOB on his own. He was incontinent of urine so far today since unable to get OOB on time. Wearing brief and having incontinence care. He reports that he is doing ok , remembered this provider's name upon entering the room. He feels that his breathing is better than it was when in the hospital. Agrees to wear O2. PLAN:- await rehab assessments - OT/PT. ST has been completed and ppt has had his diet advanced to regular diet and thin liquids. - will need more time for rehab - anticipate multiple weeks for this - will need to be independent with wheeled walker to return to [facility]. Will also need to be able to independently manage his O2 tanks, concentrator. He also needs to be able to lift the tank onto his scooter basket, change the tank equipment/crack the tank and dial up his O2 liters. He has had issues with this prior to admission to hospital. - will have repeat labs Q Thursday for continued monitoring - CBC, BMP, BNP- dtr aware of goals of care and she seems more realistic today and that it is unclear if he would be able to return back to the [facility]- due to dtr not being present for the pulm outpt f/u this has been r/s but not until March - can try to check for cancellations; 03/30/[address] He would have a difficult time right now in going out to an outside appt due to his tenuous resp status. - 02/16/23 0930 podiatry at [place] - can r/s if not stable to go out for appt- 02/24/23 1pm optometry at [place] - can r/s if not stable to go out for appt- REFERRAL for dental - will see ppt again later this week Time spent - off site visit, chart review, family meeting, charting - 300 minutes SNF admission - [facility] Mr. Lo is being seen this afternoon in his room at [facility] for SNF admission. His dtr/HCP Faye is also present and therefore family meeting also able to be completed today. Ppt's HCP was recently invoked during his most recent hospitalization and dtr is aware of this. Dtr will be going to [facility] for 2 weeks later this week but will be reachable by phone. ADVANCED DIRECTIVESHCP was invoked in the hospital by the hospital care team since it was felt that he could not make his own medical decisions. MOLST updated today, signed by dtr to reflect DNR, DNI, No CPAP, + hospital (but would like to avoid hospital when possible), no dialysis/nutrition, short term hydration.Long discussion with ppt's dtr/HCP regarding goals of care - reflected in the MOLST. She is aware that it will be difficult for him to go back to [facility] and be able to manage his own O2 efficiently. He also had been isolating in his room more prior to this hospitalization and not able to have eyes on as much. He also had not showered for a good length of time prior to this hospitalization. We also reviewed the plan for his STR stay and reviewed medications. 01/09/23- 01/17/23 [facility] Sent in from [facility] due to worsening SOB. Dtr had been notified earlier in the week that her father was tenuous at best at the [facility] with his medical issues and concerns from the SE team about his ability to remain independent/adherent to his O2 use. Discharge DiagnosisAcute hypoxemic respiratory failure (J96.01)Acute on chronic heart 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 (I50.43)Acute on chronic respiratory failure with hypoxia and hypercapnia (J96.21)Altered mental status, metabolic encephalopathy (R41.82)Bilateral leg pain (M79.604)CAD (coronary artery disease) s/p CABG 3x in 2004 (I25.10)COPD (chronic obstructive pulmonary disease) (J44.9)Concern for aspiration (T17.908A)Concern for pneumonia (J18.9)Cystitis (N30.90)Goals of care, counseling/discussion (Z71.89)History of tobacco use (Z87.891)Hyperlipidemia (E78.5)Hypertension (I10)Obstructive sleep apnea (G47.33)Due to complexity of ppt's hospitalization, hospital note is listed below. Hospital [id number] male with a PMHx significant for CAD s/p CABGx3, HFrEF, COPD on home O2 (reported 3-5L, last discharge on 5L oxymask) who presented in the setting of reported hypoxia. Patient was supposed to be discharged previously but then desatted to 87% upon ambulation; discharged order was cancelled and patient was held for pulm rehab consult. Hospitalization has been complicated by AMS like 2/2 acute on chronic hypercapnic respiratory failure that has now resolved and most recently obstructive GIOVANA on top of superimposed CKD and UTI. The patient completed a course of Ceftriaxone and his GIOVANA has resolved. Cook catheter was successfully removed on 01/16; the patient has been able to successfully urinate without difficulties. Geriatrics was consulted to assist in GOC.#Lack of capacity#Goals of careFirst seen by janet on 01/15. Does not have capacity- see note.Refuses BiPAP/CPAP- concerns that he will be rehospitalized frequently due to non-compliance.HCP, daughter, reports patient wants to live as long as possible.Patient wants to return to assisted living facility- multiple barriers at this time.D/Cd Niacin, Thiamine and PUFA per Janet recs as providing little to no benefit, along with B12 and VitD as levels w/n/l.RECOMMENDATIONS:-Ongoing GOC discussions needed #Concern for aspirationConcern by RNs for aspiration after giving pills on 01/15-01/16- coughing.Evaluated by speech/swallow 01/16- recommend dental soft with thin liquids.RECOMMENDATIONS:-Diet as above-Can give meds crushed in applesauce if continues to be of concern#Bilateral leg painB/l LE leg pain; starts in the bottom of his feet and radiates up to his knees.Pain worse at night and on the top of his feet.Chronic; on home Gabapentin, receiving Tylenol PRN- switched to scheduled.No restricted ROM.Seen by PT 01/15, pain seems to be worse in top of feet.RECOMMENDATIONS:-Lidocaine patches to top of feet-Continue home Gabapentin 300mg PO BID-Schedule Tylenol 975mg PO TID-Diclofenac topical scheduled q4hrs #Simple urinary tract infection- RESOLVED#Acute kidney injury superimposed on chronic kidney disease stage III- RESOLVED#Hyperphosphatemia- RESOLVEDBaseline Cr approx 1.4-1.6 per [facility] notes in scanned docs however, since last hospitalization more so 1.8-1.9.Cr up from 1.8 to 3.4 on 01/12 with concern for obstruction- retaining >400cc on bladder scan.Cook placed, UA consistent with infection- s/p Ceftriaxone on 01/13-01/15 (3 day course). S/p maintenance fluids.Renal US negative for hydronephrosis. Started Flomax 01/14.Home Bumex held as of 01/13, resumed 01/15.RTANE following along.Cr now around baseline as of 01/16- Cook removed without signs of urinary retention thus far.RECOMMENDATIONS:-Continue to monitor urine output-Continue home Bumex 1g daily-Continue Flomax 0.4mg nightly-Encourage PO fluid intake-Avoid nephrotoxic agents-Renally dose meds as appropriate- Urine studies inpt showing pt with proteinuria -no intervention regarding that at this junctureAcid / BasepH 7.44 / CO2 52 / Bicarb 35 / O2 86Metabolic alkalosis with partial but inadequate respiratory compensation likely due to overdiuresis#Acute on chronic hypercapnic respiratory failure with hypoxia#Obstructive sleep apnea, untreated#Concern for pneumonia#History of COPD#History of tobacco usePossible acute on chronic however, patient was last discharge on 5L and patient reports uses 3-5L of O2 at home and is maintaining sats >88%.Could be 2/2 mild fluid overload, pro-bnp mildly elevated, CXR revealing possible edema- s/p 60mg IV Lasix in ED.No concern for COPD exacerbation at this time.Of note, pt was hospitalized earlier this year with recurrent desats as pt is predominantly a mouth breather (and especially with eating will desat).Was doing well with anticipation to discharge on 01/11 but then desatted with ambulation to the upper 80s- kept overnight to be evaluated by pulm rehab, recommend discharging on continuous 4L oxygen.Was very drowsy 01/12- see below. No acute/significant findings noted on CXR.Significantly improved/back to baseline as of 01/13.Refuses BiPAP/CPAP. Has been saturating and mentating well on 2-5L NC/oxymask (currently on 2-3L).Unclear why patient has ongoing oxygen requirement since October 2022.Repeated CT chest on 01/15 as recommended back in October which showed a similar degree of bibasilar interstitial thickening and ground-glass, may reflect mild pulmonary edema/infection or inflammation.Procal elevated, downtrending. Did receive Cef 01/13-01/15 for UTI as above.Seen by pulm rehab 01/16- will send out on 3-5L.RECOMMENDATIONS:-Continue on home oxygen 3-5L NC (can wear facemask at night if willing) during the day and overnight since refusing BiPAP-Continue home Bumetanide 1g daily-Continue home Breo-Ellipta & Tiotropium, Albuterol PRN-Ongoing GOC discussions as above#Acute on chronic HFrEF- RESOLVED#CAD s/p CABG x3 in 2004. Hx of silent infarctions s/p PPM#PAD s/p LE bypass#Essential hypertension#HyperlipidemiaSlightly hypervolemic at time of admission with CXR concerning for possible edema.ECHO 11/04/2022: LVEF 45 to 50%, abnormal septal motion consistent with biventricular pacing. [place], apical septum, apical inferior wall are dyskinetic and mildly aneurysmal. Indeterminate diastolic dysfunction. RV systolic function preserved. Normal right atrial size.Received 60 mg IV Lasix in ED, takes 1g of Bumetanide at home daily.Holding home Bumex since 01/13 in setting of GIOVANA.Slightly hypervolemic on exam on 01/15 with b/l mild crackles and 1+ pitting edema in b/l LEs- resumed Bumex.Close to euvolemic on exam today.RECOMMENDATIONS:-Continue home Bumetanide 1g daily-Continue home Imdur, Carvedilol, Amlodipine, Clopidogrel, Aspirin-Continue to hold home Ezetimibe (THIS SEEMS TO BE IN ERROR - THIS IS A STATIN)#Altered mental status- metabolic encephalopathy 2/2 acute on chronic hypercapnic respiratory failure- RESOLVEDVery drowsy in the morning of 01/12, difficult to arouse. Was able to follow some commands. Euvolemic on exam.High suspicion this is 2/2 untreated GRAYSON- known GRAYSON but machine was taken away due to noncompliance.Patient refused BiPAP overnight but AMS significantly improved as of 01/13.RECOMMENDATIONS:-Continue on home oxygen 3-5L NC (can wear facemask at night if willing) during the day and overnight since refusing BiPAP-Ongoing GOC discussions as aboveCHRONIC/STABLE MEDICAL CONDITIONS:GERD: Continue home Omeprazole 20mg PO QDMacrocytic anemia: Stable; likely related to CKD, at baselineHCP: Faye (daughter): [phone] HCP INVOKED OF 01/15 GIVEN PATIETN LACKS CAPACITY.Diet: Dental soft with thin liquids (ideally diabetic diet), evaluated by speech/swallow 01/16Activity: OOB as toleratedWound Care: N/ACode Status: DNR/DNICondition: FairPrognosis: Poor hospital discharge note NOTE INC ONSISTENCIES - PPT RESTARTED ON PLAVIX IN HOSPITAL - NEEDS TO BE ON PROTONIX VS OMEPRAZOLE DUE TO INTERACTION; FOR LIDOCAINE PATCH - CAN DO 4 OR 5% DEPENDING ON COVERAGE; INCONSISTENCIES IN HOSPITAL DISCHARGE IF BUMEX PRN VS SCHEDULED - LATER ON IN NOTE INDICATES RESTART BUMEX SCHEDULED; HCP IS NOW INVOKEDPatient: JANETT DEAL Age: 87 Years Sex: Male : 1935 Primary Care Physician: James Lopez NP Date/Time: 01/09/23 19:25Discharge Date: 01/17/23Discharge DispositionDischarge Disposition: Correction Facility/RehabDischarge DiagnosisAcute hypoxemic respiratory failure (J96.01)Acute on chronic heart 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 (I50.43)Acute on chronic respiratory failure with hypoxia and hypercapnia (J96.21)Altered mental status, metabolic encephalopathy (R41.82)Bilateral leg pain (M79.604)CAD (coronary artery disease) s/p CABG 3x in 2004 (I25.10)COPD (chronic obstructive pulmonary disease) (J44.9)Concern for aspiration (T17.908A)Concern for pneumonia (J18.9)Cystitis (N30.90)Goals of care, counseling/discussion (Z71.89)History of tobacco use (Z87.891)Hyperlipidemia (E78.5)Hypertension (I10)Obstructive sleep apnea (G47.33)Discharge MedicationsAcetaminophen (Tylenol 325 mg oral tablet) 975 Milligram 3 tablet By Mouth 3 times a dayAlbuterol (albuterol 0.083% inhalation solution) 3 Milliliter 2.5 Milligram Inhalation Every 6 hours as needed for wheezingAmlodipine (amLODIPine 10 mg oral tablet) 10 Milligram 1 tablet By Mouth DailyAspirin (aspirin 81 mg oral tablet) 1 tab(s) 81 Milligram By Mouth DailyBumetanide (bumetanide 1 mg oral tablet) 1 Milligram 1 tablet By Mouth Daily as needed Use as needed for weight gain >2 lbs weight gain OtherCarvedilol (carvedilol 25 mg oral tablet) 25 Milligram 1 tablet By Mouth 2 times a dayClopidogrel (clopidogrel 75 mg oral tablet) 75 Milligram 1 tablet By Mouth DailyDiclofenac Topical (diclofenac 1% topical gel) 2 gram Topically 4 times a dayEzetimibe (Zetia 10 mg oral tablet) 1 tab(s) 10 Milligram By Mouth Dailyfluticasone-vilanterol (Breo Ellipta 100 mcg-25 mcg/inh inhalation powder) 1 puff(s) Inhalation DailyGabapentin (gabapentin 300 mg oral capsule) 300 Milligram 1 capsule By Mouth 2 times a day for 90 DaysIsosorbide Mononitrate (Imdur 30 mg oral tablet, extended release) 1 tablet By Mouth DailyLidocaine Topical (lidocaine 4% topical gel) 1 magy Topically Every 6 hours as needed Pain , Moderate for chronic pain. apply to right hipLidocaine Topical (lidocaine 5% topical film) 1 patch(es) Topically Daily as needed Pain , Mild Apply to top of bilateral feet; remove after 12 hoursMelatonin (melatonin 3 mg oral tablet) 3 Milligram By Mouth Daily at bedtime as needed InsomniaOmeprazole (omeprazole 20 mg oral enteric coated capsule) 1 capsule 20 Milligram By Mouth DailyTamsulosin (Flomax 0.4 mg oral capsule) 0.4 Milligram 1 capsule By Mouth Daily at bedtimeTiotropium Inhalation Daily at bedtime Medications StartedDiclofenac Topical (diclofenac 1% topical gel) 2 gram Topically 4 times a dayLidocaine Topical (lidocaine 5% topical film) 1 patch(es) Topically Daily as needed Pain , Mild Apply to top of bilateral feet; remove after 12 hoursTamsulosin (Flomax 0.4 mg oral capsule) 0.4 Milligram 1 capsule By Mouth Daily at bedtimeMedications DiscontinuedCholecalciferol (Vitamin D3 1000 intl units oral capsule) 1 capsule 25 Microgram By Mouth DailyNiacin (niacin 500 mg oral capsule) 1 capsule By Mouth DailyOmega-3 Polyunsaturated Fatty Acids ([place]-3 1000 mg oral capsule) 1 capsule 1,000 Milligram By Mouth 2 times a dayThiamine (thiamine 50 mg oral tablet) 1 tab(s) 50 Milligram By Mouth DailyDoses ChangedCHANGED DOSING AND FREQUENCY of TYLENOL from 1000mg q6hrs PRN to scheduled 975mg TIDPCP Follow-Up/Heads-Up[ ] Non-complaint with BiPAP, does not have capacity; ongoing GOC conversations needed with HCP daughterFuture AppointmentsMondayApr. 3, :00 AM EDT With: Abigail Tan DO HWhere: [facility] [address] [place] [address]-Hospital [id number] male with a PMHx significant for CAD s/p CABGx3, HFrEF, COPD on home O2 (reported 3-5L, last discharge on 5L oxymask) who presented in the setting of reported hypoxia. Patient was supposed to be discharged yesterday but then desatted to 87% upon ambulation; discharged order was cancelled and patient was held for pulm rehab consult. Hospitalization has been complicated by AMS like ly2/2 acute on chronic hypercapnic respiratory failure that has now resolved and most recently obstructive GIOVANA on top of superimposed CKD and UTI. The patient completed a course of Ceftriaxone and his GIOVANA has resolved. Cook catheter was successfully removed on 01/16; the patient has been able to successfully urinate without difficulties. Geriatrics was consulted to assist in GOC.#Lack of capacity#Goals of careFirst seen by janet on 01/15. Does not have capacity- see note.Refuses BiPAP/CPAP- concerns that he will be rehospitalized frequently due to non-compliance.HCP, daughter, reports patient wants to live as long as possible.Patient wants to return to assisted living facility- multiple barriers at this time.D/Cd Niacin, Thiamine and PUFA per Janet recs as providing little to no benefit, along with B12 adn VitD as levels w/n/l.RECOMMENDATIONS:-Ongoing GOC discussions needed#Concern for aspirationConcern by RNs for aspiration after giving pills on 01/15-01/16- coughing.Evaluated by speech/swallow 01/16- recommend dental soft with thin liquids.RECOMMENDATIONS:-Diet as above-Can give meds crushed in applesauce if continues to be of concern#Bilateral leg painB/l LE leg pain; starts in the bottom of his feet and radiates up to his knees.Pain worse at night and on the top of his feet.Chronic; on home Gabapentin, receiving Tylenol PRN- switched to scheduled.No restricted ROM.Seen by PT 01/15, pain seems to be worse in top of feet.RECOMMENDATIONS:-Lidocaine patches to top of feet-Continue home Gabapentin 300mg PO BID-Schedule Tylenol 975mg PO TID-Diclofenac topical scheduled q4hrs #Simple urinary tract infection- RESOLVED#Acute kidney injury superimposed on chronic kidney disease stage III- RESOLVED#Hyperphosphatemia- RESOLVEDBaseline Cr approx 1.4-1.6 per [facility] notes in scanned docs however, since last hospitalization more so 1.8-1.9.Cr up from 1.8 to 3.4 on 01/12 with concern for obstruction- retaining >400cc on bladder scan.Cook placed, UA consistent with infection- s/p Ceftriaxone on 01/13-01/15 (3 day course). S/p maintenance fluids.Renal US negative for hydronephrosis. Started Flomax 01/14.Home Bumex held as of 01/13, resumed 01/15.RTANE following along.Cr now around baseline as of 01/16- Cook removed without signs of urinary retention thus far.RECOMMENDATIONS:-Continue to monitor urine output-Continue home Bumex 1g daily-Continue Flomax 0.4mg nightly-Encourage PO fluid intake-Avoid nephrotoxic agents-Renally dose meds as appropriate#Acute on chronic hypercapnic respiratory failure with hypoxia#Obstructive sleep apnea, untreated#Concern for pneumonia#History of COPD#History of tobacco usePossible acute on chronic however, patient was last discharge on 5L and patient reports uses 3-5L of O2 at home and is maintaining sats >88%.Could be 2/2 mild fluid overload, pro-bnp mildly elevated, CXR revealing possible edema- s/p 60mg IV Lasix in ED.No concern for COPD exacerbation at this time.Of note, pt was hospitalized earlier this year with recurrent desats as pt is predominantly a mouth breather (and especially with eating will desat).Was doing well with anticipation to discharge on 01/11 but then desatted with ambulation to the upper 80s- kept overnight to be evaluated by pulm rehab, recommend discharging on continuous 4L oxygen.Was very drowsy 01/12- see below. No acute/significant findings noted on CXR.Significantly improved/back to baseline as of 01/13.Refuses BiPAP/CPAP. Has been saturating and mentating well on 2-5L NC/oxymask (currently on 2-3L).Unclear why patient has ongoing oxygen requirement since October 2022.Repeated CT chest on 01/15 as recommended back in October which showed a similar degree of bibasilar interstitial thickening and ground-glass, may reflect mild pulmonary edema/infection or inflammation.Procal elevated, downtrending. Did receive Cef 01/13-01/15 for UTI as above.Seen by pulm rehab 01/16- will send out on 3-5L.RECOMMENDATIONS:-Continue on home oxygen 3-5L NC (can wear facemask at night if willing) during the day and overnight since refusing BiPAP-Continue home Bumetanide 1g daily-Continue home Breo-Ellipta & Tiotropium, Albuterol PRN-Ongoing GOC discussions as above#Acute on chronic HFrEF- RESOLVED#CAD s/p CABG x3 in 2004. Hx of silent infarctions s/p PPM#PAD s/p LE bypass#Essential hypertension#HyperlipidemiaSlightly hypervolemic at time of admission with CXR concerning for possible edema.ECHO 11/04/2022: LVEF 45 to 50%, abnormal septal motion consistent with biventricular pacing. [place], apical septum, apical inferior wall are dyskinetic and mildly aneurysmal. Indeterminate diastolic dysfunction. RV systolic function preserved. Normal right atrial size.Received 60 mg IV Lasix in ED, takes 1g of Bumetanide at home daily.Holding home Bumex since 01/13 in setting of GIOVANA.Slightly hypervolemic on exam on 01/15 with b/l mild crackles and 1+ pitting edema in b/l LEs- resumed Bumex.Close to euvolemic on exam today.RECOMMENDATIONS:-Continue home Bumetanide 1g daily-Continue home Imdur, Carvedilol, Amlodipine, Clopidogrel, Aspirin-Continue to hold home Ezetimibe part 2 #Altered mental status- metabolic encephalopathy 2/2 acute on chronic hypercapnic respiratory failure- RESOLVEDVery drowsy in the morning of 01/12, difficult to arouse. Was able to follow some commands. Euvolemic on exam.High suspicion this is 2/2 untreated GRAYSON- known GRAYSON but machine was taken away due to noncompliance.Patient refused BiPAP overnight but AMS significantly improved as of 01/13.RECOMMENDATIONS:-Continue on home oxygen 3-5L NC (can wear facemask at night if willing) during the day and overnight since refusing BiPAP-Ongoing GOC discussions as aboveCHRONIC/STABLE MEDICAL CONDITIONS:GERD: Continue home Omeprazole 20mg PO QDMacrocytic anemia: Stable; likely related to CKD, at baselineHCP: Faye (daughter): [phone] HCP INVOKED OF 01/15 GIVEN PATIETN LACKS CAPACITY.ObjectiveVital Signs Temperature: 98.6 DegF (01/17/23 13:28:00)Temperature Route: Temporal (01/17/23 13:28:00)Pulse Rate: 62 bpm (01/17/23 13:28:00)Respiratory Rate: 18 br/min (01/17/23 13:28:00)Systolic Blood Pressure: 135 mm Hg (01/17/23 13:28:00)Diastolic Blood Pressure: 48 mm Hg Low (01/17/23 13:28:00)Blood pressure sites: Arm, left (01/17/23 13:28:00)Mean Arterial Pressure: 77 mm Hg (01/17/23 13:28:00)Pulse Pressure: 87 mm Hg (01/17/23 13:28:00)Oxygen Saturation: 90 % Low (01/17/23 13:28:00)Liters per Minute: 2.5 L/min (01/17/23 13:28:00)Mode of Delivery (Oxygen): Nasal cannula (01/17/23 13:28:00)Early Warning Score: 2 (01/17/23 13:30:25)Physical ExamConstitutional: Resting comfortable. Does not appear in acute distress.Head: Normocephalic.Eyes: Extraocular muscles intact.Ear, Nose and Throat: Oropharynx clear, mucous membranes moist. Ears and nose without masses, lesions or deformities. Trachea midline.Neck: Supple, Full range of motion.Respiratory: Non-labored breathing, breathing comfortably on 3L NC. Very very mild crackles in b/l bases.Cardiovascular: Normal rate, regular rhythm. No murmurs, rubs or gallops. No peripheral edema.Gastrointestinal: Abdomen soft, non-tender, non-distended. Normal bowel sounds.Genitourinary: No suprapubic tenderness.Neurologic: Alert and oriented x3. Chronic resting tremor in b/l UEs. No gross focal neurological deficits.Skin: No acute or concerning rashes or lesions.Musculoskeletal: No gross deformities. Normal range of motion, moving all 4 extremities spontaneously. Pain to palpation of dorsal aspect of b/l feet.Psychiatric: No obvious signs of anxiety or depression.ConsultantsRTANE (Gabino Hernadez MD)Geriatrics (Selene North MD) Pending ResultsN/AFollow-Up AppointmentsAdded Follow Up Time Frame CommentsCysalvarado BUENROSTRO, Jody Please call PCP office within a week once discharged from rehab.Post Discharge CareDiet: Dental soft with thin liquids (ideally diabetic diet), evaluated by speech/swallow 01/16Activity: OOB as toleratedWound Care: N/ACode Status: DNR/DNICondition: FairPrognosis: PoorMassachusetts Eye & Ear Infirmarye Health Face to FaceN/AResultsDischarge LabsBLOOD COUNT & DIFFWBC 10.1 k/mm3 () 01/17/2023 05:30 RBC 3.42 m/mm3 (Low) 01/17/2023 05:30Hgb 10.2 Gm/dL (Low) 01/17/2023 05:30 Hct 32.7 % (Low) 01/17/2023 05:30MCV 95.6 femtoliters (High) 01/17/2023 05:30 MCH 29.8 pg () 01/17/2023 05:30MCHC 31.2 g/dL (Low) 01/17/2023 05:30 Platelet Count 170 k/mm3 () 01/17/2023 05:30RDW-SD 48.2 femtoliters (High) 01/17/2023 05:30 MPV 8.9 femtoliters (Low) 01/17/2023 05:30Nucleated RBC (Automated) 0.0 #/100 WBC'S () 01/17/2023 05:30 Abs. NRBC 0.0 k/mm3 () 01/17/2023 05:30Abs. Neut 7.4 k/mm3 (High) 01/09/2023 16:16 Abs. Lymph 0.8 k/mm3 () 01/09/2023 16:16Abs. [place] 0.6 k/mm3 () 01/09/2023 16:16 Abs. Eo 0.3 k/mm3 () 01/09/2023 16:16Abs. Baso 0.0 k/mm3 () 01/09/2023 16:16 Neut % 80.1 % (High) 01/09/2023 16:16Lymph % 8.5 % (Low) 01/09/2023 16:16 [place] % 7.0 % () 01/09/2023 16:16Eos % 3.6 % () 01/09/2023 16:16 Baso % 0.3 % () 01/09/2023 16:16Imm Gran 0.5 % () 01/09/2023 16:16 Abs. Imm Gran 0.1 k/mm3 () 01/09/2023 16:16BLOOD GASpH 7.44 () 01/12/2023 10:30 pCO2 52 mm Hg (High) 01/12/2023 10:30pO2 86 mm Hg () 01/12/2023 10:30 Bicarbonate, Estimated 35 mmol/L (High) 01/12/2023 10:30Specimen Type - Blood Gas ARTERIAL () 01/12/2023 10:30 Percent O2 (FIO2) 35 () 01/12/2023 10:30CARDIACNt-Probnp 1403 pg/mL (High) 01/09/2023 16:17 High Sensitivity Troponin (HSTnT) 36 ng/L (High) 01/10/2023 04:11CHEM GENERALSodium 137 mmol/L () 01/17/2023 05:36 Potassium 5.1 mmol/L () 01/17/2023 05:36Chloride 96 mmol/L (Low) 01/17/2023 05:36 Bicarbonate Level 35 mmol/L (High) 01/17/2023 05:36Anion Gap 6 () 01/17/2023 05:36 Glucose Level 87 mg/dL () 01/17/2023 05:36Glucose, POC 126 mg/dL (High) 01/12/2023 22:20 BUN 37 mg/dL (High) 01/17/2023 05:36Creatinine-Blood 1.6 mg/dL (High) 01/17/2023 05:36 Estimated GFR Creatinine 42 ML/MIN/1.73 M2 () 01/17/2023 05:36Calcium 9.6 mg/dL () 01/17/2023 05:36 Phosphorus 2.4 mg/dL (Low) 01/17/2023 05:36Magnesium 2.1 mg/dL () 01/17/2023 05:36 Protein, Total 6.2 Gm/dL () 01/09/2023 16:17Albumin 3.6 Gm/dL () 01/09/2023 16:17 Alkaline Phosphatase 45 units/L () 01/09/2023 16:17AST (SGOT) 10 units/L () 01/09/2023 16:17 ALT (SGPT) 6 units/L () 01/09/2023 16:17Bilirubin, Total 0.4 mg/dL () 01/09/2023 16:17 Bilirubin, Direct 0.2 mg/dL () 01/09/2023 16:17Bilirubin, Indirect 0.2 mg/dL () 01/09/2023 16:17 Vitamin B12 Level 1301 pg/mL (High) 01/15/2023 05:24HEME OTHERHold Lavender Top SPECIMEN DISCARDED AFTER 24 HOURS. () 01/11/2023 04:42 Hold Blue Top SPECIMEN DISCARDED AFTER 4 HOURS. () 01/09/2023 16:16MISC. [id number] [place]-Vitamin D Level 39.4 ng/mL () 01/15/2023 05:24 Procalcitonin 0.19 ng/mL () 01/15/2023 05:24UA/URINALYSISAppear/Color, Urine ORANGE () 01/13/2023 12:00 Specific [place], Urine 1.009 () 01/13/2023 12:00pH, Urine 7.0 () 01/13/2023 12:00 Albumin, Urine 3+ (Abnormal) 01/13/2023 12:00Glucose, Urine NEGATIVE (N) 01/13/2023 12:00 Ketones, Urine NEGATIVE (N) 01/13/2023 12:00Bilirubin, Urine NEGATIVE (N) 01/13/2023 12:00 Hemoglobin, Urine 2+ (Abnormal) 01/13/2023 12:00Nitrite, Urine NEGATIVE (N) 01/13/2023 12:00 Leukocyte, Urine 3+ (Abnormal) 01/13/2023 12:00Urobilinogen NORMAL mg/dL (N) 01/13/2023 12:00 WBC's, Urine >182 /HPF (High) 01/13/2023 12:00RBC's, Urine 114 /HPF (High) 01/13/2023 12:00 Bacteria HEAVY HPF (Abnormal) 01/13/2023 12:00WBC Clumps HEAVY /HPF () 01/13/2023 12:00 URINE OTHERCreatinine, Urine Random 78.7 mg/dL () 01/13/2023 12:00 Sodium, Urine Random 105 mmol/L () 01/13/2023 12:00Chloride, Urine Random 66 mmol/L () 01/13/2023 12:00 Urea Nitrogen, Urine Random 240.6 mg/dL () 01/13/2023 12:00Osmolality, Urine Random 317 mOsm/kg () 01/13/2023 12:00 Protein, Total Urine Random 243 mg/dL () 01/13/2023 12:00TP/Cr Ratio 3.09 (High) 01/13/2023 12:00 Creatinine, Urine 78.7 mg/dL () 01/13/2023 12:00Malb/Creat Ratio 1749.2 mg/Gm (High) 01/13/2023 12:00 Urine Creat For Micro Alb 78.7 mg/dL () 01/13/2023 12:00Micro-Albumin 1376.6 mg/L (High) 01/13/2023 12:00 VIROLOGYInfluenza A PCR NEGATIVE () 01/09/2023 16:30 Influenza B PCR NEGATIVE () 01/09/2023 16:30RSV PCR NEGATIVE () 01/09/2023 16:30 COVID-19 PCR Specimen Source NASAL () 01/15/2023 21:18COVID-19 PCR Result NEGATIVE () 01/15/2023 21:18 30 minutes spent on discharge.Patient reviewed with supervising attending Dr. Mederos.Karina Norris, [facility], PGY-1Pager# [phone] by Paresh Mederos MD on January 17, 2023 15:31:19 EDTAttending Attestation: I have seen and evaluated JANETT DEAL, on 01/17/23. I have reviewed the patient's medical history, findings on examination, diagnosis, and treatment. I have discussed the case and its management with the resident and agree with the findings and plan as documented in the resident's note. routine f/u & check in - off site [facility] Mr. Deal is being seen this afternoon i n his room at the [facility] for general check in. He continues to remain tenuously at the [facility] with his multiple medical issues after discharge from SNF.Updated CXR 01/01/23 negative for acute process. Updated labs were drawn this morning via home draw, not yet resulted. Repeating labs for continued monitoring of renal function, CBC. Previous CBC showing Hgb 14.6 then repeat showing 9.8. As noted, recheck today. He was recently started on DAPT with addition on clopidogrel at [facility] per cardiology but then this was not addressed in f/u cardiology at [facility] on his post hospital visit if they wanted him to stay on clopidogrel. Asked him how he was doing overall, stating didn't want to go downstairs this afternoon for the birthday libertarian going on in the common area. He was happy that he went out to [facility] yesterday with his daughter - had home fries and sausage. Doesn't feel that his SOB is worse. Reports that he is wearing it consistently. Wears his mask over his mouth mainly (is a mouth breather). He denies blood in stool or urine, recent falls. Discussed with him that he continues to remain tenuous at the [facility] with regards to his medical complexity, medical needs. He reports that he is still able to manage his own O2 tanks in order to leave the room to go down for meals and for activities. However, [facility] staff reporting that this is not always the case and he has been found at times with O2 tank empty or O2 not turned on and had to be brought upstairs quickly by staff to get on to his O2 concentrator. Let him know that if he continues to feel poorly, he will have to go back to the hospital and offered him ER today. He vehemently denies that he will go to ER and states that he is still feeling well enough to stay at the [facility]. He was wearing his ERS button and let him know to press it if needs it. Also spoke with [facility] staff and they are going to temporarily be bringing his meals upstairs to his room instead of having to go downstairs for meals. EXAM:see above, alert and oriented x 3, dressed for the day, overall fatigued appearing, not as peppy as his usual; (may be a bit more tired today after being out for a few hours in the community with dtr yesterday)RRR, LS diminished with scattered coarse sounds throughout, no cough, lying flat in bed on 1 thin pillow without orthopnea, wearing his O2 via mask using concentrator, poor inspiratorHR regular, bradycardic, has pacer, no BLE edema was weighed this morning by care team and weight generally stable - has overall had decrease in weight over the last few monthsPLAN:- continue to monitor labs - watching CBC, renal function - consider discontinuation of clopidogrel if his CBC continues to trend down- 01/26/23 9am pulmonary f/u [address]- 02/24/23 SE optometry- SE care team to continue to follow, PT/OT to follow to ensure continued work on safety/transfers in the home- care team to continue to reinforce importance of wearing his O2 at all times, although he is not very adherent to thisTime spent - care coordination, charting, clinic visit - 60 minutes SNF f/u - off site v [facility], being discharged from [facility] yesterday. He is a fair to good historian. HCP is not invoked. He is willful in his decisions. Summary of recent SNF stay per other covering provider: SNF SUMMARY 12/05/22 - 12/18/22:PPt arrived to SNF after almost consecutive hospital admissions initially after a fall and then subsequently again for CHF and COPD exacerbation. He was discharge on O2 with the recommendation for NIV at night. PPt notes that he does not want to use NIV at night, citing the mask is too uncomfortable and he refuses to wear it. Discussion between this provider and ppt at length regarding potential risks of not wearing NIV, such as chronic hypoxia leading to organ damage, likelihood of recurrent CHF exacerbations, brain injury, and overall reduced quality of life due to breathing issues. Also discussed chronic hypercapnea and its risks to the brain and to cognition. Ppt heard, readback, and demonstrated understanding and ultimately wanted to remain off NIV. He is willing to use his oxymask continuously. Labs were drawn with noted stable labs from discharge, which was reassuring. his weights were monitored and remained stable. He had a home safety evaluation on 12/17/22 with clearance to go home with ongoing oxygen education.MEDICATION CHANGES (COMBINING BOTH ADMISSIONS):START PlavixSTART Carvedilol 25 mg 2x/daySTART breo-ellipta 1 puff dailySTART spiriva 2 puffs daily at bedtimeSTOP hydrochlorothiazideSTOP metoprololINCREASE Bumex back to 2mg qd INCREASE Imdur from 30mg to 60mg qd ____Upon arrival to his room, he was sitting in his recliner chair with O2 on 3 lpm via face mask (mouth breather, so this is more effective for him). He indicated that he was doing ok, happy to be home. Reading his newspaper and watching TV. DENIES pain, CP, worsening SOB, GI concerns, dizziness. States that he did fine last night and has been going down to meals in his scooter with his O2 tank in place. Reports good appetite and will be going downstairs shortly for lunch.He was able to get up on his own out of chair to get up to use his walker to ambulate to the bathroom. Reminded to use caution with the O2 tubing and to watch his footing and not get tangled up in it.See vitals - still continues to desaturate when off of O2 at rest in his chair. Reminded of importance of continuing to use his O2 at all times. He continues payne decline to wear NIV - was not discharged home from SNF with this equipment. [Nursing later at [facility] rounding on ppts and she found him down in the lobby playing bingo and not wearing his O2. Nursing again reminded him of importance of using it.] He has a new O2 tank vargas for his scooter which can accommodate a larger tank side than before. He reports is able to manage his tanks. Has extra tanks in his room and is able to manage the O2 concentrator. EXAM:see above, alert and orientedRRR, LS diminished with scattered coarse sounds throughout, no coughHR regulartolerated ambulation with O2 on to restroom; later observed him in hallway with his scooter heading down to lunch PLAN:-needs r/s cardiology appt and device check since was in SNF during last appt- repeat labs next week- 01/26/23 9am pulmonary f/u [address]- 02/24/23 [facility] optometry- SE care team to continue to follow, PT/OT to follow to ensure continued work on safety/transfers in the home- care team to continue to reinforce importance of wearing his O2 at all times, although he is not very adherent to thisTime spent - care coordination, charting, clinic visit - 60 minutes Comments: Partic ipant is being examined during the COVID-19 Pandemic. Appropriate precautions were used given CDC recommendations and available resources.PPt seen for a SNF visit and discharge. He was noted to have a home safety evaluation yesterday in his [facility] with [place] PT and OT present. Noted to do well from a function standpoint, did have issues with his oxygen, with regards to maneuvaring his oxygen tank. Overall, he was safe for discharge back home with ongoing oxygen education. Today he is seen in his bed prior to bathing and discharge. He asks repetitively if he is truly going home. He is agreeable to continue using his oxygen at all hours, he again refuses use of invasive ventilation, but is agreeable to continue using his incentive spirometer after discharge, which is noted on his table. SNF SUMMARY 12/05/22 - 12/18/22:PPt arrived to SNF after almost consecutive hospital admissions initially after a fall and then subsequently again for CHF and COPD exacerbation. He was discharge on O2 with the recommendation for NIV at night. PPt notes that he does not want to use NIV at night, citing the mask is too uncomfortable and he refuses to wear it. Discussion between this provider and ppt at length regarding potential risks of not wearing NIV, such as chronic hypoxia leading to organ damage, likelihood of recurrent CHF exacerbations, brain injury, and overall reduced quality of life due to breathing issues. Also discussed chronic hypercapnea and its risks to the brain and to cognition. Ppt heard, readback, and demonstrated understanding and ultimately wanted to remain off NIV. He is willing to use his oxymask continuously. Labs were drawn with noted stable labs from discharge, which was reassuring. his weights were monitored and remained stable. He had a home safety evaluation on 12/17/22 with clearance to go home with ongoing oxygen education.MEDICATION CHANGES (COMBINING BOTH ADMISSIONS):START PlavixSTART Carvedilol 25 mg 2x/daySTART breo-ellipta 1 puff dailySTART spiriva 2 puffs daily at bedtimeSTOP hydrochlorothiazideSTOP metoprololINCREASE Bumex back to 2mg qd INCREASE Imdur from 30mg to 60mg qdPOST DISCHARGE FOLLOW UP WILL BE COORDINATED BY [facility] AT [facility], WILL BE FOLLOWED CLOSELY BY INTERDISCPLINARY TEAM WITH ACUTE FOLLOW UP FROM PCP WITHIN THE WEEK.Medication reconciliation and prescriptions have been managed by PCP group in partnership with [facility]. SNF Follow-up SNF Admit Comments: Partic ipant is being examined during the COVID-19 Pandemic. Appropriate precautions were used given CDC recommendations and available resources.86-year-old male with past medical history of HTN, HLD, CAD s/p CA and CABGX3, ischemic cardiomyopathy, HF with ejection fraction 45 to 50%, biventricular pacemaker in place, peripheral artery disease, COPD on home 2L ID, currently residing at assisted living facility with a hospital stay at [facility] from 11/02 - 11/25/22 after sustaining a fall, with discharge to [facility] in [place] and then admission to [facility] on 12/01 after being hypoxic in SNF setting thought to be 2/2 COPD and CHF exacerbation. [facility] stay 12/01 - 12/05 with initiation of plavix, increased bumex and imdur, with discharge to [facility]. 11/02/22 - 11/25/22 [facility] Syncopal workup negative (CTH non-acute, EKG non-ischemic. BiV defibrillator interrogated and no events. Orthostatics negative). R foot xray was negative for acute injury. In the ED, he was found to be hypoxic and was placed on 3 to 4 L nasal cannula and CXR concerning for RML pneumonia, completed course of ceftriaxone 11/03-11/08 and doxycycline 11/03 - 11/09. Course complicated due to recurrent desats, mostly when patient was eating, he is a mouth breather. Patient was clinically improving with pulmonary rehab recommending 5L oxymask. He was found to have elevated bicarbonate, however thought to be compensatory process for COPD as his mentation was stable. However, he became more lethargic on 11/14 and was noted to be hypercapnic and started on NIV, then tx to [facility]. Transitioned off continuous NIV to naps/bedtime, will need continuous oxymask as well. Pt will d/c to rehab w. rec to f/u with PCP and pulmonology. Also recommended outpatient sleep study and repeat chest CT in 6-8 weeks to evaluate mass given smoking history. Course was additionally complicated by GIOVANA, thought to be driven by poor PO intake. Also noted to have hyperkalemia thought to be either d/t chronic respiratory acidosis vs CKD. Bumetanide was changed to PRN and hydrochlorothiazide was discontinued. 12/01/22 - 12/05/22 CLIFFORD Bruce presented from rehab hypoxic with increasing oxygen requirement thought to be 2/2 CHF exacerbation and demand ischemia. In the ED he required up to 10L via nonrebreather to maintain saturations. Labs and imaging was concerning for CHF exacerbation with trop elevation, EKG without concerning changes. PPt diuresed from 182lbs to 174lbs. Cardiology recommended Plavix loading. Ddimer was elevated, VQ scan and lower extremity dopplers were negative. Bumex was increased to 2mg qd and Imdur was increased to 60mg daily, Plavix 75mg qd and aspiring 81mg qd started. He was discharged on a 3 day steroid burst for concern for concomitant COPD exacerbation. Dry weight established as 174lbsPpt seen in his room, he notes clear refusal for NIV ventilation at any time. He states he will use the oximask and nothing more. Explained risks of refusing NIV, including cognitive decline/confusion, difficulty breathing, overtime hypoxic changes to brain and organs. He heard and understood. Ppt has incentive spirometer at bedside, notes he uses it a couple times a day. Able to confirm appropriate usage. LABS:11/02/22 Influenza A and B negative, RSV negative 11/17/22: Nt Probnp 821 HSTnT 311 142 K4.9 BUN43 Cr1.9 qSHY064/29/23 WBC6.3 H/H 9.3/30.7 [id number] COVID NEGATIVE12/01/22 BCx x2 negative, Pt 13.7 INR 1.22 Mg 2 12/05/22 WBC8.92 H/H 1032.3 Xje189 Na139 K5 BUN38 Cr1.4IMAGING: Echo 11/04/2022: LVEF 45 to 50%, abnormal septal motion consistent with biventricular pacing. [place], apical septum, apical inferior wall are dyskinetic and mildly aneurysmal. Indeterminate diastolic dysfunction. RV systolic function preserved. Normal right atrial size.11/06/22 Right foot xray showed talocalcaneal coalition and slight cortical thickening with mild periosteal reaction along the lateral aspect of the fourth metatarsal shaft, probably a sequela of remote or chronic stress. OV Mr. Deal presbritt ts today for f/u visit in the clinic. He was seen earlier this week by SE nursing at [facility] and he mentioned R hand/wrist/forearm pain and some milder SOB. He is a fair to good historian. CXR was completed earlier this week in response to nursing concerns and was negative for acute issues. RESP - Today he DENIES SOB, occasional productive cough of clear sputum. He is not wearing his O2 today to the clinic - states that he has difficulty placing the portable tank in his walker basket so did not bring today. Asked him what he would do if he was SOB and didn't have O2 with him - stated well it wasn't a problem today. O2 sat stable while on RA after ambulating. Denies having to add pillows for elevation to sleep. Wearing his compression stockings and reports wears them consistently without issue. DENIES edema BLE. Weighs himself regularly - reports 182 lbs yesterday. Today his weight is in the clinic with clothes on. States he is feeling generally well except for the pain in his R hand. He is R handed. Denies trauma to the area. Pain starts at R wrist and radiates down medial side of forearm for approx 1 week duration. Reviewed the xray results with him. States that he has had gout in the past in the L hand/forearm but not the R. The pain today does not feel like when he had gout in the past. Does not drink regularly, reports 1 beer yesterday at the [facility] holiday libertarian. OTHER:Renal - follows with CHAIM Tadeo, states had appt in August and is due to f/u in about 6 months. Notes requested since we have not received. States f/u 6 months. Cardiology - has routine device checks. States that he had a cardiology telehealth last week that was not completed due to phones being down at the [facility]. States that his dtr is working on the r/s. Goes into the office for his device checks. EXAM:alert and oriented, in good spirits, well groomed, ambulating with his wheeled walker with steady gait and no SOB, wearing Reynaldo is my boss hat, wearing eyeglasses, sclera nonicteric, nontoxic appearing RRR, speaking full sentences, no cough, LS CTA upper, lower lobes late crackles wearing compression stockings, no BLE edema PLAN:- updated labs today, uric acid- SE OT to see him in consultation at [facility]- will notify SE if concerns/questions- latest renal notes requested, f/u around 02/2023 - ADDENDUM: Uric acid back 10.6 - poor renal function, place on short course prednisone Time spent - care coordination, charting, clinic visit - 45 minutes semi-annual Mr. Deal is a p leasant R handed 86-year old male who has been enrolled in the [facility] program since 09/25/21 and is being seen in the clinic for his biannual examination. He is a fair historian, can be willful. Social Hx -lives at [facility] in an individual room with a fridge, moved in 07/2021. He participates in activities downstairs and is very social. His daughter visits every 3 wks per ppt and his sister will bring in food at times. There have been no hospitalizations, SNF admission or ER visits in the last six months.He does not come to the [facility] site regularly, only for medical appointments. Transportation by or [facility] with dtr as backup. Dtr tries to attend appts with her father when she can. He comes alone today. Medications will be reviewed and reconciled by school psychometrist. Medications managed by [facility] staff, on medibubble. He reports that he takes without issue. ADVANCED DIRECTIVES - HCP - 10/18/21 - Primary HCP Faye Madrigal, secondary Janett Deal Jr. MOLST 10/08/21 - + CPR, + intubation, + CPAP, + transfer to hospital; + IV fluids, no nutrition, and reviewed today and after discussion firm on no dialysisMatters Most - he wants to live to 89 years old. Cardiac/Vascul ar - followed by clinic for device checks, last check in 08/22/2022 (but cannot read the note); 01/2022 device check showing battery life of 7 years 9 months, no arrhythmias, A sensed, BiV paced, 99% paced. He has his device checks completed in person since does not have cell phone or regular phone in order to have the remote device machine plug into. Ppt reports saw cards last month for device check and follow up goes q 3 months in office didn't want part of machine in his room.Since BiV upgrade - EF has improved to 45-50%. Followed with cardiology in 06/2022 telehealth with no medication changes. He has mainly been going down to meals and bingo in his scooter due to limitations from hip and knee pain and not due to chest pain or SOB. He generally wears compression stockings also and is wearing them today. In general gets around his walker for short distances. Follows with vascular also. He has had procedures on his RLE and LLE. Had telehealth with Dr. William in 10/2021 who indicated that his updated vascular testing (R fempop bypass graft scan and L arterial duplex) was stable and graft is patent. She did not recommend further intervention at this time and felt that he was asymptomatic from vascular disease standpoint. Gabapentin for his neuropathy bethanie his leg leg shooting pain he reports happened after his surgery for the vein in his leg. Reports he does not want to follow up with vascular anymore Pulmonary - has had hx PNA with concerns that some was related to aspiration and per previous notes also appears that he had the PNA in the past that unmasked an unknown COPD. He has home O2. He does not wear when he is out of his room, but does wear in his room (able to manage on his own). had to remind him to place on during this visit. Wears for sleep. Saw renal Thursday Dr. Maynard reports was told everything is fine and will follow up in 6 months but want blood work 1 wk before next seen visit. ? bumex that was started will try to access note. Ppt was told by renal to stop having OJ, Banana, oranges for problems with potassium. Vision- Reports he went to optho appt in [facility] in 2020, wears eyeglasses eye doctor, cataracts and laser back when he was in [place] wants referral to ophthalmology.Dental - declines, states I only have 10 teeth left , denies mouth pain, sores. Brushes his teeth 1x/day and reports that consistently uses mouthwash nightly. Hearing - reports no problems, states uses debrox PRN for his ears, ear flush in July and reports hearing is better sincePodiatry - last seen 08/15/22 at ------wearing compression stocking currently toke them off today working well swelling improving.Colonoscopy - reports has had 4x, dtr reports that thinks he had polyps; last one was completed at [facility] within 10 years. He declines further testing at this time and he is 86 years old where colonoscopy screening is no longer recommended. Instructed to report change in stool habits, blood in stool. Immunizations - UTD on COVID19 (3 doses) but wants new booster at [facility]; PCV13; seasonal flu; refuses Tdap/tetanus, Shingrix, PCV23. I have had pneumonia already. Dtr aware of his decision to decline these vaccines. Mind/Memory/MOCA -Currently 08/2022; 09/2021 - (points off for delayed recall, attention, language, visuospatial); states that his memory is good, dtr indicates /that he can be forgetful, can be willful in his opinions. 8th grade education. Appears to have adequate safety awareness. When it comes to women, my memory is fine. Diet - meals prepared by [facility], reports good appetite, drinks coffee and apple juice with water through the day, not a good water drinker, will drink seltzer occasionally. Goes down for meals 3x/day on his scooter. On first breakfast at 0730, 1130 lunch, 1630 dinner. Can't use oj, bananas, oranges, drinks selzer water, 1 cup coffee, flavor water, go out to drink soda, apple juice [place] from here functional maintenance rehab teamFalls - no recent falls , 1-2 months and fell in roomMobility/Activity/exercise - no formal exercise regimen; activity limited by musculoskeletal issues; he claims he does his leg lifts in his room, does not want to participate in chair exercises at [facility], watches game shows, likes [employer], attending activities at [facility], out to eat with [facility] residents. He has a wheeled walker and non-wheeled walker. Has used scooter for long distances. Pain - his main issues are pain L leg chronic pain from old vascular surgery, takes Tylenol PRN would rather it scheduled and takes gabapentin, He went for injections on 03/17/22 at [facility] and felt it did not work and doesn't want follow up there. Incontinence - denies issues Sleep - sleeps in his bed, will nap at times in his glider rocker, reports sleeps great and uses two pillows - dtr has encouraged him to do this to avoid reflux; he sleeps with O2 on, regular flat twin bed, goes to bed around 9-10 pm, voids about 1x/night 3am and wakes up at 630, naps x2 PAQ=0 reports no depressionSkin -Reports dry not using lotion will order Eucerin cream. Diagnose s reviewed. All chronic conditions in this assessment are stable unless stated otherwise.PLAN:- Recently had labs and went over them- f/u with renal as scheduled and see what they want for follow up and bumex and labs- continue with device interrogations with cardiology device clinic--Continue to wear compression boots- Ophthalmology referral--Does not wish to follow anymore with vascular or [facility]--I will schedule tylenol 650 mg po take 2 tablets at bedtime per pt request but keep PRN if needed--Due for new covid booster and wants it will be getting it from [facility] that will come to residence--Will reduce Vit B 12 as B12 levels are elevated 1867-Will increase Vit d as his Vit d level is 31 and renal wants >50 SUZETTE R ear lavage Mr. Deal is chivo ng seen today in the clinic for ear flush. He tolerated the ear flush R ear without issue. He has no other complaints today. Talking about how he liked his attractive nail galvanizer this morning. Mad about how he felt he got picked up too early for his appt. Podiatry - 08/15/22 - saw podiatry this morning at prior to this clinic apptEXAM:alert and oriented, wearing his Reynaldo is my boss baseball cap, well groomed, did not use his power chair today - ambulated with his wheeled walker on O2 via nasal cannula, ambulated steadily with his walker Tolerated R ear flush - ear canal visualized, clear of cerumen, TM appears intact, he has very narrow ear canals which may have a tendency to accumulate wax RRR, no cough, no SOB noted when ambulating in hallway wearing his compression stockings and sneakers PLAN:- can get his labs for his upcoming biannual appt-09/04/22 biannual appt at clinic - given appt card in the clinic Time spent - care coordination, clinic visit, charting - 20 minutes Cerumen Patient seen for a very limited visit. Patient complain predominantly of right aural fullness and decreased hearing. On examination prior to flush there was impacted cerumen bilaterally. My MA colleagues performed ear flush bilaterally. On post examination he still had impacted cerumen bilaterally. I attempted the use of a curette however, cerumen was quite deep and I was not able to remove any. There was no injury.I discussed with the patient, we will proceed with Debrox and have him return in a week for repeat flush SUZETTE check in Ppt seen briefly in passing in common room today at [facility] while rounding on other ppts in the building. He was wearing his Reynaldo is my boss hat, sitting in his scooter with O2 on via n/c, tank low of O2. Well groomed, wearing his compression stockings, waiting to go down to lunch. No cough, no visible SOB.He discussed that is having difficulty in applying the lidocaine patch for his pain since [facility] is not able to apply for him. Discussed that can order him some topical lidocaine cream that he can try instead of the PRN patch. Reminded him that he will need to wash his hands after the cream and not to touch his eyes after applying the cream. He states will try it. Discussed that the medication won't be delivered until next week. SUZETTE Mr. Deal is a p leasant R handed 86-year old male who has been enrolled in the [facility] program since 09/25/21 and is being seen in the clinic for his biannual examination. He is a fair historian, can be willful. Upon arrival to today, there was an issue with transportation and he had a fall (not due to his activities) due to the operation of the van lift with his scooter. He reports no injuries from this. Social Hx -lives at [facility] in an individual room, moved in in 07/2021. He participates in activities downstairsThere have been no hospitalizations, SNF admission or ER visits in the last six months.He does not come to the [facility] site regularly, only for medical appointments. Transportation by or [facility] with dtr as backup. Dtr tries to attend appts with her father when she can. Medications will be reviewed and reconciled by school psychometrist. Medications managed by [facility] staff, on medibubble. He reports that he takes without issue. ADVANCED DIRECTIVES - HCP - 10/18/21 - Primary HCP Faye Madrigal, secondary Janett Deal Jr. MOLST 10/08/21 - + CPR, + intubation, + CPAP, + transfer to hospital; + IV fluids, no nutrition, undecided dialysisMatters Most - he wants to live to 89 years old. Cardiac/Vascul ar - followed by clinic for device checks, last check in 02/17/2022 (but cannot read the note); 04/2021 device check showing battery life of 6 years, no arrhythmias, V BELT FINISHER pacing 99%, He has his device checks completed in person since does not have cell phone or regular phone in order to have the remote device machine plug into. States that he follows with Dr. Solis on a generally yearly basis. He has mainly been going down to meals and bingo in his scooter due to limitations from hip and knee pain and not due to chest pain or SOB. He generally wears compression stockings also. Follows with vascular also. He has had procedures on his RLE and LLE. Had telehealth with Dr. William in 10/2021 who indicated that his updated vascular testing (R fempop bypass graft scan and L arterial duplex) was stable and graft is patent. She did not recommend further intervention at this time and felt that he was asymptomatic from vascular disease standpoint. Gabapentin for his neuropathy. F/u with vascular, with repeat testing in the Fall of 2021. Pulmonary - has had hx PNA with concerns that some was related to aspiration and per previous notes also appears that he had the PNA in the past that unmasked an unknown COPD. He has home O2. He does not wear when he is out of his room, but does wear in his room (able to manage on his own). Wears for sleep. He did not come with O2 today and O2 sats were decreased upon arrival, not symptomatic, but improved to > 90% with 2 lpm nasal cannula. Vision- he is due for optho appt, wears eyeglasses Dental - declines, states I only have 10 teeth left , denies mouth pain, sores. Brushes his teeth 1-2x/day and reports that consistently uses listerine mouthwash nightly. Hearing - reports no problems, states uses debrox PRN for his ears Podiatry - has not formally seen recently, gets pedicures with his dtr, he is open to seeing podiatry when they [place] Colonoscopy - reports has had 4x, dtr reports that thinks he had polyps; last one was completed at [facility] within 10 years. He declines further testing at this time and he is now 86 years old where colonoscopy screening is no longer recommended. Instructed to report change in stool habits, blood in stool. Immunizations - UTD on COVID19 (3 doses); PCV13; seasonal flu; refuses Tdap/tetanus, Shingrix, PCV23. I have had pneumonia already. Dtr aware of his decision to decline these vaccines. Memory/MOCA - 09/2021 - (points off for delayed recall, attention, language, visuospatial); states that his memory is good, dtr indicates that he can be forgetful, can be willful in his opinions. 8th grade education. Appears to have adequate safety awareness. When it comes to women, my memory is fine. Diet - meals prepared by [facility], reports good appetite, drinks coffee and juice through the day, not a good water drinker, will drink seltzer occasionally. Goes down for meals 3x/day on his scooter. On first breakfast at 0730, 1130 lunch, 1630 dinner. Falls - no recent falls other than the one today related to the transportation. Mobility/Activity/exercise - no formal exercise regimen; activity limited by musculoskeletal issues; he claims he does his leg lifts in his room, does not want to participate in chair exercises at [facility], watches game shows, likes [employer], attending activities at [facility], out to eat with [facility] residents. He has a wheeled walker and non-wheeled walker. Has more recently been using his scooter due to his bilateral hip and leg pain, which limits his ability to exercise/stay more mobile.Pain - his main issues are pain L leg chronic and also more recently pain in L leg, takes APAP PRN, going for injections on 03/17/22 at [facility]. We have worked with him multiple times on this and to get him into [facility] urgent care, and he had declined but then he changed his mind. The soonest we could get him in is later this month and he continues to refuse to go to ortho urgent care. Updated xrays have been completed showing no acute issues. Incontinence - denies issues Sleep - sleeps in his bed, will nap at times in his glider rocker, reports fair sleep, sleeps with 2 pillows - dtr has encouraged him to do this to avoid reflux; he sleeps with O2 on, regular flat twin bed, goes to bed around 9-10 pm, voids about 1x/night Skin - no concerns Diagnoses reviewed. All chronic conditions in this assessment are stable unless stated otherwise.PLAN:- updated labs drawn today - f/u with renal as scheduled- continue with device interrogations with cardiology device clinic- podiatry referral at - continue to follow with vascular- [facility] on 03/17/22 for possible knee/hip injections PEE Mr. Deal is a p leasant R handed 85-year old male who has been enrolled in the [facility] program since 09/25/21 and is being seen in the clinic for his Post Enrollment Examination. His dtr/HCP Faye is present for the visit. Social Hx - currently lives at [facility] in an individual room, participates in activities downstairs, lived in [facility] until 2013 (for about 10 years with his ex ), dtr and son nearby. Was living with his son in [place] for about 1 year until moved in to [facility] on 07/29/21. Originally from [place]. Went to school up to 8th grade. 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 Q6 months)There have been no hospitalizations, SNF admission or ER visits in the last six months.He does not plan on coming to the [facility] site regularly, only for medical appointments. Transportation by [facility] or [facility] with dtr as backup. Dtr tries to attend appts with her father. SpecialistsCardiology - [facility], Dr. Solis - EPRenal - Dr. Flower, [facility] Vascular -Adriana WilliamMedications have been reviewed and reconciled by school psychometrist. Medications managed by [facility] staff, on medibubble. Takes without issue. ADVANCED DIRECTIVES - Updated HCP filled out today to designate a secondary. Primary HCP Faye Madrigal, secondary Janett Deal Jr. JOHNSON completed 10/08/21 - + CPR, + intubation, + CPAP, + transfer to hospital; + IV fluids, no nutrition, undecided dialysisHe wants to live to be 89. Has home picked out - [address] in [place]/[facility]. Cardiac/Vascular - followed by clinic for device checks, last check in 07/2021 (but cannot read the note); 04/2021 device check showing battery life of 6 years, no arrhythmias, V BELT FINISHER pacing 99%, next check in 10/2021; He does his device checks in person since does not have cell phone or regular phone in order to have the remote device machine plug into. States that he follows with Dr. Solis on a generally yearly basis. Goes down to meals 3x/day and will often go down to bingo. States does not need to stop to rest while he is ambulating down to the dining room/common room. Does not use his O2. No CP while ambulating. Wears compression stockings - states that he has worn for last few months which help with his LE edema. Follows with vascular also. He has had procedures on his RLE and LLE. Seeing them again in October. He reports that he had some pain in the R groin the other day and continues to have some R sided foot pain. Did not have issues with voiding when had pain in the groin. He is due for R fempop bypass graft scan and L arterial duplex. Last ABIs from 02/2020. Pulmonary - has had hx PNA with concerns that some was related to aspiration, he has home O2 and dtr reports that he was sent home on this after his last bout of PNA > 6 months ago. He does not wear when he is out of his room, but does wear in his room (able to manage on his own). Wears for sleep. Assessed his O2 sat today upon arrival and had baseline desaturations without symptoms, but up to 90s after application of O2 2lpm via n/c. He does not currently follow with pulm. [place] [facility] [place] and we discussed that I will consult our ST for her review of his case. Right now he is on a regular texture diet, thin liquids. Vision- he is due for optGlocalt, wears eyeglasses - these are new since he recently broke his old pairDental - declines, states I only have 10 teeth left , denies mouth pain, sores. Brushes his teeth 1-2x/day and reports that consistently uses listerine mouthwash nightly. Hearing - reports no problems, states uses debrox PRN for his ears Podiatry - has not formally seen recently, gets pedicures with his dtr, he is open to seeing podiatry Colonoscopy - reports has had 4x, dtr reports that thinks he had polyps; last one was completed at [facility] within 10 years. He declines further testing at this time and he is almost 86 years old where colonoscopy screening is no longer recommended. Instructed to report change in stool habits, blood in stool. Immunizations - UTD on COVID19 (3 doses); PCV13; seasonal flu; refuses Tdap/tetanus, Shingrix, PCV23. I have had pneumonia already. Dtr aware of his decision to decline these vaccines. Memory/MOCA - 20/30 (points off for delayed recall, attention, language, visuospatial); states that his memory is good, dtr indicates that he can be forgetful, can be willful in his opinions. 8th grade education. Appears to have adequate safety awareness. Diet - meals prepared by [facility], reports good appetite, drinks coffee and juice through the day, not a good water drinker, will drink seltzer occasionally, happy that they had omelets and hash browns the other day for breakfast. Goes down for meals 3x/day. On first breakfast at 0730, 1130 lunch, 1630 dinner. Falls - one fall last month in his bathroom at [facility], states got out of the shower and slipped on the tile floor - fell back into a chair that was in the bathroom. Broke his glasses and watch as he fell back onto the chair. Now has aids in his room when he is taking a shower in case he needs assistance. They have also placed a non-slip bath mat outside of his shower.He ambulates with wheeled walker outside of his room. Has a scooter as a back up if his leg pain is too much. Also has non-wheeled walker in his room for back up. Activity/exercise - no formal exercise regimen; activity limited by musculoskeletal issues; he claims he does his leg lifts in his room, does not want to participate in chair exercises at [facility], encouraged to walk more but is not very motivated to do so, watches game shows, likes [employer], attending activities at [facility] including going out to [employer], out to eat with [facility] residents Incontinence - denies issues with thisSleep - sleeps in his bed, will nap at times in his glider rocker, reports fair sleep, sleeps with 2 pillows - dtr has encouraged him to do this to avoid reflux; he sleeps with O2 on, regular flat twin bed, does not have bed rails, goes to bed around 9-10 pm, voids about 1x/night Pain - his main issues are pain L leg chronic and also more recently pain in L leg, takes APAP PRN Skin - no concerns Diagnoses reviewed. All chronic conditions in this assessment are stable unless stated otherwise.PLAN:- initial labs drawn today including tuberculosis screening, also including labs for renal - 10/31/20 3:30 pm renal with BRodrick Athreya - 1:[address] - device interrogation; IN PERSON- podiatry referral- cardiology referral for continued followup for existing pt- RTANES referral for continued follow up for existing pt- vascular referral for continued follow up for existing pt - reportedly has appt in place; will likely need f/u imaging, recent R groin pain and RLE pain- SE ST will review his case for his hx PNA Functional Status Date Functional Assessmen t No Information Instructions Date Instruction Additional Infor william -Biventricular St de 3262 Quadra Allure pacemaker-Initial pacer complicated by infection and subsequent extraction on the left w/ re-implant on the right when he was in [facility] previously -Upgraded to a BIV pacemaker in 10/2017- LVEF improved to 45-50% (previously 30%)-07/2022: cannot read the report in EMR, report indicated battery life 6 years, 99% paced-Device check on 09/25/23. Cannot read report in system; will request a copy.-Device check 12/2023, report received and shows normal results. He will have repeat device check in March 2024. Referral entered. -EKG inpatient 03/2024 shows atrial-sensed ventricular-paced rhythm. Related to History of cardiac pacemaker -Per pulmonary note 03/2023, some emphysema and mild parenchymal changes seen on imaging as well as reported COPD exacerbations he would likely benefit at least from LAMA therapy (easiest as a once daily medication). They also discussed CPAP however Janett has declined. -Spiriva started by pulmonary. Continues on this as well as Broe, PRN Albuterol. No recent exacerbations. -Consider referral back to pulmonary with any worsening. Related to Pulmonary emphysema, unspecified emphysema type -Per [facility] notes, chronic hypercapnic respiratory failure; pulmonary note 2022 describes hypoxemic respiratory failure. Coexisting COPD.-On chronic oxygen use 2lpm NC. No changes made today. Related to Chronic respiratory failure with hypercapnia -Per cardiology, [facility] inpatient records, HFrEF. Last echo 10/2022 states indeterminate diastolic function. -Followed by cardiology periodically. Continue scheduled Bumex 1mg (equivalent to Lasix 40mg daily). There was mention of this being discontinued in March 2024 hospital discharge however he has continued on this. -PRN Bumex also in place however he has not needed this recently. -08/2024: Appears euvolemic today, trace edema. Continue oxygen via nasal cannula at 2L (coexisting COPD, chronic respiratory failure). He will report any new symptoms, edema, or weight gain. -Follow up with cardiology. Will re-enter referral. Related to HFrEF (heart failure with reduced ejection fraction) -History of CAD s/p CA and CABGx3 in 2004, ischemic cardiomyopathy, HFrEF, biventricular pacemaker in place, PAD, COPD on O2. Follows periodically with cardiology and for device checks. -Xray 12/11/23 noted moderate to severe atherosclerosis in the abdominal aorta and emily vessels.-Last echo was October 2022 showing EF 45-50%. No significant valve dysfunction. No evidence of pulmonary hypertension. -Continue lipid and BP management. LDL goal <70 and BP goal <140/90 (meeting goal). -Meals prepared by [facility]. Limited physical activity due to comorbidities, high risk for falls. -Remains on oxygen (coexisting COPD, chronic respiratory failure). Encouraged him to report any new or worsening symptoms. Related 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 -Per previous record s, ischemic cardiomyopathy with HFrEF, CHF, CAD s/p CABG, BiV pacer, pacer dependent. -Needs to follow up with cardiology for reassessment and recommendations given complexity of his medical history. -See HFrEF. Related to Ischemic cardiomyopathy -Reports hearing los s, +excessive and nearly impacted cerumen R>L. -Debrox instilled x1. MAs flushed ears with good success. TM WNL bilaterally. Pt tolerated well. Will reach out as needed in the future for repeated flushing. Related to Impacted cerumen of both ears -Goal >30.-02/2024 C alcium 9.6, PTH 78, 08/2023 Vitamin D 32. 07/2022 Vitamin D level 29. Calcium in April 2023 was 9.1 (in normal reference range). Coexisting history of secondary hyperparathyroidism. -Vitamin D supplement discontinued in hospital in order to decrease medication burden. Vit D 08/2024 now at 24. Will restart Vit D supplement to maintain level >30. Related to Vitamin D deficiency -Longstanding CKD an d HTN. -Follows with renal; last seen 12/2023; continue low Na diet (he has limited ability to do this as he lives at the [facility] and they prepare his meals), continue current diuretics, periodic labs. -08/2024 PTH 94, Ca 8.8. 02/2024 PTH 78, Ca 9.6. 12/2023 PTH 83, Ca 8.9. 09/2021 PTH 101, Ca 9.1. -Previously on Vit D and then taken off. Vit D 08/2024 now at 24. Will restart Vit D supplement to maintain level >30. -Continue periodic follow up with renal and management of CKD as otherwise stated. Related to Secondary hyperparathyroidism of renal origin -Longstanding GERD w ith hiatal hernia. -02/2024: Discontinued pantoprazole as a trial off given potential effects of chcf use and patient's desire to do a trial off. -07/2024: Janett reports worsening symptoms of reflux. -Restart pantoprazole 20mg ER daily. On pantoprazole due to drug-drug interaction with omeprazole while on clopidogrel-08/2024: Symptoms well managed, will be continued on pantoprazole with no plans to discontinue. Related to Gastroesophageal reflux disease without esophagitis -There is evidence o f atherosclerosis on CT of the bilateral carotid arteries. CT on 07/25/23 reads atherosclerotic vascular calcification of the carotid arteries but negative hyperdense vessel sign. Vascular calcifications in the bilateral vertebral arteries -Remains asymptomatic. Continue vascular risk factor management including blood pressure, lipids, glycemic control.-He is a former smoker. Meals prepared by [facility]. Limited physical activity. BMI elevated however difficult to promote weight loss given his comorbidities, limited activity and limited control over diet offerings. -Continue aspirin. -We will consider repeat imaging in the future based on shared decision making and goals of care. Related to Carotid atherosclerosis, bilateral -Diagnoses include H FrEF, ischemic cardiomyopathy, hx PNA, former smoker, COPD, chronic hypoxemic respiratory failure. -Continue O2 via NC at 2L. Related to Dependence on supplemental oxygen -COPD complicated by chronic hypoxemic respiratory failure. He is oxygen dependent on 2L NC. This is thought to be due to an episode of PNA a few years ago that unmasked an unknown COPD. -He is a former smoker, 1-2 PPD from 19yo (1954) until 1991. -He saw [facility] pulmonology 03/30/23. Note discusses benefit of LAMA as well as CPAP (however this has been discussed with patient several times and he ppt declines use). They recommended PFTs and initiation of Spiriva (which he was already on and continues to use now). He had PFTs on 04/09/23 with the following results: SPIROMETRY: FEV1 1.25, 53%; FVC 1.54, 48%; FEV1/FVC 81%; PEFR 2.86, 50%; INTERPRETATION: Moderate ventilatory defect, without obstruction. The vital capacity is reduced, probably due to a restrictive process. PEFR is reduced. Normal values are not well established for individuals of this age.-Continue Breo, Sprivia, PRN Albuterol. Last exacerbation unknown. Will consider deescalation of therapy in the future. Related to Chronic obstructive pulmonary disease, unspecified COPD type He is a former smoke r, 1-2 PPD from 19yo (1953) until 1991. Related to Former tobacco use -Former smoker.-Hist ory of right fem-pop bypass, left SFA stent.-09/2021 DOREEN right 0.77, left 0.72. 09/2021 VL arterial bypass graft R - fem pop bypass graft on R side appears patent, difficult visualization of distal anastomosis due to body habitus. VL arterial duplex scan L - distal fem artery stent poorly visualized due to calcification, elevated velocities 492 cm/s in area of proximal stent; LLE heavily calcified.-Previously followed by [facility]. Last seen 10/2021 at which time note states history of left SFA sent now with distal SFA stenosis of greater than 75%. Vascular reviewed his recent testing and felt it was unchanged from prior and noted left distal SFA stenosis >75% but that he maintains biphasic blood flow to tibial vessels. No intervention recommended and they felt he was asymptomatic from his vascular disease. Continue gabapentin for neuropathy. -He denies foot pain to me today however he is a poor historian and therefore it is difficult to know if he has been bothered by it in recent months. He is bothered by upper leg pain L>R. -Last seen by podiatry in July 2023 with note stating hypertrophic nails 1-5 bilaterally and mild pedal edema. Pulses palpable. Exam similar today. We can manage his nail care in-house at this time. Encouraged him to report new or worsening symptoms promptly. -Will refer back to vascular or obtain testing based on symptoms. Related to Peripheral arterial disease -CKD3B: 08/2024 eGFR 36, creatinine 1.82. 03/2024 eGFR 41, creatinine 1.61. 02/2024 eGFR 36, creatinine 1.81, BUN 38. 12/2023: eGFR 35, creatinine 1.86. 08/2023 eGFR 50, creatinine 1.37. 04/2023 eGFR 29, creatinine 2.14. -Seen by nephrology 12/2023; they indicated no s+s uremia, fluid status acceptable, continue current dose of diuretics, low sodium diet (limited ability to do this as he is in [facility]), continue to monitor renal function periodically, BP well controlled, avoidance of nephrotoxins including NSAIDS. -Renal indicated if Hgb is to drop below 9 then he may need erythropoietin replacement therapy. Last hgb 08/2024 10.6.-Repeat labs 09/15 when he comes in to assess potassium level, CBC. Related to Stage 3b chronic kidney disease -Goal BP <140/90 but will accept up to 150/90 due to age and high falls risk. He has been meeting this goal however today BP is too tightly controlled. 3 falls in the last 6 months. -See HFrEF and CKD.-Given tightly controlled BP, reduce amlodipine to 5mg daily. Continue carvedilol, isosorbide, bumetanide. Lisinopril previously discontinued r/t hyperkalemia, HCTZ discontinued r/t renal function and metoprolol switched to carvedilol. -08/2024 eGFR 36, creatinine 1.82. 02/2024 eGFR 36, creatinine 1.81, BUN 38. -Seen by nephrology 12/2023; continue to monitor renal function periodically, BP management, avoidance of nephrotoxins including NSAIDS. -Renal indicated if Hgb is to drop below 9 then he may need erythropoietin replacement therapy. Hgb in 08/2024 at 10.6. 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 -08/2024 TC 135, HDL 32, LDL 73, TG 209 (non-fasting). 09/24/23 with TC 143, TG 275 (non-fasting however), LDL at goal at 69. 07/2022 TC 153, TG 332 (this was non-fasting), LDL 67. -LDL goal <70.-Meals prepared by [facility]. Limited exercise due to physical limitations. -Continue Zetia 10mg daily. Niacin and Omega3 discontinued previously to reduce medication burden.-Continue periodic labs to assess adequacy of plan. Related to Hypercholesterolaemia -Reports hearing los s, +excessive and nearly impacted cerumen R>L. -Debrox sent. Will have MAs flush ears next week. Related to Impacted cerumen of both ears -Janett reports righ t eye with pruritus, drainage, a bump in the lower eye lid. The sclera is slightly pink, eye is watery. There is a small lesion, skin-colored on the lower lid, appearing external to the lid, similar to a skin-tag. -He rubs his eyes frequently, doesn't wash his hands prior to doing this. -Uses glasses.-Will treat with Polytrim and eyelid scrubs, avoid touching of eyes. Referral to ophthalmology for further evaluation as we have tried a few things for this already without success. Can be canceled if the current plan resolves it. Related to Conjunctivitis of right eye, unspecified conjunctivitis type -Longstanding GERD w ith hiatal hernia. -02/2024: Discontinued pantoprazole as a trial off given potential effects of chcf use and patient's desire to do a trial off. -07/2024: Janett reports worsening symptoms of reflux. -Restart pantoprazole 20mg ER daily. On pantoprazole due to drug-drug interaction with omeprazole while on clopidogrel Related to Gastroesophageal reflux disease without esophagitis -Janett has reported urinary symptoms including dysuria, frequency, urgency x 2-3 weeks. Initial urine was negative. New urine obtained 07/13/24 and has come back positive for 50,000-100,000 CFU/mL of Enterococcus faecalis. The only oral medication listed in the susceptibility is macrobid. While not ideal given his decreased renal function, we do not have other feasible options. Sent for Macrobid 100mg BID x 7 days and Florastor x 14 days. Will repeat urine in 2-3 weeks to ensure it clears. Related to Acute cystitis with hematuria -Previously was requ iring intermittent temporary cook in early 2022. During hospital admission in 03/2024, noted with urinary retention again; required Cook, failed voiding trial and Cook reinsertion. Tamsulosin was increased to 0.8mg daily. Cook was removed after 3 days and he was successful with voiding trial. -06/2024: Over the past week or so, complaining of dysuria, some hesitancy. Urine initially concerning for UTI but culture has now come back negative. He continues to complain of symptoms. -Continue tamsulosin 0.8mg daily. -Encourage fluids. -Continue management/prevention of bowel regimen.-Janett reports symptoms at present are similar to past episodes of urinary retention. See in office tomorrow for repeat urine dip, PVR. 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 During hospital admission in 03/2024, noted with urinary retention again; required Cook, failed voiding trial and Cook reinsertion. Tamsulosin was increased to 0.8mg daily. Cook was removed after 3 days and he was successful with voiding trial. -06/2024: Over the past week or so, complaining of dysuria, some hesitancy. Urine initially concerning for UTI but culture has now come back negative. He continues to complain of symptoms. -Continue tamsulosin 0.8mg daily. -Encourage fluids. -Continue management/prevention of bowel regimen.-Janett reports symptoms at present are similar to past episodes of urinary retention. See in office tomorrow for repeat urine dip, PVR. 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 -Appears to be healing well. No signs of infection today. Nursing to continue wound care. Related to Skin tear of left upper extremity -Fall 07/08/24 with s kin tear to left forearm. Slipped and fell while walking to the sink.-Repeat urine dip (UA negative last week but has continued dysuria), orthostatics ordered. -RN spoke to family about getting patient new slippers as the ones he was wearing when he fell are worn out. -Continue wound care. Related to History of fall -Previously requirin g intermittent temporary Cook in early 2022. During hospital admission in 03/2024, noted with urinary retention again; required Cook, failed voiding trial and Cook reinsertion. Tamsulosin was increased to 0.8mg daily. Cook was removed after 3 days and he was successful with voiding trial. -07/12/24: Over the past week or so, complaining of dysuria, some hesitancy. Urine initially concerning for UTI but culture has now come back negative. He continues to complain of symptoms. -07/13/24 PVR in office favorable at 58mL. Will obtain repeat dip today or tomorrow. Exam reassuring. -Continue tamsulosin 0.8mg daily. -Encouraged fluids. -Continue management/prevention of bowel regimen. 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 During hospital admission in 03/2024, noted with urinary retention again; required Cook, failed voiding trial and Cook reinsertion. Tamsulosin was increased to 0.8mg daily. Cook was removed after 3 days and he was successful with voiding trial. -07/12/24: Over the past week or so, complaining of dysuria, some hesitancy. Urine initially concerning for UTI but culture has now come back negative. He continues to complain of symptoms. -07/13/24 PVR in office favorable at 58mL. Will obtain repeat dip today or tomorrow. Exam reassuring. -Continue tamsulosin 0.8mg daily. -Encouraged fluids. -Continue management/prevention of bowel regimen. Related to Other obstructive and reflux uropathy -Patient reported dy suria to nursing staff. No other significant symptoms. Urine dip completed 07/04 and shows 2+ leuks, negative nitrites, 1+ protein, pH 6.0, race blood, SG 1.015. -Still waiting on culture however formal UA with 3+ leuks, negative nitrites. Ppt with worsening dysuria, frequency, h/o UTI in the past. -Will start Bactrim DS BID x 7 days, Florastor QD x 14 days. Will adjust meds if needed based on culture results. Related to Suspected UTI -Patient reported dy suria to nursing staff. No other significant symptoms. Urine dip completed and shows 2+ leuks, negative nitrites, 1+ protein, pH 6.0, race blood, SG 1.015. -Sent for UA with reflex culture. Related to Suspected UTI -Longstanding GERD. Well controlled at present.-05/2024 chest xray showed moderate hiatal hernia. Related to Gastroesophageal reflux disease with hiatal hernia -Longstanding GERD. Well controlled at present.-05/2024 chest xray showed moderate hiatal hernia. Related to Diaphragmatic hernia without obstruction or gangrene -Potassium in the ho spital 2022- 5.5; April 2023- 5.2; March 2023- 5.0. 02/2024 show potassium of 5.4.-03/2024 while inpatient had K of 5.8. Received PRN Lokelma with good effect, normal K at discharge. Inpatient team stated the following (04/14/24) in terms of etiology Hyperkalemia Ddx includes: Transcellular potassium shifts due to respiratory acidosis setting of untreated GRAYSON, reduced potassium excretion (hypoaldosteronism, mineralocorticoid resistance), medications (carvedilol and heparin) vs collecting duct dysfunction from bladder outlet obstruction. pseudohyperkalemia ruled out as plasma potassium elevated -Bumex restarted outpatient at rehab. K checked 04/26/24 as follow up and noted to be elevated at 5.6.-Advised PRN Lokelma of 10g x 1, will repeat labs in 1-2 days. Related to Hyperkalemia -Biventricular [facility] 3262 Quadra Allure pacemaker-Initial pacer complicated by infection and subsequent extraction on the left w/ re-implant on the right when he was in [facility] previously -Upgraded to a BIV pacemaker in 10/2017- LVEF improved to 45-50% (previously 30%)-07/2022: cannot read the report in EMR, report indicated battery life 6 years, 99% paced-Device check on 09/25/23. Cannot read report in system; will request a copy.-Device check 12/2023, report received and shows normal results. He will have repeat device check in March 2024. Referral entered. -EKG inpatient 03/2024 shows atrial-sensed ventricular-paced rhythm. Related to History of cardiac pacemaker -03/2024: CT head/br ain done during hospital admission after fall with head strike. Noted moderate multilevel degenerative disc space narrowing and end plate irregularity. Narrowing of the atlantodens interval with osteophyte formation. Related to Degenerative disc disease, cervical Cook removed, no PV Rs were noted in EMR even though ordered, ppt voiding per nursing and pptspoke with team, discharge order placed Related to Urinary retention -03/2024 eGFR 41 (wa s as low as 34), creatinine 1.61. 02/2024 eGFR 36, creatinine 1.81, BUN 38. 12/2023: eGFR 35, creatinine 1.86. 08/2023 eGFR 50, creatinine 1.37. 04/2023 eGFR 29, creatinine 2.14. -Seen by nephrology 12/2023; they indicated no s+s uremia, fluid status acceptable, continue current dose of diuretics, low sodium diet (limited ability to do this as he is in [facility]), continue to monitor renal function periodically, BP well controlled, avoidance of nephrotoxins including NSAIDS. -Renal indicated if Hgb is to drop below 9 then he may need erythropoietin replacement therapy. Last hgb 03/2024 11.8.-GIOVANA on CKD per inpatient note 04/14/24; advised hold Bumex, resume outpatient, potassium diet restriction 2mg, PRN Lokelma, consider nasal-C-pap. -Repeat labs outpatient. Related to Stage 3b chronic kidney disease -Symptoms consistent with allergic conjunctivitis including itchy eyes with mild erythema, minimal discharge in the morning. He tends to rub his eyes a lot, likely contributing to further irritation. Encouraged him to avoid touching his eyes. -Continue Pataday eye drops, 1 drop to each eye twice daily. -He should report any symptoms concerning for bacterial conjunctivitis including worsening purulent discharge.-Will consider oral allergy pill in the future as a trial. Related to Allergic conjunctivitis, bilateral -Previously was requ iring intermittent temporary cook in early 2022. During hospital admission in 03/2024, + UTI subsequently noted with urinary retention again; required Cook, failed voiding trial and Cook reinsertion. Remains in right now. Tamsulosin was increased 2-3 days ago. -Will perform voiding trial starting this afternoon. Spoke with nursing at [facility]. Advised removal on Cook today; bladder scan every 6 hours with straight cath is >300mL. Reinsert Cook if straight cath 3 times; and call [place] if >600mL. -Continue tamsulosin 0.8mg daily. -Encourage fluids. -Continue management/prevention of bowel regimen. 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 During hospital admission in 03/2024, + UTI, subsequently noted with urinary retention again; required Cook, failed voiding trial and Cook reinsertion. Remains in right now. Tamsulosin was increased 2-3 days ago. -Will perform voiding trial starting this afternoon. Spoke with nursing at [facility]. Advised removal on Cook today; bladder scan every 6 hours with straight cath is >300mL. Reinsert Cook if straight cath 3 times; and call [place] if >600mL. -Continue tamsulosin 0.8mg daily. -Encourage fluids. -Continue management/prevention of bowel regimen. 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 During hospital admission in 03/2024, +UTI subsequently noted with urinary retention again; required Cook, failed voiding trial and Cook reinsertion. Remains in right now. Tamsulosin was increased 2-3 days ago. -Will perform voiding trial starting this afternoon. Spoke with nursing at [facility]. Advised removal on Cook today; bladder scan every 6 hours with straight cath is >300mL. Reinsert Cook if straight cath 3 times; and call [place] if >600mL. -Continue tamsulosin 0.8mg daily. -Encourage fluids. -Continue management/prevention of bowel regimen. Related to Urinary retention -Right hand pain of unknown etiology. Seen by hand surgeon. [facility] inpatient did not help. Fluid analysis inadequate. Treated with antibiotics Ceftriaxone and prednisone; both completed.-Hand surgeon recommended continued conservative treatment. They did not feel surgery would be helpful.-He continues to work with PT and is improving. He needs to be able to complete his ADLs and use walker before going back to [facility]. -Continue with current plan of care. Related to Hand pain, right -Right hand with tiana daugherty, significant pain, erythema with streaking up to the elbow. Worsening over the past couple of days. He is unable to make a fist. No known injuries. no history of gout that he knows of however I do see an elevated uric acid level some time back. -Right wrist xray ordered to be done today.-CBC, ESR/CRP, uric acid level.-Start Bactrim for treatment of cellulitis, 1 double strength tablet every 12 hours x 7 days.-Follow up in 2 days if no improvement. Will ask nursing to reassess tomorrow. Related to Cellulitis of right upper extremity -Bilateral yellow di scharge from eye with pruritus R>L. He frequently scratches and touches his eyes. -No alarm features; denies pain, change in vision, headaches.-Erythromycin ointment 4 times daily x 7 days. Related to Bacterial conjunctivitis of both eyes -Bilateral yellow di scharge from eye with pruritus R>L. He frequently scratches and touches his eyes. -No alarm features; denies pain, change in vision, headaches.-Erythromycin ointment 4 times daily x 7 days. Related to Other specified bacterial agents as the cause of diseases classified elsewhere -Per pre-enrollment.-See CAD. 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 Related to Dependence on supplemental oxygen -COPD complicated by chronic hypoxemic respiratory failure. He is oxygen dependent on 2L NC. This is thought to be due to an episode of PNA a few years ago that unmasked an unknown COPD. -He is a former smoker, 1-2 PPD from 19yo (1954) until 1991. -He saw [facility] pulmonology 03/30/23. Note discusses benefit of LAMA as well as CPAP (however this has been discussed with patient several times and he ppt declines use). They recommended PFTs and initiation of Spiriva (which he was already on and continues to use now). He had PFTs on 04/09/23 with the following results: SPIROMETRY: FEV1 1.25, 53%; FVC 1.54, 48%; FEV1/FVC 81%; PEFR 2.86, 50%; INTERPRETATION: Moderate ventilatory defect, without obstruction. The vital capacity is reduced, probably due to a restrictive process. PEFR is reduced. Normal values are not well established for individuals of this age.-Continue Breo, Sprivia, PRN Albuterol. Last exacerbation unknown however I do not see any documented in at least the last year. We will consider de-escalation of therapy over the next 1-2 visits with likely trial off Breo. Related to Chronic obstructive pulmonary disease, unspecified COPD type -Denies symptoms tod ay including dysphagia. -Continue pantoprazole 20mg ER daily. On pantoprazole due to drug-drug interaction with omeprazole while on clopidogrel-He would like to do a trial off pantoprazole. Related to Gastroesophageal reflux disease without esophagitis -Symptoms consistent with allergic conjunctivitis including itchy eyes with mild erythema, minimal discharge in the morning. He did not receive the eye drops yet. -Start Pataday eye drops, 1 drop to each eye twice daily. -He should report any symptoms concerning for bacterial conjunctivitis including worsening purulent discharge. Related to Allergic conjunctivitis, bilateral -There is evidence o f atherosclerosis on CT of the bilateral carotid arteries. CT on 07/25/23 reads atherosclerotic vascular calcification of the carotid arteries but negative hyperdense vessel sign. Vascular calcifications in the bilateral vertebral arteries -Given comorbid conditions would not do dedicated study at this point.-Remains asymptomatic. Continue vascular risk factors management including blood pressure, lipids, glycemic control.-He is a former smoker. Meals prepared by [facility]. Limited physical activity. BMI elevated however difficult to promote weight loss given his comorbidities, limited activity and limited control over diet offerings. -Continue aspirin. -We will consider repeat imaging in the future based on shared decision making and goals of care. Related to Carotid atherosclerosis, bilateral -Former smoker.-Hist ory of right fem-pop bypass, left SFA stent.-09/2021 DOREEN right 0.77, left 0.72. 09/2021 VL arterial bypass graft R - fem pop bypass graft on R side appears patent, difficult visualization of distal anastomosis due to body habitus. VL arterial duplex scan L - distal fem artery stent poorly visualized due to calcification, elevated velocities 492 cm/s in area of proximal stent; LLE heavily calcified.-Previously followed by [facility]. Last seen 10/2021 at which time note states history of left SFA sent now with distal SFA stenosis of greater than 75%. Vascular reviewed his recent testing and felt it was unchanged from prior and noted left distal SFA stenosis >75% but that he maintains biphasic blood flow to tibial vessels. No intervention recommended and they felt he was asymptomatic from his vascular disease. Continue gabapentin for neuropathy. -He denies foot pain to me today however he is a poor historian and therefore it is difficult to know if he has been bothered by it in recent months. -Last seen by podiatry in July 2023 with note stating hypertrophic nails 1-5 bilaterally and mild pedal edema. Pulses palpable. Exam similar today. We can manage his nail care in-house at this time. Encouraged him to report new or worsening symptoms promptly. -Will refer back to vascular or obtain testing based on symptoms. Related to Peripheral arterial disease -History of CAD s/p CA and CABGx3 in 2004, ischemic cardiomyopathy, HFrEF, biventricular pacemaker in place, PAD, COPD on O2. Follows periodically with cardiology and for device checks. -Xray 12/11/23 noted moderate to severe atherosclerosis in the abdominal aorta and emily vessels.-Last echo was October 2022 showing EF 45-50%. No significant valve dysfunction. No evidence of pulmonary hypertension. -Continue lipid and BP management. LDL goal <70 (last LDL 69 in 08/2023) and BP goal <140/90 (meeting goal). -Meals prepared by [facility]. Limited physical activity due to comorbidities, high risk for falls. -Remains on oxygen (coexisting COPD).-No recent episodes of chest discomfort. Continue Imdur at current dosing. -Encouraged him to report any new or worsening symptoms. Related 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 -Previously follow [facility] for lipid mgt due to statin intolerance r/t significant myalgias. - 09/24/23 with TC 143, TG 275 (non-fasting however), LDL at goal at 69. 07/2022 TC 153, TG 332 (this was non-fasting), LDL 67. -Meals prepared by [facility]. Limited exercise due to physical limitations. -Continue Zetia 10mg daily. Niacin and Omega3 discontinued previously to reduce medication burden.-Continue periodic labs to assess adequacy of plan. Related to Hypercholesterolaemia -Goal BP <140/90 but will accept up to 150/90 due to age and high falls risk. He has been meeting this goal. 1 recent fall. -See HFrEF and CKD.-Continue amlodipine, carvedilol, isosorbide, bumetanide. Lisinopril previously discontinued r/t hyperkalemia, HCTZ discontinued r/t renal function and metoprolol switched to carvedilol. -02/2024 eGFR 36, creatinine 1.81, BUN 38. Seen by nephrology 12/2023; continue to monitor renal function periodically, BP management, avoidance of nephrotoxins including NSAIDS. -Renal indicated if Hgb is to drop below 9 then he may need erythropoietin replacement therapy. Hgb in 12/2023 at 13.6. Recent lab results faxed to renal. 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 -Followed by cardiology periodically. Continue scheduled Bumex 1mg (equivalent to Lasix 40mg daily). PRN Bumex also in place however he has not needed this recently. -Physical exam reassuring today, appears euvolemic, trace edema. Continue oxygen via nasal cannula at 2L (coexisting COPD). He will report any new symptoms, edema, or weight gain. -Follow up with cardiology if there is a worsening, and for routine device checks. Related to HFrEF (heart failure with reduced ejection fraction) -Biventricular [facility] 3262 Quadra Allure pacemaker-Initial pacer complicated by infection and subsequent extraction on the left w/ re-implant on the right when he was in [facility] previously -Upgraded to a BIV pacemaker in 10/2017- LVEF improved to 45-50% (previously 30%)-07/2022: cannot read the report in EMR, report indicated battery life 6 years, 99% paced-Device check on 09/25/23. Cannot read report in system; will request a copy.-Device check 12/2023, report received and shows normal results. He will have repeat device check in March 2024. Referral entered. Related to History of cardiac pacemaker -02/2024 eGFR 36, cr eatinine 1.81, BUN 38. 12/2023: eGFR 35, creatinine 1.86. 08/2023 eGFR 50, creatinine 1.37. 04/2023 eGFR 29, creatinine 2.14. -Seen by nephrology 12/2023; they indicated no s+s uremia, fluid status acceptable, continue current dose of diuretics, low sodium diet (limited ability to do this as he is in [facility]), continue to monitor renal function periodically, BP well controlled, avoidance of nephrotoxins including NSAIDS. -Renal indicated if Hgb is to drop below 9 then he may need erythropoietin replacement therapy. -Labs ordered upon receiving the renal note. Results sent to renal. Related to Stage 3b chronic kidney disease -Longstanding CKD an d HTN. -Follows with renal; last seen 12/2023; continue low Na diet (he has limited ability to do this as he lives at the [facility] and they prepare his meals), continue current diuretics, periodic labs. -02/2024 PTH 78, Ca 9.6. 12/2023 PTH 83, Ca 8.9. 09/2021 PTH 101, Ca 9.1. -No longer requiring Vitamin D supplementation. Will continue periodic labs with Vitamin D goal > 30. -Continue periodic follow up with renal and management of CKD as otherwise stated. Related to Secondary hyperparathyroidism of renal origin -[facility] Repeat in April 2023 was 5.2 and March 2023 was 5.0.-Outpatient labs 02/2024 show potassium of 5.4.-Has a history of hyperkalemia. Aside from the chronic kidney disease etiology is not clear. -He is on Bumex. He is not on potassium or a potassium sparing diuretic.-He follows regularly with renal. Will fax copy of labs and med list to renal to see if they recommend any changes. Related to Hyperkalemia -02/2024 eGFR 36, cr eatinine 1.81, BUN 38. 12/2023: eGFR 35, creatinine 1.86. 08/2023 eGFR 50, creatinine 1.37. 04/2023 eGFR 29, creatinine 2.14. -Seen by nephrology 12/2023; they indicated no s+s uremia, fluid status acceptable, continue current dose of diuretics, low sodium diet (limited ability to do this as he is in [facility]), continue to monitor renal function periodically, BP well controlled, avoidance of nephrotoxins including NSAIDS. -Renal indicated if Hgb is to drop below 9 then he may need erythropoietin replacement therapy. -Labs ordered upon receiving the renal note. Related to Stage 3b chronic kidney disease -Symptoms reported b y nursing consistent with allergic conjunctivitis including itchy eyes with erythema, minimal discharge in the morning. -Start Pataday eye drops, 1 drop to each eye twice daily. -He should report any symptoms concerning for bacterial conjunctivitis including worsening purulent discharge. Related to Allergic conjunctivitis, bilateral -Biventricular [facility] 3262 Quadra Allure pacemaker-Initial pacer complicated by infection and subsequent extraction on the left w/ re-implant on the right when he was in [facility] previously -Upgraded to a BIV pacemaker in 10/2017- LVEF improved to 45-50% (previously 30%)-07/2022: cannot read the report in EMR, report indicated battery life 6 years, 99% paced-Device check on 09/25/23. Cannot read report in system; will request a copy.-Device check 12/2023, report received and shows normal results. He will have repeat device check in March 2024. Referral entered. Related to History of cardiac pacemaker -12/2023: eGFR 35, c reatinine 1.86. 08/2023 eGFR 50, creatinine 1.37. 04/2023 eGFR 29, creatinine 2.14. -Seen by nephrology 12/2023; they indicated no s+s uremia, fluid status acceptable, continue current dose of diuretics, low sodium diet (limited ability to do this as he is in [facility]), continue to monitor renal function periodically, BP well controlled, avoidance of nephrotoxins including NSAIDS. -Renal indicated if Hgb is to drop below 9 then he may need erythropoietin replacement therapy. -Labs ordered upon receiving the renal note. Related to Stage 3b chronic kidney disease -Two partial thickne ss barger to upper buttock, just below pant line r/t thermal burn from hot pack on 12/06/23. Hot pack use discussed with [facility] on 12/07/23.-Wound appears to be healing well. No signs of infection. -Continue dressing changes until healed. -We will continue to monitor closely. Related to Partial thickness burn of buttock, subsequent encounter -12/11/23 which showe d generalized osteopenia, moderate to severe multilevel degenerative disc disease. There was an approximate 30% superior endplate compression deformity of L1 (reported as chronic). No acute fractures. The imaging also showed moderate to severe atherosclerosis in the abdominal aorta and emily vessels. -I reviewed these findings with him today and offered to refer him to [facility] or [facility] for further management including possibly injections or discussion of other possible treatment. He reports he does not want any injections in his back and would not consider surgery. -He would like to continue to work with our rehab team and see how things go. -I will continue to follow him closely for management. Related to Low back pain, unspecified back pain laterality, unspecified chronicity, unspecified whether sciatica present -History of CAD s/p CA and CABGx3 in 2004, ischemic cardiomyopathy, HFrEF, biventricular pacemaker in place, PAD, COPD on O2. -Xray 12/11/23 noted moderate to severe atherosclerosis in the abdominal aorta and iliac vessels.-Last echo was October 2022 showing EF 45-50%. No significant valve dysfunction. No evidence of pulmonary hypertension. -Continue lipid and BP management. LDL goal <70 (last LDL 69 in 08/2023) and BP goal <140/90 (meeting goal). -Meals prepared by [facility]. Limited physical activity especially recently with back injury. Rehab following.-He is not having any chest discomfort. He has SOB associated with COPD at baseline and remains on oxygen. -Continue to follow with cardiology periodically; will discuss with him. 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 -Discussed hot pack use with [facility] 12/07/23.-Wound not visualized today as dressing was changed just prior to my arrival.-He will continue with application of Silvadene until fully healed, and dressing change every 3 days. -We will monitor closely for healing and signs of infection.-He is no longer requiring Tramadol. Pain is manageable at this time. Related to Partial thickness burn of buttock, subsequent encounter -Two partial thickne ss barger to upper buttock, just below pant line r/t thermal burn from hot pack. -Discussed hot pack use with [facility] 12/07/23.-Wounds appear stable and healing. No signs of infection.-Continue dressing changes every 3 days with Silvadene application and then dressing. -We will monitor closely for healing and signs of infection.-Small supply of Tramadol sent to pharmacy given significant pain 6-08/04, not relieved by meloxicam. Discussed that pain should begin to improve as further healing occurs over the next few days. Related to Partial thickness burn of buttock, subsequent encounter -Two partial thickne ss barger to upper buttock, just below pant line r/t thermal burn from hot pack. -Discussed hot pack use with [facility]. -For today, advised A+D to be applied and covered with dressing. Silvadene sent to pharmacy. Wound care ordered and nursing to see patient regularly for this. Advised to clean with wound cleanser, apply silvadene, gauze, ABD pad and secure with Hypafix. -Meloxicam sent for analgesia and antiinflammatory effects. -We will monitor closely for healing and signs of infection. Related to Partial thickness burn of buttock, initial encounter -No longer on ferrou s sulfate. Discontinued in December 2022 however unclear how long he was on it as last note from 01/20/23 says Fe supplement started but this was not initiated prior to hospitalization , so unclear if he was on it. -Hgb 9.9 and Hct 31.4 in April 2023. -History of CKD which can increase risk for anemia. -[facility] to report any concerns for bleeding. -Labs repeated 09/24/23 with a stable H+H. Ferritin is in normal range but towards the lower end. Will hold off on ferrous sulfate at this time and repeat CBC with diff periodically. Related to Anemia in chronic kidney disease -Last Vit B12 level was 935 in December 2022. Vitamin B12 discontinued around that time to reduce medication burden. -Level repeated 09/24/23 and noted at 364.-Will check periodically and restart supplement if indicated. Related to Low vitamin B12 level -Previously follow [facility] for lipid mgt due to statin intolerance r/t significant myalgias-Lipids last checked 07/2022 showing TC 153, TG 332 (this was non-fasting), LDL 67. -Lipids repeated 09/24/23 with TC 143, TG 275 (non-fasting however), LDL at goal at 69.-Meals prepared by others. Limited exercise due to physical limitations. -Continue Zetia 10mg daily. Niacin and Omega3 discontinued previously to reduce medication burden. Related to Hypercholesterolaemia -Longstanding CKD an d HTN. -Follows with renal (last seen 09/16/23; no new changes. Will continue to follow with renal. -PTH elevated 101 upon enrollment in 09/2021, Ca normal and has CKD3, considered to be secondary hyperparathyroidism-Not able to really pick his own meals to work on [employer] at [facility]-No longer on vitamin D supplementation. Last vitamin D level 29 in July 2022. -Repeat Vitamin D level today. Related to Secondary hyperparathyroidism of renal origin -Previously follow w [facility] for lipid mgt due to statin intolerance r/t significant myalgias-Remains on Zetia 10mg daily. Niacin and Omega3 discontinued previously to reduce medication burden. -Lipids last checked 07/2022 showing TC 153, TG 332 (this was non-fasting), LDL 67. -Meals prepared by others. Limited exercise due to physical limitations. -Repeating lipids today. Related to Hypercholesterolaemia -Former smoker -S/p Right femAKpop bypass, Left SFA stent -Followed by [facility] vascular; saw last in 10/2021 who felt that the scans showed stability to prior testing. Bypass graft is widely patent. The L distal SFA > 75% stenosed but maintains biphasic blood flow into his tibial vessels. Dr William did not recommend intervention at this point and felt he was asymptomatic from his vascular disease. -Intermittent foot pain, stable today. Reports I am fine . He has PRN diclofenac gel, gabapentin, and Tylenol TID. -Follows regularly with podiatry (last seen May 2023). -Reminded to check his skin BLE frequently -Can see vascular in f/u if in line with goals of care. Related to Peripheral arterial disease - CABGx3 in 2004.-Fo kumarwed with cardiology in 12/2022 with no medication changes for his CAD, CHF, however did not discuss clopidogrel which had been added during a prior hospitalization at [facility]. He was briefly taken off of this medication earlier this year due to concerns for decreasing H&H. Then was hospitalized again and was put back on the medication. H&H is monitored regularly (rechecking today).-Continues on baby aspirin indefinitely unless contraindicated and was also restarted on clopidogrel during recent hospitalization (was started at [facility] due for possible demand ischemia event; was briefly stopped due to concern for bleeding). -Intolerant to statin r/t myalgias. Continues on zetia, ;formerly on omega 3 and niacin but discontinued r/t desire to reduce medications.-Meals prepared by others. Limited physical activity due to limitations. -No complaints of CP or SOB -Continue to follow Related 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 He is a former smoke r, 1-2 PPD from 19yo (1953) until 1991. Related to Former tobacco use -Untreated, has not had formal sleep study nor would participate in it as outpt-Has declined repeatedly to wear BiPAP-He will continue to wear O2 via face mask at night-Continue to follow Related to Obstructive sleep apnea -Mr. Deal has COPD complicated by chronic hypoxemic respiratory failure. He is oxygen dependent. This is thought to be due to an episode of PNA a few years ago that unmasked an unknown COPD. -There were previous reports that he has been found downstairs at his [facility] in activities with an empty tank or the tank not turned on. He has some poor safety awareness related to this.-He is a former smoker, 1-2 PPD from 19yo (5) until 1991. He saw [facility] pulmonology 03/30/23. Note discusses benefit of LAMA as well as CPAP (however this has been discussed with patient several times and he ppt declines use). They recommended PFTs and initiation of Spiriva (which he was already on and continues to use now). He had PFTs on 04/09/23 with the following results: SPIROMETRY: FEV1 1.25, 53%; FVC 1.54, 48%; FEV1/FVC 81%; PEFR 2.86, 50%; INTERPRETATION: Moderate ventilatory defect, without obstruction. The vital capacity is reduced, probably due to a restrictive process. PEFR is reduced. Normal values are not well established for individuals of this age.-He will continue to follow with pulmonology. Related to Chronic obstructive pulmonary disease, unspecified COPD type -Diagnoses include H FrEF, ischemic cardiomyopathy, hx PNA, former smoker-He had multiple hospitalizations and was recommended to wear NIV but he continues to refuse. He is however agreeable to wear continuous O2 (has previously been found to be out and about in [facility] without O2 or with an empty tank). He tells me today he is always wearing it.-O2 sat today is 92%. Related to Dependence on supplemental oxygen -Stable MOCA compare d to last year.-07/2023 (points off for day of the visuospatial, attention, abstraction, month, language) ; 08/2022 16; 09/2021. 8th grade education. -Able to contribute some to conversation but often report I am fine when asked about different medical conditions. Accepts help when needed. -HCP was invoked in December 2022. Related to Impaired cognitive ability Per preenrollment records-Perioperative CVA w/ no significant residual deficits-Continues on baby aspirin for CAD and hx CVA, also on clopidogrel for cardiac reasons -Goal LDL < 70-Goal BP < 140/90, but will allow up to 150/90 Related to H/O: CVA (cerebrovascular accident) -No longer on ferrou s sulfate. Discontinued in December 2022 however unclear how long he was on it as last note from 01/20/23 says Fe supplement started but this was not initiated prior to hospitalization , so unclear if he was on it. -Hgb 9.9 and Hct 31.4 in April 2023. -History of CKD which can increase risk for anemia. -[facility] to report any concerns for bleeding. -Repeat CBC and iron studies today. Related to Anemia, unspecified type -Potassium in the ho spital earlier this year was 5.5. Repeat in April 2023 was 5.2 and March 2023 was 5.0.-Has a history of hyperkalemia. Aside from the chronic kidney disease etiology is not clear. -He is on Bumex. He is not on potassium or a potassium sparing diuretic.-Repeat labs. Related to Hyperkalemia -Previously was requ iring intermittent temporary cook in early 2022. He has not required it recently and denies any concerns with retention today. -Reports intermittent urinary incontinence today.-Continues on tamsulosin-We are also monitoring bowels since constipation can lead to urinary retention. He denies constipation today. Has bowel regimen in place. Related to Urinary retention -Follows with renal. Last seen 09/16/2023; report states fluid status was acceptable, continue current dose of diuretics, low NA diet, monitor H+H and consider erythropoietin if Hgb <9 (last Hgb was 9.9 in April 2023, avoid nephrotoxins. -07/2023: eGFR 37 (down from prior of 50 in May 2022),creatinine 1.76, BUN 34. -Repeat labs today including renal function, CBC, CMP. Related to Stage 3b chronic kidney disease -Denies symptoms tod ay including dysphagia. -No indication for ST referral today. -Continue pantoprazole 20mg ER daily. On pantoprazole due to drug-drug interaction with omeprazole while on clopidogrel Related to Gastroesophageal reflux disease without esophagitis -Last Vit B12 level was 935 in December 2022. Vitamin B12 discontinued around that time to reduce medication burden. -Will repeat level today. Related to Low vitamin B12 level -Goal > 30 due to CK D. It was last checked in July 2022 and was 29. Calcium in April 2023 was 9.1 (in normal reference range). He does have a history of secondary hyperparathyroidism.-Asymptomatic. Will repeat today. -Vitamin D supplement was discontinued in hospital in order to decrease medication burden but will be reviewed in future if appropriate to add back Related to Vitamin D deficiency -Weight has been sta ble over the last 3 months. BMI ins the overweight category at 28.05.-He is eating well however describes himself as picky . He will have a soup if he does not otherwise like the meal served by the [facility]. Not on iron, vit D or Vit B12. -Will check labs to assess nutrition including CMP, vit B12, Vit D, and CBC with diff. Related to Unintentional weight loss -There is evidence o f atherosclerosis on CT of the bilateral carotid arteries-CT on 07/25/23 reads atherosclerotic vascular calcification of the carotid arteries but negative hyperdense vessel sign. Vascular calcifications in the bilateral vertebral arteries -Given comorbid conditions would not do dedicated study at this point.-Continue to address vascular risk factors. Related to Carotid atherosclerosis, bilateral -Biventricular [employer]ra [employer]ure pacemaker-Initial pacer complicated by infection and subsequent extraction on the left w/ re-implant on the right when he was in [facility] previously -Upgraded to a BIV pacemaker in 10/2017- LVEF improved to 45-50% (previously 30%)-07/2022: cannot read the report in EMR, report indicated battery life 6 years, 99% paced-Device check on 09/25/23. Cannot read report in system; will request a copy. Related to History of cardiac pacemaker -Per previous record s-History of CABGx3 and CA-Has BiV pacer, pacer dependent-EF improved as per 2019 echo after pacer changed to BiV; 2022 echo also showing EF 45-50%-Continue to follow with cardiology (last seen in December 2022 with no med changes; will follow up if new findings/symptoms)-See HFrEF; BNPs are now stable Related to Ischemic cardiomyopathy -No CHF exacerbation s in the last 6 months. -Followed by cardiology. Continue on scheduled bumex dosing plus PRN (has not needed recently. -No dyspnea or edema today. Weight is stable. On 2lpm N/C. O2 sat at goal (per COPD 88-92%+). He will report any new symptoms, edema, or weight gain. -BNP 184 in April 2023. Related to HFrEF (heart failure with reduced ejection fraction) -Most recent BPs at goal. -Goal BP < 140/90 but will accept up to 150/90 due to age and high falls risk -See HFrEF and CKD-Currently on amlodipine, carvedilol, isosorbide (decreased dose of 30 mg), bumex (on 1 mg/day maintenance dosing with PRN dosing)-No longer on lisinopril due to hyperkalemia, HCTZ discontinued due to renal function, metoprolol switched to carvedilol -Labs ordered today. 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 Encouraged him to continue use of WC/scooter outside of room and walker inside room. Related to History of fall Clearly has a very d ermatitis of the nasolabial folds. Overall, my impression is that the areas around his eye are dermatitic and specifically seborrheic although differential includes eczematous and others. It is curious that he does not have more cephalad involvement.-Trial low potency topical corticosteroid to the areas around the eye without it going in the eye, apply to nasolabial folds-If no better Derm or Ophtho Related to Seborrheic dermatitis On surprisingly, giv en his arteriopathy elsewhere, there is evidence of atherosclerosis on CT of the bilateral carotid arteries -ongoing address of the vascular risk factors-Given comorbid conditions would not do dedicated study at this point.-Also has atherosclerosis of the vertebral arteries by CT Related to Carotid atherosclerosis, bilateral Potassium in the hos pital is 5.5. Has a history of hyperkalemia. Aside from the chronic kidney disease etiology is not clear. He is on a diuretic. He is not on potassium or potassium sparing diuretic.-Repeat labs-May need to schedule potassium binding resin Related to Hyperkalemia What precisely occur red is unclear. Broad differential of presyncope although he contends that that was not the case. Evaluation in the ER was unrevealing-Supportive care/observation Related to Pre-syncope - reports hearing le ss, has some mod cerumen - MAs attempt to flush with minimal effect today- he will start back up on his debrox drops and have ear flush back in clinic on one of his [facility] days Related to Impacted cerumen of both ears - untreated, has not had formal sleep study nor would participate in it as outpt- has refused repeatedly to wear BiPAP- palliative care and janet team saw him while inpt and discussed with him and his dtr; has has been agreeable to wear O2 continuously via n/c - goal saturation confirmed to be between 88-93% Given COPD diagnosis- continue to follow Related to Obstructive sleep apnea Dx HFrEF, ischemic c ardiomyopathy, hx PNA (with recent PNA episodes), former smokerHad multiple hospitalizations and was recommended to wear NIV but refuses - Daughter understands that he will refuse to wear, but is agreeable to continuous use of O2-is generally able to manage independently at [facility] Related to Dependence on supplemental oxygen - resp status more s table and has been home for a few weeks now and able to manage his O2-O2 goal to be between 88-92/93%, currently on 2-3LNC - has been more adherent to keeping his O2 on-2022 hospitalized for COPD exacerbations and CHF exacerbations- prev smoking hx of 46 PY, quit > 30 years ago- refused BIV- has seen pulm as outpt, PFTs today but not yet resulted- continues on his respiratory medications per med list, reports doing well overall with his breathing, drives around in his scooter Related to Pulmonary emphysema, unspecified emphysema type - Cr baseline genera lly around 1.5-1.9mg/dL but did go up to 3.4mg/dL during last hospitalization due to obstruction and needed cook catheter; cook removed prior to discharge but also started on tamsulosin - renal consulted in hospital since had (obstructive) GIOVANA superimposed on CKD while in hospital for acute respiratory issues- medications were adjusted for renal function- see hypertensive heart and CKD with HF- 02/02/23 GFR 47, Cr 1.44- 01/26/23 GFR 56, Cr 1.26- formerly on lisinopril but discontinued due to hyperkalemia, HCTZ discontinued due to tenuous renal status, we also adjust his bumex based on renal function-urine microalbumin has been positive - not on IMELDA due to hyperkalemia; renal aware of this - no intervention regarding proteinuria at this juncture- will continue to follow and can consider continued renal f/u outpt in near future since has followed with them previously-PRN veltassa for hyperkalemia- repeat labs today Related to Stage 3a chronic kidney disease -Has had multiple, r ecurrent CHF exacerbations this yearHas had intermittent start and stop of bumex due to concomitant dehydration/GIOVANA issues-At this time ppt is on scheduled and prn bumex- PPt remains on O2 2 lpm N/c satting in range, goal is set based on COPD (goal O2 sat 88-92%)- 02/02/23 BNP 165- seems to have gained some weight but difficult to ascertain due to different scales - repeat labs including BNP today Related to HFrEF (heart failure with reduced ejection fraction) Goal BP < 140/90 but will accept up to 150/90 due to age and high falls risk - see HFrEF and CKDCurrently on amlodipine, carvedilol, isosorbide (decreased dose of 30 mg), bumex (on 1 mg/day maintenance dosing, with PRN dosing)- no longer on lisinopril due to hyperkalemia, HCTZ discontinued due to renal function, metoprolol switched to carvedilol - updated labs today 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 - mechanical fall 10/17 in his room at [facility], no acute findings Related to History of fall 08/2022 MOCA ( moderate cognitive impairment)-Noted upon exam, repeating questions to already answered questions; was able to demonstrate some of an understanding Related to Impaired cognitive ability Goal BP < 140/90 but will accept up to 150/90 due to age and high falls risk (today 121/80)- see HFrEF and CKDCurrently on amlodipine, carvedilol, isosorbide (decreased dose of 30 mg), bumex (titrated at times due to volume status and renal function, on 1 mg/day maintenance dosing) 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 03/16/23: GFR 49, cre at 1.4Avoid nephrotoxic medications Related to Stage 3 chronic kidney disease, unspecified whether stage 3a or 3b CKD Has had multiple CHF exacerbation's this yearBNPs have been stable (last BNP 03/16/23 115)-Denies dyspnea today, no swelling noted-O2 in place 2.5L O2sat 97% Related to HFrEF (heart failure with reduced ejection fraction) Dx HFrEF, ischemic c ardiomyopathy, hx PNA (with recent PNA episodes), former smokerHad multiple hospitalizations and was recommended to wear NIV but refuses - HCP was invoked last hospitalization Daughter understands that he will refuse to wear, but is agreeable to O2He is agreeable to wear continuous F1Eaxhy: denies SOB; O2 97% on 2.5L Related to Dependence on supplemental oxygen - dx HFrEF, ischemic cardiomyopathy, hx PNA (with recent PNA episodes), former smoker- he had multiple hospitalizations and was recommended to wear NIV but refuses - HCP was invoked last hospitalization - dtr understands that he will refuse to wear, but is agreeable to O2- he is agreeable to wear continuous O2, but prior to hospitalization while still at [facility] has been known to not be completely adherent to this, needs to wear mask (especially at night) vs cannula due to being a mouth breather, also noted today on exam that he lets his O2 fall off and doesn't put it back on until prompted- continue to remind on risks of not being adherent to his O2- He is not a candidate for portable O2 concentrator since is a mouth breather - evaluation has been completed in the past. Does not appear symptomatic even when O2 sat on RA is in 80s.- in order to return to [facility], he needs to be able to manage his own O2 - O2 management will be an issue for him since [facility] is not able to assist him with this. - goal O2 sat 88-92%; he can be CO2 retainer and as noted above refuses to wear BiPAP, can titrate O2 2-5 L via N/c; maintained generally on 2-3 lpm Related to Dependence on supplemental oxygen - resp status more s table-O2 goal to be between 88-92/93%, currently on 2-3LNC - does not always keep his O2 on-2022 hospitalized for COPD exacerbations and CHF exacerbations- prev smoking hx of 46 PY, quit > 30 years ago- refused BIV. - HCP activated, ongoing discussion about goals- needs to be independent with his O2 to return back to [facility], for which he is currently not fully independent with this - [facility] has screened him and felt he needs more time to rehab. Family meeting will be forthcoming Related to Chronic obstructive pulmonary disease, unspecified COPD type - MOLST reviewed wit h dtr today over phone- no changes to current MOLST- HCP is invoked/shared decision making with ppt's dtr. Dtr is realistic. - will continue to have ongoing discussions Related to Advanced care planning/counseling discussion - colonoscopy screen ing is no longer recommended due to age- refuses dental, audiology- refuses Shingrix, other vaccinations UTD- [facility]ometry [facility]- following with podiatry at Related to Encounter for general adult medical examination w/o abnormal findings - dx HFrEF, ischemic cardiomyopathy, hx PNA (with recent PNA episodes), former smoker- he had multiple hospitalizations and was recommended to wear NIV but refuses - HCP was invoked last hospitalization - dtr understands that he will refuse to wear, but is agreeable to O2- he is agreeable to wear continuous O2, but prior to hospitalization while still at [facility] has been known to not be completely adherent to this, needs to wear mask (especially at night) vs cannula due to being a mouth breather- continue to remind on risks of not being adherent to his O2; he is at SNF and has been adherent to wearing his O2 while in his SNF room- He is not a candidate for portable O2 concentrator since is a mouth breather - evaluation has been completed in the past. Does not appear symptomatic even when O2 sat on RA is in 80s.- in order to return to [facility], he needs to be able to manage his own O2 at this time - reviewed again with him and dtr today- O2 management will be an issue for him since [facility] is not able to assist him with this. [facility] will screen him for appropriateness to return to [facility].- goal O2 sat 88-92%; he can be CO2 retainer and as noted above refuses to wear BiPAP, can titrate O2 2-5 L via N/c; maintained generally on 2-3 lpm Related to Dependence on supplemental oxygen - seemed better toda y in the clinic, resp status more stable-O2 goal to be between 88-92/93%, currently on 2-3LNC -2022 hospitalized for COPD exacerbations and CHF exacerbations- prev smoking hx of 46 PY, quit > 30 years ago- refused BIV. - HCP activated, ongoing discussion about goals- needs to be independent with his O2 to return back to [facility], for which he is currently not fully independent with this - [facility] to screen him at SNF Related to Chronic obstructive pulmonary disease, unspecified COPD type - has been worked up while in hospital, has bilateral foot pain- saw podiatry today who recommends L foot xray to have f/u xray due to persisting pain- he has not felt effect from topical lidocaine patches for tops of both feet, on scheduled APAP, does not like the voltaren gel- also has been on gabapentin 300mg BID for additional pain control- started on duloxetine for pain management and potential mood stabilization given poor participation with PT - unclear if some of the pain is behavioral (since dtr was in [place] and not visiting him). After starting on the duloxetine, nursing reporting that he has complained of pain in his feet less frequently. - he tolerated podiatry visit on 02/16 and examination of feet today in clinic - care team to continue to follow and SNF to increase his visits to get him working more with transfers and mobility- dtr wants to keep current medication regimen since has stabilized for now - can continue to re-evaluate and adjust as appropriate- received L foot brace today but was too tight for him - rehab trying to order larger size - seeing if this support will help with pain- also will start back up on wearing his compression stockings Related to Foot pain, bilateral - has been worked up while in hospital, has bilateral foot pain- saw podiatry today who recommends L foot xray to have f/u xray due to persisting pain- he has not felt effect from topical lidocaine patches for tops of both feet, on scheduled APAP, does not like the voltaren gel- also has been on gabapentin 300mg BID for additional pain control- started on duloxetine for pain management and potential mood stabilization given poor participation with PT - unclear if some of the pain is behavioral (since dtr was in [place] and not visiting him). After starting on the duloxetine, nursing reporting that he has complained of pain in his feet less frequently. - he tolerated podiatry visit on 02/16 and examination of feet today in clinic - care team to continue to follow and SNF to increase his visits to get him working more with transfers and mobility- dtr wants to keep current medication regimen since has stabilized for now - can continue to re-evaluate and adjust as appropriate- received L foot brace today but was too tight for him - rehab trying to order larger size - seeing if this support will help with pain- also will start back up on wearing his compression stockings Related to Pain in left foot - 08/2022 MOCA 16/30 (moderate cognitive impairment)-09/2021 MOCA 20/30, B 12 was on low side and started on supplementation- hx CVA, chronic COPD for which he can be inconsistent with wearing his O2 and adamantly refuses NIV use, can retain CO2 which can affect his mentation- CT head 10/2022 showing Mild prominence of the ventricles and sulci consistent with parenchymal volume loss. Mild low-density white matter changes. - medications administered by [facility] staff when at [facility] (now at [facility]), meals prepared by others, he is willful and has his own opinions but had generally allowed help when needed- good support from dtr and will continue to follow; HCP was invoked on this last hospitalization since it was determined that he was unable to make his own decisions- on traditional unit at [facility], will see if he will be appropriate to return to [facility] in future, ability to manage his needs in his room Related to Impaired cognitive ability - he required interm ittent temporary cook over last few months- will have voiding trial again later this week- continues on tamsulosin- they are also monitoring bowels since constipation can lead to urinary retention. Has bowel regimen in place at [facility]. Related to Urinary retention - Cr baseline genera lly around 1.5-1.9mg/dL but did go up to 3.4mg/dL during hospitalization due to obstruction and needed cook catheter; cook removed prior to discharge but also started on tamsulosin; had cook reinserted due to retention - will trial again with cook out- renal consulted in hospital since had (obstructive) GIOVANA superimposed on CKD while in hospital for acute respiratory issues- medications were adjusted for renal function, have stabilized more over recent weeks while at [facility]- see hypertensive heart and CKD with HF- 02/23/23 GFR 46, Cr 1.48, K 4.9- 02/02/23 GFR 47, Cr 1.44- 01/26/23 GFR 56, Cr 1.26- formerly on lisinopril but discontinued due to hyperkalemia, HCTZ discontinued due to tenuous renal status, we also adjust his bumex based on renal function-urine microalbumin has been positive - not on IMELDA due to hyperkalemia; renal aware of this - no intervention regarding proteinuria at this juncture- will continue to follow and due for renal f/u outpt - dtr will notify us of information for appt-PRN veltassa for hyperkalemia- repeat labs on weekly basis while in [facility] Related to Stage 3a chronic kidney disease - on PPI- reports no current GERD symptoms; was seen by ST periodically due to possible aspiration concerns - back on regular texture diet- on pantoprazole due to drug-drug interaction with omeprazole while on clopidogrel- will continue to follow Related to Gastroesophageal reflux disease, unspecified whether esophagitis present - down almost 20 lbs from beginning of year, appearing more frail - albumin is on lower side - BLE pedal edema may be due to low albumin- nutrition also following; dtr aware of weight loss- ppt reports that the weight loss is due to not liking the food at [facility] Related to Unintentional weight loss -followed by renal- was also seen in hospital and they will follow as oupt- PTH elevated 101 upon enrollment in 09/2021, Ca normal and has CKD3, considered to be secondary hyperparathyroidism- follows with renal, dtr will let us know when his next f/u appt is- not able to really pick his own meals to work on [employer] at [facility]- is on Vitamin D supplement goal D >30 per renal- continue to follow with renal and watch labs periodically Related to Secondary hyperparathyroidism of renal origin - former smoker - s/ p Right femAKpop bypass, Left SFA stent -10/15/21 DOREEN R 0.77, L 0.7209/2021 - VL arterial bypass graft R - fem pop bypass graft on R side appears patent, difficult visualization of distal anastomosis due to body habitus 09/2021 - VL arterial duplex scan L - distal fem artery stent poorly visualized due to calcification, elevated velocities 492 cm/s in area of proximal stent; LLE heavily calcified- followed by [facility]; saw last in 10/2021 who felt that the scans showed stability to prior testing. Bypass graft was widely patent. The L distal SFA > 75% stenosed but maintains biphasic blood flow into his tibial vessels. Dr William did not recommend intervention at this point and felt he was asymptomatic from his vascular disease. - he continue with foot pain and is being managed with gabapentin, duloxetine, APAP. Some of the pain may be nonvascular in origin. Seen by podiatry also. Would not be a good candidate for surgical/vascular intervention since is tenuous medically- continue f/u with podiatry - has seen previously and noted hypertrophic nails bilaterally, diminished pulses, decreased hair growth, also noted on exam today- can see vascular in f/u if in line with goals of care and if he can tolerate outside appts, for now he wants to hold on this Related to Peripheral arterial disease -was following with [facility] for lipid mgt since he refuses statins d/t significant myalgias- currently on zetia- niacin and omega 3 were just discontinued to decrease medication burden and his other multiple medical comorbidities; can review in future if appropriate to go back on - meals prepared by others - not eating much while in SNF- does not exercise to an appreciable amount- goal LDL<70 due to CAD, PAD-07/2021: LDL 67- monitor labs periodically - can check in future - continue to follow with cardiology and ppt has not wanted to follow with vascular further Related to Hypercholesterolaemia - 2004 s/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- followed by [facility] cardiology - saw last in 12/2022- continues on baby aspirin indefinitely unless contraindicated and was also restarted on clopidogrel during recent hospitalization (was started at [facility] due for possible demand ischemia event; was briefly stopped due to concern for bleeding), on beta gwendolyn (switched to carvedilol from metoprolol), isosorbide (recently decreased dose), amlodipine (will defer to cardiology if still appopriate with slightly decreased EF; no longer on HCTZ- reports allergy to statins so does not take; on zetia, formerly on omega 3, niacin- meals prepared by others, now at SNF for respite/STR, has mobility issues and deconditioned- no complaints of CP or SOB - continue to follow Related to Coronary artery disease 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 - see CAD 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 -Has had multiple CH F exacerbations this yearHas had intermittent start and stop of bumex due to concomitant dehydration/GIOVANA issues-At this time ppt is on scheduled and prn bumex- PPt remains on O2 2 lpm N/c satting in range, goal is set based on COPD (goal O2 sat 88-92%)- BNPs have been stable; 02/23/23 BNP 81- continue to follow labs periodically - in SNF, has labs weekly Related to HFrEF (heart failure with reduced ejection fraction) - per previous recor ds- see CAD, hx 3 vessel CABG, hx CA- has BiV pacer, pacer dependent- EF improved as per 2018 echo after pacer changed to BiV; 2022 echo also showing EF 45-50%- continue to follow with cardiology -saw them recently with no med changes- see HFrEF and has had recent HF exacerbation hospitalization, BNPs are now more stable- currently at SNF under respite level of care Related to Ischemic cardiomyopathy - goal BP < 140/90 b ut will accept up to 150/90 due to age and high falls risk- CKD see N18.3- see also HFrEF- no longer on lisinopril due to hyperkalemia, HCTZ discontinued due to renal function, metoprolol switched to carvedilol- currently on amlodipine, carvedilol, isosorbide (decreased dose of 30 mg), bumex (titrated at times due to volume status and renal function, on 1 mg/day maintenance dosing)- continue to follow with cardiology - had recent visit and was determined to be stable cardiac-bautista but they didn't address clopidogrel- we are continuing to watch his BNPs, during most recent hospitalization was up to 1,403; SNF BNPs have been more stable; 02/23/23 BNP 81- overall losing weight, does have some BLE pedal edema - not wearing his compression stockings- care team to continue to follow 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 - dx HFrEF, ischemic cardiomyopathy, hx PNA (with recent PNA episodes), former smoker- he had multiple hospitalizations and was recommended to wear NIV but refuses - HCP was invoked during recent hospitalization - dtr understands that he will refuse to wear, but is agreeable to O2- he is agreeable to wear continuous O2, but prior to hospitalization while still at [facility] has been known to not be completely adherent to this, needs to wear mask (especially at night) vs cannula due to being a mouth breather- continue to remind on risks of not being adherent to his O2; he is at [facility] and has been adherent to wearing his O2 while in his SNF room- He is not a candidate for portable O2 concentrator since is a mouth breather - evaluation has been completed in the past. Does not appear symptomatic even when O2 sat on RA is in 80s.- in order to return to [facility], he needs to be able to manage his own O2 at this time (see note) - O2 management will be an issue for him since [facility] is not able to assist him with this. Dtr is aware of this.- goal O2 sat 88-92%; he can be CO2 retainer and as noted above refuses to wear BiPAP, can titrate O2 2-5 L via N/c; maintained today on 2 lpm Related to Dependence on supplemental oxygen - seemed better toda y in the clinic, resp status more stable-O2 goal to be between 88-92/93%, currently on 2-3LNC -2022 hospitalized for COPD exacerbations and CHF exacerbations- prev smoking hx of 46 PY, quit > 30 years ago- refused BIV. - HCP activated, ongoing discussion about goals- needs to be independent with his O2 to return back to [facility], for which he is currently not independent with this Related to Chronic obstructive pulmonary disease, unspecified COPD type - Cr baseline genera lly around 1.5-1.9mg/dL but did go up to 3.4mg/dL during hospitalization due to obstruction and needed cook catheter; cook removed prior to discharge but also started on tamsulosin; had cook reinserted due to retention - will trial again with cook out- renal consulted in hospital since had (obstructive) GIOVANA superimposed on CKD while in hospital for acute respiratory issues- medications were adjusted for renal function, have stabilized more over recent weeks while at [facility]- see hypertensive heart and CKD with HF- 02/02/23 GFR 47, Cr 1.44- 01/26/23 GFR 56, Cr 1.26- 01/19/23 GFR 37, Cr 1.76, K 5.1 - 01/17/23 GFR 42, Cr 1.6, K 5.1- formerly on lisinopril but discontinued due to hyperkalemia, HCTZ discontinued due to tenuous renal status, we also adjust his bumex based on renal function-urine microalbumin has been positive - not on IMELDA due to hyperkalemia; renal aware of this - no intervention regarding proteinuria at this juncture- will continue to follow and can consider renal f/u outpt in near future if he is able to get to outside appts-PRN veltassa for hyperkalemia- repeat labs on weekly basis Related to Stage 3a chronic kidney disease -Has had multiple CH F exacerbations this yearHas had intermittent start and stop of bumex due to concomitant dehydration/GIOVANA issues-At this time ppt is on scheduled and prn bumex- PPt remains on O2 2 lpm N/c satting in range, goal is set based on COPD (goal O2 sat 88-92%)- BNPs have been stable- continue to follow labs periodically - in SNF, has labs weekly Related to HFrEF (heart failure with reduced ejection fraction) - goal BP < 140/90 b ut will accept up to 150/90 due to age and high falls risk- CKD see N18.3- see also HFrEF- no longer on lisinopril due to hyperkalemia, HCTZ discontinued due to renal function, metoprolol switched to carvedilol- currently on amlodipine, carvedilol, isosorbide (decreased dose of 30 mg), bumex (titrated at times due to volume status and renal function, on 1 mg/day maintenance dosing)- continue to follow with cardiology - had recent visit and was determined to be stable cardiac-bautista but they didn't address clopidogrel- we are continuing to watch his BNPs, during most recent hospitalization was up to 1,403; SNF BNPs have been more stable - appeared euvolemic upon exam today, overall losing weight - care team to continue to follow 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 Reaffirmed O2 goal to be between 88-92/93%, currently on 2-3LNC - HCP activated, ongoing discussion about goals- meeting tomorrow - needs to be indpendent with his O2 to return back to [facility] Related to Pulmonary emphysema, unspecified emphysema type - dx HFrEF, ischemic cardiomyopathy, hx PNA (with recent PNA episodes), former smoker- he had multiple hospitalizations and was recommended to wear NIV but he continues to refuse - HCP was invoked during this last hospitalization - dtr understands that he will refuse to wear, but is agreeable to O2- he is agreeable to wear continuous O2, but prior to hospitalization while at [facility] has been known to not be completely adherent to this, needs to wear mask (especially at night) vs cannula due to being a mouth breather- continue to remind on risks of not being adherent to his O2; he is now at [facility] and has been adherent to wearing his O2 while in his SNF room- He is not a candidate for portable O2 concentrator since is a mouth breather - evaluation has been completed in the past. Does not appear symptomatic even when O2 sat on RA is in 80s.- in order to return to [facility], he needs to be able to manage his own O2 at this time (see note) - O2 management will be an issue for him since [facility] is not able to assist him with this- goal O2 sat 88-92%; he can be CO2 retainer and as noted above refuses to wear BiPAP, can titrate O2 2-5 L via N/c; maintained today on 2 lpm- family meeting with dtr tomw to discuss his O2 management if he were to make it back to [place] Related to Dependence on supplemental oxygen -Has had multiple, r ecurrent CHF exacerbations this yearHas had intermittent start and stop of bumex due to concomitant dehydration/GIOVANA issues-At this time ppt is on scheduled and prn bumex- PPt remains on O2 2 lpm N/c satting in range, goal is set based on COPD (goal O2 sat 88-92%)- 02/02/23 BNP 165- continue to follow labs periodically Related to HFrEF (heart failure with reduced ejection fraction) - goal BP < 140/90 b ut will accept up to 150/90 due to age and high falls risk- CKD see N18.3- see also HFrEF- no longer on lisinopril due to hyperkalemia, HCTZ discontinued due to renal function, metoprolol switched to carvedilol- currently on amlodipine, carvedilol, isosorbide (decreased dose of 30 mg), bumex (titrated at times due to volume status and renal function, sent to SNF on 1 mg/day)- continue to follow with cardiology - had recent visit and was determined to be stable cardiac-bautista but they didn't address clopidogrel- we are continuing to watch his BNPs, during most recent hospitalization was up to 1,403; 02/02/23 BNP 165- appeared euvolemic upon exam today; was able to lie flat in bed for personal care this afternoon without SOB; overall losing weight- care team to continue to follow 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 - Cr baseline genera lly around 1.5-1.9mg/dL but did go up to 3.4mg/dL during hospitalization due to obstruction and needed cook catheter; cook removed prior to discharge but also started on tamsulosin - renal consulted in hospital since had (obstructive) GIOVANA superimposed on CKD while in hospital for acute respiratory issues- medications were adjusted for renal function- see hypertensive heart and CKD with HF- 02/02/23 GFR 47, Cr 1.44- 01/26/23 GFR 56, Cr 1.26- 01/19/23 GFR 37, Cr 1.76, K 5.1 - 01/17/23 GFR 42, Cr 1.6, K 5.1- 12/25/22 Cr 1.72, GFR 38, K 4.6 - 12/07/22 Cr 1.35, GFR 51- formerly on lisinopril but discontinued due to hyperkalemia, HCTZ discontinued due to tenuous renal status, we also adjust his bumex based on renal function-urine microalbumin has been positive - not on IMELDA due to hyperkalemia; renal aware of this - no intervention regarding proteinuria at this juncture- will continue to follow and can consider renal f/u outpt in near future if he is able to get to outside appts-PRN veltassa for hyperkalemia- repeat labs on weekly basis Related to Stage 3a chronic kidney disease - has not been very motivated to work when in SNF, but this may be related to his dtr being in [facility]. She is now back from [facility] so will see if she can get him to do more- also when at [facility], not adherent to his O2 use - will be found down at [facility] with empty tanks and not wanting to go back upstairs to miss the game- HCP is invoked at this time- seems to be more adherent to O2 use while in SNF and has been going outside periodically in wheelchair with his O2 Related to Nonadherence to medical treatment hospitalized f or COPD exacerbations and CHF exacerbations- prev smoking hx of 45 PY, quit > 30 years ago- has had increasing O2 needs and is refusing BIV. Reaffirmed O2 goal to be between 88-92/93%, currently on 3LNC - HCP activated, ongoing discussion about goals Related to Pulmonary emphysema, unspecified emphysema type Ppt noted to have mu ltiple, recurrent CHF exacerbationHas had intermittent start and stop of bumex due to concomitant dehydration/GIOVANA issuesAt this time ppt is on scheduled and prn bumex, noted to have had weight gain last week and received prn bumex with stabilization of weight PPt remains on 3.5L NC at this time satting in low 90s, goal is set based on COPD Related to HFrEF (heart failure with reduced ejection fraction) hospitalized f or COPD exacerbations and CHF exacerbations- 2018 hospitalization for respiratory issues indicating that a previously unknown COPD was unmasked while he had a concurrent flu infection- prev smoking hx of 46 PY, quit > 30 years ago- has had increasing O2 needs and is refusing BIV. Reafirrmed O2 goal to be between 88-92/93%, currently on 2LNC but can go up to 5 lpm, but can be a CO2 retainer - HCP activated, ongoing discussion about goals and will meet with dtr when she is back from [facility] Related to Pulmonary emphysema, unspecified emphysema type - dx HFrEF, ischemic cardiomyopathy, hx PNA (with recent PNA episodes), former smoker- he had multiple hospitalizations and was recommended to wear NIV but he continues to refuse - HCP was invoked during this last hospitalization - dtr understands that he will refuse to wear, but is agreeable to O2- he is agreeable to wear continuous O2, but prior to hospitalization while at [facility] has been known to not be completely adherent to this, needs to wear mask (especially at night) vs cannula due to being a mouth breather- continue to remind on risks of not being adherent to his O2; he is now at [facility] - He is not a candidate for portable O2 concentrator since is a mouth breather - evaluation has been completed in the past. Does not appear symptomatic even when O2 sat on RA is in 80s.- in order to return to [facility], he needs to be able to manage his own O2 at this time (see note) - O2 management will be an issue for him since [facility] is not able to assist him with this- goal O2 sat 88-92%; he can be CO2 retainer and as noted above refuses to wear BiPAP, can titrate O2 2-5 L via N/c; maintained today on 2 lpm Related to Dependence on supplemental oxygen - recent HF exacerba tion- Previous echos showing EF 30%, pacemaker upgraded to BIV in 2018 and since pacer upgrade EF had improved to 45-50% (12/2018) and also consistent on 10/2022 echo- pacemaker dependent- on beta gwendolyn (metoprolol switched to carvedilol), isosorbide, on maintenance dose bumex with PRN bumex 1 mg for weight gain -no longer on HTCZ due to renal function, not on IMELDA due to hyperkalemia; still on CCB - will review need for this with lower EF if still appropriate - medications had been managed by cardiology - no medication changes made at last cardiology visit- continue to follow- appears euvolemic upon exam today, but later on in day noted that weight had been creeping up - PRN bumex given by SNF nurse- BNP 01/26/23 175, when in hospital BNPs were > 800- daily weights to be performed by SNF Related to HFrEF (heart failure with reduced ejection fraction) - Cr baseline genera lly around 1.5-1.9mg/dL but did go up to 3.4mg/dL during hospitalization and needed cook catheter; cook removed prior to discharge but also started on tamsulosin - renal consulted in hospital since had (obstructive) GIOVANA superimposed on CKD while in hospital for acute respiratory issues- medications were adjusted for renal function- see hypertensive heart and CKD with HF- 01/26/23 GFR 56, Cr 1.26- 01/19/23 GFR 37, Cr 1.76, K 5.1 - 01/17/23 GFR 42, Cr 1.6, K 5.1- 12/25/22 Cr 1.72, GFR 38, K 4.6 - 12/07/22 Cr 1.35, GFR 51- 10/2022 Cr 1.9, GFR 34 GIOVANA while in hospital- formerly on lisinopril but discontinued due to hyperkalemia, HCTZ discontinued due to tenuous renal status, we also adjust his bumex based on renal function-urine microalbumin has been positive - not on IMELDA due to hyperkalemia; renal aware of this - no intervention regarding proteinuria at this juncture- will continue to follow and can consider renal f/u outpt in near future if he is able to get to outside appts-PRN veltassa for hyperkalemia- repeat labs on weekly basis Related to Stage 3b chronic kidney disease - another recent HF exacerbation which necessitated hospitalization at [facility] - Previous echos showing EF 30%, pacemaker upgraded to BIV in 2017 and since pacer upgrade EF had improved to 45-50% (12/2018) and also consistent on 10/2022 echo- pacemaker dependent- on beta gwendolyn (metoprolol switched to carvedilol), isosorbide, also was on increased dose bumex (which we titrate due to volume status and renal function; on 1 mg daily for maintenance with PRN 1 mg if weight gain)-no longer on HTCZ due to renal function, not on IMELDA due to hyperkalemia; still on CCB - will review need for this with lower EF if still appropriate - medications had been managed by cardiology - no medication changes made at recent cardiology visit- Currently on bumex 1mg qd and 1mg prn- continue to follow- appears euvolemic upon exam today- daily weights to be performed by SNF- increase in 3 lbs in 1 week to trigger call to provider to give pRN mubex Related to HFrEF (heart failure with reduced ejection fraction) - has been worked up while in hospital, has bilateral foot pain- hospital has ordered lidocaine patches for tops of both feet, scheduled APAP, voltaren gel- PCP added gabapentin 300mg BID for additional pain control- ppt notes that the voltaren gel is very helpful, was ordered for 4 times per day by [facility] but ppt only receiving it once a day, order reconfirmed to be QID. All other medications are stacked and given before PT- Would consider duloxetine for pain management and potential mood stabilization given poor participation with PT sometimes due to pain and others due to motivation, relayed to PCP Related to Pain in left foot - has been worked up while in hospital, has bilateral foot pain- hospital has ordered lidocaine patches for tops of both feet, scheduled APAP, voltaren gel- PCP added gabapentin 300mg BID for additional pain control- ppt notes that the voltaren gel is very helpful, was ordered for 4 times per day by [facility] but ppt only receiving it once a day, order reconfirmed to be QID. All other medications are stacked and given before PT- Would consider duloxetine for pain management and potential mood stabilization given poor participation with PT sometimes due to pain and others due to motivation, relayed to PCP Related to Foot pain, bilateral hospitalized f or COPD exacerbations and CHF exacerbations- 2017 hospitalization for respiratory issues indicating that a previously unknown COPD was unmasked while he had a concurrent flu infection- prev smoking hx of 46 PY, quit > 30 years ago- has had increasing O2 needs and is refusing BIV. Reafirrmed O2 goal to be between 88-92/93%, currently on 3LNC - HCP activated, ongoing discussion about goals Related to Pulmonary emphysema, unspecified emphysema type - untreated, has not had formal sleep study nor would participate in it as outpt- has refused repeatedly to wear BiPAP- palliative care and janet team saw him while inpt and discussed with him and his dtr- he is agreeable to wear O2 via face mask at night- this will continue to be an issue for him in the future- currently on O2 ranging from 3-4L NC, goal saturation confirmed to be between 88-93% Given COPD diagnosis- continue to follow Related to Obstructive sleep apnea - has been worked up while in hospital, has bilateral foot pain- hospital has ordered lidocaine patches for tops of both feet, scheduled APAP, voltaren gel- he does not feel that this will get his pain to zero but reports that he has dealt with it in the past, but now today he is reporting that the foot pain is limiting him to be able to stand. He is now requiring a danisha lift. Unclear if this is behavioral in nature. Will discuss with team for other options for pain control. He is borderline CKD4. Also need to use caution with opiates due to respiratory issues and renal function. - will continue to follow and determine other options for pain control. Needs to be ambulatory to return to [facility]. Related to Foot pain, bilateral -2022 hospitalized f or COPD exacerbations and CHF exacerbations- 2018 hospitalization for respiratory issues indicating that a previously unknown COPD was unmasked while he had a concurrent flu infection- prev smoking hx of 45 PY, quit > 30 years ago- has had increasing O2 needs (now on 2-5 liters continuously) and vehemently denies to use NIV. He has been agreeable to use O2 continuously but does not always adhere to this when he was at [facility]. Now is at [facility] for STR and will have closer watch to ensure that he is more compliant with his O2. - goal O2 sat 88-92% on 2-5L O2 via n/c or face mask - f/u is now r/s to March 2023; had refused to go to pul previously- care team to continue to follow closely. HCP is now invoked. Related to Pulmonary emphysema, unspecified emphysema type - dx HFrEF, ischemic cardiomyopathy, hx PNA (with recent PNA episodes), former smoker- he had multiple hospitalizations and was recommended to wear NIV but he continues to refuse - HCP was invoked during this last hospitalization - dtr understands that he will refuse to wear, but is agreeable to O2- he is agreeable to wear continuous O2, but prior to hospitalization while at [facility] has been known to not be completely adherent to this, needs to wear mask (especially at night) vs cannula due to being a mouth breather- continue to remind on risks of not being adherent to his O2; he is now at [facility] and will be monitored more closely for his adherence - He is not a candidate for portable O2 concentrator since is a mouth breather - evaluation has been completed in the past. Does not appear symptomatic even when O2 sat on RA is in 80s.- in order to return to [facility], he needs to be able to manage his own O2 at this time (see note) - O2 management will be an issue for him since [facility] is not able to assist him with this- goal O2 sat 88-92%; he can be CO2 retainer and as noted above refuses to wear BiPAP, can titrate O2 2-5 L via N/c Related to Dependence on supplemental oxygen - another recent HF exacerbation which necessitated hospitalization at [facility] - Previous echos showing EF 30%, pacemaker upgraded to BIV in 2018 and since pacer upgrade EF had improved to 45-50% (12/2018) and also consistent on 10/2022 echo- pacemaker dependent- on beta gwendolyn (metoprolol switched to carvedilol), isosorbide, also was on increased dose bumex (which we titrate due to volume status and renal function; on 1 mg daily for maintenance with PRN 1 mg if weight gain)-no longer on HTCZ due to renal function, not on IMELDA due to hyperkalemia; still on CCB - will review need for this with lower EF if still appropriate - medications had been managed by cardiology - no medication changes made at recent cardiology visit- continue to follow- appears euvolemic upon exam today Related to HFrEF (heart failure with reduced ejection fraction) - goal BP < 140/90 b ut will accept up to 150/90 due to age and high falls risk- BP a bit elevated this morning - SNF is rechecking- CKD see N18.3- see also HFrEF- no longer on lisinopril due to hyperkalemia, HCTZ discontinued due to renal function, metoprolol switched to carvedilol- currently on amlodipine, carvedilol, isosorbide (decreased dose of 30 mg), bumex (titrated at times due to volume status and renal function, sent to SNF on 1 mg/day)- continue to follow with cardiology - had recent visit and was determined to be stable cardiac-bautista but they didn't address clopidogrel- we are continuing to watch his BNPs, during most recent hospitalization was up to 1,403- appeared euvolemic upon exam today; was able to lie flat in bed for personal care this afternoon without SOB- care team to continue to follow 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6 - 12/07/22 Cr 1.35, GFR 51- 10/2022 Cr 1.9, GFR 34 GIOVANA while in hospital- formerly on lisinopril but discontinued due to hyperkalemia, HCTZ discontinued due to tenuous renal status, we also adjust his bumex based on renal function-urine microalbumin has been positive - not on IMELDA due to hyperkalemia; renal aware of this - no intervention regarding proteinuria at this juncture- will continue to follow and can consider renal f/u outpt in near future if he is able to get to outside appts-PRN veltassa for hyperkalemia- repeat labs due tomorrow Related to Stage 3b chronic kidney disease - he required tempor tara cook while he was in the hospital, discontinued prior to discharge to SNF- noted again today and necessitated st cath by nursing - they will recheck again in 4-6 hrs and if PVR > 250, will re-insert cook - they are also monitoring bowels since constipation can lead to urinary retention. PRN suppository order provided Related to Urinary retention - requesting dental appt - can get in with [facility] when he is more stable- CT head/brain 2022 showing multiple dental caries- his has multiple missing teeth and poor dentition Related to Poor dentition requiring referral to dentistry - 12/2022 while [facility], experienced urinary retention and Cook placed. UA consistent with infection- was treated with Ceftriaxone on 01/13-01/15 (3 day course).- urine culture was not resulted/sent in hospital- will follow periodically if having symptoms- cook was removed prior to discharge to SNF Related to History of UTI - recently noted mil d anemia while in hospital- 01/17/23 H&H 10.2/32.7- 01/19/23 10.7/36.1 - prior to most recent hospitalization, had gone down to 8s. Clopidogrel was discontinued for concern of bleed and Fe supplement started but this was not initiated prior to hospitalization.- back on clopidogrel. SNF to report bleeding concerns. - watching labs at least weekly- has CKD3 which can contribute to his anemia, recent B12 normal range Related to Anemia, unspecified type -another recent (obs tructive) GIOVANA superimposed on CKD while in hospital for acute respiratory issues- Cr baseline generally around 1.5-1.9mg/dL but did go up to 3.4mg/dL during hospitalization and needed cook catheter; cook removed prior to discharge but also started on tamsulosin - renal consulted in hospital- medications have been adjusted - see hypertensive heart and CKD with HF- 01/19/23 GFR 37, Cr 1.76, K 5.1 - 01/17/23 GFR 42, Cr 1.6, K 5.1- 12/25/22 Cr 1.72, GFR 38, K 4.6 - 12/07/22 Cr 1.35, GFR 51- 10/2022 Cr 1.9, GFR 34 GIOVANA while in hospital- formerly on lisinopril but discontinued due to hyperkalemia, HCTZ discontinued due to tenuous renal status, we also adjust his bumex based on renal function-urine microalbumin has been positive - not on IMELDA due to hyperkalemia; renal aware of this - no intervention regarding proteinuria at this juncture- will continue to follow and can consider renal f/u in near future; -PRN veltassa for hyperkalemia- repeat labs on at least weekly basis for monitoring Related to Stage 3b chronic kidney disease - has been more of a chronic issue now - has baseline CKD and also chronic respiratory acidosis with refusal to wear NIV; also experienced contraction alkalosis in hospital - saw renal in hospital- discharge K 5.1; repeat 01/19/23 at SNF also 5.1- monitor via labs - can have PRN veltassa- Ppt will continue weekly labs while in SNF Related to Hyperkalemia -was following with [facility] for lipid mgt since he refuses statins d/t significant myalgias- currently on zetia- niacin and omega 3 were just discontinued to decrease medication burden and his other multiple medical comorbidities; can review in future if he stabilizes- meals prepared by others- does not exercise to an appreciable amount- goal LDL<70 due to CAD, PAD-07/2021: LDL 67- monitor labs periodically - continue to follow with cardiology and ppt has not wanted to follow with vascular further Related to Hypercholesterolaemia - on PPI- reports no current GERD symptoms; was seen by ST in hospital due to possible aspiration concerns- now that back on clopidogrel, switch to pantoprazole due to drug-drug interaction with omeprazole- will continue to follow Related to Gastroesophageal reflux disease, unspecified whether esophagitis present - 08/2022 MOCA 16/30 (moderate cognitive impairment)-09/2021 MOCA 20/30, B 12 was on low side and started on supplementation- hx CVA, chronic COPD for which he can be inconsistent with wearing his O2 and adamantly refuses NIV use, can retain CO2 which can affect his mentation- CT head 10/2022 showing Mild prominence of the ventricles and sulci consistent with parenchymal volume loss. Mild low-density white matter changes. - medications administered by [facility] staff when at [facility] (now at [facility]), meals prepared by others, he is willful and has his own opinions but had generally allowed help when needed- good support from dtr and will continue to follow; HCP was invoked on this last hospitalization since it was determined that he was unable to make his own decisions- on traditional unit at [facility], will see if he will be appropriate to return to [facility] in future Related to Impaired cognitive ability -Per preenrollment records-Perioperative CVA w/ no significant residual deficits- continues on baby aspirin for CAD and hx CVA, also recently started on clopidogrel for cardiac reasons -goal LDL < 70- goal BP < 140/90, but will allow up to 150/90 Related to H/O: CVA (cerebrovascular accident) - former smoker - s/ p Right femAKpop bypass, Left SFA stent -10/15/21 DOREEN R 0.77, L 0.7209/2021 - VL arterial bypass graft R - fem pop bypass graft on R side appears patent, difficult visualization of distal anastomosis due to body habitus 09/2021 - VL arterial duplex scan L - distal fem artery stent poorly visualized due to calcification, elevated velocities 492 cm/s in area of proximal stent; LLE heavily calcified- followed by [facility] vascular; saw last in 10/2021 who felt that the scans showed stability to prior testing. Bypass graft is widely patent. The L distal SFA > 75% stenosed but maintains biphasic blood flow into his tibial vessels. Dr William did not recommend intervention at this point and felt he was asymptomatic from his vascular disease. - he does now have foot pain and is being managed with PO APAP and topicals. Unclear if surgical/vascular intervention would be effective for this and in addition is very tenuous medically/ respiratory-bautista- due to f/u with podiatry - has seen previously and noted hypertrophic nails bilaterally, diminished pulses, decreased hair growth- reminded to check his skin BLE frequently - can see vascular in f/u if in line with goals of care and if he can tolerate outside appts Related to Peripheral arterial disease - followed by [facility] cardiology - last check 07/2022, generally check Q3 months (in office since does not have a phone to do the remote device checks). He has been hospitalized multiple times over the last few months. -Biventricular [employer] 3262 [employer]ra [employer]ure pacemaker- initial pacer complicated by infection and subsequent extraction on the left w/ recmplant on the right when he was in [facility] previously Upgraded to a BIV pacemaker in 10/2017- LVEF improved to 45-50% (previously 30%)- Device last checked in 07/2022 but we cannot read the report in EMR, report indicated battery life 6 years, 99% paced- now that he is at [facility], dtr reports that he does have a remote check in his apartment. She will try to bring it in since he now has a dedicated phone # and will see if can do a remote download. Difficult for him to attend outside appt at this time due to his medical issues. Related to History of cardiac pacemaker - 2005 s/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- followed by [facility] cardiology- continues on baby aspirin indefinitely unless contraindicated and was also restarted on clopidogrel during recent hospitalization (was started at [facility] due for possible demand ischemia event; was briefly stopped due to concern for bleeding), on beta gwendolyn (switched to carvedilol from metoprolol), isosorbide (recently decreased dose), amlodipine (will defer to cardiology if still appopriate with slightly decreased EF; no longer on HCTZ- reports allergy to statins so does not take; on zetia, omega 3, niacin- meals prepared by others, does not exercise to a significant extent due to his mobility issues and now his recent hospitalization and deconditioning - continue to follow Related 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 - see CAD 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 - another recent HF exacerbation which necessitated hospitalization at [facility] - Previous echos showing EF 30%, pacemaker upgraded to BIV in 2018 and since pacer upgrade EF had improved to 45-50% (12/2018) and also consistent on 10/2022 echo- pacemaker dependent- on beta gwendolyn (metoprolol switched to carvedilol), isosorbide, also was on increased dose bumex (which we titrate due to volume status and renal function; on 1 mg daily for maintenance with PRN 1 mg if weight gain)-no longer on HTCZ due to renal function, not on IMELDA due to hyperkalemia; still on CCB - will review need for this with lower EF if still appropriate - medications had been managed by cardiology - no medication changes made at recent cardiology visit- [facility] noted weight gain > 3 lbs from Thursday to Thursday - rec'd bumex today; order was originally PRN from hospital for weight gain but then other spots in the note wanted scheduled bumex - this was changed to scheduled with an additional PRN dose like he had as oupt in the community; might have gained some weight in his abdomen per exam today; BLE not edematous - continue to follow Related to HFrEF (heart failure with reduced ejection fraction) - per previous recor ds- see CAD, hx 3 vessel CABG, hx CA- has BiV pacer, pacer dependent- EF improved as per 2018 echo after pacer changed to BiV; 2022 echo also showing EF 45-50%- continue to follow with cardiology -saw them recently with no med changes- see HFrEF and has had recent HF exacerbation hospitalization- currently at SNF Related to Ischemic cardiomyopathy - goal BP < 140/90 b ut will accept up to 150/90 due to age and high falls risk- CKD see N18.3- see also HFrEF- no longer on lisinopril due to hyperkalemia, HCTZ discontinued due to renal function, metoprolol switched to carvedilol- currently on amlodipine, carvedilol, isosorbide (decreased dose of 30 mg), bumex (titrated at times due to volume status and renal function, sent to SNF on 1 mg/day)- continue to follow with cardiology - had recent visit and was determined to be stable cardiac-bautista but they didn't address clopidogrel- we are continuing to watch his BNPs, during most recent hospitalization was up to 1,403- care team to continue to follow 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 He has been agreeable to use O2 continuously but does not always adhere to this when he was at [facility], see HPI. Now is at SNF for STR and will have closer watch to ensure that he is more compliant with his O2. - 01/26/23 pulmonary f/u is now r/s to March 2023 since dtr will be out of town and he just got to SNF; had refused to go to pulm previously- care team to continue to follow closely. HCP is now invoked. Related to Chronic obstructive pulmonary disease, unspecified COPD type - has been worked up while in hospital, has bilateral foot pain- hospital has ordered lidocaine patches for tops of both feet and scheduled APAP- he does not feel that this will get his pain to zero but reports that he has dealt with it in the past- will continue to follow Related to Foot pain, bilateral - previous xrays vadim wing osteoarthritis- he will have topicals and scheduled APAP while in SNF - this was organized in the hospital- received injections in his hip prior but felt it didn't make a difference, unclear if knee injections would be effective for him- will continue to follow Related to Chronic pain of both knees - saws ortho previou rip and received cortisone injection in February/2022 but felt it didn't make a difference and did not want to follow up with ortho further- hospital ordered scheduled APAP and topical pain rx for the pain. - will continue to follow Related to Right hip pain - during hospitaliza tion he continued to decline wearing NIV at night (had trials in hospital and in SNF), and when was at [facility] was not fully consistent with wearing his O2 - takes O2 off when out of his room or doesn't properly manage his tanks- HCP was recently invoked in the hospital but appears more mentally clear today. Will continue to follow.- he is now in SNF and will be monitored closely, will need to be able to manage his O2 on his own if appropriate to return to [facility] Related to Nonadherence to medical treatment - dx HFrEF, ischemic cardiomyopathy, hx PNA (with recent PNA episodes), former smoker- he had multiple hospitalizations and was recommended to wear NIV but he continues to refuse - HCP was invoked during this last hospitalization - dtr understands that he will refuse to wear, but is agreeable to O2- he is agreeable to wear continuous O2, but prior to hospitalization while at [facility] has been known to not be completely adherent to this, needs to wear mask (especially at night) vs cannula due to being a mouth breather- continue to remind on risks of not being adherent to his O2; he is now at SNF and will be monitored more closely for his adherence - He is not a candidate for portable O2 concentrator since is a mouth breather - evaluation has been completed in the past. Does not appear symptomatic even when O2 sat on RA is in 80s.- in order to return to [facility], he needs to be able to manage his own O2 at this time (see note) - O2 management will be an issue for him since [facility] is not able to assist him with this Related to Dependence on supplemental oxygen - [facility] updated toda y - DNR, DNI, no CPAP/BIPAP, + hospital, no dialysis/nutrition, short term hydration- HCP was invoked during recent hospitalization. He appears more mentally clear today. Will continue to review and dtr is supportive. Will work on making joint decisions. She appears realistic about his low chances of returning to [facility] at an independent level since O2 management will be a limiting factor. - will continue to review and discuss Related to Advanced care planning/counseling discussion - he is down about 9 lbs during his hospitalization - also was diuresed - albumin on lower side- nutrition will be following him, was having some swallow issues and probably not eating well in hospital - will continue to follwo Related to Unintentional weight loss - untreated, has not had formal sleep study nor would participate in it as outpt- has refused repeatedly to wear BiPAP- palliative care and janet team saw him while inpt and discussed with him and his dtr- he is agreeable to wear O2 via face mask at night- this will continue to be an issue for him in the future- continue to follow Related to Obstructive sleep apnea - he continues to de reardon wearing NIV at night (had trials in hospital and in SNF), and is not fully consistent with wearing his O2 - takes off when out of his room or doesn't properly manage his tanks- he is currently his own person and able to make his own decisions. He has been educated multiple times by multiple members of the care team on importance of using his O2 consistently . Related to Nonadherence to medical treatment - dx HFrEF, ischemic cardiomyopathy, hx PNA (with recent PNA x 2), former smoker- he had multiple hospitalizations and was recommended to wear NIV but he continues to refuse and again reviewed with him today- he is agreeable to wear continuous O2, but has been seen to not be completely adherent to this, needs to wear mask vs cannula due to being a mouth breather- continue to remind on risks of not being adherent to his O2- He is not a candidate for portable O2 concentrator since is a mouth breather - evaluation has been completed in the past. Does not appear symptomatic even when O2 sat on RA is in 80s.- reports that he is able to manage his own O2 at this time but reports from [facility] indicate that he may not be doing well at this, will review also with dtr to keep her up to date- O2 management will be an issue for him since [facility] is not able to assist him with this Related to Dependence on supplemental oxygen -2022 COPD exacerbat ion and CHF exacerbation- 2018 hospitalization for respiratory issues indicating that a previously unknown COPD was unmasked while he had a concurrent flu infection- prev smoking hx of 45 PY, quit > 30 years ago- has had increasing O2 needs and vehemently denies using NIV. He has been agreeable to use O2 continuously but does not always adhere to this, see HPI. - 01/26/23 pulmonary f/u; had refused to go to pulm previously- care team to continue to follow closely, continued risk for further complications due to not wearing his O2 consistently (he is his own person; HCP not invoked at this time)- he denies wanting to go to ED today - care team continuing to follow closely Related to Chronic obstructive pulmonary disease, unspecified COPD type - per pre-enrollment - has been followed by renal as outpt-recent GIOVANA in hospital for CHF and COPD- medications have been adjusted - see hypertensive heart and CKD with HF- states that he saw around 08/2022 - do not yet have the notes- 12/25/22 Cr 1.72, GFR 38, K 4.6 - 12/07/22 Cr 1.35, GFR 51- 10/2022 Cr 1.9, GFR 34 GIOVANA while in hospital- formerly on lisinopril but discontinued due to hyperkalemia, HCTZ discontinued due to tenuous renal status, we also adjust his bumex based on renal function-urine microalbumin has been positive - not on IMELDA due to hyperkalemia - will continue to follow in [facility] and due to see renal in f/u, still do not have await receipt of note from 08/2022, PRN veltassa for hyperkalemia- repeat labs are pending Related to Stage 3b chronic kidney disease - recent HF exacerba tion which necessitated hospitalization at [facility] - Previous echos showing EF 30%, pacemaker upgraded to BIV in 2018 and since pacer upgrade EF had improved to 45-50% (12/2018) and also consistent on 10/2022 echo- pacemaker dependent- on beta gwendolyn (metoprolol switched to carvedilol), increased dose isosorbide, also was on increased dose bumex (which we titrate due to volume status and renal function); no longer on HTCZ due to renal function, not on IMELDA due to hyperkalemia; still on CCB - will review need for this with lower EF if still appropriate - medications had been managed by cardiology - no medication changes made at recent cardiology visit- had sausages and home fries yesterday out at [facility] with dtr - continue to follow Related to HFrEF (heart failure with reduced ejection fraction) - per previous recor ds- see CAD, hx 3 vessel CABG, hx CA- has BiV pacer, pacer dependent- EF improved as per 2018 echo after pacer changed to BiV; 2022 echo also showing EF 45-50%- continue to follow with cardiology -saw them recently with no med changes- see HFrEF and has had recent HF exacerbation hospitalization Related to Ischemic cardiomyopathy - goal BP < 140/90 b ut will accept up to 150/90 due to age and high falls risk- CKD see N18.3- see also HFrEF- no longer on lisinopril due to hyperkalemia, HCTZ discontinued due to renal function, metoprolol switched to carvedilol- currently on amlodipine, carvedilol, isosorbide (increased dose to 60 mg), bumex (titrated at times due to volume status and renal function)- continue to follow with cardiology - had recent visit and was determined to be stable cardiac-bautista- we are continuing to watch his BNPs, went out for sausage and home fries yesterday- care team to continue to follow 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 He has been educated multiple times by multiple members of the care team on importance of using his O2 consistently . Related to Nonadherence to medical treatment -2022 COPD exacerbat ion and CHF exacerbation- 2018 hospitalization for respiratory issues indicating that a previously unknown COPD was unmasked while he had a concurrent flu infection- prev smoking hx of 45 PY, quit > 30 years ago- has had increasing O2 needs and was recommended to use NIV but he refuses to use at night. He has been agreeable to use O2 continuously but does not always adhere to this. - 01/26/23 pulmonary f/u; had refused to go to pulm previously- care team to continue to follow closely, continued risk for further complications due to not wearing his O2 consistently (he is his own person0 Related to Chronic obstructive pulmonary disease, unspecified COPD type - dx HFrEF, ischemic cardiomyopathy, hx PNA (with recent PNA), former smoker- he had multiple hospitalizations and was recommended to wear NIV but he continues to refuse- he is agreeable to wear continuous O2, but has been seen to not be completely adherent to this, needs to wear mask vs cannula due to being a mouth breather- continue to remind on risks of not being adherent to his O2- He is not a candidate for portable concentrator since is a mouth breather - evaluation has been completed in the past. Does not appear symptomatic even when O2 sat on RA is in 80s.- able to manage his own O2 at this time Related to Dependence on supplemental oxygen - per pre-enrollment - has been followed by renal as outpt-recent GIOVANA in hospital for CHF and COPD- medications adjusted - see hypertensive heart and CKD with HF- states that he saw around 08/2022 - do not yet have the notes- 12/07/22 Cr 1.35, GFR 51- 10/2022 Cr 1.9, GFR 34 GIOVANA while in hospital- formerly on lisinopril but discontinued due to hyperkalemia, HCTZ discontinued due to tenuous renal status-urine microalbumin has been positive - not on IMELDA due to hyperkalemia - will continue to follow in [facility] clinic and due to see renal in f/u, still do not have await receipt of note from 08/2022, PRN veltassa for hyperkalemia Related to Stage 3a chronic kidney disease - per previous recor ds- see CAD, hx 3 vessel CABG, hx CA- has BiV pacer, pacer dependent- EF has improved as per 2018 echo after pacer changed to BiV; 2022 echo also showing EF 45-50%- continue to follow with cardiology - dtr assists him with his appts - needs r/s appt since was in SNF during last appt - see HFrEF and has had recent HF exacerbation hospitalization Related to Ischemic cardiomyopathy - 2004 s/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- followed by [facility] cardiology- continues on baby aspirin indefinitely unless contraindicated and was also started on clopidogrel during recent hospitalization, on beta gwendolyn (switched to carvedilol from metoprolol), isosorbide (recently increased dose), amlodipine (will defer to cardiology if still appopriate with decreased EF0; no longer on HCTZ- reports allergy to statins so does not take; on zetia, omega 3, niacin- meals prepared by others, does not exercise to a significant extent due to his mobility issues - continue to follow Related 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 - recent HF exacerba tion which necessitated hospitalization at [facility] - Previous echos showing EF 30%, pacemaker upgraded to BIV in 2017 and since pacer upgrade EF had improved to 45-50% (12/2018) and also consistent on 10/2022 echo- pacemaker dependent- on beta gwendolyn (metoprolol switched to carvedilol), increased dose isosorbide, bumex; no longer on HTCZ due to renal function, not on IMELDA due to hyperkalemia; still on CCB - will review need for this with lower EF if still appropriate - medications had been managed by cardiology- continue to follow with cardiology, was supposed to have visit but did not happen due to being at [facility]; will be r/s Related to HFrEF (heart failure with reduced ejection fraction) - goal BP < 140/90 b ut will accept up to 150/90 due to age and high falls risk- CKD see N18.3- see also HFrEF- no longer on lisinopril due to hyperkalemia, HCTZ discontinued due to renal function, metoprolol switched to carvedilol- currently on amlodipine, carvedilol, isosorbide increased dose to 60 mg - continue to follow with cardiology - was supposed to have visit recently but was in SNF - will be r/s, care team to continue to follow 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 In the ED he required up to 10L via nonrebreather to maintain saturations. Labs and imaging was concerning for CHF exacerbation with trop elevation, EKG without concerning changes. PPt diuresed from 182lbs to 174lbs. Cardiology recommended Plavix loading. Bumex was increased to 2mg qd and Imdur was increased to 60mg daily, Plavix 75mg qd and aspirin 81mg qd started. Echo 11/04/2022: LVEF 45 to 50%, abnormal septal motion consistent with biventricular pacing. [place], apical septum, apical inferior wall are dyskinetic and mildly aneurysmal. Indeterminate diastolic dysfunction. RV systolic function preserved. Normal right atrial size.Ppt has maintained his weight at 173lbs while in SNF. No s/sx of heart failure noted. Ppt will continue medications at discharge to closely follow up with PCP Related to HFrEF (heart failure with reduced ejection fraction) Fall leading to hosp italization on 11/02/22 - 11/25/22, ppt noting pain in his R foot, xray was negative for acute injury but revealed stress related changes. Ppt noted to have lidocaine patch on R dorsal foot. Ppt denies pain but has this placed overnight. Ppt being discharged today and will continue at discharge if PCP notes it is needed.11/06/22 Right foot xray showed talocalcaneal coalition and slight cortical thickening with mild periosteal reaction along the lateral aspect of the fourth metatarsal shaft, probably a sequela of remote or chronic stress. Related to Foot pain, right Multiple diagnoses r elated to hypoxia, including HFrEF, ischemic cardiomyopathy, recent PNA, COPDppt agreeable to continuous oxygen therapy, currently on 2LNC, with goals to be between 88-92% given COPD diagnosisPpt has stabilized in SNF, maintaining weight, with no s/sx of acute CHF, no signs of COPD (no wheezing noting) and maintaining his oxygen sats. Ppt to be discharged today. Related to Dependence on supplemental oxygen 12/01/22 - 12/05/22 NOE WYATTPpt presented from rehab hypoxic with increasing oxygen requirement thought to be 2/2 CHF exacerbation, demand ischemia, and COPD exacerbation. He was discharged on a 3 day steroid burst for concern for concomitant COPD exacerbation. Ppt has convalesced well in SNF, noting to be on 2LNC and satting in the mid 90s. Ppts goals for COPD should remain between 88-92%. Ppt to be discharged with inhalers and nebs. 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 Noted again during recent hospitalization to [facility], thought to be multifactorial due to CKD and chronic respiratory acidosis. 11/22/22 K4.9 12/05/22 K5Ppt will continue weekly labs while in SNF Related to Hyperkalemia During [facility] admi ssion, where ppt had an GIOVANA 11/22/22 BUN43 Cr1.9 [id number] admission for CHF and COPD exacerbation. 12/05/22 BUN38 Cr1.4Ppt HCTZ was discontinued in hospital due to GIOVANA.Bumex increased to 2mg qd given CHF exacerbation and tenuous fluid status.Weekly labs ordered while ppt is in SNF Related to Stage 3b chronic kidney disease Goal BP up to 150/90 d/t advanced age and comorbidities, and history of falls.Ppt no longer on lisinopril due to hyperkalemiaHCTZ discontinued due to tenuous kidney function in setting of ongoing diuresis and high risk for CHF exacerbationMetoprolol was changed to carvedilol during recent hospitalizationImdur was increased from 30mg to 60mg Ppt currently in SNF setting, daily BP ordered 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 In the ED he required up to 10L via nonrebreather to maintain saturations. Labs and imaging was concerning for CHF exacerbation with trop elevation, EKG without concerning changes. PPt diuresed from 182lbs to 174lbs. Cardiology recommended Plavix loading. Bumex was increased to 2mg qd and Imdur was increased to 60mg daily, Plavix 75mg qd and aspiring 81mg qd started. Echo 11/04/2022: LVEF 45 to 50%, abnormal septal motion consistent with biventricular pacing. [place], apical septum, apical inferior wall are dyskinetic and mildly aneurysmal. Indeterminate diastolic dysfunction. RV systolic function preserved. Normal right atrial size.- dry weight 174lbs- daily weights- monitor fluid status Related to HFrEF (heart failure with reduced ejection fraction) Fall leading to hosp italization on 11/02/22 - 11/25/22, ppt noting pain in his R foot, xray was negative for acute injury but revealed stress related changes. Ppt without complaints of pain at this time 11/06/22 Right foot xray showed talocalcaneal coalition and slight cortical thickening with mild periosteal reaction along the lateral aspect of the fourth metatarsal shaft, probably a sequela of remote or chronic stress. Related to Foot pain, right Ppt without complain ts of pain at this time. Continue medications as prescribed Related to Primary osteoarthritis involving multiple joints 09/04/22 MOCA noted to be stable at 16/30 PPt continues to be able to make his needs knownHas good supports from family including daughter and son Related to Mild cognitive impairment 11/02/22 - 11/25/[address] [facility] He was found to be hypoxic and was placed on 3 to 4 L nasal cannula and CXR concerning for RML pneumonia, completed course of ceftriaxone 11/03-11/08 and doxycycline 11/03 - 11/09. Currently no decreased breath sounds noted on exam, ppt has a cough, which he notes is baseline Related to History of pneumonia Multiple diagnoses r elated to hypoxia, including HFrEF, ischemic cardiomyopathy, recent PNA, COPDppt agreeable to continuous oxygen therapy, currently on 2LNC, with goals to be between 88-92% given COPD diagnosisCurrently in SNF after COPD and CHF exacerbation leading to hypoxia Related to Dependence on supplemental oxygen -Per preenrollment r ecords-45 PY user, quit in the 80s- no current wish to start back up smoking- oxygen sat goals noted in COPD diagnosis Related to Former tobacco use 12/01/22 - 12/05/22 NOE Bruce presented from rehab hypoxic with increasing oxygen requirement thought to be 2/2 CHF exacerbation and demand ischemia. In the ED he required up to 10L via nonrebreather to maintain saturations. Labs and imaging was concerning for CHF exacerbation with trop elevation, EKG without concerning changes. PPt diuresed from 182lbs to 174lbs. Cardiology recommended Plavix loading. Ddimer was elevated, VQ scan and lower extremity dopplers were negative. Bumex was increased to 2mg qd and Imdur was increased to 60mg daily, Plavix 75mg qd and aspiring 81mg qd started. He was discharged on a 3 day steroid burst for concern for concomitant COPD exacerbation. Dry weight established as 174lbsOn lung exam, no wheezing noted. Ppt to continue inhalers as prescribedPpt on 2L NC at this time, goal saturations noted to be 88-92%Ppt with chronic hypercarbia, conversation with ppt about value of NIV, ppt has had this conversation with multiple hospital staff and with [place] team. he does NOT want to continue with NIV even at night, noting he does not tolerate it. He understands risks to himself (see HPI) Related to Centrilobular emphysema -Per preenrollment r ecords-45 PY user, quit in the 80s- no current wish to start back up smoking- uses O2 now more consistently except not wearing for clinic appt but sats reasonble Related to Former tobacco use - dx HFrEF, ischemic cardiomyopathy, hx PNA, former smoker- wears O2 at night, has been wearing O2 also when outside of his room but not wearing in clinic since didn't want to wear out on the van. He is not a candidate for portable concentrator since is a mouth breather - evaluation has been completed in the past. Does not appear symptomatic when O2 sat on RA is in 80s.- able to manage his own [id number] with his o2 today but had to be directed to wear it Related to Dependence on supplemental oxygen - 2017 hospitalizati on for respiratory issues indicating that a previously unknown COPD was unmasked while he had a concurrent flu infection- prev smoking hx of 45 PY, quit > 30 years ago- also had hx PNA in the hospital and could not come off of O2 and went home on O2- has not recently followed with pulmonary but can do so if he agrees to go- updated CXR showed no acute issues, states today that his breathing is fine not wearing O2 at clinic visit. Will continue to follow. Related to COPD - K 5.3 on updated r outine labs on clinic visit - 1x dose veltassa in the home ordered to be given at [facility]- recheck labs periodically Related to Hyperkalemia - per pre-enrollment - 10/31/21 saw renal (visit notes received 11/26/21) who had no medication changes but they thought that he was still on IMELDA inhibitor and wanted him to stay on this; they indicated to stop aldactazide (HCTZ due to hx high K - did not hear back from renal to clarify this)- states that he saw around 08/2022 - do not yet have the notes- 10/15/22 GFR 41, Cr 1.64, K 5.3 - 03/06/22 GFR 45, Cr 1.40, K 5.6 10/08/21 - GFR 37, Cr 1.66, K 5. - GFR 45, Cr 1.42, K 4.4- formerly on lisinopril but discontinued due to hyperkalemia-urine microalbumin has been positive - not currently on IMELDA due to hyperkalemia - will continue to follow in [facility] clinic and due to see renal in f/u, await receipt of note from around 08/2022, [facility]IL[facility] adorno for hyperkalemia Related to Stage 3b chronic kidney disease - goal BP < 140/90 b ut will accept up to 150/90 due to age and high falls risk, BP reasonable in clinic- CKD see N18.3- see also HFrEF- no longer on lisinopril due to hyperkalemia- currently on HCTZ, amlodipine, metoprolol, isosorbide- continue to follow with cardiology - was supposed to have visit last week but had phone issues - will be r/s, care team to continue to follow 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 and stage 1 through stage 4 chronic kidney disease, or unspecified chronic kidney disease - Previous echos vadim wing EF 30%, pacemaker upgraded to BIV in 2018 and since pacer upgrade EF had improved to 45-50% (12/2018)- pacemaker dependent- updated BNP 131 09/2022 - on beta gwendolyn, isosorbide, HTCZ, not on IMELDA due to hyperkalemia; not currently on diuretic, on CCB - will review need for this with lower EF if appropriate - medications had been managed by cardiology- continue to follow with cardiology, was supposed to have visit last week but did not happen due to phone issues at [facility]- appears euvolemic upon exam Related to HFrEF (heart failure with reduced ejection fraction) - reporting pain abo ut 1 week duration, no trauma, R handed, hand pain down R wrist- xray negative for acute issues- labs drawn, check uric acid, reports gout L hand in past but did not feel like this- will also have OT see him- ADDENDUM: elevated uric acid; will do short course prednisone, poor renal function so will do prendisone Related to Hand pain, right - colonoscopy screen ing is no longer recommended due to age- refuses dental, audiology- refuses Tdap, Shingrix, PNA23 vaccines, has received COVID vaccinations and due for booster which he is awiating to get at [facility]-agrees to optho will do referal out and sees podiatry Related to Encounter for general adult medical examination w/o abnormal findings -Per preenrollment r ecords-, 45 PY user, quit in the 80s- no current wish to start back up smoking- uses O2 at night for sleep and when he is in his room but not for general daytime use but should be using more frequently during the daytime Related to Former tobacco use - 2018 hospitalizati on for respiratory issues indicating that a previously unknown COPD was unmasked while he had a concurrent flu infection- prev smoking hx of 45 PY, quit > 30 years ago- also had hx PNA in the hospital and could not come off of O2 and went home on O2- has not recently followed with pulmonary but can do so if he agrees to go Related to COPD 03/2022 (+) hypertro phic nails bilaterally, diminished pulses, mild pedal edema, decreased hair growth, dermal atrophy bilaterally. Temp cool to touch. Debrided nails. (+) onychomycosis, PVD. Related to Onychomycosis - dx HFrEF, ischemic cardiomyopathy, hx PNA, former smoker- wears O2 at night, refuses to wear when out of his room (is willful and does not want to be seen with the O2 on) but O2 sats reflect that he qualifies for this. Does not appear symptomatic when O2 sat on RA is in 80s.- able to manage his own [id number] with his o2 today but had to be directed to wear it Related to Dependence on supplemental oxygen -09/2021 MOCA 16/30 which is worse, B 12 was elevated after starting supplementation and will reduce. AxOx3, forgtful- hx CVA- medications administered by [facility] staff, meals prepared by others, he is willful and has his own opinions but generally allows help when needed- good support from dtr and will continue to follow- on traditional unit at [facility] Related to Mild cognitive impairment -Per preenrollment records-Perioperative CVA w/ no significant residual deficits- continues on baby aspirin for CAD and hx CVA -goal LDL < 70- see hyperlipidemia- goal BP < 140/90, but will allow up to 150/90bp and ldl at goal Related to H/O: CVA saws neos and had co rtisone injection in February/2022 reports didnt make a difference does not want to see neos anymore. Reports pain is controlled with tylenol. Related to Right hip pain - per pre-enrollment - Recently saw renal started on bumex working on getting note for details and pt is tolerating-07/2022 cr 1.61 and gfr 42- 05/2020 GFR 47, Cr 1.412/ - GFR 37, Cr 1.66, K 5.012/ - GFR 45, Cr 1.42, K 4.4- 03/06/22 GFR 45, Cr 1.40, K 5.6 (see hyperkalemia)- formerly on lisinopril but discontinued due to hyperkalemia-urine microalbumin has been positive - not currently on IMELDA due to hyperkalemia - will continue to follow in [facility] clinic and due to see renal in f/u 04/30/22 Related to Stage 3b chronic kidney disease Ear canals look much better with less ear wax will continue to follow - ear flush by MA today in clinic - tolerated well, has very narrow ear canals- will use debrox for maintenance a few nights per month- return PRN for ear flush Related to Impacted cerumen of right ear - on PPI- reports no current GERD symptoms - will continue to follow Related to Gastroesophageal reflux disease without esophagitis - 07/2022 B12 elevat ed- decrease supplementation to MWF recently- continue to follow routinely Related to Low vitamin B12 level - 09/2021 enrollment labs show D low at 17, goal > 30 - also has CKD3- updated level 07/2022 = 29- continue on supplementation and will increae vit d supp Related to Vitamin D deficiency - PTH elevated [address] [place] enrollment in 09/2021, Ca normal and has CKD3, considered to be secondary hyperparathyroidism- follows with renal, saw last within last month but did not comment on this- not able to really pick his own meals to work on [employer] at [facility]- is on Vitamin D supplement which I will increase vit d 39 goal >50 per renal- continue to follow with renal Related to Secondary hyperparathyroidism of renal origin - follows with [facility] for lipid mgt since he refuses statins d/t significant myalgias- currently on niacin, zetia, omega 3 per endocrine recommendations- meals prepared by others- does not exercise to an appreciable amount- goal LDL<70 due to CAD, PAD-07/2021: LDL 67- monitor labs periodically - continue to follow with cardiology and ppt does not want to follow with vascular anymore Related to Hypercholesterolaemia (+) hypertrophic lulú ls bilaterally, diminished pulses,mild edema but with teds stockings on, decreased hair growth, dermal atrophy bilaterally. Temp cool to touch. Debrided nails. (+) onychomycosis, PVD. Related to Peripheral arterial disease - followed by [facility] cardiology - last check 07/2022, generally check Q3 months (in office since does not have a phone to do the remote device checks)-Biventricular [employer] 3262 [employer] pacemaker- initial pacer complicated by infection and subsequent extraction on the left w/ recmplant on the right when he was in [facility] previously Upgraded to a BIV pacemaker in 10/2017- LVEF improved to 45-50% (previously 30%)- Device last checked in 07/2022 but we cannot read the report in EMR, report indicated battery life 6 years, 99% paced Related to History of cardiac pacemaker - 2004 s/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- followed by [facility] cardiology- continues on baby aspirin indefinitely unless contraindicated, on beta gwendolyn, isosorbide, HCTZ, amlodipine- reports allergy to statins so does not take; on zetia, omega 3, niacin- meals prepared by others, does not exercise to a significant extent due to his mobility issues - continue to follow Related to Coronary artery disease without angina pectoris, unspecified vessel or lesion type, unspecified whether galena or transplanted heart - see CAD 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 Denies SOB. On bumex by renal reaching out to find the note for [place] [facility]. Wears compression stockings with minimal pedal edema. Since pacemaker upgrade to BIV in 2017 EF improved to 45-50% On beta gwendolyn, isosorbide, HCTZ but no imelda due to issues with hyperkalmeia, amlodipine. Meds managed by cards Related to HFrEF (heart failure with reduced ejection fraction) - per previous recor ds- see CAD, hx 3 vessel CABG, hx CA- has BiV pacer, pacer dependent- EF has improved as per 2019 echo after pacer changed to BiV- continue to follow with cardiology - dtr assists him with his appts- does not have issues with CP or SOB at this time- see HFrEF Related to Ischemic cardiomyopathy - goal BP < 140/90 b ut will accept up to 150/90 due to age and high falls risk, BP 130/58 TODAY- CKD see N18.3- no longer on lisinopril due to hyperkalemia- currently on HCTZ, amlodipine, metoprolol, isosorbide- continue to follow with cardiology, care team to continue to follow 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 and stage 1 through stage 4 chronic kidney disease, or unspecified chronic kidney disease - ear flush by MA to day in clinic - tolerated well, has very narrow ear canals- will use debrox for maintenance a few nights per month- return PRN for ear flush Related to Impacted cerumen of right ear Relatively scant suc cess with flushing the ears.-Debrox for a week-Return visit thereafter Related to Impacted cerumen of both ears weight gain, shortne ss of breath. new order for furosemide 20mg daily x3 days Related to HFrEF (heart failure with reduced ejection fraction) - colonoscopy screen ing is no longer recommended due to age- refuses dental, audiology- refuses Tdap, Shingrix, PNA23 vaccines, has received COVID vaccinations-agrees to optho, podiatry Related to Encounter for general adult medical examination w/o abnormal findings -Per preenrollment r ecords-, 45 PY user, quit in the 80s- no current wish to start back up smoking- uses O2 at night for sleep and when he is in his room but not for general daytime use but should be using more frequently during the daytime Related to Former tobacco use - 2018 hospitalizati on for respiratory issues indicating that a previously unknown COPD was unmasked while he had a concurrent flu infection- prev smoking hx of 45 PY, quit > 30 years ago- also had hx PNA in the hospital and could not come off of O2 and went home on O2- has not recently followed with pulmonary but can do so if he agrees to go Related to COPD - dx HFrEF, ischemic cardiomyopathy, hx PNA, former smoker- wears O2 at night, refuses to wear when out of his room (is willful and does not want to be seen with the O2 on) but O2 sats reflect that he qualifies for this. Does not appear symptomatic when O2 sat on RA is in 80s.- able to manage his own O2 Related to Dependence on supplemental oxygen -09/2021 MOCA , B 12 was on low side and started on supplementation- hx CVA- medications administered by [facility] staff, meals prepared by others, he is willful and has his own opinions but generally allows help when needed- good support from dtr and will continue to follow- on traditional unit at [facility] Related to Mild cognitive impairment -multiple sites, on APAP, trialed PRN NSAID short course to get him through a weekend but he is aware that we are not able to use due to his renal function- he had reported the worsening pain and refused to go to ortho urgent care, then changed his mind a few weeks later but is not going until later this month. He still continues to refuse to go to ortho urgent care. ??? 01/17/22 Xray Bilateral Knee ??? left knee unremarkable. Right knee osteoarthritis. Vascular calcification. Left Hip ??? osteoarthritis. Right hip ??? osteoarthritis. No fracture/dislocation noted to any site.- will follow with ortho; his pain does limit his mobility Related to Osteoarthritis of multiple joints, unspecified osteoarthritis type - per pre-enrollment - 10/31/21 saw renal (visit notes received 11/26/21) who had no medication changes but they thought that he was still on IMELDA inhibitor and wanted him to stay on this; they indicated to stop aldactazide (HCTZ due to hx high K - did not hear back from renal to clarify this)- 05/2020 GFR 47, Cr 1.412/ - GFR 37, Cr 1.66, K 5.012/ - GFR 45, Cr 1.42, K 4.4- 03/06/22 GFR 45, Cr 1.40, K 5.6 (see hyperkalemia)- formerly on lisinopril but discontinued due to hyperkalemia-urine microalbumin has been positive - not currently on IMELDA due to hyperkalemia - will continue to follow in [facility] and due to see renal in f/u 04/30/22 Related to Stage 3a chronic kidney disease - K 5.6 today on rou gage labs- RN to give 1x dose veltassa in the home- recheck labs next week Related to Hyperkalemia - on PPI- reports no current GERD symptoms - will continue to follow Related to Gastroesophageal reflux disease, unspecified whether esophagitis present - 09/2021 upon enrol lment labs borderline low at 380- started on supplement and 02/2022 lab is in normal range- continue on supplementation- meals prepared by [facility] Related to Low vitamin B12 level - 09/2021 enrollment labs show D low at 17, goal > 30- also has CKD3- updated level 02/2022 = 34- continue on supplementation Related to Vitamin D deficiency - PTH elevated 101 [address] [place] enrollment in 09/2021, Ca normal and has CKD3, considered to be secondary hyperparathyroidism- follows with renal, saw last in 10/2021 but did not comment on this- not able to really pick his own meals to work on [employer] at [facility]- is on Vitamin D supplement- continue to follow with renal Related to Secondary hyperparathyroidism of renal origin - follows with [facility] for lipid mgt since he refuses statins d/t significant myalgias- currently on niacin, zetia, omega 3 per endocrine recommendations- meals prepared by others- does not exercise to an appreciable amount- goal LDL<70 due to CAD, PAD-10/08/2021 - LDL 68, Trig 203, Tchol 142- 01/2021 LDL 92, Tchol 185 - monitor labs periodically - continue to follow with cardiology and vascular Related to Hypercholesterolaemia - former smoker - s/ p Right femAKpop bypass, Left SFA stent -10/15/21 DOREEN R 0.77, L 0.7209/2021 - VL arterial bypass graft R - fem pop bypass graft on R side appears patent, difficult visualization of distal anastomosis due to body habitus 09/2021 - VL arterial duplex scan L - distal fem artery stent poorly visualized due to calcification, elevated velocities 492 cm/s in area of proximal stent; LLE heavily calcified- followed by [facility] vascular; saw last in 10/2021 who felt that the scans showed stability to prior testing. Bypass graft is widely patent. The L distal SFA > 75% stenosed but maintains biphasic blood flow into his tibial vessels. Dr William does not recommend intervention at this point and felt he was asymptomatic from his vascular disease. - due to f/u with podiatry- reminded to check his skin BLE frequently - continue to see vascular in f/u and repeat scans later this year Related to Peripheral arterial disease - followed by [facility] cardiology - last check 01/2022, generally check Q3 months (in office since does not have a phone to do the remote device checks)-Biventricular [employer] 3262 Quadra Allure pacemaker- initial pacer complicated by infection and subsequent extraction on the left w/ recmplant on the right when he was in PRA previously Upgraded to a BIV pacemaker in 10/2017- LVEF improved to 45-50% (previously 30%)- Device last checked in 01/2022 but we cannot read the report in EMR, 04/2021 report indicated battery life 6 years, 99% paced Related to History of cardiac pacemaker - see CAD 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 s/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- followed by [facility] cardiology- continues on baby aspirin indefinitely unless contraindicated, on beta gwendolyn, isosorbide, HCTZ, amlodipine- reports allergy to statins so does not take; on zetia, omega 3, niacin- meals prepared by others, does not exercise to a significant extent due to his mobility issues - continue to follow Related to Coronary artery disease 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 - per previous recor ds- see CAD, hx 3 vessel CABG, hx CA- has BiV pacer, pacer dependent- EF has improved as per 2019 echo after pacer changed to BiV- continue to follow with cardiology - dtr assists him with his appts- does not have issues with CP or SOB at this time- see HFrEF Related to Ischemic cardiomyopathy - Previous echos vadim wing EF 30%, pacemaker upgraded to BIV in 2018 and since pacer upgrade EF had improved to 45-50% (12/2018)- pacemaker dependent - on beta gwendolyn, isosorbide, HTCZ, not on IMELDA due to hyperkalemia; not currently on diuretic, on CCB - will review need for this with lower EF if appropriate - medications had been managed by cardiology- continue to follow with cardiology Related to HFrEF (heart failure with reduced ejection fraction) Per preenrollment re cords- goal BP < 140/90 but will accept up to 150/90 due to age and high falls risk, BP reasonable in clinic- CKD see N18.3- no longer on lisinopril due to hyperkalemia- currently on HCTZ, amlodipine, metoprolol, isosorbide- continue to follow with cardiology, care team to continue to follow 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 and stage 1 through stage 4 chronic kidney disease, or unspecified chronic kidney disease - 05/2020 hospitalize d with pneumonia, concern for aspiration, swallow study completed with normal diet recommended; sent home on O2 with goals to titrate while in SNF - MBS in 05/2020 with no significant findings- will have SE [facility] review his case also for follow up Related to History of pneumonia Per preenrollment re cords- goal BP < 140/90 but will accept up to 150/90 due to age and high falls risk- CKD see N18.3- lisinopril was placed on hold previously due to hyperkalemia- see MAR for medications 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 Does not appear symptomatic when O2 sat on RA is in 80s.- able to manage his own O2 Related to Dependence on supplemental oxygen - initial MOCA upon enrollment - hx CVA- medications administered by [facility] staff, meals prepared by others, he is willful and has his own opinions but generally allows help when needed- good support from dtr and will continue to follow- on traditional unit at [facility] Related to Mild cognitive impairment - declines colonosco py at this time; almost 86 years old where colonoscopy screening is no longer recommended- refuses dental- refuses Tdap, Shingrix, PNA23 vaccines- needs optho, podiatry - Quantiferon Gold drawn today for TB screening Related to Encounter for general adult medical examination w/o abnormal findings -Per preenrollment records-Perioperative CVA w/ no significant residual deficits- continues on baby aspirin for CAD and hx CVA -goal LDL < 70- see hyperlipidemia- goal BP < 140/90, but will allow up to 150/90 Related to H/O: CVA -Per preenrollment r ecords-Quit in 1985- no current wish to start back up smoking- uses O2 at night for sleep and when he is in his room but not for general daytime use Related to Former tobacco use -Per preenrollment r ecords- has PRN APAP- mainly for L leg/knee from former injury Related to Arthritis -Per preenrollment r ecords- on PPI- reports no GERD symptoms but dtr states that he does not sit up long enough after meals, there has been concern for aspiration in the past- will continue to follow Related to Gastroesophageal reflux disease, unspecified whether esophagitis present - per pre-enrollment - 05/2020 GFR 47, Cr 1.4- formerly on lisinopril but discontinued due to hyperkalemia- updated labs drawn today Related to Stage 3a chronic kidney disease - Per preenrollment records, former smoker - s/p Right femAKpop bypass, Left SFA stent - 02/2020 ABIs: Right DP 0.68, right PT 0.65; left DP 0.71, left PT 0.6- followed by [facility] vascular; was due to f/u scans around 07/2021- has some issues with R leg pain with ambulation- will get him in with podiatry- reportedly has f/u with vascular in next few months Related to Peripheral arterial disease -Per preenrollment r ecords - follows with [facility] for lipid mgt since he refuses statins d/t significant myalgias- currently on niacin, zetia, omega 3 per endocrine recommendations- meals prepared by others- does not exercise to an appreciable amount- goal LDL<70 due to CAD- 01/2021 LDL 92, Tchol 185 - will have updated labs- continue to follow with cardiology and vascular Related to Hypercholesterolaemia - followed by [facility] cardiology -Biventricular St Jaime 3262 Quadra Allure pacemaker- initial pacer complicated by infection and subsequent extraction on the left w/ recmplant on the right when he was in PRA previously Upgraded to a BIV pacemaker in 10/2017- LVEF improved to 45-50% (previously 30%)- Device last checked in 07/2021 but we cannot read the report in EMR, 04/2021 report indicated battery life 6 years, 99% paced- next check in 10/2021 in person; he does not have a phone so does not have remote checks Related to History of cardiac pacemaker - Per preenrollment records- 2005 s/p triple bypass surgery- followed by [facility] cardiology- continues on baby aspirin indefinitely unless contraindicated, on beta gwendolyn, isosorbide, HCTZ, amlodipine- reports allergy to statins; on zetia, omega 3, niacin- meals prepared by others, does not exercise to a significant extent - continue to follow Related to Coronary artery disease 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 - see CAD 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 - per previous recor ds- see CAD, hx 3 vessel CABG, hx CA- has BiV pacer, pacer dependent- EF has improved as per 2019 echo after pacer changed to BiV- continue to follow with cardiology- see HFrEF Related to Ischemic cardiomyopathy - Previous echos vadim wing EF 30%, pacemaker upgraded to BIV in 2018 and since pacer upgrade EF had improved to 45-50% (12/2018)- pacemaker dependent - on beta gwendolyn, isosorbide, HTCZ, not on IMELDA due to hyperkalemia; not currently on diuretic, on CCB - will review need for this with lower EF- he is seeing cardiology in near future Related to HFrEF (heart failure with reduced ejection fraction) Assessments Type Assessment Date No Information Goals Health Concern Goal Type Priority Status Date Janett is at risk for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
--- NOTE | 2024-10-12 10:46 | HO.NEPHOV_ITS ---
Vital Signs 10/12/24 10:51 Height 5 ft 6 in BP 112/50 L Blood Pressure Location Rt brachial Position Sitting Pulse 60 Pulse Source Pulse Oximeter Pulse Oximetry (%) 95 Oxygen Delivery Method Room Air Intake Visit Reasons: Congestive heart failure/ Conf Lease Operator Required: No Accompanied by: Self / Same As Patient Allergies Agplqzl-HQV-VmN Reductase Inhibitor [Ndoqcjt-Nec-Rzg Reductase Inhibitor] Allergy (Verified 10/12/24 10:49) Unknown Medication List - Last Reconciled 10/12/24 by Kraig Ramsay MD amlodipine 10 mg PO DAILY aspirin (Adult Aspirin Regimen) 81 mg PO DAILY comp.stocking,knee,long,medium Daily while awake, 999 days ezetimibe 10 mg PO DAILY 90 days gabapentin 300 mg PO BID 90 days hydrochlorothiazide 25 mg PO DAILY isosorbide mononitrate ER 30 mg PO DAILY latanoprost 0.005% 1 drp ophthalmic (eye) BEDTIME PRN metoprolol succinate ER 50 mg PO DAILY niacin 500 mg PO DAILY 90 days omeprazole 20 mg PO DAILY HPI Comments Details: 88-year-old man with a history of longstanding hypertension uncontrolled failure with chronic disease. He continues or shortness of breath on exertion. He is on a wheelchair requiring oxygen. No urinary symptoms. No chest pain. Overall doing about the same. [facility] Medical History (Updated 09/16/23 @ 20:23 by Kraig Ramsay MD) Dermatitis Hypertension PVD (peripheral vascular disease) CAD (coronary artery disease) CHF (congestive heart failure) CKD (chronic kidney disease) Obesity (BMI 30-39.9) Dyslipidemia Surgical History Pacemaker History of tonsillectomy S/P triple vessel bypass Family History Father Stomach cancer Mother Unknown family medical history Brother No problems noted. Sister Smoker Sister No problems noted. Social History Household Members: Children Housing: House Do you presently have visiting nurse or other home services: No Patient Tobacco Use Status: Former Tobacco user service: Yes Current occupational status: retired Physical Exam Vital Signs: Last Vital Signs Pulse 60 10/12/24 10:51 BP 112/50 L 10/12/24 10:51 Pulse Ox 95 10/12/24 10:51 Oxygen Delivery Method Room Air 10/12/24 10:51 Comfortable In a wheel chair Neck supple no JVD. Lungs entry equal - Justin rhonchi Heart S1-S2 heard no gallop or rub. Abdomen soft nontender. Neuro alert awake oriented. No asterixis. Extremities 1+ edema. Results Reviewed Results Reviewed: REcent Creatinien 1.75 Ca 8.7 Potassium 5.2 Nephrology Results: Hgb 13.0 g/dl (14.0-18.0) L 07/10/21 WBC 7.8 X10*3/uL (4.8-10.8) 07/10/21 Plt Count 116 X10*3/uL (160-400) L 07/10/21 Sodium 142 mmol/L (135-145) 07/10/21 Potassium 5.0 mmol/L (3.3-5.1) 07/10/21 Chloride 104 mmol/L (96-108) 07/10/21 Carbon Dioxide 31 mmol/L (22-29) H 07/10/21 BUN 22 mg/dL (9-16) H 07/10/21 Creatinine 1.65 mg/dL (0.5-1.4) H 07/10/21 Calcium 8.5 mg/dL (8.4-10.2) 07/10/21 Assessment & Plan Assessment & Plan (1) CKD (chronic kidney disease): Code(s): N18.9 - Chronic kidney disease, unspecified Category: Medical (2) CHF (congestive heart failure): Code(s): I50.9 - Heart failure, unspecified Category: Medical Plan Elderly man with advanced renal failure in the setting of longstanding hypertension and congestive heart failure. At present has no signs or symptoms of uremia. Fluid status seems acceptable. Continue current dose of diuretics. He should stay on low-sodium diet. We will continue to monitor renal function periodically. Labs ordered BP is well controlled. Avoid nephrotoxic agents including NSAIDs. Hemoglobin is to monitor and if hemoglobin drops less than 9 grams/deciliter may need erythropoietin replacement therapy. Supportive care Orders: Orders Basic Metabolic Panel 6 Months N18.9 - Chronic kidney disease, unspecified Complete Blood Count no Diff 6 Months N18.9 - Chronic kidney disease, unspecified Coding Level of Care Code Est Pt Level 4 (64128) Diagnoses CKD (chronic kidney disease) N18.9 CHF (congestive heart failure) I50.9
[2024-10-12 10:51] VITALS: BP 112/50; PULSE 60; O2SAT 95
== END 2024-10-12 11:07 | disposition home or self-care (01) ==
PROVIDERS: PCP Nurse Practitioner Family; Visit Provider Internal Medicine Hypertension Specialist
DX: N18.9 Chronic kidney disease, unspecified (principal); I50.9 Heart failure, unspecified
CPT/HCPCS: 99214

== ENCOUNTER → 2024-10-12 10:42 | Outpatient (BNVA) | payer MEDICARE, SELFPAY | PROVIDERS: PCP Nurse Practitioner Family; Visit Provider Internal Medicine Hypertension Specialist | DX: N18.9 Chronic kidney disease, unspecified (principal); I50.9 Heart failure, unspecified | CPT/HCPCS: 99212 ==

== ENCOUNTER 2025-01-10 17:41 | Emergency (ER) | payer MEDICARE, SELFPAY ==
[2025-01-10] VITALS (7 sets, daily range): BP systolic 116–166; BP diastolic 49–93; PULSE 60–80; RESP 16–20; TEMP 36.7; O2SAT 87–95; BMI 27.4
--- NOTE | ~2025-01-10 | CT_ITS ---
CLINICAL HISTORY: trauma CT head without contrast Comparison: None Findings: No acute intracranial hemorrhage. Bilateral basal ganglia calcifications noted. Mild white matter lesions likely due to small-vessel ischemic disease. 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 No midline shift or hydrocephalus. No acute skull fracture. Scalp calcifications are multifocal. Vascular calcifications noted mild mucosal thickening of the imaged paranasal sinuses. Imaged mastoid air cells are well aerated. Previous cataract procedure changes are noted, with mild bilateral myopia. IMPRESSION: 1. No acute intracranial abnormality by CT. 2. 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 This document has been electronically signed by: Panchito Avila MD on 01/10/2025 20:48:51
--- NOTE | ~2025-01-10 | XR_ITS ---
CLINICAL HISTORY: weakness 1 view chest x-ray Comparison: Chest x-ray from 07/07/2021 Findings: Small bilateral pleural effusions with mild bibasilar atelectasis. Additional pulmonary opacities are nonspecific and may reflect pneumonitis or pulmonary edema given interstitial predominance. Imaged mediastinum is unchanged. Right-sided cardiac device, leads, and post sternotomy changes are redemonstrated. No pneumothorax in this portable image. Degenerative changes include imaged shoulders and imaged AC joints IMPRESSION: 1. Small bilateral pleural effusions. 2. Pulmonary opacities are nonspecific and may reflect pneumonitis or pulmonary edema. This document has been electronically signed by: Panchito Avila MD on 01/10/2025 19:00:13
--- NOTE | ~2025-01-10 | CT_ITS ---
CLINICAL HISTORY: trauma CT cervical spine without contrast Comparison: None Findings: No acute fracture of the cervical spine. Mild reversal of the cervical lordosis. No significant listhesis. 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 Multifocal foraminal narrowing, ranging up to ryvzglra-eo-hkjcki includes C3-C4 to C6-C7, including severe left at C6-C7 Partial facet fusion of the cervicothoracic junction. Additional facet arthropathy is multifocal. Ligament calcifications also multifocal. 1.4 cm right dorsal subcutaneous lesion measures 1.4 cm, at the level C2. Sebaceous cysts and scarring are considered. Other dermatologic based lesion not excluded given accentuated disc can surface vascular calcifications noted. Mild scarring of the imaged lung apices. Right-sided device, leads, and sternotomy changes are partially imaged IMPRESSION: 1. No acute fracture of the cervical spine. 2. Multifocal degenerative changes including facet arthropathy. 3. Multifocal foraminal narrowing. 4. Right dorsal subcutaneous lesion extending to skin surface. Recommend nonemergent correlation with dermatologic findings. This document has been electronically signed by: Panchito Avila MD on 01/10/2025 19:49:07
--- NOTE | 2025-01-10 18:28 | ECG_ITS ---
Test Reason : WEAKNESS Blood Pressure : */* mmHG Vent. Rate : 67 BPM Atrial Rate : 67 BPM P-R Int : 160 ms QRS Dur : 132 ms QT Int : 420 ms P-R-T Axes : 26 219 115 degrees QTcB Int : 443 ms Atrial-sensed ventricular-paced rhythm Abnormal ECG When compared with ECG of 07-Jul-2021 11:47, Vent. rate has decreased by 31 bpm Referred By: Jose Faith Electronically Signed By: Jagjit Sutherland
[2025-01-10 19:02] LABS: MANUAL DIFF FLAG NO
[2025-01-10 19:04] LABS: Basophils Percent Auto 0.2 % (0-2); Eosinophils Absolute Auto 0.2 X10*3/uL (0.0-0.4); Eosinophils Percent Auto 1.3 % (0-4); Hematocrit 27.6 % (42.0-52.0); Hemoglobin 8.6 g/dl (14.0-18.0); Imm Gran Abs Auto 0.06 X10*3/uL (0.00-0.03); Imm Gran Pct Auto 0.5 % (0.0-0.4); Lymphocytes Absolute Auto 0.5 X10*3/uL (1.2-4.9); Lymphocytes Percent Auto 4.4 % (20-40); Mean Corpuscular HGB Conc 31.2 g/dl (31.0-36.0); Mean Corpuscular Hemoglobin 29.6 pg (27.0-33.0); Mean Corpuscular Volume 94.8 fL (80.0-98.0); Monocytes Absolute Auto 0.7 X10*3/uL (0.1-1.2); Monocytes Percent Auto 5.7 % (2-11); Neutrophils Absolute Auto 10.7 x10*3/uL (2.0-8.3); Neutrophils Percent Auto 87.9 % (45-73); Platelet Count 114 X10*3/uL (160-400); Red Blood Count 2.91 X10*6/uL (4.60-5.80); Red Cell Distribution Width 15.1 % (11.0-16.0); White Blood Count 12.2 X10*3/uL (4.8-10.8)
[2025-01-10 19:23] LABS: Troponin-I High Sensitivity 24.6 ng/L (<3.5-35.0)
[2025-01-10 19:23] LABS: B Type Natriuretic Peptide 519 pg/mL (<100)
[2025-01-10 19:29] LABS: Alanine Aminotransferase 13 U/L (0-40); Albumin Level 3.5 g/dL (3.5-5.0); Alkaline Phosphatase 42 U/L (39-117); Anion Gap 12 (12-20); Aspartate Amino Transferase 14 U/L (5-37); Bilirubin Total 0.2 mg/dL (0.0-1.0); Blood Urea Nitrogen 57 mg/dL (9-16); Calcium 8.5 mg/dL (8.4-10.2); Carbon Dioxide 33 mmol/L (22-29); Chloride 101 mmol/L (96-108); Creatinine Clr Calc Pharmacy 19.4; Estimated Glomerular Filt Rate 24; Glucose Random 97 mg/dL (60-115); Potassium 6.7 mmol/L (3.3-5.1); Sodium 139 mmol/L (135-145); Total Protein 6.1 g/dL (6.5-8.0)
[2025-01-10 19:33] LABS: Appearance Urine Cloudy; Color Urine Yellow; Glucose Urine UA Negative (Negative); Leukocyte Esterase Urine Large (3+) (Negative); Nitrite Urine Negative (Negative); Specific Gravity - Urine 1.015 (1.005-1.025); UMIC TRIGGER UACC YES; Urine Blood Negative (Negative); Urine Ketones Negative (Negative); Urine Protein Negative (Neg-Trace)
[2025-01-10 19:35] LABS: Bacteria Urine None Seen (None Seen); RBC Urine 0-2 /HPF (0-2); Squamous Epithelial Cell Urine 0-2 /HPF (0-2); UACC Culture Trigger YES; WBC Urine >50 /HPF (0-5)
[2025-01-10 19:41] LABS: Influenza A PCR NEGATIVE (Negative); Influenza B PCR NEGATIVE (Negative); Resp Syncy Virus RNA Qual PCR NEGATIVE (Negative); SARS COV2 PCR INHOUSE NEGATIVE (Negative)
[2025-01-10] MEDS: Albuterol/Iprat 2.5/0.5MG 3 ML AMPUL.NEB INHALE (19:48)
[2025-01-10] MEDS: Sodium Zirconium Cyclosilicate 10 GM POWD.PACK PO (19:54)
[2025-01-10] MEDS: Dextrose 50 % 25 GM/50 ML SYRINGE IVPUSH ×2 (19:54→21:29)
[2025-01-10] MEDS: Bumetanide 1 MG/4 ML VIAL IVPUSH (19:55)
[2025-01-10] MEDS: Calcium Gluconate/NaCl,Iso-Osm 2 GM/100 ML PLAST..BAG IV (19:55)
[2025-01-10] MEDS: Insulin Regular, Human 100 UNIT/ML 10 ML VIAL IVPUSH (20:01)
--- NOTE | 2025-01-10 20:07 | ED_ITS ---
HPI - General Adult General Chief complaint: Dizziness Stated complaint: weakness, fall earlier today Time Seen by Provider: 01/10/25 17:49 Source: patient, RN notes reviewed and old records reviewed Mode of arrival: EMS Limitations: no limitations History of Present Illness ED Provider: Marcell HPI narrative: 89-year-old male past medical history significant for coronary artery disease, chronic kidney disease, hypertension, acute hypoxic respiratory failure on oxygen 5 L via nasal cannula at baseline, CHF presents for evaluation of weakness patient reports that he fell this morning due to weakness. He has had increasing weakness for at least the last few days he needed the ambulance to help get him back into bed. He refused to come to the hospital after his initial fall this morning. He fell a 2nd time in his unsure how long he was on the ground. He did hit his head but denies injuring himself in any way. He agreed to come to the hospitalist time. he denies any pain including chest pain, abdominal pain. Denies any cough or shortness of breath Related Data Home Medications ?Medication ?Instructions ?Recorded ?Confirmed latanoprost 0.005 % eye drops 1 drp ophthalmic (eye) BEDTIME PRN 07/07/21 10/12/24 WHEN EVER HE FEELS LIKE IT Previous Rx's ?Medication ?Instructions ?Recorded amlodipine 10 mg tablet 10 mg PO DAILY #90 tabs 07/03/21 comp.stocking,knee,long,medium #12 ea 08/17/21 ezetimibe 10 mg tablet 10 mg PO DAILY 90 days #90 tabs 08/27/21 gabapentin 300 mg capsule 300 mg PO BID 90 days #180 caps 08/27/21 isosorbide mononitrate 30 mg 30 mg PO DAILY #90 tabs 08/27/21 tablet,extended release 24 hr niacin 500 mg tablet 500 mg PO DAILY 90 days #90 tabs 08/27/21 omeprazole 20 mg capsule,delayed 20 mg PO DAILY #30 caps 08/27/21 release aspirin 81 mg tablet,delayed 81 mg PO DAILY #30 tabs 08/28/21 release (Adult Aspirin Regimen) hydrochlorothiazide 25 mg tablet 25 mg PO DAILY #90 tabs 08/28/21 metoprolol succinate 50 mg 50 mg PO DAILY #90 tabs 08/28/21 tablet,extended release 24 hr Allergies Allergy/AdvReac Type Severity Reaction Status Date / Time Jwlqgvo-TSN-GhQ Reductase Allergy Unknown Verified 01/10/25 18:02 Inhibitor [Mwrmzcz-Iey-Anf Reductase Inhibitor] Review of Systems 2 Constitutional: Constitutional: Denies body ache(s), Denies chills, Denies fever(s), Reports frequent falls, Denies headache(s), Reports malaise and Reports weakness Eyes: Eyes: Denies blurry vision ENT: Denies vertigo, Denies dizziness, Denies headache(s) and Denies sore throat Cardiovascular: Cardiovascular: Denies chest pain and Denies dyspnea Respiratory: Respiratory: Denies cough and Denies dyspnea Gastrointestinal: Gastrointestinal: Denies abdominal pain, Denies nausea and Denies vomiting Musculoskeletal: Musculoskeletal: Denies back pain Integumentary/Breasts: Skin/Breast: Denies rash Neurologic: Denies vertigo, Denies dizziness, Reports frequent falls, Denies headache(s) and Reports weakness PMFSH Past Medical History Medical History (Updated 01/10/25 @ 20:16 by Jose Faith) Dermatitis Hypertension PVD (peripheral vascular disease) CAD (coronary artery disease) CHF (congestive heart failure) CKD (chronic kidney disease) Obesity (BMI 30-39.9) Dyslipidemia Surgical History Pacemaker History of tonsillectomy S/P triple vessel bypass Family History Family History Father Stomach cancer Mother Unknown family medical history Brother No problems noted. Sister Smoker Sister No problems noted. Social History Social History Household Members: Children Housing: House Do you presently have visiting nurse or other home services: No Patient Tobacco Use Status: Former Tobacco user Smoked in Last 30 Days: No Use of substances other than those prescribed or required for medical reasons: No Advance Directives: No Advance Directives Information Provided: Yes Do you have a plan to hurt others: No Plan service: Yes Current occupational status: retired Physical Exam ED Vital Signs: Vital Signs - 24 hr 01/10/25 18:00 01/10/25 18:11 01/10/25 19:50 Temperature 98.0 F Pulse Rate 60 66 62 Respiratory Rate 20 16 18 Blood Pressure 135/50 L Pulse Oximetry 87 L 94 Oxygen Delivery Method Nasal Cannula Nasal Cannula Oxygen Flow Rate 5 01/10/25 19:55 01/10/25 21:05 01/10/25 23:50 Temperature 98.0 F Pulse Rate 63 67 Respiratory Rate 20 18 Blood Pressure 137/54 L 136/49 L 166/93 H Pulse Oximetry 91 L 93 Oxygen Delivery Method Nasal Cannula Nasal Cannula Oxygen Flow Rate 5 5 01/11/25 01:17 Temperature 98.4 F Pulse Rate 60 Respiratory Rate 13 Blood Pressure 140/53 H Pulse Oximetry 91 L Oxygen Delivery Method Nasal Cannula Oxygen Flow Rate 5 BMI result Body Mass Index 27.4 Const General: healthy appearing, comfortable, no acute distress, alert and awake Nutritional Appearance: well nourished Orientation/consciousness: patient oriented x3 HENMT Head: Yes normocephalic and Yes atraumatic Eyes Eyelids: Yes eyelids normal Conjunctivae: conjunctivae normal Sclerae: sclerae normal Corneas: corneas normal Pupils: Equal, round and reactive pupils present EOM: EOMs intact bilaterally Neck Neck: Yes full ROM Resp Other: bibasilar rhonchi Effort & Inspection: normal respiratory effort, able to speak in complete sentences and not labored Cardio Other: no significant lower extremity edema Rate: regular rate Rhythm: regular rhythm GI Inspection: No distended Palpation (GI): Soft to palpation, not firm, nontender, no guarding and not rigid Skin General skin exam: elasticity normal Neuro General: patient oriented x3 Cranial nerves: Yes Equal, round and reactive pupils present and Yes Bilaterally intact EOM present Cognition (Neuro): normal cognition Extrem Other: Moving all extremities well without any obvious deformities Course Reevaluation(s) Reevaluation #1: discussed with patient's daughter, Faye. She was [facility] the [facility] is a member of a [facility] pace program and all of his care is at [facility]. She would like the patient to be transferred to [facility] if possible. I called the [facility] transfer line to let them know the patient is to be admitted for chronic kidney disease, hyperkalemia and pulmonary edema. They will attempt to find the hospitalist to discuss and see if the patient will be accepted. The patient currently is not accepted. Faye did talk with the patient had medication adjustments last week, he was given an antibiotic that external med reconciliation shows is Bactrim on 01/06/2025. This may be contributing to the patient's GIOVANA. Time: 21:10 Reevaluation #2: Discussed with [facility] transfer line, discussed with Bautista, on the hospitalist team who will accept transfer. The patient will be accepted in transfer under the care of Dr. Osman. however he will not get a bed till tomorrow at some point. The patient will be in this ER overnight. I will repeat 1 more set of labs for 1:00 a.m.. The patient has become hypoglycemic to 57, I ordered a in additional amp of dextrose 50%, 25 g. The patient was not altered all, he remains alert and oriented Time: 22:13 Reevaluation #3: patient's potassium is now 5.8, his glucose is 73. Renal function is improving to 2.32. He was resting comfortably, no respiratory distress. Patient signed out to overnight attending, Dr Muniz pending bed placement at [facility] Time: 01:35 Medications Administered Discontinued Medications Generic Name Dose Route Start Last Admin Trade Name Freq PRN Reason Stop Dose Admin Albuterol/Ipratropium 3 ml 01/10/25 19:43 01/10/25 19:48 Albuterol/Iprat 2.5/0.5mg 3 Ml Ampul.Neb INHALE 01/10/25 19:44 3 ml ONCE ONE Administration Bumetanide 1 mg 01/10/25 19:42 01/10/25 19:55 Bumetanide 1 Mg/4 Ml Vial IVPUSH 01/10/25 19:43 1 mg ONCE ONE Administration Protocol Dextrose 25 gm 01/10/25 19:42 01/10/25 19:54 Dextrose 50 % 25 Gm/50 Ml Syringe IVPUSH 01/10/25 19:43 25 gm ONCE ONE Administration Dextrose 25 gm 01/10/25 21:25 01/10/25 21:29 Dextrose 50 % 25 Gm/50 Ml Syringe IVPUSH 01/10/25 21:26 25 gm ONCE ONE Administration Calcium Gluconate 2 gm in 100 mls @ 400 mls/hr 01/10/25 19:29 01/10/25 20:28 Calcium Gluconate IV 01/10/25 19:43 Infused ONCE ONE Infusion Insulin Human Regular 5 unit 01/10/25 19:42 01/10/25 20:01 Insulin Regular, Human 100 Unit/Ml 10 Ml Vial IVPUSH 01/10/25 19:43 5 unit ONCE ONE Administration Sodium Zirconium Cyclosilicate 10 gm 01/10/25 19:29 01/10/25 19:54 Sodium Zirconium Cyclosilicate 10 Gm Powd.Pack PO 01/10/25 19:30 10 gm ONCE ONE Administration Medical Decision Making Medical Decision Making [facility] Narrative: 81-year-old male with past medical history as above presents for evaluation of weakness. He has fairly vague complaints, denies any pain. He had fall twice today in his unsure how long he was in the ground. Initial workup included EKG, CT scan of the brain and cervical spine given the fall, a single-view chest x- ray, basic labs. the patient is found to have a critical potassium of 6.7, he does carry a history of chronic kidney disease. He has an GIOVANA on top of his chronic kidney disease. His chest x-ray shows pulmonary vascular congestion and he does have an elevated BNP to over 500. we will treat his hyperkalemia with Lokelma, calcium gluconate, insulin, we will give dextrose to counteract the hypoglycemiceffect of insulin. given the pulmonary vascular congestion, we will hold IV fluids. I did order a Bumex 1mg IV Differential Diagnosis Differential Diagnoses: The differential diagnosis associated with the presentation includes hyperkalemia Renal failure Chronic kidney disease Hypovolemia Hypovolemia Pneumonia Aspiration pneumonia Admission/Observation Consideration of admission/observation: Escalation of care including admission/observation considered Lab Data [facility] Lab Attestation statement: I reviewed the patient's lab results. patient does have a mild leukocytosis of 12.2 with a left shift. He was afebrile. He has a significant anemia with a hemoglobin of 8.6 and hematocrit 27.6. This is likely related to anemia chronic disease due to his renal function. Platelet count is 114. Patient's potassium is elevated to 6.7 as documented above. CO2 is elevated to 33. This is likely due to the patient's chronic oxygen use. BUN is elevated to 57 with a creatinine of 2.57 respectively. 01/10/25 18:57 01/11/25 01:11 Labs: Lab Results 01/10/25 01/10/25 01/10/25 Range/Units 18:57 18:58 19:13 WBC 12.2 H (4.8-10.8) X10*3/uL RBC 2.91 L (4.60-5.80) X10*6/uL Hgb 8.6 L (14.0-18.0) g/dl Hct 27.6 L (42.0-52.0) % MCV 94.8 (80.0-98.0) fL MCH 29.6 (27.0-33.0) pg MCHC 31.2 (31.0-36.0) g/dl RDW 15.1 (11.0-16.0) % Plt Count 114 L (160-400) X10*3/uL MPV 9.0 L (9.4-12.4) fL Immature Gran % (Auto) 0.5 H (0.0-0.4) % Neut % (Auto) 87.9 H (45-73) % Lymph % (Auto) 4.4 L (20-40) % [place] % (Auto) 5.7 (2-11) % Eos % (Auto) 1.3 (0-4) % Baso % (Auto) 0.2 (0-2) % Lymph # (Auto) 0.5 L (1.2-4.9) X10*3/uL [place] # (Auto) 0.7 (0.1-1.2) X10*3/uL Eos # (Auto) 0.2 (0.0-0.4) X10*3/uL Baso # (Auto) 0.0 (0.0-0.2) X10*3/uL Abs Immat Gran (auto) 0.06 H (0.00-0.03) X10*3/uL Absolute Neuts (auto) 10.7 H (2.0-8.3) x10*3/uL Absolute Nucleated RBC 0.000 (0.0-0.012) X10*3/uL Nucleated RBC % (auto) 0.0 (0.0-0.2) /100WBC Sodium 139 (135-145) mmol/L Potassium 6.7 H* (3.3-5.1) mmol/L Chloride 101 (96-108) mmol/L Carbon Dioxide 33 H (22-29) mmol/L Anion Gap 12 (12-20) BUN 57 H (9-16) mg/dL Creatinine 2.57 H (0.5-1.4) mg/dL Estim Creat Clear Calc 19.4 Estimated GFR 24 POC Glucose (60-115) mg/dL Random Glucose 97 (60-115) mg/dL Calcium 8.5 (8.4-10.2) mg/dL Magnesium 2.2 (1.6-2.6) mg/dL Total Bilirubin 0.2 (0.0-1.0) mg/dL AST 14 (5-37) U/L ALT 13 (0-40) U/L Alkaline Phosphatase 42 (39-117) U/L Total Creatine Kinase 30 L (38-174) U/L Troponin I High Sens 24.6 (<3.5-35.0) ng/L B-Natriuretic Peptide 519 H (<100) pg/mL Total Protein 6.1 L (6.5-8.0) g/dL Albumin 3.5 (3.5-5.0) g/dL Urine Color Yellow Urine Appearance Cloudy Urine pH 5.0 (5.0-9.0) Ur Specific [place]ony 1.015 (1.005-1.025) Urine Protein Negative (Neg-Trace) mg/dL Urine Glucose (UA) Negative (Negative) mg/dL Urine Ketones Negative (Negative) mg/dL Urine Blood Negative (Negative) Urine Nitrite Negative (Negative) Ur Leukocyte Esterase Large (3+) H (Negative) Urine RBC 0-2 (0-2) /HPF Urine WBC >50 H (0-5) /HPF Ur Squamous Epith Cells 0-2 (0-2) /HPF Urine Bacteria None Seen (None Seen) Hyaline Casts 3-5 (0-2) /LPF Influenza Type A (PCR) NEGATIVE (Negative) Influenza Type B (PCR) NEGATIVE (Negative) RSV RNA Qual (PCR) NEGATIVE (Negative) SARS-CoV-2 RNA (RT-PCR) NEGATIVE (Negative) 01/10/25 01/10/25 01/10/25 Range/Units 20:57 21:22 22:16 WBC (4.8-10.8) X10*3/uL RBC (4.60-5.80) X10*6/uL Hgb (14.0-18.0) g/dl Hct (42.0-52.0) % MCV (80.0-98.0) fL MCH (27.0-33.0) pg MCHC (31.0-36.0) g/dl RDW (11.0-16.0) % Plt Count (160-400) X10*3/uL MPV (9.4-12.4) fL Immature Gran % (Auto) (0.0-0.4) % Neut % (Auto) (45-73) % Lymph % (Auto) (20-40) % [place] % (Auto) (2-11) % Eos % (Auto) (0-4) % Baso % (Auto) (0-2) % Lymph # (Auto) (1.2-4.9) X10*3/uL [place] # (Auto) (0.1-1.2) X10*3/uL Eos # (Auto) (0.0-0.4) X10*3/uL Baso # (Auto) (0.0-0.2) X10*3/uL Abs Immat Gran (auto) (0.00-0.03) X10*3/uL Absolute Neuts (auto) (2.0-8.3) x10*3/uL Absolute Nucleated RBC (0.0-0.012) X10*3/uL Nucleated RBC % (auto) (0.0-0.2) /100WBC Sodium 140 (135-145) mmol/L Potassium 5.5 H (3.3-5.1) mmol/L Chloride 101 (96-108) mmol/L Carbon Dioxide 34 H (22-29) mmol/L Anion Gap 11 L (12-20) BUN 55 H (9-16) mg/dL Creatinine 2.52 H (0.5-1.4) mg/dL Estim Creat Clear Calc 19.7 Estimated GFR 24 POC Glucose 55 L* 163 H (60-115) mg/dL Random Glucose 57 L* (60-115) mg/dL Calcium 9.3 D (8.4-10.2) mg/dL Magnesium (1.6-2.6) mg/dL Total Bilirubin (0.0-1.0) mg/dL AST (5-37) U/L ALT (0-40) U/L Alkaline Phosphatase (39-117) U/L Total Creatine Kinase (38-174) U/L Troponin I High Sens (<3.5-35.0) ng/L B-Natriuretic Peptide (<100) pg/mL Total Protein (6.5-8.0) g/dL Albumin (3.5-5.0) g/dL Urine Color Urine Appearance Urine pH (5.0-9.0) Ur Specific Harmony (1.005-1.025) Urine Protein (Neg-Trace) mg/dL Urine Glucose (UA) (Negative) mg/dL Urine Ketones (Negative) mg/dL Urine Blood (Negative) Urine Nitrite (Negative) Ur Leukocyte Esterase (Negative) Urine RBC (0-2) /HPF Urine WBC (0-5) /HPF Ur Squamous Epith Cells (0-2) /HPF Urine Bacteria (None Seen) Hyaline Casts (0-2) /LPF Influenza Type A (PCR) (Negative) Influenza Type B (PCR) (Negative) RSV RNA Qual (PCR) (Negative) SARS-CoV-2 RNA (RT-PCR) (Negative) 01/10/25 01/11/25 Range/Units 23:48 01:11 WBC (4.8-10.8) X10*3/uL RBC (4.60-5.80) X10*6/uL Hgb (14.0-18.0) g/dl Hct (42.0-52.0) % MCV (80.0-98.0) fL MCH (27.0-33.0) pg MCHC (31.0-36.0) g/dl RDW (11.0-16.0) % Plt Count (160-400) X10*3/uL MPV (9.4-12.4) fL Immature Gran % (Auto) (0.0-0.4) % Neut % (Auto) (45-73) % Lymph % (Auto) (20-40) % [place] % (Auto) (2-11) % Eos % (Auto) (0-4) % Baso % (Auto) (0-2) % Lymph # (Auto) (1.2-4.9) X10*3/uL [place] # (Auto) (0.1-1.2) X10*3/uL Eos # (Auto) (0.0-0.4) X10*3/uL Baso # (Auto) (0.0-0.2) X10*3/uL Abs Immat Gran (auto) (0.00-0.03) X10*3/uL Absolute Neuts (auto) (2.0-8.3) x10*3/uL Absolute Nucleated RBC (0.0-0.012) X10*3/uL Nucleated RBC % (auto) (0.0-0.2) /100WBC Sodium 141 (135-145) mmol/L Potassium 5.8 H (3.3-5.1) mmol/L Chloride 103 (96-108) mmol/L Carbon Dioxide 31 H (22-29) mmol/L Anion Gap 13 (12-20) BUN 51 H (9-16) mg/dL Creatinine 2.32 H (0.5-1.4) mg/dL Estim Creat Clear Calc 21.4 Estimated GFR 27 POC Glucose 94 (60-115) mg/dL Random Glucose 73 (60-115) mg/dL Calcium 9.2 (8.4-10.2) mg/dL Magnesium (1.6-2.6) mg/dL Total Bilirubin (0.0-1.0) mg/dL AST (5-37) U/L ALT (0-40) U/L Alkaline Phosphatase (39-117) U/L Total Creatine Kinase (38-174) U/L Troponin I High Sens (<3.5-35.0) ng/L B-Natriuretic Peptide (<100) pg/mL Total Protein (6.5-8.0) g/dL Albumin (3.5-5.0) g/dL Urine Color Urine Appearance Urine pH (5.0-9.0) Ur Specific [place] (1.005-1.025) Urine Protein (Neg-Trace) mg/dL Urine Glucose (UA) (Negative) mg/dL Urine Ketones (Negative) mg/dL Urine Blood (Negative) Urine Nitrite (Negative) Ur Leukocyte Esterase (Negative) Urine RBC (0-2) /HPF Urine WBC (0-5) /HPF Ur Squamous Epith Cells (0-2) /HPF Urine Bacteria (None Seen) Hyaline Casts (0-2) /LPF Influenza Type A (PCR) (Negative) Influenza Type B (PCR) (Negative) RSV RNA Qual (PCR) (Negative) SARS-CoV-2 RNA (RT-PCR) (Negative) Independent Interpretation I performed an independent interpretation of an: EKG Interpretation: Atrial sensed ventricular paced rhythm with a rate of 67 beats minute. Discharge Plan Discharge Clinical Impression: Acute hyperkalemia, CHF (congestive heart failure) Patient Disposition: Admitted As Inpatient Print Language: Nigerian
[2025-01-10 20:34] LABS: Magnesium 2.2 mg/dL (1.6-2.6)
[2025-01-10 21:18] LABS: Anion Gap 11 (12-20); Blood Urea Nitrogen 55 mg/dL (9-16); Calcium 9.3 mg/dL (8.4-10.2); Carbon Dioxide 34 mmol/L (22-29); Chloride 101 mmol/L (96-108); Creatinine Clr Calc Pharmacy 19.7; Estimated Glomerular Filt Rate 24; Glucose Random 57 mg/dL (60-115); Potassium 5.5 mmol/L (3.3-5.1); Sodium 140 mmol/L (135-145)
[2025-01-10 21:25] LABS: Glucose, Whole Blood 55 mg/dL (60-115)
--- NOTE | 2025-01-10 21:29 | PC.NURSE ---
Addendum entered by Dana Singletary RN 01/10/25 22:21: recheck POC 163, FREDI Faith aware, no new orders at this time. Original Note: pts POC noted to be 55, FREDI Faith aware, admninistering amp of 50% dextrose per orders. will recheck in a half hour.
[2025-01-10 22:23] LABS: Glucose, Whole Blood 163 mg/dL (60-115)
[2025-01-10 23:53] LABS: Glucose, Whole Blood 94 mg/dL (60-115)
[2025-01-11 01:17] VITALS: BP 140/53; PULSE 60; RESP 13; TEMP 36.9; O2SAT 91
[2025-01-11 01:31] LABS: Anion Gap 13 (12-20); Blood Urea Nitrogen 51 mg/dL (9-16); Calcium 9.2 mg/dL (8.4-10.2); Carbon Dioxide 31 mmol/L (22-29); Chloride 103 mmol/L (96-108); Creatinine Clr Calc Pharmacy 21.4; Estimated Glomerular Filt Rate 27; Glucose Random 73 mg/dL (60-115); Potassium 5.8 mmol/L (3.3-5.1); Sodium 141 mmol/L (135-145)
--- NOTE | 2025-01-11 02:22 | PC.NURSE ---
pt from [facility] after a couple falls today. pt reports he has been having increasing weakness and dizziness over the last few days. He refused to come to the hospital the first time he fell, and after the second fall he agreed to come to the hospital for evaluation. Unknown downtime, positive head strike no injury. Pt denies any fevers/chills/ n/v/d, abd pain, chest pain, or SOB. Pt wears 5L of O2 at baseline. Pt is a&ox3, able to make his needs known, and using urinal independently. Daughter, Faye (pts HCP), called frustrated pt was transferred here as he is part of the PACE program at [facility] and all of his care is through [facility]. Pt will be transferred tomorrow to [facility].
[2025-01-11] MEDS: Albuterol Sulfate (0.083%) 2.5 MG/3 ML VIAL.NEB 5 MG INHALE (05:18)
[2025-01-11 06:00] VITALS: BP 140/53; PULSE 80; RESP 22; TEMP 36.9; O2SAT 95
[2025-01-11 09:06] VITALS: BP 141/43; PULSE 72; RESP 14; TEMP 36.7; O2SAT 94
--- NOTE | 2025-01-11 09:16 | PHA.MEDREC ---
Pharmacy Consult ? Medication Reconciliation Pharmacy has completed the medication reconciliation. Used list from [facility]
[2025-01-11] MEDS: Sodium Zirconium Cyclosilicate 10 GM POWD.PACK PO (09:35)
[2025-01-11 09:56] VITALS: BP 141/43; PULSE 72; RESP 14; TEMP 36.7; O2SAT 94
== END 2025-01-11 10:23 | disposition short-term general hospital (02) ==
PROVIDERS: Physician Assistant; Emergency Provider Emergency Medicine; PCP Nurse Practitioner Family
DX: E87.5 Hyperkalemia (principal); R53.1 Weakness; I13.0 Hypertensive heart and chronic kidney disease with heart failure and stage 1 through stage 4 chronic kidney disease, or unspecified chronic kidney disease; I50.9 Heart failure, unspecified; N18.9 Chronic kidney disease, unspecified; Z03.818 Encounter for observation for suspected exposure to other biological agents ruled out
CPT/HCPCS: 0241U; 36415; 70450; 71045; 72125; 80048; 80053; 81001; 82550; 82947; 83735; 83880; 84484; 85025; 87086; 93005; 94640; 96365; 96375; 96376; 99285; J0613; J1939

== ENCOUNTER → 2025-01-10 18:27 | Outpatient (BNV) | payer MEDICARE, SELFPAY | PROVIDERS: Visit Provider Radiology Neuroradiology | DX: R42 Dizziness and giddiness (principal); J90 Pleural effusion, not elsewhere classified; R53.1 Weakness; M50.30 Other cervical disc degeneration, unspecified cervical region | CPT/HCPCS: 70450; 71045; 72125 ==

== ENCOUNTER → 2025-01-10 18:28 | Outpatient (BNV) | payer MEDICARE, SELFPAY | PROVIDERS: Emergency Provider Emergency Medicine; PCP Nurse Practitioner Family; Visit Provider Internal Medicine Cardiovascular Disease | DX: R94.31 Abnormal electrocardiogram [ECG] [EKG] (principal); R53.1 Weakness | CPT/HCPCS: 93010 ==